=== PATIENT | male | born 1945 | race Caucasian/White ===

== ENCOUNTER 2019-08-20 11:48 | Inpatient (IN) | payer MEDICARE ==
--- NOTE | 2019-08-20 12:48 | ERPHSYRPT ---
- History of Present Illness Time Seen by Provider: 08/20/19 11:51 Source: patient Exam Limitations: no limitations Patient Subjective Stated Complaint: EMS was called to pt's house due to pt not feeling well, pt states that he doesn't know what he is doing here and can't remember anything, pt states that the doesn't remember going to bed last night or waking up, EMS stated that his said that he had spent most of yesterday on the floor and she was unable to get him up Triage Nursing Assessment: Pt brought to the ER by EMS, pt confused, A&O to person and date of only, pt unable to answer any health related questions, called step daughter and was advised that he has dementia that has steadily been getting worse over the past year, pt is scheduled for a brain scan on Sunday with Dr. Pond, step-daughter said that the pt not being able to answer questions is acute today, while going to the restroom yesterday the pt went limp and fell several times and took a long time getting himself up before making it to the restroom, pt is extremely weak, ring worm at the bottom of the right leg, mild edema to alexander extremeties, skin n/w/d, unable to obtain an iv site due to poor veins, pt walks with a walker at home, pt denies pain and doesn't appear to be in any distress Physician History: Patient is here with ground-level fall yesterday, confusion, weakness. Patient is unsure what is going on, he is acutely confused. This is new. Although he does have a history of dementia, this is worse. Patient's stated that he was on the floor most of the day yesterday. History is provided by EMS and tosha abdalla's stepdaughter. Patient is unable to give any information himself today. Denies any chest pain or shortness of breath. Location: generalized Quality: weakness Radiation: none Severity: moderate Duration: 2-3 days Timing: worsening Modifying factors/associated signs and symptoms: fall at home Home Medications: Amiodarone HCl [Pacerone] 200 mg PO BID 08/20/19 [History] Amitriptyline HCl 25 mg [Elavil 25 mg] 25 mg PO HS 08/20/19 [History] Amlodipine Besylate [Norvasc] 10 mg PO DAILY 08/20/19 [History] Baclofen 10 mg [Lioresal 10 mg] 10 - 20 mg PO HS 08/20/19 [History] Clonidine HCl [Catapres] 0.2 mg PO BID 08/20/19 [History] Duloxetine HCl [Cymbalta] 60 mg PO DAILY 08/20/19 [History] Furosemide 40 mg [Lasix 40 MG] 40 mg PO BID 08/20/19 [History] Gabapentin [Neurontin] 600 mg PO BID 08/20/19 [History] Gemfibrozil 600 mg [Lopid 600 mg] 600 mg PO BID 08/20/19 [History] Hydralazine HCl 50 mg PO BID 08/20/19 [History] Levothyroxine Sodium [Levoxyl] 200 mcg PO DAILY 08/20/19 [History] Primidone [Mysoline] 250 mg PO HS 08/20/19 [History] Rivaroxaban [Xarelto] 20 mg PO DAILY 08/20/19 [History] Spironolactone 25 mg [Aldactone 25 MG] 25 mg PO DAILY 08/20/19 [History] Tamsulosin HCl 0.4 mg [Flomax 0.4 MG] 0.4 mg PO DAILY 08/20/19 [History] Tramadol HCl 50 mg [Ultram 50 mg] 50 mg PO TID PRN 08/20/19 [History] Warfarin Sodium [Coumadin] 4 mg PO DAILY 08/20/19 [History] Travel Risk - International Travel Have you traveled outside of the country in past 3 weeks: No - Coronavirus Screening Are you exhibiting any of the following symptoms?: No Close contact with a COVID-19 positive Pt in past 14-21 Days: No - Past Medical History Pertinent Past Medical History: Yes Neurological History: Dementia Cardiac History: High Cholesterol, Hypertension Respiratory History: COPD Endocrine Medical History: Hypothyroidism, Thyroid Cancer History: Other Psycho-Social History: Depression - Past Surgical History Past Surgical History: Yes Musculoskeletal: Orthopedic Surgery Other Surgical History: thyroid cancer- thyroidectomy - Social History Smoking Status: Former smoker Exposure to second hand smoke: No Drug Use: none Patient Lives Alone: No - Review of Systems Constitutional: No Fever, No Chills Eyes: No Symptoms Ears, Nose, & Throat: No Symptoms Respiratory: No Cough, No Dyspnea Cardiac: No Chest Pain, No Edema, No Syncope Abdominal/Gastrointestinal: No Abdominal Pain, No Nausea, No Vomiting, No Diarrhea Genitourinary Symptoms: No Dysuria Musculoskeletal: No Back Pain, No Neck Pain Skin: No Rash Neurological: Other (confusion), No Dizziness, No Focal Weakness, No Sensory Changes Psychological: No Symptoms Endocrine: No Symptoms All Other Systems: Reviewed and Negative - Nursing Vital Signs Nursing Vital Signs: Initial Vital Signs Temperature 98.4 F 08/20/19 11:54 Pulse Rate 87 08/20/19 11:54 Respiratory Rate 14 08/20/19 11:54 Blood Pressure 165/93 08/20/19 11:54 O2 Sat by Pulse Oximetry 93 L 08/20/19 11:54 Pain Scale Pain Intensity 0 - Physical Exam General Appearance: no apparent distress, alert Eye Exam: PERRL/EOMI Ears, Nose, Throat Exam: pharynx normal, moist mucous membranes Neck Exam: normal inspection, supple Respiratory Exam: normal breath sounds, lungs clear Cardiovascular Exam: regular rate/rhythm, No edema Gastrointestinal/Abdomen Exam: soft, No tenderness Back Exam: normal inspection, No CVA tenderness Extremity Exam: normal inspection, normal range of motion, No pedal edema Neurologic Exam: alert, cooperative, sensation nml, other (moving all 4 extremities, confused on questioning ), No motor deficits Skin Exam: normal color, warm, dry, No rash SpO2: 93 - Course Nursing assessment & vital signs reviewed: Yes EKG Interpreted by Me: RATE Ordered Tests: Active Orders 24 hr Category Date Time Status Bedrest with BRP/BSC ROUTINE Activity 08/20/19 14:27 Ordered Call Admit Doctor for Orders ON ADMISSION Care 08/20/19 14:25 Ordered Geoscience Laboratory Technician STAT Care 08/20/19 12:14 Active Code Status Order ROUTINE Care 08/20/19 14:24 Ordered Code Status Order ROUTINE Care 08/20/19 14:27 Ordered EKG-ER Only STAT Care 08/20/19 12:12 Active IV Care Q6H Care 08/20/19 14:24 Ordered IV Care Q6H Care 08/20/19 14:27 Ordered IV Insertion STAT Care 08/20/19 12:12 Active Implement Chest Pain Pathway ROUTINE Care 08/20/19 14:[address] in Observation ROUTINE Care 08/20/19 14:24 Ordered Kahlil Powell, Apply ROUTINE Care 08/20/19 14:27 Ordered Weight,Daily 0600 Care 08/20/19 14:27 Ordered Heart-Healthy Diet Diet 08/20/19 Breakfast Ordered CHEST 2 VIEWS (PA AND LAT) Stat Exams 08/20/19 12:13 Completed HEAD WITHOUT CONTRAST [CT] Stat Exams 08/20/19 12:14 Completed BLOOD CULTURE Stat Lab 08/20/19 13:00 Received CBC W DIFF AM.LAB Lab 08/21/19 04:00 Ordered CBC W DIFF Stat Lab 08/20/19 13:00 Completed CMP AM.LAB Lab 08/21/19 04:00 Ordered CMP Stat Lab 08/20/19 12:20 Completed CULTURE,URINE Stat Lab 08/20/19 13:44 Ordered ETHYL ALCOHOL Stat Lab 08/20/19 12:20 Completed LIPASE Stat Lab 08/20/19 12:20 Completed LIPID PROFILE AM.LAB Lab 08/21/19 04:00 Ordered Lactic Acid AM.LAB Lab 08/21/19 04:00 Ordered Lactic Acid Stat Lab 08/20/19 13:07 Completed NT PRO BNP Stat Lab 08/20/19 12:20 Completed PROTIME WITH INR Stat Lab 08/20/19 13:00 Completed PTT Stat Lab 08/20/19 13:00 Completed TROPONIN Q3H Lab 08/20/19 13:00 Completed TROPONIN Q3H Lab 08/20/19 15:15 Ordered TROPONIN Q3H Lab 08/20/19 18:15 Ordered TROPONIN Q3H Lab 08/20/19 21:15 Ordered TROPONIN Q3H Lab 08/21/19 00:15 Ordered UA W/RFX UR CULTURE Stat Lab 08/20/19 13:44 Completed VENOUS BLOOD GAS AM.LAB Lab 08/21/19 04:00 Ordered EKG Q8HX2,QAMX3,PRN RT 08/20/19 14:27 Ordered Pulse Oximetry CONTINUOUS RT 08/20/19 14:25 Ordered Medication Summary Generic Name Dose Route Start Last Admin Trade Name Freq PRN Reason Stop Dose Admin Sodium Chloride 1,000 mls @ 100 mls/hr 08/20/19 14:30 Sodium Chloride 0.9% 1000 Ml IV 09/19/19 14:29 .Q10H [facility] Azithromycin 500 mg in 250 mls @ 250 mls/hr 08/21/19 10:00 Zithromax 500 Mg/ 250 Ml Nacl Premix IV 09/20/19 09:59 Q24H10 [facility] Ceftriaxone Sodium/Dextrose 1 g in 50 mls @ 100 mls/hr 08/21/19 10:00 Rocephin 1 Gm-D5w 50 Ml Bag IV 09/20/19 09:59 Q24H10 [facility] Lab/Rad Data: Laboratory Result Diagrams 08/20/19 13:00 08/20/19 12:20 Laboratory Results 08/20/19 08/20/19 08/20/19 Range/Units 13:44 13:07 13:00 WBC (4.0-10.5) K/mm3 RBC (4.1-5.6) M/mm3 Hgb (12.5-18.0) gm/dl Hct (42-50) % MCV (78-100) fl MCH (26-32) pg MCHC (32-36) g/dl RDW (11.5-14.0) % Plt Count (150-450) K/mm3 MPV (7.5-11.0) fl Gran % (36.0-66.0) % Eos # (Auto) (0-0.5) Absolute Lymphs (auto) (1.0-4.6) Absolute Monos (auto) (0.0-1.3) Lymphocytes % (24.0-44.0) % Monocytes % (0.0-12.0) % Eosinophils % (0.00-5.0) % Basophils % (0.0-0.4) % Absolute Granulocytes (1.4-6.9) Basophils # (0-0.4) PT (8.83-12.87) SECONDS INR (0.8-3.0) APTT (24.1-36.1) SECONDS Sodium (137-145) mmol/L Potassium (3.5-5.1) mmol/L Chloride (98-107) mmol/L Carbon Dioxide (22-30) mmol/L Anion Gap (5-15) MEQ/L BUN (9-20) mg/dL Creatinine (0.66-1.25) mg/dL Estimated GFR ML/MIN Glucose (74-106) mg/dL Lactic Acid 1.3 (0.4-2.0) Calcium (8.4-10.2) mg/dL Total Bilirubin (0.2-1.3) mg/dL AST (17-59) U/L ALT (0-50) U/L Alkaline Phosphatase (38-126) U/L Troponin I 0.037 H* (0.000-0.034) ng/mL NT-Pro-B Natriuret Pep (0-900) pg/mL Serum Total Protein (6.3-8.2) g/dL Albumin (3.5-5.0) g/dL Lipase (23-300) U/L Urine Color YELLOW (YELLOW) Urine Appearance SLIGHTLY CLOUDY (CLEAR) Urine pH 6.0 (5-6) Ur Specific Partridge 1.017 (1.005-1.025) Urine Protein 100 (Negative) Urine Ketones TRACE (NEGATIVE) Urine Blood MODERATE (0-5) Andrey/ul Urine Nitrite NEGATIVE (NEGATIVE) Urine Bilirubin NEGATIVE (NEGATIVE) Urine Urobilinogen NEGATIVE (0-1) mg/dL Ur Leukocyte Esterase NEGATIVE (NEGATIVE) Urine WBC (Auto) 3-5 (0-5) /HPF Urine RBC (Auto) 26-50 (0-2) /HPF U Hyaline Cast (Auto) 0-2 (0-2) /LPF U Epithel Cells (Auto) RARE (FEW) /HPF Urine Bacteria (Auto) RARE (NEGATIVE) /HPF Urine Mucus (Auto) SLIGHT (NEGATIVE) /HPF Urine Culture Reflexed ORDERED SEPARATELY (NO) Urine Glucose NEGATIVE (NEGATIVE) mg/dL Ethyl Alcohol (0-10) mg/dL 08/20/19 08/20/19 08/20/19 Range/Units 13:00 13:00 12:20 WBC 18.9 H (4.0-10.5) K/mm3 RBC 4.37 (4.1-5.6) M/mm3 Hgb 13.4 (12.5-18.0) gm/dl Hct 42.2 (42-50) % MCV 96.6 (78-100) fl MCH 30.7 (26-32) pg MCHC 31.8 L (32-36) g/dl RDW 14.5 H (11.5-14.0) % Plt Count 283 (150-450) K/mm3 MPV 9.5 (7.5-11.0) fl Gran % 90.9 H (36.0-66.0) % Eos # (Auto) 0.09 (0-0.5) Absolute Lymphs (auto) 1.06 (1.0-4.6) Absolute Monos (auto) 0.53 (0.0-1.3) Lymphocytes % 5.6 L (24.0-44.0) % Monocytes % 2.8 (0.0-12.0) % Eosinophils % 0.5 (0.00-5.0) % Basophils % 0.2 (0.0-0.4) % Absolute Granulocytes 17.14 H (1.4-6.9) Basophils # 0.04 (0-0.4) PT 14.5 H (8.83-12.87) SECONDS INR 1.28 (0.8-3.0) APTT 45.7 H (24.1-36.1) SECONDS Sodium 145 (137-145) mmol/L Potassium 3.7 (3.5-5.1) mmol/L Chloride 103 (98-107) mmol/L Carbon Dioxide 33 H (22-30) mmol/L Anion Gap 13.3 (5-15) MEQ/L BUN 23 H (9-20) mg/dL Creatinine 1.43 H (0.66-1.25) mg/dL Estimated GFR 51.5 ML/MIN Glucose 131 H (74-106) mg/dL Lactic Acid (0.4-2.0) Calcium 9.3 (8.4-10.2) mg/dL Total Bilirubin 0.90 (0.2-1.3) mg/dL AST 42 (17-59) U/L ALT 20 (0-50) U/L Alkaline Phosphatase 195 H (38-126) U/L Troponin I (0.000-0.034) ng/mL NT-Pro-B Natriuret Pep 639 (0-900) pg/mL Serum Total Protein 8.3 H (6.3-8.2) g/dL Albumin 4.5 (3.5-5.0) g/dL Lipase 40 (23-300) U/L Urine Color (YELLOW) Urine Appearance (CLEAR) Urine pH (5-6) Ur Specific Partridge (1.005-1.025) Urine Protein (Negative) Urine Ketones (NEGATIVE) Urine Blood (0-5) Andrey/ul Urine Nitrite (NEGATIVE) Urine Bilirubin (NEGATIVE) Urine Urobilinogen (0-1) mg/dL Ur Leukocyte Esterase (NEGATIVE) Urine WBC (Auto) (0-5) /HPF Urine RBC (Auto) (0-2) /HPF U Hyaline Cast (Auto) (0-2) /LPF U Epithel Cells (Auto) (FEW) /HPF Urine Bacteria (Auto) (NEGATIVE) /HPF Urine Mucus (Auto) (NEGATIVE) /HPF Urine Culture Reflexed (NO) Urine Glucose (NEGATIVE) mg/dL Ethyl Alcohol < 10 (0-10) mg/dL - Progress Progress: improved Progress Note: 08/20/19 12:48 We'll obtain basic labs, fluids, EKG, troponin, chest x-ray - head CT - EKG shows no ST changes - my read. See full read below. - O2 saturations consistently greater than 95% on home 2L - CXR shows no pneumonia, pneumothorax - my read 08/20/19 14:[address] shows no obvious brain bleed. Patient will be given aspirin. Troponin is slightly elevated at 0.037. This may represent a true NSTMEI for elevation due to secondary cause including dehydration, prolonged downtime, infection. Therefore, we will trend this out before starting heparin or Lovenox as patient is already on anticoagulation. I did discuss this over the phone with on-call family medicine doctor, Dr. Robbins. He agreed with the plan. He agreed to admission. Patient most likely has infection given leukocytosis, confusion. Will do broad-spectrum antibiotics, Rocephin, azithromycin, fluids. We will continue to monitor closely as an inpatient with EKGs, troponin, telemetry. Further inpatient care per Dr. Robbins. At this point time patient will be admitted in stable condition to the floor. ED critical care statement As staff physician, I have provided critical care. Time: 45 Criteria for critical illness: Elevated troponin, infection Treatment and management provided include: Coordination of management with ETC care team, consultants, and inpatient care team. [id number] assessment of condition and response to therapy. Review and interpretation of emergent diagnostic testing. Medical chart review and completion. Direction and immediate supervision of the following therapy: Critical care was time spent personally by me on the following activities: blood draw for specimens, development of treatment plan with patient or surrogate, discussions with consultants, discussions with primary provider, interpretation of cardiac output measurements, evaluation of patient's response to treatment, examination of patient, obtaining history from patient or surrogate, ordering and performing treatments and interventions, ordering and review of laboratory studies, ordering and review of radiographic studies, pulse oximetry, re-evaluation of patient's condition and review of old charts. This time was independent of all procedures performed. Aleks Hutson Discussed with : Wili Will see patient in: hospital (observation) Counseled pt/family regarding: lab results, diagnosis, rad results - Departure Departure Disposition: Observation Clinical Impression: Confusion, Elevated troponin Condition: Stable Critical Care Time: Yes Critical Care Time(excluding separately billable procedures): Critical 30-74 mins Referrals: KIMBERLI CERVANTES MD [Primary Care Provider] - Instructions: Dementia (DC)
--- NOTE | 2019-08-20 12:51 | XRAY ---
Indication: Status post fall. Multiple contiguous axial images obtained through the head without contrast. Comparison: None Age-appropriate global atrophy and minimal periventricular degenerative micro-ischemia bilaterally. No acute intracranial hemorrhage, abnormal extra-axial fluid collection, or mass effect. Fourth ventricle is midline without hydrocephalus. Bony calvarium intact. Visualized paranasal sinuses and mastoid air cells are clear. Impression: Nonacute senile brain.
--- NOTE | 2019-08-20 13:09 | XRAY ---
Indication: Short of breath. Pneumonia. Comparison: None AP/lateral chest hyperinflated with minimal left base fibrosis/scarring. Lateral view limited by respiration artifact. No focal infiltrate, consolidation, or large effusion. Heart is not enlarged for AP technique. Bony thorax intact with mild osteopenia, degenerative changes, 2 left humeral head orthopedic screws, and surgical clips base of neck. Impression: Nonacute hyperinflated chest with chronic features.
[2019-08-20 13:13] LABS: Absolute Neutrophil Ct (ANC) 17.14 (1.4-6.9); BASOPHIL % 0.2 % (0.0-0.4); Basophil (Absolute #) 0.04 (0-0.4); Eosinophil % 0.5 % (0.00-5.0); Eosinophil (Absolute #) 0.09 (0-0.5); Hematocrit 42.2 % (42-50); Hemoglobin 13.4 gm/dl (12.5-18.0); Lymphocyte (Absolute #) 1.06 (1.0-4.6); Lymphocytes % 5.6 % (24.0-44.0); Mean Cell Volume 96.6 fl (78-100); Mean Corpuscular Hemoglobin 30.7 pg (26-32); Mean Corpuscular Hgb Concent. 31.8 g/dl (32-36); Mean Platelet Volume 9.5 fl (7.5-11.0); Monocyte (Absolute #) 0.53 (0.0-1.3); Monocytes % 2.8 % (0.0-12.0); Neutrophil % 90.9 % (36.0-66.0); Platelet Count 283 K/mm3 (150-450); Red Blood Count 4.37 M/mm3 (4.1-5.6); Red Cell Distribution Width 14.5 % (11.5-14.0); White Blood Count 18.9 K/mm3 (4.0-10.5)
[2019-08-20 13:19] LABS: INR 1.28 (0.8-3.0); PROTIME 14.5 SECONDS (8.83-12.87)
[2019-08-20 13:22] LABS: PTT 45.7 SECONDS (24.1-36.1)
[2019-08-20 13:34] LABS: ALBUMIN 4.5 g/dL (3.5-5.0); ALKALINE PHOSPHATASE 195 U/L (38-126); ANION GAP 13.3 MEQ/L (5-15); BLOOD UREA NITROGEN 23 mg/dL (9-20); CHLORIDE 103 mmol/L (98-107); Calcium 9.3 mg/dL (8.4-10.2); Carbon Dioxide 33 mmol/L (22-30); Creatinine 1 1.43 mg/dL (0.66-1.25); Glucose 131 mg/dL (74-106); LIPASE 40 U/L (23-300); NT PRO BNP 639 pg/mL (0-900); Potassium 3.7 mmol/L (3.5-5.1); SGOT/AST 42 U/L (17-59); SGPT/ALT 20 U/L (0-50); SODIUM 145 mmol/L (137-145); Total Protein 8.3 g/dL (6.3-8.2)
[2019-08-20 13:35] LABS: ETHYL ALCOHOL < 10 mg/dL (0-10)
[2019-08-20 13:57] LABS: Appearance SLIGHTLY CLOUDY (CLEAR); Bacteria RARE /HPF (NEGATIVE); Bilirubin NEGATIVE (NEGATIVE); Blood MODERATE Ery/ul (0-5); Epithelial Cells RARE /HPF (FEW); Glucose NEGATIVE (NEGATIVE); Hyaline Casts 0-2 /LPF (0-2); Ketones TRACE (NEGATIVE); Leukocyte Esterase NEGATIVE (NEGATIVE); Mucus SLIGHT /HPF (NEGATIVE); Nitrite NEGATIVE (NEGATIVE); Protein,Urine Dip 100 (Negative); RBC 26-50 /HPF (0-2); Specific Gravity 1.017 (1.005-1.025); Urobilinogen NEGATIVE mg/dL (0-1)
[2019-08-20] MEDS ORDERED: Zofran 4 MG/2 ML VIAL IV PRN (14:27)
[2019-08-20] MEDS ORDERED: MILK OF MAGNESIA 30 ML PO PRN (14:27)
[2019-08-20] MEDS ORDERED: Senokot-S Tablet PO PRN (14:27)
[2019-08-20] MEDS ORDERED: MAALOX ES 30 ML UNIT DOSE PO PRN (14:27)
[2019-08-20] MEDS ORDERED: BABY ASPIRIN 81 MG CHEW PO ONE (14:32)
[2019-08-20] MEDS ORDERED: XYLOCAINE 1% HCL 20 ML MDV ONE (15:40)
[2019-08-20] MEDS ORDERED: XYLOCAINE 1% HCL 20 ML MDV IJ ONE (15:47)
[2019-08-20] MEDS ORDERED: Zithromax 500 MG/ 250 ML NaCl Premix 500 MG/250 ML IVPB IV SCH (16:00)
[2019-08-20] MEDS ORDERED: ROCEPHIN 1 Gm-D5w 50 ml Bag** 1 G/50 ML IVPB IV SCH (16:00)
[2019-08-20] MEDS: Sodium Chloride 0.9% 1000 ML 1,000 ML IV SCH (17:03)
[2019-08-20] MEDS ORDERED: ULTRAM 50 MG PO PRN (18:25)
[2019-08-20] MEDS: LOPID 600 MG PO SCH (21:24)
[2019-08-20] MEDS: TYLENOL 325 MG PO PRN (21:24)
[2019-08-20] MEDS: Apresoline 25 MG TABLET PO SCH (21:25)
[2019-08-20] MEDS: MYSOLINE 50MG PO SCH (21:26)
[2019-08-20] MEDS: ELAVIL 25 MG PO SCH (21:27)
[2019-08-20] MEDS: LIORESAL 10 MG PO SCH (21:27)
[2019-08-20] MEDS: Catapres 0.1 MG PO SCH (21:29)
[2019-08-20] MEDS: Cordarone 200 MG PO SCH (21:29)
[2019-08-20] MEDS: NEURONTIN 300 MG PO SCH (21:29)
[2019-08-20] MEDS ORDERED: Neurontin 400 MG PO SCH (22:00)
[2019-08-21] MEDS: solu-MEDROL 125 MG IV SCH ×4 (00:26→17:52)
[2019-08-21] MEDS: Sodium Chloride 0.9% 1000 ML 1,000 ML IV SCH (04:25)
[2019-08-21 05:12] LABS: Absolute Neutrophil Ct (ANC) 11.87 (1.4-6.9); BASOPHIL % 0.3 % (0.0-0.4); Basophil (Absolute #) 0.04 (0-0.4); Eosinophil % 0.5 % (0.00-5.0); Eosinophil (Absolute #) 0.06 (0-0.5); Hematocrit 37.2 % (42-50); Hemoglobin 11.7 gm/dl (12.5-18.0); Lymphocyte (Absolute #) 0.57 (1.0-4.6); Lymphocytes % 4.5 % (24.0-44.0); Mean Cell Volume 97.4 fl (78-100); Mean Corpuscular Hemoglobin 30.6 pg (26-32); Mean Corpuscular Hgb Concent. 31.5 g/dl (32-36); Mean Platelet Volume 9.5 fl (7.5-11.0); Monocyte (Absolute #) 0.11 (0.0-1.3); Monocytes % 0.9 % (0.0-12.0); Neutrophil % 93.8 % (36.0-66.0); Platelet Count 257 K/mm3 (150-450); Red Blood Count 3.82 M/mm3 (4.1-5.6); Red Cell Distribution Width 14.4 % (11.5-14.0); White Blood Count 12.7 K/mm3 (4.0-10.5)
[2019-08-21 05:32] LABS: ALKALINE PHOSPHATASE 165 U/L (38-126); ANION GAP 12.6 MEQ/L (5-15); BLOOD UREA NITROGEN 20 mg/dL (9-20); CHLORIDE 103 mmol/L (98-107); Calcium 8.4 mg/dL (8.4-10.2); Carbon Dioxide 26 mmol/L (22-30); Glucose 186 mg/dL (74-106); Potassium 3.3 mmol/L (3.5-5.1); SGOT/AST 36 U/L (17-59); SGPT/ALT 19 U/L (0-50); SODIUM 139 mmol/L (137-145); Total Protein 7.4 g/dL (6.3-8.2)
[2019-08-21 05:53] LABS: Slide Review 1 YES
[2019-08-21 06:17] LABS: VBG BASE EXCESS 4.1 (-2.0-2.0); VBG HCO3- 27.7 meq/L (22-28); VBG pH 7.49 (7.32-7.42)
[2019-08-21 06:18] LABS: VBG CARBOXYHEMOGLOBIN 2.3 % T HGB (0.0-6.9); VBG O2 SATURATION 94.7 (95-100); VBG POTASSIUM 3.6 (3.5-5.1)
[2019-08-21 06:19] LABS: Lactic Acid 0.6 (0.4-2.0); VBG HEMOGLOBIN 11.9
--- NOTE | 2019-08-21 09:16 | XRAY ---
Indication: Covid 19. COPD. Comparison: One day earlier. Portable chest again hyperinflated with stable minimal left base fibrosis/scarring. New right base subsegmental atelectasis and tiny effusion. Remaining heart and lungs unremarkable.
[2019-08-21 09:37] LABS: Appearance CLEAR (CLEAR); Bilirubin NEGATIVE (NEGATIVE); Blood MODERATE Ery/ul (0-5); Glucose NEGATIVE (NEGATIVE); Ketones TRACE (NEGATIVE); Leukocyte Esterase NEGATIVE (NEGATIVE); Mucus SLIGHT /HPF (NEGATIVE); Nitrite NEGATIVE (NEGATIVE); Protein,Urine Dip 100 (Negative); RBC 26-50 /HPF (0-2); Urobilinogen NEGATIVE mg/dL (0-1); WBC 0-2 /HPF (0-5)
[2019-08-21] MEDS ORDERED: Sodium Chloride 0.9% 1000 ML 1,000 ML IV SCH (09:45)
[2019-08-21] MEDS ORDERED: NON-FORMULARY ITEM (Duloxetine Hcl [Cymbalta] 60 MG) PO SCH (10:00)
[2019-08-21] MEDS ORDERED: LEVOTHYROXINE SODIUM 200 MCG PO SCH (10:00)
[2019-08-21] MEDS ORDERED: NON-FORMULARY ITEM (Rivaroxaban [Xarelto] 20 MG) PO SCH (10:00)
[2019-08-21] MEDS ORDERED: NON-FORMULARY ITEM (Amlodipine Besylate [Norvasc] 10 MG) PO SCH (10:00)
[2019-08-21] MEDS: Apresoline 25 MG TABLET PO SCH ×2 (10:32→21:28)
[2019-08-21] MEDS: Lasix 40 MG PO SCH ×2 (10:33→16:35)
[2019-08-21] MEDS: Cymbalta 30 MG Capsule PO SCH (10:33)
[2019-08-21] MEDS: NEURONTIN 300 MG PO SCH ×2 (10:34→21:28)
[2019-08-21] MEDS: Flomax 0.4 MG PO SCH (10:34)
[2019-08-21] MEDS: SYNTHROID 100 MCG PO SCH (10:34)
[2019-08-21] MEDS: Aldactone 25 MG PO SCH (10:35)
[2019-08-21] MEDS: Cordarone 200 MG PO SCH ×2 (10:35→21:28)
[2019-08-21] MEDS: Catapres 0.1 MG PO SCH ×2 (10:35→21:29)
[2019-08-21] MEDS: Levofloxacin 500MG/100ML D5W 500 MG/100 ML BAG IV SCH (10:36)
[2019-08-21] MEDS: LOPID 600 MG PO SCH ×2 (10:37→21:28)
[2019-08-21] MEDS: NORVASC 5 MG PO SCH (10:38)
[2019-08-21] MEDS: XARELTO 10 MG TABLET PO SCH (10:38)
[2019-08-21] MEDS: Lotrisone Cream TOP SCH (10:53)
[2019-08-21 15:53] LABS: Appearance CLEAR (CLEAR); Bilirubin NEGATIVE (NEGATIVE); Blood SMALL Ery/ul (0-5); Glucose >=500 mg/dL (NEGATIVE); Ketones NEGATIVE (NEGATIVE); Leukocyte Esterase NEGATIVE (NEGATIVE); Nitrite NEGATIVE (NEGATIVE); Protein,Urine Dip NEGATIVE (Negative); Specific Gravity 1.016 (1.005-1.025); Urobilinogen NEGATIVE mg/dL (0-1)
[2019-08-21] MEDS: TYLENOL 325 MG PO PRN (16:35)
[2019-08-21] MEDS: HYTRIN 1 MG PO SCH (16:35)
[2019-08-21] MEDS: LIORESAL 10 MG PO SCH (21:28)
[2019-08-21] MEDS: ELAVIL 25 MG PO SCH (21:28)
[2019-08-21] MEDS: MYSOLINE 50MG PO SCH (21:28)
[2019-08-22] MEDS: solu-MEDROL 125 MG IV SCH ×5 (00:44→23:40)
[2019-08-22] MEDS: Cordarone 200 MG PO SCH ×2 (09:47→21:17)
[2019-08-22] MEDS: Levofloxacin 500MG/100ML D5W 500 MG/100 ML BAG IV SCH (09:47)
[2019-08-22] MEDS: SYNTHROID 100 MCG PO SCH (09:47)
[2019-08-22] MEDS: Catapres 0.1 MG PO SCH ×2 (09:48→21:17)
[2019-08-22] MEDS: NORVASC 5 MG PO SCH (09:48)
[2019-08-22] MEDS: Apresoline 25 MG TABLET PO SCH ×2 (09:48→21:16)
[2019-08-22] MEDS: NEURONTIN 300 MG PO SCH ×2 (09:48→21:19)
[2019-08-22] MEDS: Flomax 0.4 MG PO SCH (09:48)
[2019-08-22] MEDS: HYTRIN 1 MG PO SCH (09:48)
[2019-08-22] MEDS: XARELTO 10 MG TABLET PO SCH (09:48)
[2019-08-22] MEDS: Aldactone 25 MG PO SCH (09:49)
[2019-08-22] MEDS: LOPID 600 MG PO SCH ×2 (09:49→21:18)
[2019-08-22] MEDS: Lotrisone Cream TOP SCH (09:49)
[2019-08-22] MEDS: Lasix 40 MG PO SCH ×2 (09:49→17:00)
[2019-08-22] MEDS: Cymbalta 30 MG Capsule PO SCH (09:49)
[2019-08-22 10:42] LABS: Hematocrit 33.6 % (42-50); Hemoglobin 10.7 gm/dl (12.5-18.0); Mean Cell Volume 96.3 fl (78-100); Mean Corpuscular Hemoglobin 30.7 pg (26-32); Mean Corpuscular Hgb Concent. 31.8 g/dl (32-36); Mean Platelet Volume 10.5 fl (7.5-11.0); Platelet Count 244 K/mm3 (150-450); Red Blood Count 3.49 M/mm3 (4.1-5.6); Red Cell Distribution Width 13.8 % (11.5-14.0); White Blood Count 7.5 K/mm3 (4.0-10.5)
[2019-08-22] MEDS ORDERED: Sodium Chloride 0.9% 1000 ML 1,000 ML IV SCH (13:30)
[2019-08-22] MEDS: LIORESAL 10 MG PO SCH (21:17)
[2019-08-22] MEDS: ELAVIL 25 MG PO SCH (21:17)
[2019-08-22] MEDS: MYSOLINE 50MG PO SCH (21:18)
[2019-08-23] MEDS: solu-MEDROL 125 MG IV SCH ×2 (05:22→11:35)
[2019-08-23 08:11] VITALS: BP 157/80
[2019-08-23] MEDS ORDERED: Levofloxacin 250MG Tablet PO SCH (10:00)
[2019-08-23 10:01] VITALS: PULSE 78; O2SAT 95
[2019-08-23] MEDS: Lotrisone Cream TOP SCH (11:01)
[2019-08-23] MEDS: LOPID 600 MG PO SCH (11:01)
[2019-08-23] MEDS: HYTRIN 1 MG PO SCH (11:02)
[2019-08-23] MEDS: NEURONTIN 300 MG PO SCH (11:02)
[2019-08-23] MEDS: SYNTHROID 100 MCG PO SCH (11:02)
[2019-08-23] MEDS: Cordarone 200 MG PO SCH (11:03)
[2019-08-23] MEDS: NORVASC 5 MG PO SCH (11:03)
[2019-08-23] MEDS: Cymbalta 30 MG Capsule PO SCH (11:03)
[2019-08-23] MEDS: Aldactone 25 MG PO SCH (11:03)
[2019-08-23] MEDS: Apresoline 25 MG TABLET PO SCH (11:03)
[2019-08-23] MEDS: Flomax 0.4 MG PO SCH (11:03)
[2019-08-23] MEDS: Lasix 40 MG PO SCH (11:03)
[2019-08-23] MEDS: Catapres 0.1 MG PO SCH (11:03)
[2019-08-23] MEDS: XARELTO 10 MG TABLET PO SCH (11:06)
--- NOTE | 2019-09-04 11:29 | SSS ---
ADMISSION DIAGNOSES: 1) Pneumonia. 2) Weakness. 3) History of hypertension. 4) Benign prostatic hypertrophy. DISCHARGE DIAGNOSES: 1) POSITIVE BLOOD CULTURES. 2) BENIGN PROSTATIC HYPERTROPHY WITH URINARY RETENTION. 3) PERIPHERAL NEUROPATHY. 4) HYPOTHYROIDISM. 5) SEIZURE DISORDER. 6) HISTORY OF PULMONARY EMBOLI. HISTORY: The patient was at home when he started feeling pretty bad, had trouble urinating, sweaty, fever, chills, some chest pain. No history of coronary artery disease. The chest pain was dull, central, nonradiating and went away before he got back to the floor. He was not doing anything unusual although he had been outside in the heat. MEDICATIONS: Furosemide 40 b.i.d. for congestive heart failure. Cymbalta 60 q.d. for neuropathy. Norvasc 10 q.d., clonidine 0.2 b.i.d., Pacerone 200 b.i.d., tramadol 50 t.i.d. as needed for neuropathy. Spironolactone 25 q.d., gemfibrozil 600 q.d., Xarelto 20 mg q.d., Haldol 25 mg h.s. ALLERGIES: MORPHINE. PAST MEDICAL HISTORY: As mentioned above. 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 He used to smoke and still does occasionally. 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 He states he has chronic obstructive pulmonary disease, asthma, history of pneumonia in the past. He lives with a step-daughter. He denies drinking. States he has not smoked for a year or two. REVIEW OF SYSTEMS: HEENT: Hard of hearing. CHEST: Shortness of breath on exertion. CVS: History of coronary artery disease, congestive heart failure. ABDOMEN: No nausea or vomiting. : The patient states he cannot urinate. EXTREMITIES: Weakness of the legs, burning of the legs. PHYSICAL EXAMINATION: Appropriately aged 74 year old white male in no acute distress. HEENT: Pupils equal and reactive to light. Decreased hearing. NECK: Supple without adenopathy. CHEST: Clear. CVS: Distant and regular. ABDOMEN: Tender over the bladder. No organomegaly otherwise. EXTREMITIES: Decreased pulses. IMPRESSION: 1) The patient has benign prostatic hypertrophy with inability to urinate. 2) Elevated white count. PLAN: The patient will have a Ventura catheter on. Start him with Levaquin for prostatitis probably. His troponins are mildly elevated at 0.041 and came down to 0.035. HOSPITAL COURSE: After the catheter was placed the patient felt well and was started on some Hytrin. The next day we were able to take out the catheter and he was able to void. He wanted to go home. PLAN: The patient will be discharged on his home medicines, Levaquin 250 q.d. for seven days, Flomax 0.4 q.d. Isolate until report of his COVID test. Return to the emergency room if he cannot urinate, has chest pain or spikes fever. PROGNOSIS: Good.
== END 2019-08-23 11:43 | disposition home or self-care (01) | DRG 872 ==
LOC: ED 11:48 → MED SURG 15:40 → OBSVTOIN 23:16 → MED SURG 08-21 00:55
PROVIDERS: ADMIT Family Medicine; ATTEND Family Medicine
DX: R78.81 Bacteremia (principal); R53.1 Weakness; R41.0 Disorientation, unspecified; J44.9 Chronic obstructive pulmonary disease, unspecified; I10 Essential (primary) hypertension; E78.00 Pure hypercholesterolemia, unspecified; N40.0 Benign prostatic hyperplasia without lower urinary tract symptoms; R33.9 Retention of urine, unspecified; G62.9 Polyneuropathy, unspecified; E03.9 Hypothyroidism, unspecified; G40.909 Epilepsy, unspecified, not intractable, without status epilepticus; Z85.850 Personal history of malignant neoplasm of thyroid; Z79.01 Long term (current) use of anticoagulants; Z79.899 Other long term (current) drug therapy; Z86.711 Personal history of pulmonary embolism
CPT/HCPCS: 36415; 70450; 71045; 80053; 80061; 81001; 82805; 83605; 83690; 83721; 83880; 84484; 85025; 85027; 85610; 85730; 87040; 87086; 93005; 93041; 93268; 94762; 99291; G0480; U0003; 71046; 80307; 99284; J0456; J0696; J1956; J2930; A9270-GY

== ENCOUNTER 2020-02-27 03:22 | Emergency (ER) | payer MEDICARE ==
--- NOTE | 2020-02-27 03:50 | ERPHSYRPT ---
- History of Present Illness Time Seen by Provider: 02/27/20 03:40 Source: patient, EMS Exam Limitations: clinical condition Patient Subjective Stated Complaint: shaking all over Triage Nursing Assessment: pt arrived via [facility] with shaking all over, uncontrollably. Pt states, "I do shake sometimes but this is not normal for me". Pt is unsure how long he has been shaking like this. Pt c/o weakness. Pt also has some dementia/confusion. Pt's informed EMS that he has fallen several times in the last few days, but none yesterday (02/26/20). Physician History: This is a 74-year-old male who has history of mild dementia and confusion as well as mild tremors and shaking that is generalized. However, the patient states that he has never had this much shaking of his entire body before. He says it has been present for hours. There is been no changes medication. He is been taking his medication as prescribed. His spouse, who is not here at the facility, told EMS that he has fallen several times recently but not today. Patient denies any pain symptoms. He does not recall hitting his head. He has no known toxic exposures. Timing/Duration: hour(s) Severity: moderate Associated Symptoms: No shortness of breath, No chest pain Allergies/Adverse Reactions: morphine Allergy (Mild, Verified 02/27/20 03:37) Home Medications: Amiodarone HCl [Pacerone] 200 mg PO BID 08/20/19 [History] Amitriptyline HCl 25 mg [Elavil 25 mg] 25 mg PO HS 08/20/19 [History] Amlodipine Besylate [Norvasc] 10 mg PO DAILY 08/20/19 [History] Baclofen 10 mg [Lioresal 10 mg] 20 mg PO HS 08/20/19 [History] Clonidine HCl [Catapres] 0.2 mg PO BID 08/20/19 [History] Duloxetine HCl [Cymbalta] 60 mg PO DAILY 08/20/19 [History] Furosemide 40 mg [Lasix 40 MG] 40 mg PO BID 08/20/19 [History] Gabapentin [Neurontin] 600 mg PO BID 08/20/19 [History] Gemfibrozil 600 mg [Lopid 600 mg] 600 mg PO BID 08/20/19 [History] Hydralazine HCl 50 mg PO BID 08/20/19 [History] Levothyroxine Sodium [Levoxyl] 200 mcg PO DAILY 08/20/19 [History] Primidone [Mysoline] 250 mg PO HS 08/20/19 [History] Spironolactone 25 mg [Aldactone 25 MG] 25 mg PO DAILY 08/20/19 [History] Tamsulosin HCl 0.4 mg [Flomax 0.4 MG] 0.4 mg PO DAILY 08/20/19 [History] Albuterol Sulfate [Proair Hfa] 2 puffs IH QID 02/27/20 [History] Aspirin EC 325 mg [Ecotrin 325 MG] 325 mg PO DAILY 02/27/20 [History] Calcium Carbonate [Elemental Calcium] 600 mg PO DAILY 02/27/20 [History] Docusate Sodium [Stool Softener] 100 mg PO DAILY PRN PRN 02/27/20 [History] Donepezil HCl 10 mg PO HS 02/27/20 [History] Fluticasone/Vilanterol [Breo Ellipta 100-25 Mcg INH] 1 puff IH DAILY 02/27/20 [History] Memantine HCl 10 mg PO BID 02/27/20 [History] Metformin HCl 850 mg [Glucophage 850 MG] 850 mg PO BID 02/27/20 [History] Multivitamin [Daily Multiple Vitamin] 1 tab PO DAILY 02/27/20 [History] Potassium Chloride 10 meq PO DAILY 02/27/20 [History] Hx Tetanus, Diphtheria Vaccination/Date Given: Yes Hx Influenza Vaccination/Date Given: Yes Hx Pneumococcal Vaccination/Date Given: Yes Immunizations Up to Date: Yes Travel Risk - International Travel Have you traveled outside of the country in past 3 weeks: No - Coronavirus Screening Are you exhibiting any of the following symptoms?: No Close contact with a COVID-19 positive Pt in past 14-21 Days: No - Review of Systems Constitutional: Weakness, Other (Shaking and tremors) Eyes: No Symptoms Ears, Nose, & Throat: No Symptoms Respiratory: No Symptoms Cardiac: No Symptoms Abdominal/Gastrointestinal: No Symptoms Genitourinary Symptoms: No Symptoms Musculoskeletal: No Symptoms Skin: No Symptoms Neurological: Tremors (Generalized and worse than usual) Psychological: No Symptoms Endocrine: No Symptoms Hematologic/Lymphatic: No Symptoms Immunological/Allergic: No Symptoms All Other Systems: Reviewed and Negative - Past Medical History Pertinent Past Medical History: Yes Neurological History: Dementia ENT History: No Pertinent History Cardiac History: High Cholesterol, Hypertension Respiratory History: COPD Endocrine Medical History: Hypothyroidism, Thyroid Cancer Musculoskeletal History: No Pertinent History GI Medical History: No Pertinent History History: Other Psycho-Social History: Depression Male Reproductive Disorders: No Pertinent History - Past Surgical History Past Surgical History: Yes Neuro Surgical History: No Pertinent History Cardiac: No Pertinent History Respiratory: No Pertinent History Gastrointestinal: No Pertinent History Genitourinary: No Pertinent History Musculoskeletal: Orthopedic Surgery Male Surgical History: No Pertinent History Other Surgical History: thyroid cancer- thyroidectomy - Social History Smoking Status: Former smoker Exposure to second hand smoke: No Drug Use: none Patient Lives Alone: No - Nursing Vital Signs Nursing Vital Signs: Initial Vital Signs Temperature 97.6 F 02/27/20 03:23 Pulse Rate 70 02/27/20 03:23 Respiratory Rate 24 02/27/20 03:23 Blood Pressure 107/90 02/27/20 03:23 O2 Sat by Pulse Oximetry 97 02/27/20 03:23 Pain Scale Pain Intensity 0 - Physical Exam General Appearance: no apparent distress, alert, anxiety Eye Exam: PERRL/EOMI, eyes nml inspection Ears, Nose, Throat Exam: normal ENT inspection, dry mucous membranes Neck Exam: normal inspection, non-tender, supple, full range of motion Respiratory Exam: normal breath sounds, lungs clear, airway intact, No chest tenderness, No respiratory distress Cardiovascular Exam: regular rate/rhythm, normal heart sounds, normal peripheral pulses Gastrointestinal/Abdomen Exam: soft, normal bowel sounds, No tenderness Rectal Exam: not done Back Exam: normal inspection, normal range of motion, No CVA tenderness, No vertebral tenderness Extremity Exam: normal inspection, normal range of motion, pelvis stable Neurologic Exam: alert, oriented x 3, cooperative, other (Generalized shaking and tremors) Skin Exam: normal color, warm, dry Lymphatic Exam: No adenopathy SpO2 Interpretation: normal SpO2: 97 O2 Delivery: Room Air - Course Nursing assessment & vital signs reviewed: Yes EKG Interpreted by Me: RATE ([id number]), NORMAL AXIS, NORMAL INTERVALS, NORMAL QRS, Other (Comparison EKG is dated 08/20/2019. There is no acute ischemic changes on today's EKG.) Ordered Tests: Active Orders 24 hr Category Date Time Status Bolt Labeler STAT Care 02/27/20 03:52 Active Clean Catch Urine Specimen STAT Care 02/27/20 03:51 Active EKG-ER Only STAT Care 02/27/20 03:51 Active IV Insertion STAT Care 02/27/20 03:51 Active Pulse Oximetry (ED) STAT Care 02/27/20 03:51 Active HEAD WITHOUT CONTRAST [CT] Stat Exams 02/27/20 03:52 Taken ACETAMINOPHEN Stat Lab 02/27/20 04:10 Completed CBC W DIFF Stat Lab 02/27/20 04:10 Completed CMP Stat Lab 02/27/20 04:10 Completed ETHYL ALCOHOL Stat Lab 02/27/20 04:10 Completed Lactic Acid Stat Lab 02/27/20 04:05 Completed MAG [MAGNESIUM] Stat Lab 02/27/20 04:10 Completed Manual Differential NC Stat Lab 02/27/20 04:10 Completed SALICYLATE Stat Lab 02/27/20 04:10 Completed T4 (Thyroxine) Stat Lab 02/27/20 04:10 Completed TSH [TSH, 3RD Generation] Stat Lab 02/27/20 04:10 Completed UA W/RFX UR CULTURE Stat Lab 02/27/20 06:28 Received Urine Triage Profile Stat Lab 02/27/20 03:51 Received Medication Summary Generic Name Dose Route Start Last Admin Trade Name Freq PRN Reason Stop Dose Admin Potassium Chloride 20 meq in 100 mls @ 50 mls/hr 02/27/20 05:00 02/27/20 06:37 Potassium Chloride 20 Meq In Water 100ml IV 02/27/20 08:59 50 mls/hr Q2H CLARE Administration Discontinued Medications Generic Name Dose Route Start Last Admin Trade Name Freq PRN Reason Stop Dose Admin Diphenhydramine HCl 25 mg 02/27/20 03:55 02/27/20 04:02 Benadryl 50 Mg/Ml IV 02/27/20 03:56 25 mg STAT ONE Administration Diphenhydramine HCl Confirm 02/27/20 04:02 Benadryl 50 Mg/Ml Administered 02/27/20 04:03 Dose 50 mg .ROUTE .STK-MED ONE Diphenhydramine HCl 25 mg 02/27/20 04:55 02/27/20 05:02 Benadryl 50 Mg/Ml IV 02/27/20 04:56 25 mg STAT ONE Administration Diphenhydramine HCl Confirm 02/27/20 04:59 Benadryl 50 Mg/Ml Administered 02/27/20 05:00 Dose 50 mg .ROUTE .STK-MED ONE Potassium Chloride Confirm 02/27/20 06:35 Klor Con 10 Meq Administered 02/27/20 06:36 Dose 20 meq PO .STK-MED ONE Potassium Chloride 20 meq 02/27/20 06:37 02/27/20 06:39 Klor Con 10 Meq PO 02/27/20 06:38 20 meq STAT ONE Administration Lab/Rad Data: Laboratory Result Diagrams 02/27/20 04:10 02/27/20 04:10 Laboratory Results 02/27/20 02/27/20 02/27/20 Range/Units 04:10 04:10 04:10 WBC (4.0-10.5) K/mm3 RBC (4.1-5.6) M/mm3 Hgb (12.5-18.0) gm/dl Hct (42-50) % MCV (78-100) fl MCH (26-32) pg MCHC (32-36) g/dl RDW (11.5-14.0) % Plt Count (150-450) K/mm3 MPV (7.5-11.0) fl Segmented Neutrophils (36.-66.) % Lymphocytes (Manual) (24-44) % Monocytes (Manual) (0.0-12.0) % Eosinophils (Manual) (0.00-3.0) % Platelet Estimate (NORMAL) RBC Morphology Polychromasia Anisocytosis Microcytosis Sodium (137-145) mmol/L Potassium (3.5-5.1) mmol/L Chloride (98-107) mmol/L Carbon Dioxide (22-30) mmol/L Anion Gap (5-15) MEQ/L BUN (9-20) mg/dL Creatinine (0.66-1.25) mg/dL Estimated GFR ML/MIN Glucose (74-106) mg/dL Lactic Acid (0.4-2.0) Calcium (8.4-10.2) mg/dL Magnesium 2.0 (1.6-2.3) mg/dL Total Bilirubin (0.2-1.3) mg/dL AST (17-59) U/L ALT (0-50) U/L Alkaline Phosphatase (38-126) U/L Serum Total Protein (6.3-8.2) g/dL Albumin (3.5-5.0) g/dL Thyroxine (T4) 7.37 (5.53-10.96) ug/dL TSH 3rd Generation 8.270 H (0.47-4.68) mIU/L Salicylates (2-20) mg/dL Acetaminophen (10-30) ug/ml Ethyl Alcohol (0-10) mg/dL 02/27/20 02/27/20 02/27/20 Range/Units 04:10 04:10 04:05 WBC 5.9 (4.0-10.5) K/mm3 RBC 3.43 L (4.1-5.6) M/mm3 Hgb 10.1 L (12.5-18.0) gm/dl Hct 32.0 L (42-50) % MCV 93.3 (78-100) fl MCH 29.4 (26-32) pg MCHC 31.6 L (32-36) g/dl RDW 16.5 H (11.5-14.0) % Plt Count 298 (150-450) K/mm3 MPV 9.5 (7.5-11.0) fl Segmented Neutrophils 77 H (36.-66.) % Lymphocytes (Manual) 18 L (24-44) % Monocytes (Manual) 2 (0.0-12.0) % Eosinophils (Manual) 3 (0.00-3.0) % Platelet Estimate NORMAL (NORMAL) RBC Morphology ABNORMAL Polychromasia 2+ Anisocytosis 2+ Microcytosis 1+ Sodium 140 (137-145) mmol/L Potassium 2.9 L* (3.5-5.1) mmol/L Chloride 101 (98-107) mmol/L Carbon Dioxide 32 H (22-30) mmol/L Anion Gap 10.3 (5-15) MEQ/L BUN 31 H (9-20) mg/dL Creatinine 1.95 H (0.66-1.25) mg/dL Estimated GFR 36.0 ML/MIN Glucose 130 H (74-106) mg/dL Lactic Acid 1.6 (0.4-2.0) Calcium 8.5 (8.4-10.2) mg/dL Magnesium (1.6-2.3) mg/dL Total Bilirubin 0.40 (0.2-1.3) mg/dL AST 24 (17-59) U/L ALT 18 (0-50) U/L Alkaline Phosphatase 135 H (38-126) U/L Serum Total Protein 7.1 (6.3-8.2) g/dL Albumin 3.9 (3.5-5.0) g/dL Thyroxine (T4) (5.53-10.96) ug/dL TSH 3rd Generation (0.47-4.68) mIU/L Salicylates < 1.0 L (2-20) mg/dL Acetaminophen < 10 L (10-30) ug/ml Ethyl Alcohol < 10 (0-10) mg/dL - Progress Progress: improved, re-examined Progress Note: 02/27/20 07:04 CAT scan his head without contrast shows no acute intracranial abnormality 02/27/20 07:16 Clinically, the patient's generalized tremors have improved. Patient states that he normally has mild generalized tremors. He is at that stage on my reexaminatio n and his assessment at this time. Counseled pt/family regarding: lab results, diagnosis, need for follow-up, rad results - Departure Departure Disposition: Home Clinical Impression: Coarse tremors, Hypokalemia Condition: Stable Critical Care Time: No Referrals: KIMBERLI CERVANTES MD [Primary Care Provider] - Additional Instructions: Increase your potassium to 10 mEq orally twice a day. Call your prescribing doctor today and let them know about your symptoms and to have them review your medication list looking for adverse drug interactions. Proceed to the hospital lab on Sunday, February 29, 2020 to obtain a repeat potassium level. Call your doctor on Sunday, March 01, 2020 to obtain your potassium level result. Return to the emergency department if your symptoms worsen
[2020-02-27] MEDS ORDERED: BENADRYL 50 MG/ML IV ONE ×2 (03:55→04:55)
[2020-02-27] MEDS ORDERED: BENADRYL 50 MG/ML ONE ×2 (04:02→04:59)
[2020-02-27 04:26] LABS: Hemoglobin 10.1 gm/dl (12.5-18.0); Mean Cell Volume 93.3 fl (78-100); Mean Corpuscular Hemoglobin 29.4 pg (26-32); Mean Corpuscular Hgb Concent. 31.6 g/dl (32-36); Mean Platelet Volume 9.5 fl (7.5-11.0); Platelet Count 298 K/mm3 (150-450); Red Blood Count 3.43 M/mm3 (4.1-5.6); Red Cell Distribution Width 16.5 % (11.5-14.0); White Blood Count 5.9 K/mm3 (4.0-10.5)
[2020-02-27 04:28] LABS: ACETAMINOPHEN < 10 ug/ml (10-30); ALBUMIN 3.9 g/dL (3.5-5.0); ALKALINE PHOSPHATASE 135 U/L (38-126); ANION GAP 10.3 MEQ/L (5-15); BLOOD UREA NITROGEN 31 mg/dL (9-20); CHLORIDE 101 mmol/L (98-107); Calcium 8.5 mg/dL (8.4-10.2); Carbon Dioxide 32 mmol/L (22-30); Creatinine 1 1.95 mg/dL (0.66-1.25); ETHYL ALCOHOL < 10 mg/dL (0-10); Glucose 130 mg/dL (74-106); SALICYLATE < 1.0 mg/dL (2-20); SGOT/AST 24 U/L (17-59); SGPT/ALT 18 U/L (0-50); SODIUM 140 mmol/L (137-145); Total Protein 7.1 g/dL (6.3-8.2)
[2020-02-27 04:33] LABS: Potassium 2.9 mmol/L (3.5-5.1)
[2020-02-27] MEDS ORDERED: POTASSIUM CHLORIDE 20 mEq IN WATER 100ML 100 ML IV ONE ×2 (04:59→06:35)
[2020-02-27] MEDS: POTASSIUM CHLORIDE 20 mEq IN WATER 100ML 20 MEQ/100 ML BAG IV SCH ×2 (05:02→06:37)
[2020-02-27 05:24] LABS: Eosinophil 3 % (0.00-3.0); Lymphocytes 18 % (24-44); Monocyte 2 % (0.0-12.0); Neutrophils 77 % (36.-66.); Total Cells Counted 100
[2020-02-27 05:25] LABS: Platelet Estimate NORMAL (NORMAL)
[2020-02-27 05:26] LABS: ANISOCYTOSIS 2+; Polychromasia 2+
[2020-02-27 05:27] LABS: Microcytosis 1+
[2020-02-27 06:33] VITALS: PULSE 72
[2020-02-27] MEDS ORDERED: Klor Con 10 MEQ PO ONE ×2 (06:35→06:37)
[2020-02-27 07:17] LABS: Amphetamine,Urine NEGATIVE (NEGATIVE); Barbiturate,Urine POSITIVE (NEGATIVE); Benzodiazepine,Urine NEGATIVE (NEGATIVE); Cocaine,Urine NEGATIVE (NEGATIVE); Methadone,Urine NEGATIVE (NEGATIVE); Opiate,Urine NEGATIVE (NEGATIVE); PCP,Urine NEGATIVE (NEGATIVE); THC,Urine POSITIVE (NEGATIVE)
[2020-02-27 07:17] LABS: Appearance CLEAR (CLEAR); Bilirubin NEGATIVE (NEGATIVE); Blood NEGATIVE Ery/ul (0-5); Glucose NEGATIVE (NEGATIVE); Ketones NEGATIVE (NEGATIVE); Leukocyte Esterase NEGATIVE (NEGATIVE); Mucus SLIGHT /HPF (NEGATIVE); Nitrite NEGATIVE (NEGATIVE); Protein,Urine Dip NEGATIVE (Negative); Specific Gravity 1.013 (1.005-1.025); Urobilinogen NEGATIVE mg/dL (0-1); WBC 0-2 /HPF (0-5)
[2020-02-27 08:48] VITALS: O2SAT 98
--- NOTE | 2020-02-27 09:00 | XRAY ---
Indication: Frequent falls. New onset tremors. History dementia. Multiple contiguous axial images obtained through the head without contrast. Comparison: August 20, 2019 Again age-appropriate global atrophy and minimal perihilar ventricular degenerative micro-ischemia. No acute intracranial hemorrhage, abnormal extra-axial fluid collection, or mass effect. Fourth ventricle is midline without hydrocephalus. Bony calvarium intact. Visualized paranasal sinuses and mastoid air cells are clear. Impression: Continued nonacute senile brain. Comment: Preliminary interpretation was made by [facility]. No critical discrepancy.
[2020-02-27 09:39] VITALS: BP 141/85
== END 2020-02-27 09:40 | disposition home or self-care (01) ==
LOC: ED 03:22
DX: G25.2 Other specified forms of tremor (principal); E87.6 Hypokalemia; F03.90 Unspecified dementia, unspecified severity, without behavioral disturbance, psychotic disturbance, mood disturbance, and anxiety; R41.0 Disorientation, unspecified; Z79.899 Other long term (current) drug therapy; E78.00 Pure hypercholesterolemia, unspecified; I10 Essential (primary) hypertension; E03.9 Hypothyroidism, unspecified
CPT/HCPCS: 36000; 36415; 70450; 80053; 80307; 81001; 83605; 83735; 84436; 84443; 85025; 93005; 93041; 94760; 96365; 96366; 96374; 96376; 99285; G0480; J1200; J3480; A9270-GY

== ENCOUNTER 2021-07-24 13:54 | Observation (INO) | payer MEDICARE ==
[2021-07-24 15:00] LABS: Absolute Neutrophil Ct (ANC) 5.29 x10^3/uL (1.4-6.9); Basophil (Absolute #) 0.03 x10^3/uL (0-0.4); Eosinophil % 1.9 % (0.00-5.0); Eosinophil (Absolute #) 0.13 x10^3/uL (0-0.5); Hematocrit 37.7 % (42-50); Hemoglobin 12.4 g/dL (12.5-18.0); Lymphocyte (Absolute #) 1.02 x10^3/uL (1.0-4.6); Lymphocytes % 14.7 % (24.0-44.0); Mean Cell Volume 88.5 fL (78-100); Mean Corpuscular Hemoglobin 29.1 pg (26-32); Mean Corpuscular Hgb Concent. 32.9 g/dL (32-36); Mean Platelet Volume 9.2 fL (7.5-11.0); Monocyte (Absolute #) 0.44 x10^3/uL (0.0-1.3); Monocytes % 6.3 % (0.0-12.0); Neutrophil % 76.4 % (36.0-66.0); Platelet Count 292 x10^3/uL (150-450); Red Blood Count 4.26 x10^6/uL (4.1-5.6); Red Cell Distribution Width 14.7 % (11.5-14.0); White Blood Count 6.9 x10^3/uL (4.0-10.5)
[2021-07-24 15:11] LABS: ALBUMIN 3.9 g/dL (3.5-5.0); ANION GAP 15.4 MEQ/L (5-15); BILIRUBIN,TOTAL 0.6 mg/dL (0.2-1.3); Creatinine 1 1.28 mg/dL (0.66-1.25); EST GLOMERULAR FILTRATION RATE 58.4 ML/MIN; Total Protein 7.1 g/dL (6.3-8.2)
[2021-07-24 15:22] LABS: Potassium 2.9 mmol/L (3.5-5.1)
--- NOTE | 2021-07-24 15:45 | ERPHSYRPT ---
- History of Present Illness Source: patient, EMS Exam Limitations: other (Very poor historian/Dementia) Patient Subjective Stated Complaint: pt c/o abominal pain to EMS crew, family reports that pt is extremely fatigued, has been sleeping a lot, not eating and unsteady. pt called and states pt has dementia but a family member is coming to answer questions. Triage Nursing Assessment: pt arrives via ems, appears somnolent but arouses easily, aox2, pt afebrile, pupils perrl, resps easy and non labored, cap refill < 3 seconds, pt skin pink warm dry. abd tender to the RUQ. bowel sounds present normoactive. Physician History: 75 yo wm w h/o dementia presents per EMS w lethargy x 1day. Pt states that his abdomen might be hurting but is a very poor historian. He denies fever/chest pain/N/V/D/cough/focal weakness. Timing/Duration: yesterday Severity: mild Modifying Factors: Improves With: nothing Associated Symptoms: denies symptoms Allergies/Adverse Reactions: morphine Allergy (Mild, Verified 07/24/21 14:04) Home Medications: Amiodarone HCl [Pacerone] 200 mg PO BID 08/20/19 [History] Amitriptyline HCl 25 mg [Amitriptyline 25 mg Tablet] 25 mg PO HS 08/20/19 [History] Amlodipine Besylate [Norvasc] 10 mg PO DAILY 08/20/19 [History] Baclofen 10 mg [Lioresal 10 mg] 20 mg PO HS 08/20/19 [History] Duloxetine HCl [Cymbalta] 60 mg PO DAILY 08/20/19 [History] Furosemide 40 mg [Lasix 40 MG] 40 mg PO BID 08/20/19 [History] Gabapentin [Neurontin] 600 mg PO BID 08/20/19 [History] Gemfibrozil [Lopid] 600 mg PO BID 08/20/19 [History] Hydralazine HCl 50 mg PO BID 08/20/19 [History] Levothyroxine Sodium [Levoxyl] 200 mcg PO DAILY 08/20/19 [History] Primidone [Mysoline] 250 mg PO HS 08/20/19 [History] Spironolactone 25 mg [Aldactone 25 MG] 25 mg PO DAILY 08/20/19 [History] Tamsulosin HCl 0.4 mg [Flomax 0.4 MG] 0.4 mg PO DAILY 08/20/19 [History] cloNIDine HCL [Catapres] 0.2 mg PO BID 08/20/19 [History] Albuterol Sulfate [Proair Hfa] 2 puffs IH QID 02/27/20 [History] Aspirin EC 325 mg [Ecotrin 325 MG] 325 mg PO DAILY 02/27/20 [History] Calcium Carbonate [Elemental Calcium] 600 mg PO DAILY 02/27/20 [History] Docusate Sodium [Stool Softener] 100 mg PO DAILY PRN PRN 02/27/20 [History] Donepezil HCl 10 mg PO HS 02/27/20 [History] Fluticasone/Vilanterol [Breo Ellipta 100-25 Mcg INH] 1 puff IH DAILY 02/27/20 [History] Memantine HCl 10 mg PO BID 02/27/20 [History] Metformin HCl 850 mg [Glucophage 850 MG] 850 mg PO BID 02/27/20 [History] Multivitamin [Daily Multiple Vitamin] 1 tab PO DAILY 02/27/20 [History] Potassium Chloride 10 meq PO DAILY 02/27/20 [History] Hx Tetanus, Diphtheria Vaccination/Date Given: Yes Hx Influenza Vaccination/Date Given: Yes Hx Pneumococcal Vaccination/Date Given: Yes Immunizations Up to Date: Yes Travel Risk - International Travel Have you traveled outside of the country in past 3 weeks: No - Coronavirus Screening Are you exhibiting any of the following symptoms?: No Close contact with a COVID-19 positive Pt in past 14-21 Days: No - Vaccine Status Have you recieved a Covid-19 vaccination: (unk) Supervisor Photocomposition: Unknown - Vaccination Dates Dates if Unknown: unk - Review of Systems Constitutional: No Symptoms, Fatigue, Lethargy Eyes: No Symptoms Ears, Nose, & Throat: No Symptoms Respiratory: No Symptoms Cardiac: No Symptoms Abdominal/Gastrointestinal: No Symptoms, Abdominal Pain Genitourinary Symptoms: No Symptoms Musculoskeletal: No Symptoms Skin: No Symptoms Neurological: No Symptoms Psychological: No Symptoms Endocrine: No Symptoms Hematologic/Lymphatic: No Symptoms Immunological/Allergic: No Symptoms - Past Medical History Pertinent Past Medical History: Yes Neurological History: Dementia ENT History: No Pertinent History Cardiac History: High Cholesterol, Hypertension Respiratory History: COPD Endocrine Medical History: Hypothyroidism, Thyroid Cancer Musculoskeletal History: No Pertinent History GI Medical History: No Pertinent History History: Other Psycho-Social History: Depression Male Reproductive Disorders: No Pertinent History - Past Surgical History Past Surgical History: Yes Neuro Surgical History: No Pertinent History Cardiac: No Pertinent History Respiratory: No Pertinent History Gastrointestinal: No Pertinent History Genitourinary: No Pertinent History Musculoskeletal: Orthopedic Surgery Male Surgical History: No Pertinent History Other Surgical History: thyroid cancer- thyroidectomy - Social History Smoking Status: Unknown if ever smoked Exposure to second hand smoke: No Drug Use: none Patient Lives Alone: No Significant Family History: no pertinent family hx - Nursing Vital Signs Nursing Vital Signs: Initial Vital Signs Temperature 97.7 F 07/24/21 13:55 Pulse Rate 65 07/24/21 13:55 Respiratory Rate 20 07/24/21 13:55 Blood Pressure 144/77 07/24/21 13:55 O2 Sat by Pulse Oximetry 96 07/24/21 13:55 Pain Scale Pain Intensity 0 Hypertensive - Physical Exam General Appearance: no apparent distress (Flat affect/disoriented to time) Eye Exam: PERRL/EOMI, eyes nml inspection Ears, Nose, Throat Exam: normal ENT inspection, TMs normal, pharynx normal, moist mucous membranes Neck Exam: normal inspection, non-tender, supple, full range of motion, No meningismus, No mass, No Brudzinski, No Kernig's, No carotid bruit Respiratory Exam: normal breath sounds, lungs clear, airway intact Cardiovascular Exam: regular rate/rhythm, normal heart sounds, normal peripheral pulses, murmur, capillary refill <2 sec Gastrointestinal/Abdomen Exam: soft, normal bowel sounds, tenderness (Mild diffuse TTP) Back Exam: normal inspection, normal range of motion, CVA tenderness Extremity Exam: normal inspection, normal range of motion Neurologic Exam: cooperative, film sound engineer II-XII nml as tested, other (Very flat affect/Disoriented to time only), No motor deficits Skin Exam: normal color, warm, dry Lymphatic Exam: No adenopathy SpO2 Interpretation: normal SpO2: 96 O2 Delivery: Room Air - Course Nursing assessment & vital signs reviewed: Yes - Radiology Exams Chest X-ray Interpretation: Interpreted by me (CXR NAD per ER read) - CT Exams Abdomen/Pelvis CT Interpretation: Tele-radiologist Report (Nothing acute/Cholelithi asis/Diverticulosis wo diverticulitis) Head CT Interpretation: Tele-radiologist Report (CT head neg) Ordered Tests: Active Orders 24 hr Category Date Time Status IV Insertion STAT Care 07/24/21 15:37 Completed NPO Diet 07/24/21 17:04 Active ABDOMEN AND PELVIS W/0 CONTRAS [CT] Stat Exams 07/24/21 14:16 Taken CHEST 1 VIEW (PORTABLE) Stat Exams 07/24/21 17:27 Taken HEAD WITHOUT CONTRAST [CT] Stat Exams 07/24/21 14:16 Taken AMYLASE Stat Lab 07/24/21 14:54 Completed BLOOD CULTURE Stat Lab 07/24/21 17:16 Received CBC W DIFF AM.LAB Lab 07/25/21 04:00 Ordered CBC W DIFF Stat Lab 07/24/21 14:54 Completed CMP AM.LAB Lab 07/25/21 04:00 Ordered CMP Stat Lab 07/24/21 14:54 Completed LIPASE Stat Lab 07/24/21 14:54 Completed Lactic Acid AM.LAB Lab 07/25/21 04:00 Ordered Lactic Acid Stat Lab 07/24/21 14:15 Completed Lactic Acid Stat Lab 07/24/21 17:03 Completed TROPONIN Q3H Lab 07/24/21 14:54 Completed TROPONIN Q3H Lab 07/24/21 17:16 Completed TROPONIN Q3H Lab 07/24/21 20:30 Ordered TROPONIN Q3H Lab 07/24/21 23:30 Ordered TROPONIN Q3H Lab 07/25/21 02:30 Ordered UA W/RFX CULTURE Stat Lab 07/24/21 15:42 Results Transfer Order Routine Transfer 07/24/21 Completed Medication Summary Generic Name Dose Route Start Last Admin Trade Name Freq PRN Reason Stop Dose Admin Heparin Sodium (Beef Lung) 5,000 unit 07/24/21 22:00 Heparin 5000 Unit/0.5 Ml Syringe SQ 08/23/21 21:59 BID CLARE Potassium Chloride/Sodium Chloride 1,000 mls @ 125 mls/hr 07/24/21 17:15 Sodium Chloride 0.9% W/ 20 Meq Kcl/Liter IV 08/23/21 17:14 .Q8H CLAER Ondansetron HCl 4 mg 07/24/21 17:02 Ondansetron Hcl 4 Mg/2 Ml Vial IV 08/23/21 17:01 Q6H PRN PRN NAUSEA/VOMITING Pantoprazole Sodium 40 mg 07/25/21 10:00 Pantoprazole 40 Mg Vial IV 08/24/21 09:59 Q24H10 CLARE Potassium Chloride 40 meq 07/24/21 22:00 Potassium Chloride Tab 10 Meq Tab PO 08/23/21 21:59 TID CLARE Discontinued Medications Generic Name Dose Route Start Last Admin Trade Name Freq PRN Reason Stop Dose Admin Sodium Chloride 1,000 mls @ 999 mls/hr 07/24/21 15:47 07/24/21 17:09 Sodium Chloride 0.9% 1000 Ml IV 07/24/21 16:47 Infused .Q1H1M STA Infusion Sodium Chloride Confirm 07/24/21 15:58 Sodium Chloride 0.9% 1000 Ml Administered 07/24/21 15:59 Dose 1,000 mls @ ud .ROUTE .STK-MED ONE Sodium Chloride 1,000 mls @ 999 mls/hr 07/24/21 17:00 07/24/21 17:42 Sodium Chloride 0.9% 1000 Ml IV 07/24/21 18:00 999 mls/hr .Q1H1M STA Administration Sodium Chloride Confirm 07/24/21 17:41 Sodium Chloride 0.9% 1000 Ml Administered 07/24/21 17:42 Dose 1,000 mls @ ud .ROUTE .STK-MED ONE Potassium Chloride 40 meq 07/24/21 17:00 07/24/21 17:42 Potassium Chloride Tab 10 Meq Tab PO 07/24/21 17:01 40 meq STAT ONE Administration Lab/Rad Data: Laboratory Result Diagrams 07/24/21 14:54 07/24/21 14:54 Laboratory Results 07/24/21 07/24/21 07/24/21 Range/Units 17:16 17:03 16:30 WBC (4.0-10.5) x10^3/uL RBC (4.1-5.6) x10^6/uL Hgb (12.5-18.0) g/dL Hct (42-50) % MCV (78-100) fL MCH (26-32) pg MCHC (32-36) g/dL RDW (11.5-14.0) % Plt Count (150-450) x10^3/uL MPV (7.5-11.0) fL Gran % (36.0-66.0) % Immature Gran % (Auto) (0.00-0.4) % Nucleat RBC Rel Count (0.00-0.1) % Eos # (Auto) (0-0.5) x10^3/uL Immature Gran # (Auto) (0.00-0.03) x10^3u/L Absolute Lymphs (auto) (1.0-4.6) x10^3/uL Absolute Monos (auto) (0.0-1.3) x10^3/uL Absolute Nucleated RBC (0.00-0.01) x10^3u/L Lymphocytes % (24.0-44.0) % Monocytes % (0.0-12.0) % Eosinophils % (0.00-5.0) % Basophils % (0.0-0.4) % Absolute Granulocytes (1.4-6.9) x10^3/uL Basophils # (0-0.4) x10^3/uL Sodium (137-145) mmol/L Potassium (3.5-5.1) mmol/L Chloride (98-107) mmol/L Carbon Dioxide (22-30) mmol/L Anion Gap (5-15) MEQ/L BUN (9-20) mg/dL Creatinine (0.66-1.25) mg/dL Estimated GFR ML/MIN Glucose (74-106) mg/dL Lactic Acid 3.7 H (0.4-2.0) Calcium (8.4-10.2) mg/dL Total Bilirubin (0.2-1.3) mg/dL AST (17-59) U/L ALT (0-50) U/L Alkaline Phosphatase (38-126) U/L Troponin I 0.014 (0.000-0.034) ng/mL Serum Total Protein (6.3-8.2) g/dL Albumin (3.5-5.0) g/dL Amylase (30-110) U/L Lipase (23-300) U/L Urinalys Dipstick Clnc Urine Color (YELLOW) Urine Appearance (CLEAR) Urine pH (5-6) Ur Specific [place] (1.005-1.025) POC Urine Protein Conf (Negative) Urine Ketones (NEGATIVE) Urine Nitrite (NEGATIVE) Urine Bilirubin (NEGATIVE) Urine Urobilinogen (0-1) mg/dL Urine Leukocytes (NEGATIVE) Urine WBC (Auto) (0-5) /HPF Urine RBC (Auto) (0-2) /HPF U Hyaline Cast (Auto) (0-2) /LPF U Epithel Cells (Auto) (FEW) /HPF Urine Bacteria (Auto) (NEGATIVE) /HPF Urine RBC (0-5) Andrey/ul Other Casts (Auto) (NEGATIVE) /LPF Ur Culture Indicated? Urine Glucose (NEGATIVE) mg/dL Influenza Type A Ag NEGATIVE (NEGATIVE) Influenza Type B Ag NEGATIVE (NEGATIVE) RSV (PCR) NEGATIVE (Negative) SARS-CoV-2 (PCR) NEGATIVE (NEGATIVE) 07/24/21 07/24/21 07/24/21 Range/Units 15:42 14:54 14:54 WBC (4.0-10.5) x10^3/uL RBC (4.1-5.6) x10^6/uL Hgb (12.5-18.0) g/dL Hct (42-50) % MCV (78-100) fL MCH (26-32) pg MCHC (32-36) g/dL RDW (11.5-14.0) % Plt Count (150-450) x10^3/uL MPV (7.5-11.0) fL Gran % (36.0-66.0) % Immature Gran % (Auto) (0.00-0.4) % Nucleat RBC Rel Count (0.00-0.1) % Eos # (Auto) (0-0.5) x10^3/uL Immature Gran # (Auto) (0.00-0.03) x10^3u/L Absolute Lymphs (auto) (1.0-4.6) x10^3/uL Absolute Monos (auto) (0.0-1.3) x10^3/uL Absolute Nucleated RBC (0.00-0.01) x10^3u/L Lymphocytes % (24.0-44.0) % Monocytes % (0.0-12.0) % Eosinophils % (0.00-5.0) % Basophils % (0.0-0.4) % Absolute Granulocytes (1.4-6.9) x10^3/uL Basophils # (0-0.4) x10^3/uL Sodium 137 (137-145) mmol/L Potassium 2.9 L* (3.5-5.1) mmol/L Chloride 93 L (98-107) mmol/L Carbon Dioxide 32 H (22-30) mmol/L Anion Gap 15.4 H (5-15) MEQ/L BUN 20 (9-20) mg/dL Creatinine 1.28 H (0.66-1.25) mg/dL Estimated GFR 58.4 ML/MIN Glucose 126 H (74-106) mg/dL Lactic Acid (0.4-2.0) Calcium 9.0 (8.4-10.2) mg/dL Total Bilirubin 0.60 (0.2-1.3) mg/dL AST 21 (17-59) U/L ALT 15 (0-50) U/L Alkaline Phosphatase 138 H (38-126) U/L Troponin I 0.012 (0.000-0.034) ng/mL Serum Total Protein 7.1 (6.3-8.2) g/dL Albumin 3.9 (3.5-5.0) g/dL Amylase 63 (30-110) U/L Lipase 75 (23-300) U/L Urinalys Dipstick Clnc Pending Urine Color YELLOW (YELLOW) Urine Appearance CLEAR (CLEAR) Urine pH 7.0 (5-6) Ur Specific [place] 1.015 (1.005-1.025) POC Urine Protein Conf NEGATIVE (Negative) Urine Ketones NEGATIVE (NEGATIVE) Urine Nitrite NEGATIVE (NEGATIVE) Urine Bilirubin NEGATIVE (NEGATIVE) Urine Urobilinogen 0.2 (0-1) mg/dL Urine Leukocytes NEGATIVE (NEGATIVE) Urine WBC (Auto) 0-2 (0-5) /HPF Urine RBC (Auto) 11-15 (0-2) /HPF U Hyaline Cast (Auto) 3-5 (0-2) /LPF U Epithel Cells (Auto) NONE (FEW) /HPF Urine Bacteria (Auto) NONE (NEGATIVE) /HPF Urine RBC SMALL (0-5) Andrey/ul Other Casts (Auto) 2-5 (NEGATIVE) /LPF Ur Culture Indicated? NO Urine Glucose NEGATIVE (NEGATIVE) mg/dL Influenza Type A Ag (NEGATIVE) Influenza Type B Ag (NEGATIVE) RSV (PCR) (Negative) SARS-CoV-2 (PCR) (NEGATIVE) 07/24/21 07/24/21 Range/Units 14:54 14:15 WBC 6.9 (4.0-10.5) x10^3/uL RBC 4.26 (4.1-5.6) x10^6/uL Hgb 12.4 L (12.5-18.0) g/dL Hct 37.7 L (42-50) % MCV 88.5 (78-100) fL MCH 29.1 (26-32) pg MCHC 32.9 (32-36) g/dL RDW 14.7 H (11.5-14.0) % Plt Count 292 (150-450) x10^3/uL MPV 9.2 (7.5-11.0) fL Gran % 76.4 H (36.0-66.0) % Immature Gran % (Auto) 0.3 (0.00-0.4) % Nucleat RBC Rel Count 0.0 (0.00-0.1) % Eos # (Auto) 0.13 (0-0.5) x10^3/uL Immature Gran # (Auto) 0.02 (0.00-0.03) x10^3u/L Absolute Lymphs (auto) 1.02 (1.0-4.6) x10^3/uL Absolute Monos (auto) 0.44 (0.0-1.3) x10^3/uL Absolute Nucleated RBC 0.00 (0.00-0.01) x10^3u/L Lymphocytes % 14.7 L (24.0-44.0) % Monocytes % 6.3 (0.0-12.0) % Eosinophils % 1.9 (0.00-5.0) % Basophils % 0.4 (0.0-0.4) % Absolute Granulocytes 5.29 (1.4-6.9) x10^3/uL Basophils # 0.03 (0-0.4) x10^3/uL Sodium (137-145) mmol/L Potassium (3.5-5.1) mmol/L Chloride (98-107) mmol/L Carbon Dioxide (22-30) mmol/L Anion Gap (5-15) MEQ/L BUN (9-20) mg/dL Creatinine (0.66-1.25) mg/dL Estimated GFR ML/MIN Glucose (74-106) mg/dL Lactic Acid 3.6 H (0.4-2.0) Calcium (8.4-10.2) mg/dL Total Bilirubin (0.2-1.3) mg/dL AST (17-59) U/L ALT (0-50) U/L Alkaline Phosphatase (38-126) U/L Troponin I (0.000-0.034) ng/mL Serum Total Protein (6.3-8.2) g/dL Albumin (3.5-5.0) g/dL Amylase (30-110) U/L Lipase (23-300) U/L Urinalys Dipstick Clnc Urine Color (YELLOW) Urine Appearance (CLEAR) Urine pH (5-6) Ur Specific [place] (1.005-1.025) POC Urine Protein Conf (Negative) Urine Ketones (NEGATIVE) Urine Nitrite (NEGATIVE) Urine Bilirubin (NEGATIVE) Urine Urobilinogen (0-1) mg/dL Urine Leukocytes (NEGATIVE) Urine WBC (Auto) (0-5) /HPF Urine RBC (Auto) (0-2) /HPF U Hyaline Cast (Auto) (0-2) /LPF U Epithel Cells (Auto) (FEW) /HPF Urine Bacteria (Auto) (NEGATIVE) /HPF Urine RBC (0-5) Andrey/ul Other Casts (Auto) (NEGATIVE) /LPF Ur Culture Indicated? Urine Glucose (NEGATIVE) mg/dL Influenza Type A Ag (NEGATIVE) Influenza Type B Ag (NEGATIVE) RSV (PCR) (Negative) SARS-CoV-2 (PCR) (NEGATIVE) - Progress Progress Note: 07/24/21 16:[address] Martínez 07/24/21 17:07 1L NS bolus x2 Blood cultures x2 Bridging orders entered 07/24/21 19:34 KCl 40meq po x1 Discussed with : Vanessa Counseled pt/family regarding: lab results, diagnosis, rad results - Departure Departure Disposition: Observation Clinical Impression: Altered mental status, Hypokalemia Condition: Stable Critical Care Time: No
[2021-07-24] MEDS ORDERED: Sodium Chloride 0.9% 1000 ML 1,000 ML IV STA ×3 (15:47→22:12)
[2021-07-24] MEDS ORDERED: Sodium Chloride 0.9% 1000 ML 1,000 ML ONE ×2 (15:58→17:41)
[2021-07-24 16:16] LABS: WBC 0-2 /HPF (0-5)
[2021-07-24 16:24] LABS: Appearance CLEAR (CLEAR); Bilirubin NEGATIVE (NEGATIVE); Glucose NEGATIVE (NEGATIVE); Ketones NEGATIVE (NEGATIVE); Nitrite NEGATIVE (NEGATIVE); Protein,Urine Dip NEGATIVE (Negative); RBC SMALL Ery/ul (0-5); Specific Gravity 1.015 (1.005-1.025); Urobilinogen 0.2 mg/dL (0-1)
[2021-07-24 16:25] LABS: Urine Cultured Indicated? NO
[2021-07-24] MEDS ORDERED: Klor Con PO ONE (17:00)
[2021-07-24] MEDS ORDERED: Zofran 4 MG/2 ML VIAL IV PRN (17:02)
[2021-07-24 17:29] LABS: INFLUENZA A NEGATIVE (NEGATIVE); INFLUENZA B NEGATIVE (NEGATIVE); RESPIRATORY SYNCTIAL VIRUS NEGATIVE (Negative); SARS-CoV-2 Xpert Express NEGATIVE (NEGATIVE)
--- NOTE | 2021-07-24 19:58 | XRAY ---
Indication: Lethargy. Multiple contiguous axial images obtained through the head without contrast. Comparison: February 27, 2020 Age-appropriate global atrophy and mild periventricular degenerative micro-ischemia bilaterally. No acute intracranial hemorrhage, abnormal extra-axial fluid collection, or mass effect. Fourth ventricle is midline without hydrocephalus. Bony calvarium intact. Visualized paranasal sinuses and mastoid air cells are clear. Impression: Continued nonacute senile brain. Comment: Preliminary interpretation made by [facility]. No critical discrepancy.
--- NOTE | 2021-07-24 20:02 | XRAY ---
Indication: Abdomen pain. Nausea. Multiple contiguous axial images obtained through the abdomen and pelvis without contrast. Comparison: None Lung bases demonstrates pulmonary emphysema with mild bibasilar dependent atelectasis. 5 mm indeterminant right infrahilar noncalcified nodule. Heart not enlarged. Noncontrasted stomach and bowel loops appear nonobstructed with normal appendix. Diffuse scattered colonic diverticulosis, greatest in descending and sigmoid without diverticulitis. No free fluid/air. Multiple sub-5 mm gallstones. 5 mm left lobe hepatic cyst. 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 Remaining liver, pancreas, spleen, adrenal glands, right kidney, right ureter, and bladder are unremarkable for noncontrast exam. Mild scattered aortoiliac calcifications without AAA. Osseous structures intact with mild osteopenia and mild/moderate degenerative changes throughout the thoracolumbar spine. Impression: 1. Cholelithiasis better evaluated with sonogram if clinically warranted. 2. Diffuse colonic diverticulosis, pulmonary emphysema, indeterminant right infrahilar pulmonary micronodule, absent left kidney, tiny hepatic cyst, and chronic bony findings. Comment: Preliminary interpretation made by [facility]. No critical discrepancy.
[2021-07-24] MEDS: Sodium Chloride 0.9% W/ 20 mEq KCl/LITER 1,000 ML IV SCH (20:13)
--- NOTE | 2021-07-24 20:31 | XRAY ---
Indication: Elevated lactate. Comparison: August 21, 2019. Portable chest again hyperinflated with minimal bibasilar fibrosis/scarring. Remaining heart and upper lungs unremarkable. Bony thorax intact again with mild osteopenia, degenerative changes, and left humeral head orthopedic screws. Stable 2 surgical clips project over left lung apex. Impression: Nonacute chest with chronic features.
[2021-07-24] MEDS ORDERED: Klor Con PO SCH (22:00)
[2021-07-24] MEDS ORDERED: HUMALOG SQ PRN (22:13)
[2021-07-24] MEDS ORDERED: PIPERACILLIN/TAZOBACTAM IV ONE (22:24)
[2021-07-24] MEDS ORDERED: Sodium Chloride 100ML MINI-BAG PLUS 100 ML IV ONE (22:25)
[2021-07-24] MEDS: CLONIDINE 0.1 MG TABLET PO SCH (22:35)
[2021-07-24] MEDS: NEURONTIN PO SCH (22:36)
[2021-07-24] MEDS: Heparin 5000 UNITS/0.5 ML (HIGH RISK MED) SQ SCH (23:20)
[2021-07-25] MEDS: PIPERACILLIN/TAZOBACTAM 3.375 GM in Sodium Chloride 100ML MINI-BAG PLUS 100 ML IV SCH ×4 (00:26→18:01)
[2021-07-25 02:54] LABS: Absolute Neutrophil Ct (ANC) 4.97 x10^3/uL (1.4-6.9); Basophil (Absolute #) 0.03 x10^3/uL (0-0.4); Eosinophil % 2.1 % (0.00-5.0); Eosinophil (Absolute #) 0.15 x10^3/uL (0-0.5); Hemoglobin 11.3 g/dL (12.5-18.0); Lymphocyte (Absolute #) 1.37 x10^3/uL (1.0-4.6); Lymphocytes % 19.5 % (24.0-44.0); Mean Cell Volume 90.4 fL (78-100); Mean Corpuscular Hemoglobin 29.2 pg (26-32); Mean Corpuscular Hgb Concent. 32.3 g/dL (32-36); Mean Platelet Volume 9.3 fL (7.5-11.0); Monocyte (Absolute #) 0.49 x10^3/uL (0.0-1.3); Neutrophil % 70.6 % (36.0-66.0); Platelet Count 273 x10^3/uL (150-450); Red Blood Count 3.87 x10^6/uL (4.1-5.6); Red Cell Distribution Width 14.9 % (11.5-14.0)
[2021-07-25 03:02] LABS: ALBUMIN 3.5 g/dL (3.5-5.0); ALKALINE PHOSPHATASE 121 U/L (38-126); ANION GAP 14.7 MEQ/L (5-15); BLOOD UREA NITROGEN 16 mg/dL (9-20); CHLORIDE 101 mmol/L (98-107); Carbon Dioxide 28 mmol/L (22-30); Creatinine 1 1.11 mg/dL (0.66-1.25); EST GLOMERULAR FILTRATION RATE > 60.0 ML/MIN; Glucose 113 mg/dL (74-106); Potassium 3.7 mmol/L (3.5-5.1); SGOT/AST 18 U/L (17-59); SGPT/ALT 11 U/L (0-50); SODIUM 140 mmol/L (137-145); Total Protein 6.3 g/dL (6.3-8.2)
[2021-07-25] MEDS ORDERED: PIPERACILLIN/TAZOBACTAM IV ONE (04:38)
[2021-07-25] MEDS ORDERED: Sodium Chloride 100ML MINI-BAG PLUS 100 ML IV ONE (04:39)
[2021-07-25] MEDS ORDERED: APRESOLINE 20 MG/ML INJ IV PRN (06:25)
[2021-07-25] MEDS ORDERED: Sodium Chloride 0.9% W/ 20 mEq KCl/LITER 1,000 ML IV ONE (06:48)
[2021-07-25] MEDS: Sodium Chloride 0.9% W/ 20 mEq KCl/LITER 1,000 ML IV SCH ×3 (06:51→22:31)
[2021-07-25] MEDS: Advair Hfa 115/21 Common canister IH SCH ×2 (07:15→18:34)
[2021-07-25] MEDS: VENTOLIN COMMON CANISTER IH SCH ×4 (07:15→18:31)
--- NOTE | 2021-07-25 08:19 | PCM.SSS ---
History of Present Illness - Chief Complaint Chief Complaint: Mental Status Changes/Elevated Lactate History of Present Illness: is a 75 year old male pt of Dr. Scott with dementia who was brought in by EMS yesterday with increased sleepiness and fatigue x 1 day. He was complaining of some abdominal pain but was a very poor historian due to the dementia. In ER, his WBC were nl. Slight anemia (hgb 12.4, now 11.3). Potassium was 2.9 - now up to 3.7. CT head nonacute. CXR non acute. CT abd/pelvis with cholelithiasis, diverticulosis, emphysema, absent L kidney. troponins are neg x 5. Lactic acid was 3.9 - down to 2.5 this morning. When Lactate was elevated, I was called and started pt on zosyn IV. Estimated GFR was 58.4 initially, and is > 60 this morning. This morning he does c/o some epigastric abd pain. He is oriented to place, but not time (can read that the date is "07/25/21" but does not know what holiday is next month. When I tell him, he says, "Oh! My birthday is this [birth year]. I will be 77, or something," (pt will be 76). He has been dizzy for staff when he goes from lying to sitting position or sitting to lying position. c/o eyes watering this morning. - Review of Systems Abdominal/Gastrointestinal: Abdominal Pain All Other Systems: Unable due to dementia Medications & Allergies Home Medications: Home Medication List Amiodarone HCl [Pacerone] 200 mg PO BID 08/20/19 [History Confirmed 07/24/21] Amitriptyline HCl 25 mg [Amitriptyline 25 mg Tablet] 25 mg PO HS 08/20/19 [History Confirmed 07/24/21] Amlodipine Besylate [Norvasc] 10 mg PO DAILY 08/20/19 [History Confirmed 07/24/21] Baclofen 10 mg [Lioresal 10 mg] 20 mg PO HS 08/20/19 [History Confirmed 07/24/21] Duloxetine HCl [Cymbalta] 60 mg PO DAILY 08/20/19 [History Confirmed 07/24/21] Furosemide 40 mg [Lasix 40 MG] 40 mg PO BID 08/20/19 [History Confirmed 07/24/21] Gabapentin [Neurontin] 600 mg PO BID 08/20/19 [History Confirmed 07/24/21] Gemfibrozil [Lopid] 600 mg PO BID 08/20/19 [History Confirmed 07/24/21] Hydralazine HCl 50 mg PO BID 08/20/19 [History Confirmed 07/24/21] Levothyroxine Sodium [Levoxyl] 200 mcg PO DAILY 08/20/19 [History Confirmed 07/24/21] Primidone [Mysoline] 250 mg PO HS 08/20/19 [History Confirmed 07/24/21] Spironolactone 25 mg [Aldactone 25 MG] 25 mg PO DAILY 08/20/19 [History Confirmed 07/24/21] cloNIDine HCL [Catapres] 0.2 mg PO BID 08/20/19 [History Confirmed 07/24/21] Albuterol Sulfate [Proair Hfa] 2 puffs IH QID 02/27/20 [History Confirmed 07/24/21] Aspirin EC 325 mg [Ecotrin 325 MG] 325 mg PO DAILY 02/27/20 [History Confirmed 07/24/21] Calcium Carbonate [Elemental Calcium] 600 mg PO DAILY 02/27/20 [History Confirmed 07/24/21] Docusate Sodium [Stool Softener] 100 mg PO DAILY PRN PRN 02/27/20 [History Con firmed 07/24/21] Donepezil HCl 10 mg PO HS 02/27/20 [History Confirmed 07/24/21] Fluticasone/Vilanterol [Breo Ellipta 100-25 Mcg INH] 1 puff IH DAILY 02/27/20 [History Confirmed 07/24/21] Memantine HCl 10 mg PO BID 02/27/20 [History Confirmed 07/24/21] Metformin HCl 850 mg [Glucophage 850 MG] 850 mg PO BID 02/27/20 [History Confirmed 07/24/21] Multivitamin [Daily Multiple Vitamin] 1 tab PO DAILY 02/27/20 [History Confirmed 07/24/21] Potassium Chloride 10 meq PO DAILY 02/27/20 [History Confirmed 07/24/21] Allergies/Adverse Reactions: Allergies Allergy/AdvReac Type Severity Reaction Status Date / Time codeine Allergy Mild Headache Verified 07/24/21 23:30 morphine Allergy Mild Verified 07/24/21 14:04 - Past Medical History Past Medical History: Yes Neurological History: Dementia ENT History: No Pertinent History Cardiac History: High Cholesterol, Hypertension Respiratory History: COPD Endocrine Medical History: Hypothyroidism, Thyroid Cancer Musculoskelatal History: No Pertinent History GI Medical History: No Pertinent History History: Other Pyscho-Social History: Depression Male Reproductive Disorders: No Pertinent History Comment: 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 - Past Surgical History Past Surgical History: Yes Neuro Surgical History: No Pertinent History Cardiac History: No Pertinent History Respiratory Surgery: No Pertinent History GI Surgical History: No Pertinent History Genitourinary Surgical Hx: No Pertinent History Musculskeletal Surgical Hx: Orthopedic Surgery Male Surgical History: No Pertinent History Other Surgical History: thyroid cancer- thyroidectomy - Social History Smoking Status: Unknown if ever smoked Exposure to second hand smoke: No Alcohol: None Drug Use: none Significant Family History: no pertinent family hx - Physical Exam Vital Signs: Vital Signs - 24 hr Temp Pulse Resp BP Pulse Ox 07/25/21 07:37 60 18 91 L 07/25/21 04:00 98.1 F 67 20 137/68 94 L 07/24/21 23:45 97.9 F 64 20 184/85 94 L 07/24/21 20:00 98.1 F 68 19 176/78 93 L 07/24/21 19:35 96 07/24/21 16:44 97.4 F 62 20 123/73 98 07/24/21 15:02 63 20 127/73 96 07/24/21 13:55 97.7 F 65 20 144/77 96 General Appearance: no apparent distress, alert Neurologic Exam: cooperative, disoriented Eye Exam: eyes nml inspection, other (clear watery L eye), No scleral icterus Ears, Nose, Throat Exam: moist mucous membranes Neck Exam: normal inspection, non-tender, No lymphadenopathy, No thyromegaly Respiratory Exam: normal breath sounds, lungs clear, No crackles/rales, No rhonchi, No wheezing Cardiovascular Exam: regular rate/rhythm, normal heart sounds, No murmur Gastrointestinal/Abdomen Exam: soft, normal bowel sounds, tenderness (epigastric, mild), No distention, No mass, No guarding, No rebound Back Exam: normal inspection, No rash Extremity Exam: normal inspection, No pedal edema, No swelling Skin Exam: normal color, warm, dry, No rash Results - Labs Lab/Micro Results: Lab Results-Last 24 Hours 07/24/21 07/24/21 07/24/21 Range/Units 14:15 14:54 14:54 WBC 6.9 (4.0-10.5) x10^3/uL RBC 4.26 (4.1-5.6) x10^6/uL Hgb 12.4 L (12.5-18.0) g/dL Hct 37.7 L (42-50) % MCV 88.5 (78-100) fL MCH 29.1 (26-32) pg MCHC 32.9 (32-36) g/dL RDW 14.7 H (11.5-14.0) % Plt Count 292 (150-450) x10^3/uL MPV 9.2 (7.5-11.0) fL Gran % 76.4 H (36.0-66.0) % Immature Gran % (Auto) 0.3 (0.00-0.4) % Nucleat RBC Rel Count 0.0 (0.00-0.1) % Eos # (Auto) 0.13 (0-0.5) x10^3/uL Immature Gran # (Auto) 0.02 (0.00-0.03) x10^3u/L Absolute Lymphs (auto) 1.02 (1.0-4.6) x10^3/uL Absolute Monos (auto) 0.44 (0.0-1.3) x10^3/uL Absolute Nucleated RBC 0.00 (0.00-0.01) x10^3u/L Lymphocytes % 14.7 L (24.0-44.0) % Monocytes % 6.3 (0.0-12.0) % Eosinophils % 1.9 (0.00-5.0) % Basophils % 0.4 (0.0-0.4) % Absolute Granulocytes 5.29 (1.4-6.9) x10^3/uL Basophils # 0.03 (0-0.4) x10^3/uL Sodium 137 (137-145) mmol/L Potassium 2.9 L* (3.5-5.1) mmol/L Chloride 93 L (98-107) mmol/L Carbon Dioxide 32 H (22-30) mmol/L Anion Gap 15.4 H (5-15) MEQ/L BUN 20 (9-20) mg/dL Creatinine 1.28 H (0.66-1.25) mg/dL Estimated GFR 58.4 ML/MIN Glucose 126 H (74-106) mg/dL POC Glucometer (74 to 106) mg/dL Lactic Acid 3.6 H (0.4-2.0) Calcium 9.0 (8.4-10.2) mg/dL Total Bilirubin 0.60 (0.2-1.3) mg/dL AST 21 (17-59) U/L ALT 15 (0-50) U/L Alkaline Phosphatase 138 H (38-126) U/L Troponin I (0.000-0.034) ng/mL Serum Total Protein 7.1 (6.3-8.2) g/dL Albumin 3.9 (3.5-5.0) g/dL Amylase 63 (30-110) U/L Lipase 75 (23-300) U/L Urinalys Dipstick Clnc Urine Color (YELLOW) Urine Appearance (CLEAR) Urine pH (5-6) Ur Specific [place] (1.005-1.025) POC Urine Protein Conf (Negative) Urine Ketones (NEGATIVE) Urine Nitrite (NEGATIVE) Urine Bilirubin (NEGATIVE) Urine Urobilinogen (0-1) mg/dL Urine Leukocytes (NEGATIVE) Urine WBC (Auto) (0-5) /HPF Urine RBC (Auto) (0-2) /HPF U Hyaline Cast (Auto) (0-2) /LPF U Epithel Cells (Auto) (FEW) /HPF Urine Bacteria (Auto) (NEGATIVE) /HPF Urine RBC (0-5) Andrey/ul Other Casts (Auto) (NEGATIVE) /LPF Ur Culture Indicated? Urine Glucose (NEGATIVE) mg/dL Influenza Type A Ag (NEGATIVE) Influenza Type B Ag (NEGATIVE) RSV (PCR) (Negative) SARS-CoV-2 (PCR) (NEGATIVE) 07/24/21 07/24/21 07/24/21 Range/Units 14:54 15:42 16:30 WBC (4.0-10.5) x10^3/uL RBC (4.1-5.6) x10^6/uL Hgb (12.5-18.0) g/dL Hct (42-50) % MCV (78-100) fL MCH (26-32) pg MCHC (32-36) g/dL RDW (11.5-14.0) % Plt Count (150-450) x10^3/uL MPV (7.5-11.0) fL Gran % (36.0-66.0) % Immature Gran % (Auto) (0.00-0.4) % Nucleat RBC Rel Count (0.00-0.1) % Eos # (Auto) (0-0.5) x10^3/uL Immature Gran # (Auto) (0.00-0.03) x10^3u/L Absolute Lymphs (auto) (1.0-4.6) x10^3/uL Absolute Monos (auto) (0.0-1.3) x10^3/uL Absolute Nucleated RBC (0.00-0.01) x10^3u/L Lymphocytes % (24.0-44.0) % Monocytes % (0.0-12.0) % Eosinophils % (0.00-5.0) % Basophils % (0.0-0.4) % Absolute Granulocytes (1.4-6.9) x10^3/uL Basophils # (0-0.4) x10^3/uL Sodium (137-145) mmol/L Potassium (3.5-5.1) mmol/L Chloride (98-107) mmol/L Carbon Dioxide (22-30) mmol/L Anion Gap (5-15) MEQ/L BUN (9-20) mg/dL Creatinine (0.66-1.25) mg/dL Estimated GFR ML/MIN Glucose (74-106) mg/dL POC Glucometer (74 to 106) mg/dL Lactic Acid (0.4-2.0) Calcium (8.4-10.2) mg/dL Total Bilirubin (0.2-1.3) mg/dL AST (17-59) U/L ALT (0-50) U/L Alkaline Phosphatase (38-126) U/L Troponin I 0.012 (0.000-0.034) ng/mL Serum Total Protein (6.3-8.2) g/dL Albumin (3.5-5.0) g/dL Amylase (30-110) U/L Lipase (23-300) U/L Urinalys Dipstick Clnc Pending Urine Color YELLOW (YELLOW) Urine Appearance CLEAR (CLEAR) Urine pH 7.0 (5-6) Ur Specific [place] 1.015 (1.005-1.025) POC Urine Protein Conf NEGATIVE (Negative) Urine Ketones NEGATIVE (NEGATIVE) Urine Nitrite NEGATIVE (NEGATIVE) Urine Bilirubin NEGATIVE (NEGATIVE) Urine Urobilinogen 0.2 (0-1) mg/dL Urine Leukocytes NEGATIVE (NEGATIVE) Urine WBC (Auto) 0-2 (0-5) /HPF Urine RBC (Auto) 11-15 (0-2) /HPF U Hyaline Cast (Auto) 3-5 (0-2) /LPF U Epithel Cells (Auto) NONE (FEW) /HPF Urine Bacteria (Auto) NONE (NEGATIVE) /HPF Urine RBC SMALL (0-5) Andrey/ul Other Casts (Auto) 2-5 (NEGATIVE) /LPF Ur Culture Indicated? NO Urine Glucose NEGATIVE (NEGATIVE) mg/dL Influenza Type A Ag NEGATIVE (NEGATIVE) Influenza Type B Ag NEGATIVE (NEGATIVE) RSV (PCR) NEGATIVE (Negative) SARS-CoV-2 (PCR) NEGATIVE (NEGATIVE) 07/24/21 07/24/21 07/24/21 Range/Units 17:03 17:16 20:58 WBC (4.0-10.5) x10^3/uL RBC (4.1-5.6) x10^6/uL Hgb (12.5-18.0) g/dL Hct (42-50) % MCV (78-100) fL MCH (26-32) pg MCHC (32-36) g/dL RDW (11.5-14.0) % Plt Count (150-450) x10^3/uL MPV (7.5-11.0) fL Gran % (36.0-66.0) % Immature Gran % (Auto) (0.00-0.4) % Nucleat RBC Rel Count (0.00-0.1) % Eos # (Auto) (0-0.5) x10^3/uL Immature Gran # (Auto) (0.00-0.03) x10^3u/L Absolute Lymphs (auto) (1.0-4.6) x10^3/uL Absolute Monos (auto) (0.0-1.3) x10^3/uL Absolute Nucleated RBC (0.00-0.01) x10^3u/L Lymphocytes % (24.0-44.0) % Monocytes % (0.0-12.0) % Eosinophils % (0.00-5.0) % Basophils % (0.0-0.4) % Absolute Granulocytes (1.4-6.9) x10^3/uL Basophils # (0-0.4) x10^3/uL Sodium (137-145) mmol/L Potassium (3.5-5.1) mmol/L Chloride (98-107) mmol/L Carbon Dioxide (22-30) mmol/L Anion Gap (5-15) MEQ/L BUN (9-20) mg/dL Creatinine (0.66-1.25) mg/dL Estimated GFR ML/MIN Glucose (74-106) mg/dL POC Glucometer (74 to 106) mg/dL Lactic Acid 3.7 H (0.4-2.0) Calcium (8.4-10.2) mg/dL Total Bilirubin (0.2-1.3) mg/dL AST (17-59) U/L ALT (0-50) U/L Alkaline Phosphatase (38-126) U/L Troponin I 0.014 0.013 (0.000-0.034) ng/mL Serum Total Protein (6.3-8.2) g/dL Albumin (3.5-5.0) g/dL Amylase (30-110) U/L Lipase (23-300) U/L Urinalys Dipstick Clnc Urine Color (YELLOW) Urine Appearance (CLEAR) Urine pH (5-6) Ur Specific [place] (1.005-1.025) POC Urine Protein Conf (Negative) Urine Ketones (NEGATIVE) Urine Nitrite (NEGATIVE) Urine Bilirubin (NEGATIVE) Urine Urobilinogen (0-1) mg/dL Urine Leukocytes (NEGATIVE) Urine WBC (Auto) (0-5) /HPF Urine RBC (Auto) (0-2) /HPF U Hyaline Cast (Auto) (0-2) /LPF U Epithel Cells (Auto) (FEW) /HPF Urine Bacteria (Auto) (NEGATIVE) /HPF Urine RBC (0-5) Andrey/ul Other Casts (Auto) (NEGATIVE) /LPF Ur Culture Indicated? Urine Glucose (NEGATIVE) mg/dL Influenza Type A Ag (NEGATIVE) Influenza Type B Ag (NEGATIVE) RSV (PCR) (Negative) SARS-CoV-2 (PCR) (NEGATIVE) 07/24/21 07/24/21 07/24/21 Range/Units 21:40 22:03 23:27 WBC (4.0-10.5) x10^3/uL RBC (4.1-5.6) x10^6/uL Hgb (12.5-18.0) g/dL Hct (42-50) % MCV (78-100) fL MCH (26-32) pg MCHC (32-36) g/dL RDW (11.5-14.0) % Plt Count (150-450) x10^3/uL MPV (7.5-11.0) fL Gran % (36.0-66.0) % Immature Gran % (Auto) (0.00-0.4) % Nucleat RBC Rel Count (0.00-0.1) % Eos # (Auto) (0-0.5) x10^3/uL Immature Gran # (Auto) (0.00-0.03) x10^3u/L Absolute Lymphs (auto) (1.0-4.6) x10^3/uL Absolute Monos (auto) (0.0-1.3) x10^3/uL Absolute Nucleated RBC (0.00-0.01) x10^3u/L Lymphocytes % (24.0-44.0) % Monocytes % (0.0-12.0) % Eosinophils % (0.00-5.0) % Basophils % (0.0-0.4) % Absolute Granulocytes (1.4-6.9) x10^3/uL Basophils # (0-0.4) x10^3/uL Sodium (137-145) mmol/L Potassium (3.5-5.1) mmol/L Chloride (98-107) mmol/L Carbon Dioxide (22-30) mmol/L Anion Gap (5-15) MEQ/L BUN (9-20) mg/dL Creatinine (0.66-1.25) mg/dL Estimated GFR ML/MIN Glucose (74-106) mg/dL POC Glucometer 84 (74 to 106) mg/dL Lactic Acid 3.9 H (0.4-2.0) Calcium (8.4-10.2) mg/dL Total Bilirubin (0.2-1.3) mg/dL AST (17-59) U/L ALT (0-50) U/L Alkaline Phosphatase (38-126) U/L Troponin I 0.013 (0.000-0.034) ng/mL Serum Total Protein (6.3-8.2) g/dL Albumin (3.5-5.0) g/dL Amylase (30-110) U/L Lipase (23-300) U/L Urinalys Dipstick Clnc Urine Color (YELLOW) Urine Appearance (CLEAR) Urine pH (5-6) Ur Specific [place] (1.005-1.025) POC Urine Protein Conf (Negative) Urine Ketones (NEGATIVE) Urine Nitrite (NEGATIVE) Urine Bilirubin (NEGATIVE) Urine Urobilinogen (0-1) mg/dL Urine Leukocytes (NEGATIVE) Urine WBC (Auto) (0-5) /HPF Urine RBC (Auto) (0-2) /HPF U Hyaline Cast (Auto) (0-2) /LPF U Epithel Cells (Auto) (FEW) /HPF Urine Bacteria (Auto) (NEGATIVE) /HPF Urine RBC (0-5) Andrey/ul Other Casts (Auto) (NEGATIVE) /LPF Ur Culture Indicated? Urine Glucose (NEGATIVE) mg/dL Influenza Type A Ag (NEGATIVE) Influenza Type B Ag (NEGATIVE) RSV (PCR) (Negative) SARS-CoV-2 (PCR) (NEGATIVE) 07/25/21 07/25/21 07/25/21 Range/Units 02:47 02:47 02:47 WBC 7.0 (4.0-10.5) x10^3/uL RBC 3.87 L (4.1-5.6) x10^6/uL Hgb 11.3 L (12.5-18.0) g/dL Hct 35.0 L (42-50) % MCV 90.4 (78-100) fL MCH 29.2 (26-32) pg MCHC 32.3 (32-36) g/dL RDW 14.9 H (11.5-14.0) % Plt Count 273 (150-450) x10^3/uL MPV 9.3 (7.5-11.0) fL Gran % 70.6 H (36.0-66.0) % Immature Gran % (Auto) 0.4 (0.00-0.4) % Nucleat RBC Rel Count 0.0 (0.00-0.1) % Eos # (Auto) 0.15 (0-0.5) x10^3/uL Immature Gran # (Auto) 0.03 (0.00-0.03) x10^3u/L Absolute Lymphs (auto) 1.37 (1.0-4.6) x10^3/uL Absolute Monos (auto) 0.49 (0.0-1.3) x10^3/uL Absolute Nucleated RBC 0.00 (0.00-0.01) x10^3u/L Lymphocytes % 19.5 L (24.0-44.0) % Monocytes % 7.0 (0.0-12.0) % Eosinophils % 2.1 (0.00-5.0) % Basophils % 0.4 (0.0-0.4) % Absolute Granulocytes 4.97 (1.4-6.9) x10^3/uL Basophils # 0.03 (0-0.4) x10^3/uL Sodium 140 (137-145) mmol/L Potassium 3.7 D (3.5-5.1) mmol/L Chloride 101 (98-107) mmol/L Carbon Dioxide 28 (22-30) mmol/L Anion Gap 14.7 (5-15) MEQ/L BUN 16 (9-20) mg/dL Creatinine 1.11 (0.66-1.25) mg/dL Estimated GFR > 60.0 ML/MIN Glucose 113 H (74-106) mg/dL POC Glucometer (74 to 106) mg/dL Lactic Acid (0.4-2.0) Calcium 8.0 L (8.4-10.2) mg/dL Total Bilirubin 0.50 (0.2-1.3) mg/dL AST 18 (17-59) U/L ALT 11 (0-50) U/L Alkaline Phosphatase 121 (38-126) U/L Troponin I 0.018 (0.000-0.034) ng/mL Serum Total Protein 6.3 (6.3-8.2) g/dL Albumin 3.5 (3.5-5.0) g/dL Amylase (30-110) U/L Lipase (23-300) U/L Urinalys Dipstick Clnc Urine Color (YELLOW) Urine Appearance (CLEAR) Urine pH (5-6) Ur Specific [place] (1.005-1.025) POC Urine Protein Conf (Negative) Urine Ketones (NEGATIVE) Urine Nitrite (NEGATIVE) Urine Bilirubin (NEGATIVE) Urine Urobilinogen (0-1) mg/dL Urine Leukocytes (NEGATIVE) Urine WBC (Auto) (0-5) /HPF Urine RBC (Auto) (0-2) /HPF U Hyaline Cast (Auto) (0-2) /LPF U Epithel Cells (Auto) (FEW) /HPF Urine Bacteria (Auto) (NEGATIVE) /HPF Urine RBC (0-5) Andrey/ul Other Casts (Auto) (NEGATIVE) /LPF Ur Culture Indicated? Urine Glucose (NEGATIVE) mg/dL Influenza Type A Ag (NEGATIVE) Influenza Type B Ag (NEGATIVE) RSV (PCR) (Negative) SARS-CoV-2 (PCR) (NEGATIVE) 07/25/21 07/25/21 Range/Units 02:50 07:29 WBC (4.0-10.5) x10^3/uL RBC (4.1-5.6) x10^6/uL Hgb (12.5-18.0) g/dL Hct (42-50) % MCV (78-100) fL MCH (26-32) pg MCHC (32-36) g/dL RDW (11.5-14.0) % Plt Count (150-450) x10^3/uL MPV (7.5-11.0) fL Gran % (36.0-66.0) % Immature Gran % (Auto) (0.00-0.4) % Nucleat RBC Rel Count (0.00-0.1) % Eos # (Auto) (0-0.5) x10^3/uL Immature Gran # (Auto) (0.00-0.03) x10^3u/L Absolute Lymphs (auto) (1.0-4.6) x10^3/uL Absolute Monos (auto) (0.0-1.3) x10^3/uL Absolute Nucleated RBC (0.00-0.01) x10^3u/L Lymphocytes % (24.0-44.0) % Monocytes % (0.0-12.0) % Eosinophils % (0.00-5.0) % Basophils % (0.0-0.4) % Absolute Granulocytes (1.4-6.9) x10^3/uL Basophils # (0-0.4) x10^3/uL Sodium (137-145) mmol/L Potassium (3.5-5.1) mmol/L Chloride (98-107) mmol/L Carbon Dioxide (22-30) mmol/L Anion Gap (5-15) MEQ/L BUN (9-20) mg/dL Creatinine (0.66-1.25) mg/dL Estimated GFR ML/MIN Glucose (74-106) mg/dL POC Glucometer 90 (74 to 106) mg/dL Lactic Acid 2.5 H (0.4-2.0) Calcium (8.4-10.2) mg/dL Total Bilirubin (0.2-1.3) mg/dL AST (17-59) U/L ALT (0-50) U/L Alkaline Phosphatase (38-126) U/L Troponin I (0.000-0.034) ng/mL Serum Total Protein (6.3-8.2) g/dL Albumin (3.5-5.0) g/dL Amylase (30-110) U/L Lipase (23-300) U/L Urinalys Dipstick Clnc Urine Color (YELLOW) Urine Appearance (CLEAR) Urine pH (5-6) Ur Specific [place] (1.005-1.025) POC Urine Protein Conf (Negative) Urine Ketones (NEGATIVE) Urine Nitrite (NEGATIVE) Urine Bilirubin (NEGATIVE) Urine Urobilinogen (0-1) mg/dL Urine Leukocytes (NEGATIVE) Urine WBC (Auto) (0-5) /HPF Urine RBC (Auto) (0-2) /HPF U Hyaline Cast (Auto) (0-2) /LPF U Epithel Cells (Auto) (FEW) /HPF Urine Bacteria (Auto) (NEGATIVE) /HPF Urine RBC (0-5) Andrey/ul Other Casts (Auto) (NEGATIVE) /LPF Ur Culture Indicated? Urine Glucose (NEGATIVE) mg/dL Influenza Type A Ag (NEGATIVE) Influenza Type B Ag (NEGATIVE) RSV (PCR) (Negative) SARS-CoV-2 (PCR) (NEGATIVE) - Radiology Impressions Radiology Exams & Impressions: Radiology Procedures Category Date Time Status ABDOMEN AND PELVIS W/0 CONTRAS [CT] Stat Exams 07/24/21 14:16 Completed CHEST 1 VIEW (PORTABLE) Stat Exams 07/24/21 17:27 Completed HEAD WITHOUT CONTRAST [CT] Stat Exams 07/24/21 14:16 Completed - Other Procedures and Tests Respiratory Therapy 07/25/21 07:14 Respiratory Therapy Assessment DAILY Assessment/Plan (1) Altered mental status Current Visit: Yes Status: Resolved Qualifiers: Altered mental status type: somnolence Qualified Code(s): R40.0 - Somnolence Assessment & Plan: Resolved. May have been due to mild dehydration and hypokalemia. Code(s): R41.82 - ALTERED MENTAL STATUS, UNSPECIFIED (2) Dementia Current Visit: Yes Status: Acute Qualifiers: Dementia type: unspecified type Dementia behavioral disturbance: without behavioral disturbance Qualified Code(s): F03.90 - Unspecified dementia without behavioral disturbance Code(s): F03.90 - UNSPECIFIED DEMENTIA WITHOUT BEHAVIORAL DISTURBANCE (3) Cholelithiasis Current Visit: Yes Status: Chronic Qualifiers: Cholelithiasis location: gallbladder Cholecystitis presence: without cholecystitis Biliary obstruction: without biliary obstruction Qualified Code(s): K80.20 - Calculus of gallbladder without cholecystitis without obstruction Assessment & Plan: With initial elevated lactate. Fluids and IV zosyn. Lactate nearly normal this morning. Will actually keep him another day on the zosyn and re-eval tomorrow. If he tolerates po well and no other issues, may be able to discharge to home tomorrow and f/u with Dr. Scott and general surgery outpatient. If any fever or increased WBC count, increased abd pain etc may consult surgery inpatient. (4) Dizziness Current Visit: Yes Status: Acute Assessment & Plan: Unsure if this is chronic - RN will d/w family. Orthostats. Does sound more like BPPV - consult PT. Code(s): R42 - DIZZINESS AND GIDDINESS (5) Dehydration, mild Current Visit: Yes Status: Resolved Code(s): E86.0 - DEHYDRATION (6) Hypokalemia Current Visit: Yes Status: Resolved Assessment & Plan: Will have him recheck in 2 days. Will send home on small amount of potassium. F/u with Dr. Scott. Code(s): E87.6 - HYPOKALEMIA Hospital Summary - Hospital Course Hospital Course: Pt is 75 yo male with dementia admitted through ER with AMS. Found to have mild dehydration and cholelithiasis. He does have mild abd pain. Lactate was elevated to 3.9 overnight (kept increasing) so pt was started on IV zosyn for possible intraabdominal infection. If his WBC remain normal, lactate remains down and he tolerates po will perhaps be able to send pt home tomorrow. He does have some dizziness, which may be BPPV; orthostats and PT consult pending. CT head was nonacute. He was brought in hypersomnolent but is very awake and conversant this morning. RN to discuss with family whether the dizziness is chronic. Pt hypokalemic on admission; will be sent home on 10mEq potassium BID and recheck K+ in 2 days. - Vitals & Intake/Output Vital Signs: Vital Signs Temperature 98.1 F 07/25/21 04:00 Pulse Rate 60 07/25/21 07:37 Respiratory Rate 18 07/25/21 07:37 Blood Pressure 137/68 07/25/21 04:00 O2 Sat by Pulse Oximetry 91 L 07/25/21 07:37 Intake & Output: Intake & Output 07/22/21 07/23/21 07/24/21 07/25/21 11:59 11:59 11:59 11:59 Intake Total 2391 Output Total 2150 Balance 241 Weight 86.2 kg - Lab Result Diagrams: 07/25/21 02:47 07/25/21 02:47 Lab Results-Last 24 Hrs: Lab Results-Last 24 Hours 07/24/21 07/24/21 07/24/21 Range/Units 14:15 14:54 14:54 WBC 6.9 (4.0-10.5) x10^3/uL RBC 4.26 (4.1-5.6) x10^6/uL Hgb 12.4 L (12.5-18.0) g/dL Hct 37.7 L (42-50) % MCV 88.5 (78-100) fL MCH 29.1 (26-32) pg MCHC 32.9 (32-36) g/dL RDW 14.7 H (11.5-14.0) % Plt Count 292 (150-450) x10^3/uL MPV 9.2 (7.5-11.0) fL Gran % 76.4 H (36.0-66.0) % Immature Gran % (Auto) 0.3 (0.00-0.4) % Nucleat RBC Rel Count 0.0 (0.00-0.1) % Eos # (Auto) 0.13 (0-0.5) x10^3/uL Immature Gran # (Auto) 0.02 (0.00-0.03) x10^3u/L Absolute Lymphs (auto) 1.02 (1.0-4.6) x10^3/uL Absolute Monos (auto) 0.44 (0.0-1.3) x10^3/uL Absolute Nucleated RBC 0.00 (0.00-0.01) x10^3u/L Lymphocytes % 14.7 L (24.0-44.0) % Monocytes % 6.3 (0.0-12.0) % Eosinophils % 1.9 (0.00-5.0) % Basophils % 0.4 (0.0-0.4) % Absolute Granulocytes 5.29 (1.4-6.9) x10^3/uL Basophils # 0.03 (0-0.4) x10^3/uL Sodium 137 (137-145) mmol/L Potassium 2.9 L* (3.5-5.1) mmol/L Chloride 93 L (98-107) mmol/L Carbon Dioxide 32 H (22-30) mmol/L Anion Gap 15.4 H (5-15) MEQ/L BUN 20 (9-20) mg/dL Creatinine 1.28 H (0.66-1.25) mg/dL Estimated GFR 58.4 ML/MIN Glucose 126 H (74-106) mg/dL POC Glucometer (74 to 106) mg/dL Lactic Acid 3.6 H (0.4-2.0) Calcium 9.0 (8.4-10.2) mg/dL Total Bilirubin 0.60 (0.2-1.3) mg/dL AST 21 (17-59) U/L ALT 15 (0-50) U/L Alkaline Phosphatase 138 H (38-126) U/L Troponin I (0.000-0.034) ng/mL Serum Total Protein 7.1 (6.3-8.2) g/dL Albumin 3.9 (3.5-5.0) g/dL Amylase 63 (30-110) U/L Lipase 75 (23-300) U/L Urinalys Dipstick Clnc Urine Color (YELLOW) Urine Appearance (CLEAR) Urine pH (5-6) Ur Specific [place] (1.005-1.025) POC Urine Protein Conf (Negative) Urine Ketones (NEGATIVE) Urine Nitrite (NEGATIVE) Urine Bilirubin (NEGATIVE) Urine Urobilinogen (0-1) mg/dL Urine Leukocytes (NEGATIVE) Urine WBC (Auto) (0-5) /HPF Urine RBC (Auto) (0-2) /HPF U Hyaline Cast (Auto) (0-2) /LPF U Epithel Cells (Auto) (FEW) /HPF Urine Bacteria (Auto) (NEGATIVE) /HPF Urine RBC (0-5) Andrey/ul Other Casts (Auto) (NEGATIVE) /LPF Ur Culture Indicated? Urine Glucose (NEGATIVE) mg/dL Influenza Type A Ag (NEGATIVE) Influenza Type B Ag (NEGATIVE) RSV (PCR) (Negative) SARS-CoV-2 (PCR) (NEGATIVE) 07/24/21 07/24/21 07/24/21 Range/Units 14:54 15:42 16:30 WBC (4.0-10.5) x10^3/uL RBC (4.1-5.6) x10^6/uL Hgb (12.5-18.0) g/dL Hct (42-50) % MCV (78-100) fL MCH (26-32) pg MCHC (32-36) g/dL RDW (11.5-14.0) % Plt Count (150-450) x10^3/uL MPV (7.5-11.0) fL Gran % (36.0-66.0) % Immature Gran % (Auto) (0.00-0.4) % Nucleat RBC Rel Count (0.00-0.1) % Eos # (Auto) (0-0.5) x10^3/uL Immature Gran # (Auto) (0.00-0.03) x10^3u/L Absolute Lymphs (auto) (1.0-4.6) x10^3/uL Absolute Monos (auto) (0.0-1.3) x10^3/uL Absolute Nucleated RBC (0.00-0.01) x10^3u/L Lymphocytes % (24.0-44.0) % Monocytes % (0.0-12.0) % Eosinophils % (0.00-5.0) % Basophils % (0.0-0.4) % Absolute Granulocytes (1.4-6.9) x10^3/uL Basophils # (0-0.4) x10^3/uL Sodium (137-145) mmol/L Potassium (3.5-5.1) mmol/L Chloride (98-107) mmol/L Carbon Dioxide (22-30) mmol/L Anion Gap (5-15) MEQ/L BUN (9-20) mg/dL Creatinine (0.66-1.25) mg/dL Estimated GFR ML/MIN Glucose (74-106) mg/dL POC Glucometer (74 to 106) mg/dL Lactic Acid (0.4-2.0) Calcium (8.4-10.2) mg/dL Total Bilirubin (0.2-1.3) mg/dL AST (17-59) U/L ALT (0-50) U/L Alkaline Phosphatase (38-126) U/L Troponin I 0.012 (0.000-0.034) ng/mL Serum Total Protein (6.3-8.2) g/dL Albumin (3.5-5.0) g/dL Amylase (30-110) U/L Lipase (23-300) U/L Urinalys Dipstick Clnc Pending Urine Color YELLOW (YELLOW) Urine Appearance CLEAR (CLEAR) Urine pH 7.0 (5-6) Ur Specific [place] 1.015 (1.005-1.025) POC Urine Protein Conf NEGATIVE (Negative) Urine Ketones NEGATIVE (NEGATIVE) Urine Nitrite NEGATIVE (NEGATIVE) Urine Bilirubin NEGATIVE (NEGATIVE) Urine Urobilinogen 0.2 (0-1) mg/dL Urine Leukocytes NEGATIVE (NEGATIVE) Urine WBC (Auto) 0-2 (0-5) /HPF Urine RBC (Auto) 11-15 (0-2) /HPF U Hyaline Cast (Auto) 3-5 (0-2) /LPF U Epithel Cells (Auto) NONE (FEW) /HPF Urine Bacteria (Auto) NONE (NEGATIVE) /HPF Urine RBC SMALL (0-5) Andrey/ul Other Casts (Auto) 2-5 (NEGATIVE) /LPF Ur Culture Indicated? NO Urine Glucose NEGATIVE (NEGATIVE) mg/dL Influenza Type A Ag NEGATIVE (NEGATIVE) Influenza Type B Ag NEGATIVE (NEGATIVE) RSV (PCR) NEGATIVE (Negative) SARS-CoV-2 (PCR) NEGATIVE (NEGATIVE) 07/24/21 07/24/21 07/24/21 Range/Units 17:03 17:16 20:58 WBC (4.0-10.5) x10^3/uL RBC (4.1-5.6) x10^6/uL Hgb (12.5-18.0) g/dL Hct (42-50) % MCV (78-100) fL MCH (26-32) pg MCHC (32-36) g/dL RDW (11.5-14.0) % Plt Count (150-450) x10^3/uL MPV (7.5-11.0) fL Gran % (36.0-66.0) % Immature Gran % (Auto) (0.00-0.4) % Nucleat RBC Rel Count (0.00-0.1) % Eos # (Auto) (0-0.5) x10^3/uL Immature Gran # (Auto) (0.00-0.03) x10^3u/L Absolute Lymphs (auto) (1.0-4.6) x10^3/uL Absolute Monos (auto) (0.0-1.3) x10^3/uL Absolute Nucleated RBC (0.00-0.01) x10^3u/L Lymphocytes % (24.0-44.0) % Monocytes % (0.0-12.0) % Eosinophils % (0.00-5.0) % Basophils % (0.0-0.4) % Absolute Granulocytes (1.4-6.9) x10^3/uL Basophils # (0-0.4) x10^3/uL Sodium (137-145) mmol/L Potassium (3.5-5.1) mmol/L Chloride (98-107) mmol/L Carbon Dioxide (22-30) mmol/L Anion Gap (5-15) MEQ/L BUN (9-20) mg/dL Creatinine (0.66-1.25) mg/dL Estimated GFR ML/MIN Glucose (74-106) mg/dL POC Glucometer (74 to 106) mg/dL Lactic Acid 3.7 H (0.4-2.0) Calcium (8.4-10.2) mg/dL Total Bilirubin (0.2-1.3) mg/dL AST (17-59) U/L ALT (0-50) U/L Alkaline Phosphatase (38-126) U/L Troponin I 0.014 0.013 (0.000-0.034) ng/mL Serum Total Protein (6.3-8.2) g/dL Albumin (3.5-5.0) g/dL Amylase (30-110) U/L Lipase (23-300) U/L Urinalys Dipstick Clnc Urine Color (YELLOW) Urine Appearance (CLEAR) Urine pH (5-6) Ur Specific [place] (1.005-1.025) POC Urine Protein Conf (Negative) Urine Ketones (NEGATIVE) Urine Nitrite (NEGATIVE) Urine Bilirubin (NEGATIVE) Urine Urobilinogen (0-1) mg/dL Urine Leukocytes (NEGATIVE) Urine WBC (Auto) (0-5) /HPF Urine RBC (Auto) (0-2) /HPF U Hyaline Cast (Auto) (0-2) /LPF U Epithel Cells (Auto) (FEW) /HPF Urine Bacteria (Auto) (NEGATIVE) /HPF Urine RBC (0-5) Andrey/ul Other Casts (Auto) (NEGATIVE) /LPF Ur Culture Indicated? Urine Glucose (NEGATIVE) mg/dL Influenza Type A Ag (NEGATIVE) Influenza Type B Ag (NEGATIVE) RSV (PCR) (Negative) SARS-CoV-2 (PCR) (NEGATIVE) 07/24/21 07/24/21 07/24/21 Range/Units 21:40 22:03 23:27 WBC (4.0-10.5) x10^3/uL RBC (4.1-5.6) x10^6/uL Hgb (12.5-18.0) g/dL Hct (42-50) % MCV (78-100) fL MCH (26-32) pg MCHC (32-36) g/dL RDW (11.5-14.0) % Plt Count (150-450) x10^3/uL MPV (7.5-11.0) fL Gran % (36.0-66.0) % Immature Gran % (Auto) (0.00-0.4) % Nucleat RBC Rel Count (0.00-0.1) % Eos # (Auto) (0-0.5) x10^3/uL Immature Gran # (Auto) (0.00-0.03) x10^3u/L Absolute Lymphs (auto) (1.0-4.6) x10^3/uL Absolute Monos (auto) (0.0-1.3) x10^3/uL Absolute Nucleated RBC (0.00-0.01) x10^3u/L Lymphocytes % (24.0-44.0) % Monocytes % (0.0-12.0) % Eosinophils % (0.00-5.0) % Basophils % (0.0-0.4) % Absolute Granulocytes (1.4-6.9) x10^3/uL Basophils # (0-0.4) x10^3/uL Sodium (137-145) mmol/L Potassium (3.5-5.1) mmol/L Chloride (98-107) mmol/L Carbon Dioxide (22-30) mmol/L Anion Gap (5-15) MEQ/L BUN (9-20) mg/dL Creatinine (0.66-1.25) mg/dL Estimated GFR ML/MIN Glucose (74-106) mg/dL POC Glucometer 84 (74 to 106) mg/dL Lactic Acid 3.9 H (0.4-2.0) Calcium (8.4-10.2) mg/dL Total Bilirubin (0.2-1.3) mg/dL AST (17-59) U/L ALT (0-50) U/L Alkaline Phosphatase (38-126) U/L Troponin I 0.013 (0.000-0.034) ng/mL Serum Total Protein (6.3-8.2) g/dL Albumin (3.5-5.0) g/dL Amylase (30-110) U/L Lipase (23-300) U/L Urinalys Dipstick Clnc Urine Color (YELLOW) Urine Appearance (CLEAR) Urine pH (5-6) Ur Specific [place] (1.005-1.025) POC Urine Protein Conf (Negative) Urine Ketones (NEGATIVE) Urine Nitrite (NEGATIVE) Urine Bilirubin (NEGATIVE) Urine Urobilinogen (0-1) mg/dL Urine Leukocytes (NEGATIVE) Urine WBC (Auto) (0-5) /HPF Urine RBC (Auto) (0-2) /HPF U Hyaline Cast (Auto) (0-2) /LPF U Epithel Cells (Auto) (FEW) /HPF Urine Bacteria (Auto) (NEGATIVE) /HPF Urine RBC (0-5) Andrey/ul Other Casts (Auto) (NEGATIVE) /LPF Ur Culture Indicated? Urine Glucose (NEGATIVE) mg/dL Influenza Type A Ag (NEGATIVE) Influenza Type B Ag (NEGATIVE) RSV (PCR) (Negative) SARS-CoV-2 (PCR) (NEGATIVE) 07/25/21 07/25/21 07/25/21 Range/Units 02:47 02:47 02:47 WBC 7.0 (4.0-10.5) x10^3/uL RBC 3.87 L (4.1-5.6) x10^6/uL Hgb 11.3 L (12.5-18.0) g/dL Hct 35.0 L (42-50) % MCV 90.4 (78-100) fL MCH 29.2 (26-32) pg MCHC 32.3 (32-36) g/dL RDW 14.9 H (11.5-14.0) % Plt Count 273 (150-450) x10^3/uL MPV 9.3 (7.5-11.0) fL Gran % 70.6 H (36.0-66.0) % Immature Gran % (Auto) 0.4 (0.00-0.4) % Nucleat RBC Rel Count 0.0 (0.00-0.1) % Eos # (Auto) 0.15 (0-0.5) x10^3/uL Immature Gran # (Auto) 0.03 (0.00-0.03) x10^3u/L Absolute Lymphs (auto) 1.37 (1.0-4.6) x10^3/uL Absolute Monos (auto) 0.49 (0.0-1.3) x10^3/uL Absolute Nucleated RBC 0.00 (0.00-0.01) x10^3u/L Lymphocytes % 19.5 L (24.0-44.0) % Monocytes % 7.0 (0.0-12.0) % Eosinophils % 2.1 (0.00-5.0) % Basophils % 0.4 (0.0-0.4) % Absolute Granulocytes 4.97 (1.4-6.9) x10^3/uL Basophils # 0.03 (0-0.4) x10^3/uL Sodium 140 (137-145) mmol/L Potassium 3.7 D (3.5-5.1) mmol/L Chloride 101 (98-107) mmol/L Carbon Dioxide 28 (22-30) mmol/L Anion Gap 14.7 (5-15) MEQ/L BUN 16 (9-20) mg/dL Creatinine 1.11 (0.66-1.25) mg/dL Estimated GFR > 60.0 ML/MIN Glucose 113 H (74-106) mg/dL POC Glucometer (74 to 106) mg/dL Lactic Acid (0.4-2.0) Calcium 8.0 L (8.4-10.2) mg/dL Total Bilirubin 0.50 (0.2-1.3) mg/dL AST 18 (17-59) U/L ALT 11 (0-50) U/L Alkaline Phosphatase 121 (38-126) U/L Troponin I 0.018 (0.000-0.034) ng/mL Serum Total Protein 6.3 (6.3-8.2) g/dL Albumin 3.5 (3.5-5.0) g/dL Amylase (30-110) U/L Lipase (23-300) U/L Urinalys Dipstick Clnc Urine Color (YELLOW) Urine Appearance (CLEAR) Urine pH (5-6) Ur Specific [place] (1.005-1.025) POC Urine Protein Conf (Negative) Urine Ketones (NEGATIVE) Urine Nitrite (NEGATIVE) Urine Bilirubin (NEGATIVE) Urine Urobilinogen (0-1) mg/dL Urine Leukocytes (NEGATIVE) Urine WBC (Auto) (0-5) /HPF Urine RBC (Auto) (0-2) /HPF U Hyaline Cast (Auto) (0-2) /LPF U Epithel Cells (Auto) (FEW) /HPF Urine Bacteria (Auto) (NEGATIVE) /HPF Urine RBC (0-5) Andrey/ul Other Casts (Auto) (NEGATIVE) /LPF Ur Culture Indicated? Urine Glucose (NEGATIVE) mg/dL Influenza Type A Ag (NEGATIVE) Influenza Type B Ag (NEGATIVE) RSV (PCR) (Negative) SARS-CoV-2 (PCR) (NEGATIVE) 07/25/21 07/25/21 Range/Units 02:50 07:29 WBC (4.0-10.5) x10^3/uL RBC (4.1-5.6) x10^6/uL Hgb (12.5-18.0) g/dL Hct (42-50) % MCV (78-100) fL MCH (26-32) pg MCHC (32-36) g/dL RDW (11.5-14.0) % Plt Count (150-450) x10^3/uL MPV (7.5-11.0) fL Gran % (36.0-66.0) % Immature Gran % (Auto) (0.00-0.4) % Nucleat RBC Rel Count (0.00-0.1) % Eos # (Auto) (0-0.5) x10^3/uL Immature Gran # (Auto) (0.00-0.03) x10^3u/L Absolute Lymphs (auto) (1.0-4.6) x10^3/uL Absolute Monos (auto) (0.0-1.3) x10^3/uL Absolute Nucleated RBC (0.00-0.01) x10^3u/L Lymphocytes % (24.0-44.0) % Monocytes % (0.0-12.0) % Eosinophils % (0.00-5.0) % Basophils % (0.0-0.4) % Absolute Granulocytes (1.4-6.9) x10^3/uL Basophils # (0-0.4) x10^3/uL Sodium (137-145) mmol/L Potassium (3.5-5.1) mmol/L Chloride (98-107) mmol/L Carbon Dioxide (22-30) mmol/L Anion Gap (5-15) MEQ/L BUN (9-20) mg/dL Creatinine (0.66-1.25) mg/dL Estimated GFR ML/MIN Glucose (74-106) mg/dL POC Glucometer 90 (74 to 106) mg/dL Lactic Acid 2.5 H (0.4-2.0) Calcium (8.4-10.2) mg/dL Total Bilirubin (0.2-1.3) mg/dL AST (17-59) U/L ALT (0-50) U/L Alkaline Phosphatase (38-126) U/L Troponin I (0.000-0.034) ng/mL Serum Total Protein (6.3-8.2) g/dL Albumin (3.5-5.0) g/dL Amylase (30-110) U/L Lipase (23-300) U/L Urinalys Dipstick Clnc Urine Color (YELLOW) Urine Appearance (CLEAR) Urine pH (5-6) Ur Specific [place] (1.005-1.025) POC Urine Protein Conf (Negative) Urine Ketones (NEGATIVE) Urine Nitrite (NEGATIVE) Urine Bilirubin (NEGATIVE) Urine Urobilinogen (0-1) mg/dL Urine Leukocytes (NEGATIVE) Urine WBC (Auto) (0-5) /HPF Urine RBC (Auto) (0-2) /HPF U Hyaline Cast (Auto) (0-2) /LPF U Epithel Cells (Auto) (FEW) /HPF Urine Bacteria (Auto) (NEGATIVE) /HPF Urine RBC (0-5) Andrey/ul Other Casts (Auto) (NEGATIVE) /LPF Ur Culture Indicated? Urine Glucose (NEGATIVE) mg/dL Influenza Type A Ag (NEGATIVE) Influenza Type B Ag (NEGATIVE) RSV (PCR) (Negative) SARS-CoV-2 (PCR) (NEGATIVE) - Radiology Exams Ordered Rad Exams-Entire Visit: Radiology Procedures Category Date Time Status ABDOMEN AND PELVIS W/0 CONTRAS [CT] Stat Exams 07/24/21 14:16 Completed CHEST 1 VIEW (PORTABLE) Stat Exams 07/24/21 17:27 Completed HEAD WITHOUT CONTRAST [CT] Stat Exams 07/24/21 14:16 Completed - Procedures and Test Procedures and Tests throughout Hospitalization: Therapy Orders & Screens 07/25/21 07:14 Respiratory Therapy Assessment DAILY Comment: Diagnosis: Mental Status Changes/Elevated Lactate 07/25/21 08:13 PT Eval & Treat (MD Order) ONCE Reason for Eval:: pt dizzy when he first sits up and he first sits down Diagnosis: Mental Status Changes/Elevated Lactate - Discharge Disposition: Home, Self-Care Condition: Stable Prescriptions: No Action Baclofen 10 mg [Lioresal 10 mg] 20 mg PO HS Primidone [Mysoline] 250 mg PO HS Levothyroxine Sodium [Levoxyl] 200 mcg PO DAILY Hydralazine HCl 50 mg PO BID Gabapentin [Neurontin] 600 mg PO BID Furosemide 40 mg [Lasix 40 MG] 40 mg PO BID Duloxetine HCl [Cymbalta] 60 mg PO DAILY cloNIDine HCL [Catapres] 0.2 mg PO BID Amlodipine Besylate [Norvasc] 10 mg PO DAILY Amitriptyline HCl 25 mg [Amitriptyline 25 mg Tablet] 25 mg PO HS Amiodarone HCl [Pacerone] 200 mg PO BID Spironolactone 25 mg [Aldactone 25 MG] 25 mg PO DAILY Gemfibrozil [Lopid] 600 mg PO BID Potassium Chloride 10 meq PO DAILY Multivitamin [Daily Multiple Vitamin] 1 tab PO DAILY Metformin HCl 850 mg [Glucophage 850 MG] 850 mg PO BID Memantine HCl 10 mg PO BID Fluticasone/Vilanterol [Breo Ellipta 100-25 Mcg INH] 1 puff IH DAILY Donepezil HCl 10 mg PO HS Docusate Sodium [Stool Softener] 100 mg PO DAILY PRN PRN PRN Reason: Constipation Calcium Carbonate [Elemental Calcium] 600 mg PO DAILY Aspirin EC 325 mg [Ecotrin 325 MG] 325 mg PO DAILY Albuterol Sulfate [Proair Hfa] 2 puffs IH QID Follow up with: KIMBERLI CERVANTES MD [Primary Care Provider] -
[2021-07-25] MEDS ORDERED: Docusate Sodium 100 MG PO PRN (09:00)
[2021-07-25] MEDS ORDERED: NON-FORMULARY ITEM (Amlodipine Besylate [Norvasc] 10 MG Tablet) PO SCH (10:00)
[2021-07-25] MEDS ORDERED: NON-FORMULARY ITEM (Potassium Chloride [Potassium Chloride] 10 MEQ Tablet.Er) PO SCH (10:00)
[2021-07-25] MEDS ORDERED: NON-FORMULARY ITEM (Hydralazine Hcl [Hydralazine Hcl] 50 MG Tablet) PO SCH (10:00)
[2021-07-25] MEDS ORDERED: LEVOTHYROXINE SODIUM 200 MCG PO SCH (10:00)
[2021-07-25] MEDS ORDERED: NON-FORMULARY ITEM (Duloxetine Hcl [Cymbalta] 60 MG Capsule.Dr) PO SCH (10:00)
[2021-07-25] MEDS: Apresoline 25 MG TABLET PO SCH ×2 (10:07→22:02)
[2021-07-25] MEDS: Cymbalta 30 MG Capsule PO SCH (10:07)
[2021-07-25] MEDS: Ecotrin 325 MG PO SCH (10:07)
[2021-07-25] MEDS: LASIX 20 MG PO SCH (10:07)
[2021-07-25] MEDS: Klor Con PO SCH (10:07)
[2021-07-25] MEDS: SYNTHROID 100 MCG PO SCH (10:08)
[2021-07-25] MEDS: Cordarone 200 MG PO SCH ×2 (10:08→21:59)
[2021-07-25] MEDS: NEURONTIN PO SCH ×2 (10:08→22:03)
[2021-07-25] MEDS: Aldactone 25 MG PO SCH (10:08)
[2021-07-25] MEDS: CLONIDINE 0.1 MG TABLET PO SCH ×2 (10:08→22:00)
[2021-07-25] MEDS: NORVASC 5 MG PO SCH (10:08)
[2021-07-25] MEDS: LOPID PO SCH ×2 (10:09→22:01)
[2021-07-25] MEDS: PROTONIX 40 MG IV IV SCH (10:15)
[2021-07-25] MEDS: Heparin 5000 UNITS/0.5 ML (HIGH RISK MED) SQ SCH ×2 (10:43→22:05)
[2021-07-25] MEDS ORDERED: VENTOLIN COMMON CANISTER IH SCH (11:00)
[2021-07-25 16:32] LABS: Dipstick done @ ? MAIN LAB
[2021-07-25] MEDS ORDERED: MYSOLINE 50MG PO SCH (22:00)
[2021-07-25] MEDS ORDERED: NON-FORMULARY ITEM (Primidone [Mysoline] 250 MG Tablet) PO SCH (22:00)
[2021-07-25] MEDS ORDERED: LIORESAL 10 MG PO SCH (22:00)
[2021-07-25] MEDS ORDERED: AMITRIPTYLINE 25 MG TABLET PO SCH (22:00)
[2021-07-25] MEDS ORDERED: Aricept 10 MG PO SCH (22:00)
[2021-07-26] MEDS: PIPERACILLIN/TAZOBACTAM 3.375 GM in Sodium Chloride 100ML MINI-BAG PLUS 100 ML IV SCH ×3 (00:27→13:00)
[2021-07-26 05:10] LABS: Absolute Neutrophil Ct (ANC) 3.89 x10^3/uL (1.4-6.9); Basophil (Absolute #) 0.03 x10^3/uL (0-0.4); Eosinophil (Absolute #) 0.24 x10^3/uL (0-0.5); Hemoglobin 9.8 g/dL (12.5-18.0); Lymphocyte (Absolute #) 1.26 x10^3/uL (1.0-4.6); Lymphocytes % 21.2 % (24.0-44.0); Mean Cell Volume 90.6 fL (78-100); Mean Corpuscular Hemoglobin 28.7 pg (26-32); Mean Corpuscular Hgb Concent. 31.6 g/dL (32-36); Mean Platelet Volume 9.7 fL (7.5-11.0); Monocytes % 8.4 % (0.0-12.0); Neutrophil % 65.4 % (36.0-66.0); Platelet Count 252 x10^3/uL (150-450); Red Blood Count 3.42 x10^6/uL (4.1-5.6); Red Cell Distribution Width 15.3 % (11.5-14.0)
[2021-07-26 05:40] LABS: ALBUMIN 3.1 g/dL (3.5-5.0); ALKALINE PHOSPHATASE 100 U/L (38-126); ANION GAP 11.4 MEQ/L (5-15); BLOOD UREA NITROGEN 11 mg/dL (9-20); CHLORIDE 104 mmol/L (98-107); Calcium 8.2 mg/dL (8.4-10.2); Carbon Dioxide 27 mmol/L (22-30); Creatinine 1 1.04 mg/dL (0.66-1.25); EST GLOMERULAR FILTRATION RATE > 60.0 ML/MIN; Glucose 130 mg/dL (74-106); Potassium 3.2 mmol/L (3.5-5.1); SGOT/AST 14 U/L (17-59); SGPT/ALT 7 U/L (0-50); SODIUM 139 mmol/L (137-145); Total Protein 5.8 g/dL (6.3-8.2)
[2021-07-26] MEDS: VENTOLIN COMMON CANISTER IH SCH ×2 (08:11→11:24)
[2021-07-26] MEDS: Advair Hfa 115/21 Common canister IH SCH (08:11)
--- NOTE | 2021-07-26 09:17 | PCM.DS ---
Discharge Summary Date of Admission: 07/24/21 18:10 Admitting Physician: CRISTINA BLACK Primary Care Provider: KIMBERLI CERVANTES MD Allergies Allergies codeine Allergy (Mild, Verified 07/24/21 23:30) Headache morphine Allergy (Mild, Verified 07/24/21 14:04) Hospital Summary - Hospital Course Hospital Course: Pt is 75 yo male with dementia, HTN, hyperlipidemia, DM II, hypothyroidism, and arrhythmia who was admitted through ER with AMS. He had been hypersomnolent at home. CT head was nl Pt also c/o abd pain and his CT abd/pelvis showed cholelithiasis. His lactate was elevated and continued to climb throughout the night so he was started on IV zosyn. His WBC have been normal. This morning he is complaining of very little lower abd pain; notes he feels "pretty good." Ate 100% of his breakfast. He was initially c/o dizziness. Has not complained about it to staff; when I asked about it this morning, he said he was dizzy eating his breakfast. He is oriented to self and place; does not know the year. Potassium was low initially; this morning is 3.2 so will be sent home on K 10mEq po BID and recheck in 1 week. Home on augmentin x 4d (to finish 7d). - Vitals & Intake/Output Vital Signs: Vital Signs Temperature 98.4 F 07/26/21 07:37 Pulse Rate 73 07/26/21 08:12 Respiratory Rate 18 07/26/21 08:12 Blood Pressure 155/74 07/26/21 07:37 O2 Sat by Pulse Oximetry 90 L 07/26/21 08:12 Intake & Output: Intake & Output 07/23/21 07/24/21 07/25/21 07/26/21 11:59 11:59 11:59 11:59 Intake Total 3351 4343 Output Total 4970 6800 Balance 601 1992 Weight 86.2 kg 86.2 kg - Lab Result Diagrams: 07/26/21 05:07 07/26/21 05:07 Lab Results-Last 24 Hrs: Lab Results-Last 24 Hours 07/24/21 07/25/21 07/25/21 Range/Units 15:42 11:57 17:22 WBC (4.0-10.5) x10^3/uL RBC (4.1-5.6) x10^6/uL Hgb (12.5-18.0) g/dL Hct (42-50) % MCV (78-100) fL MCH (26-32) pg MCHC (32-36) g/dL RDW (11.5-14.0) % Plt Count (150-450) x10^3/uL MPV (7.5-11.0) fL Gran % (36.0-66.0) % Immature Gran % (Auto) (0.00-0.4) % Nucleat RBC Rel Count (0.00-0.1) % Eos # (Auto) (0-0.5) x10^3/uL Immature Gran # (Auto) (0.00-0.03) x10^3u/L Absolute Lymphs (auto) (1.0-4.6) x10^3/uL Absolute Monos (auto) (0.0-1.3) x10^3/uL Absolute Nucleated RBC (0.00-0.01) x10^3u/L Lymphocytes % (24.0-44.0) % Monocytes % (0.0-12.0) % Eosinophils % (0.00-5.0) % Basophils % (0.0-0.4) % Absolute Granulocytes (1.4-6.9) x10^3/uL Basophils # (0-0.4) x10^3/uL Sodium (137-145) mmol/L Potassium (3.5-5.1) mmol/L Chloride (98-107) mmol/L Carbon Dioxide (22-30) mmol/L Anion Gap (5-15) MEQ/L BUN (9-20) mg/dL Creatinine (0.66-1.25) mg/dL Estimated GFR ML/MIN Glucose (74-106) mg/dL POC Glucometer 139 H 178 H (74 to 106) mg/dL Lactic Acid (0.4-2.0) Calcium (8.4-10.2) mg/dL Total Bilirubin (0.2-1.3) mg/dL AST (17-59) U/L ALT (0-50) U/L Alkaline Phosphatase (38-126) U/L Serum Total Protein (6.3-8.2) g/dL Albumin (3.5-5.0) g/dL Urinalys Dipstick Clnc MAIN LAB 07/25/21 07/26/21 07/26/21 Range/Units 21:26 05:07 05:07 WBC 6.0 (4.0-10.5) x10^3/uL RBC 3.42 L (4.1-5.6) x10^6/uL Hgb 9.8 L (12.5-18.0) g/dL Hct 31.0 L (42-50) % MCV 90.6 (78-100) fL MCH 28.7 (26-32) pg MCHC 31.6 L (32-36) g/dL RDW 15.3 H (11.5-14.0) % Plt Count 252 (150-450) x10^3/uL MPV 9.7 (7.5-11.0) fL Gran % 65.4 (36.0-66.0) % Immature Gran % (Auto) 0.5 H (0.00-0.4) % Nucleat RBC Rel Count 0.0 (0.00-0.1) % Eos # (Auto) 0.24 (0-0.5) x10^3/uL Immature Gran # (Auto) 0.03 (0.00-0.03) x10^3u/L Absolute Lymphs (auto) 1.26 (1.0-4.6) x10^3/uL Absolute Monos (auto) 0.50 (0.0-1.3) x10^3/uL Absolute Nucleated RBC 0.00 (0.00-0.01) x10^3u/L Lymphocytes % 21.2 L (24.0-44.0) % Monocytes % 8.4 (0.0-12.0) % Eosinophils % 4.0 (0.00-5.0) % Basophils % 0.5 (0.0-0.4) % Absolute Granulocytes 3.89 (1.4-6.9) x10^3/uL Basophils # 0.03 (0-0.4) x10^3/uL Sodium (137-145) mmol/L Potassium (3.5-5.1) mmol/L Chloride (98-107) mmol/L Carbon Dioxide (22-30) mmol/L Anion Gap (5-15) MEQ/L BUN (9-20) mg/dL Creatinine (0.66-1.25) mg/dL Estimated GFR ML/MIN Glucose (74-106) mg/dL POC Glucometer 207 H (74 to 106) mg/dL Lactic Acid 1.3 (0.4-2.0) Calcium (8.4-10.2) mg/dL Total Bilirubin (0.2-1.3) mg/dL AST (17-59) U/L ALT (0-50) U/L Alkaline Phosphatase (38-126) U/L Serum Total Protein (6.3-8.2) g/dL Albumin (3.5-5.0) g/dL Urinalys Dipstick Clnc 07/26/21 07/26/21 Range/Units 05:07 07:30 WBC (4.0-10.5) x10^3/uL RBC (4.1-5.6) x10^6/uL Hgb (12.5-18.0) g/dL Hct (42-50) % MCV (78-100) fL MCH (26-32) pg MCHC (32-36) g/dL RDW (11.5-14.0) % Plt Count (150-450) x10^3/uL MPV (7.5-11.0) fL Gran % (36.0-66.0) % Immature Gran % (Auto) (0.00-0.4) % Nucleat RBC Rel Count (0.00-0.1) % Eos # (Auto) (0-0.5) x10^3/uL Immature Gran # (Auto) (0.00-0.03) x10^3u/L Absolute Lymphs (auto) (1.0-4.6) x10^3/uL Absolute Monos (auto) (0.0-1.3) x10^3/uL Absolute Nucleated RBC (0.00-0.01) x10^3u/L Lymphocytes % (24.0-44.0) % Monocytes % (0.0-12.0) % Eosinophils % (0.00-5.0) % Basophils % (0.0-0.4) % Absolute Granulocytes (1.4-6.9) x10^3/uL Basophils # (0-0.4) x10^3/uL Sodium 139 (137-145) mmol/L Potassium 3.2 L (3.5-5.1) mmol/L Chloride 104 (98-107) mmol/L Carbon Dioxide 27 (22-30) mmol/L Anion Gap 11.4 (5-15) MEQ/L BUN 11 (9-20) mg/dL Creatinine 1.04 (0.66-1.25) mg/dL Estimated GFR > 60.0 ML/MIN Glucose 130 H (74-106) mg/dL POC Glucometer 107 H (74 to 106) mg/dL Lactic Acid (0.4-2.0) Calcium 8.2 L (8.4-10.2) mg/dL Total Bilirubin 0.30 (0.2-1.3) mg/dL AST 14 L (17-59) U/L ALT 7 (0-50) U/L Alkaline Phosphatase 100 (38-126) U/L Serum Total Protein 5.8 L (6.3-8.2) g/dL Albumin 3.1 L (3.5-5.0) g/dL Urinalys Dipstick Clnc Micro Results-Entire Visit: Microbiology 07/24/21 17:16 Blood Culture - Preliminary Blood NO GROWTH TO DATE 07/24/21 15:25 Blood Culture - Preliminary Blood NO GROWTH TO DATE Accuchecks Date 07/26/21 Date 07/25/21 Time 07:36 Time 21:28 - Radiology Exams Ordered Rad Exams-Entire Visit: Radiology Procedures Category Date Time Status ABDOMEN AND PELVIS W/0 CONTRAS [CT] Stat Exams 07/24/21 14:16 Completed CHEST 1 VIEW (PORTABLE) Stat Exams 07/24/21 17:27 Completed HEAD WITHOUT CONTRAST [CT] Stat Exams 07/24/21 14:16 Completed - Procedures and Test Procedures and Tests throughout Hospitalization: Therapy Orders & Screens 07/25/21 07:14 Respiratory Therapy Assessment DAILY Comment: Diagnosis: Mental Status Changes/Elevated Lactate 07/25/21 08:13 PT Eval & Treat ( Order) ONCE Reason for Eval:: pt dizzy when he first sits up and he first sits down Diagnosis: Mental Status Changes/Elevated Lactate Discharge Exam General Appearance: no apparent distress, alert Neurologic Exam: cooperative, normal mood/affect, disoriented Eye Exam: other (L eye mild clear discharge (watery)) Neck Exam: normal inspection Respiratory Exam: normal breath sounds, lungs clear, No crackles/rales, No rhonchi, No wheezing Cardiovascular Exam: regular rate/rhythm, normal heart sounds, No murmur Gastrointestinal/Abdomen Exam: soft, normal bowel sounds, tenderness (mild lower abd and RUQ), No distention, No mass, No guarding, No rebound Extremity Exam: normal inspection, No pedal edema, No swelling Skin Exam: normal color, warm, dry, No rash Final Diagnosis/Problem List - Final Discharge Diagnosis/Problem (1) Altered mental status Current Visit: Yes Status: Resolved Code(s): R41.82 - ALTERED MENTAL STATUS, UNSPECIFIED (2) Dementia Current Visit: Yes Status: Chronic Code(s): F03.90 - UNSPECIFIED DEMENTIA WITHOUT BEHAVIORAL DISTURBANCE (3) Abdominal pain Current Visit: Yes Status: Acute Assessment & Plan: Could be due to gallbladder, although his pain this morning is in the lower abdomen. Code(s): R10.9 - UNSPECIFIED ABDOMINAL PAIN (4) Cholelithiasis Current Visit: Yes Status: Chronic Assessment & Plan: Unsure if this episode was related, but will finish course of abx. If pt has further issues with the gallbladder, would refer to surgery. (5) Dizziness Current Visit: Yes Status: Chronic Code(s): R42 - DIZZINESS AND GIDDINESS (6) Dehydration, mild Current Visit: Yes Status: Resolved Code(s): E86.0 - DEHYDRATION (7) Hypokalemia Current Visit: Yes Status: Chronic Code(s): E87.6 - HYPOKALEMIA - Discharge Disposition: Home, Self-Care Condition: Stable Prescriptions: New Lactobacillus Acidophilus [Acidophilus TABLET] 1 tab PO TID #21 tablet Amox Tr/Potass Clav. 875 mg [Augmentin 875-125 Tablet] 875 mg PO BID #8 tablet Continue Baclofen 10 mg [Lioresal 10 mg] 20 mg PO HS Primidone [Mysoline] 250 mg PO HS Levothyroxine Sodium [Levoxyl] 200 mcg PO DAILY Hydralazine HCl 50 mg PO BID Gabapentin [Neurontin] 600 mg PO BID Furosemide 40 mg [Lasix 40 MG] 40 mg PO BID Duloxetine HCl [Cymbalta] 60 mg PO DAILY cloNIDine HCL [Catapres] 0.2 mg PO BID Amlodipine Besylate [Norvasc] 10 mg PO DAILY Amitriptyline HCl 25 mg [Amitriptyline 25 mg Tablet] 25 mg PO HS Amiodarone HCl [Pacerone] 200 mg PO BID Spironolactone 25 mg [Aldactone 25 MG] 25 mg PO DAILY Gemfibrozil [Lopid] 600 mg PO BID Multivitamin [Daily Multiple Vitamin] 1 tab PO DAILY Metformin HCl 850 mg [Glucophage 850 MG] 850 mg PO BID Memantine HCl 10 mg PO BID Fluticasone/Vilanterol [Breo Ellipta 100-25 Mcg INH] 1 puff IH DAILY Donepezil HCl 10 mg PO HS Docusate Sodium [Stool Softener] 100 mg PO DAILY PRN PRN PRN Reason: Constipation Calcium Carbonate [Calcium] 600 mg PO DAILY Aspirin EC 325 mg [Ecotrin 325 MG] 325 mg PO DAILY Albuterol Sulfate [Proair Hfa] 2 puffs IH QID Changed Potassium Chloride 10 meq PO BID #60 tablet Outpatient Orders: BMP Time Frame: 2 Days, Facility: [facility], Location: LABORATORY Follow up with: KIMBERLI CERVANTES MD [Primary Care Provider] -
[2021-07-26] MEDS: Sodium Chloride 0.9% W/ 20 mEq KCl/LITER 1,000 ML IV SCH (10:18)
[2021-07-26] MEDS: Ecotrin 325 MG PO SCH (10:19)
[2021-07-26] MEDS: PROTONIX 40 MG IV IV SCH (10:19)
[2021-07-26] MEDS: Cordarone 200 MG PO SCH (10:19)
[2021-07-26] MEDS: Apresoline 25 MG TABLET PO SCH (10:19)
[2021-07-26] MEDS: SYNTHROID 100 MCG PO SCH (10:19)
[2021-07-26] MEDS: Aldactone 25 MG PO SCH (10:19)
[2021-07-26] MEDS: NEURONTIN PO SCH (10:19)
[2021-07-26] MEDS: Cymbalta 30 MG Capsule PO SCH (10:19)
[2021-07-26] MEDS: Klor Con PO SCH (10:19)
[2021-07-26] MEDS: Heparin 5000 UNITS/0.5 ML (HIGH RISK MED) SQ SCH (10:19)
[2021-07-26] MEDS: NORVASC 5 MG PO SCH (10:19)
[2021-07-26] MEDS: CLONIDINE 0.1 MG TABLET PO SCH (10:19)
[2021-07-26] MEDS: LASIX 20 MG PO SCH (10:20)
[2021-07-26] MEDS: LOPID PO SCH (10:20)
[2021-07-26 11:27] VITALS: O2SAT 92
[2021-07-26 11:37] VITALS: BP 124/59; PULSE 72
== END 2021-07-26 15:26 ==
LOC: ED 13:54 → MED SURG 18:10
PROVIDERS: ADMIT Family Medicine; ATTEND Family Medicine
DX: R41.82 Altered mental status, unspecified (principal); F03.90 Unspecified dementia, unspecified severity, without behavioral disturbance, psychotic disturbance, mood disturbance, and anxiety; R10.9 Unspecified abdominal pain; K80.20 Calculus of gallbladder without cholecystitis without obstruction; R42 Dizziness and giddiness; E86.0 Dehydration; E87.6 Hypokalemia; I10 Essential (primary) hypertension; E78.5 Hyperlipidemia, unspecified; E11.9 Type 2 diabetes mellitus without complications; E03.9 Hypothyroidism, unspecified; I49.9 Cardiac arrhythmia, unspecified; R79.89 Other specified abnormal findings of blood chemistry; Z20.828 Contact with and (suspected) exposure to other viral communicable diseases; Z79.899 Other long term (current) drug therapy; Z85.850 Personal history of malignant neoplasm of thyroid
CPT/HCPCS: 0241U; 36000; 36415; 70450; 71045; 74176; 80053; 81015; 82150; 82947; 83605; 83690; 84484; 85025; 87040; 94640; 94760; 96360; 97110; 97161; 99285; G0378; J1644; J1817; A9270-GY

== ENCOUNTER 2022-02-27 17:13 | Emergency (ER) | payer MEDICARE ==
[2022-02-27 17:37] VITALS: O2SAT 95
[2022-02-27 17:58] LABS: Absolute Neutrophil Ct (ANC) 5.03 x10^3/uL (1.4-6.9); Basophil (Absolute #) 0.02 x10^3/uL (0-0.4); Eosinophil % 3.6 % (0.00-5.0); Eosinophil (Absolute #) 0.26 x10^3/uL (0-0.5); Hematocrit 29.4 % (42-50); Hemoglobin 8.4 g/dL (12.5-18.0); Lymphocyte (Absolute #) 1.34 x10^3/uL (1.0-4.6); Lymphocytes % 18.7 % (24.0-44.0); Mean Cell Volume 76.2 fL (78-100); Mean Corpuscular Hemoglobin 21.8 pg (26-32); Mean Corpuscular Hgb Concent. 28.6 g/dL (32-36); Mean Platelet Volume 9.6 fL (7.5-11.0); Monocyte (Absolute #) 0.47 x10^3/uL (0.0-1.3); Monocytes % 6.6 % (0.0-12.0); Neutrophil % 70.1 % (36.0-66.0); Platelet Count 310 x10^3/uL (150-450); Red Blood Count 3.86 x10^6/uL (4.1-5.6); Red Cell Distribution Width 15.6 % (11.5-14.0); White Blood Count 7.2 x10^3/uL (4.0-10.5)
--- NOTE | 2022-02-27 18:03 | ERPHSYRPT ---
- History of Present Illness Time Seen by Provider: 02/27/22 17:40 Source: patient Exam Limitations: no limitations Patient Subjective Stated Complaint: blood drawn and PCP called to tell him to come to ED for low hgb. Triage Nursing Assessment: pt to ED by EMS c/o abnormal labs. pt states he had blood drawn, he thinks today but is unsure, and PCP called to refer pt to ED for low hgb. pt has on wrist band dated today from another facility. pt states he does feel somewhat confused, but that he has for a long time. acutely he is only complaining of tiredness. Physician History: Patient 76-year-old male presents to our emergency department for evaluation of abnormal labs. Patient had a lab draw per his primary care doctor. He is advised that hemoglobin was low. He was not given a specific value. Patient states he feels somewhat tired otherwise no other complaints. No chest pain or shortness of breath. No nausea vomiting or diaphoresis. Symptoms are mild in intensity. No specific worsening improving factors. Patient voices no other complaints or concerns at this time. Portions of this note were created with voice recognition technology. There may be grammatical, spelling, punctuation or sound alike errors Timing/Duration: today Severity: moderate Modifying Factors: Improves With: nothing Associated Symptoms: denies symptoms Allergies/Adverse Reactions: codeine Allergy (Mild, Verified 02/27/22 17:26) Headache morphine Allergy (Mild, Verified 02/27/22 17:26) Home Medications: Amiodarone HCl [Pacerone] 200 mg PO BID 08/20/19 [History] Amitriptyline HCl 25 mg [Amitriptyline 25 mg Tablet] 25 mg PO HS 08/20/19 [History] Amlodipine Besylate [Norvasc] 10 mg PO DAILY 08/20/19 [History] Baclofen 10 mg [Lioresal 10 mg] 20 mg PO HS 08/20/19 [History] Duloxetine HCl [Cymbalta] 60 mg PO DAILY 08/20/19 [History] Furosemide 40 mg [Lasix 40 MG] 40 mg PO BID 08/20/19 [History] Gabapentin [Neurontin] 600 mg PO BID 08/20/19 [History] Gemfibrozil [Lopid] 600 mg PO BID 08/20/19 [History] Hydralazine HCl 50 mg PO BID 08/20/19 [History] Levothyroxine Sodium [Levoxyl] 200 mcg PO DAILY 08/20/19 [History] Primidone [Mysoline] 250 mg PO HS 08/20/19 [History] Spironolactone 25 mg [Aldactone 25 MG] 25 mg PO DAILY 08/20/19 [History] cloNIDine HCL [Catapres] 0.2 mg PO BID 08/20/19 [History] Albuterol Sulfate [Proair Hfa] 2 puffs IH QID 02/27/20 [History] Aspirin EC 325 mg [Ecotrin 325 MG] 325 mg PO DAILY 02/27/20 [History] Calcium Carbonate [Calcium] 600 mg PO DAILY 02/27/20 [History] Docusate Sodium [Stool Softener] 100 mg PO DAILY PRN PRN 02/27/20 [History] Donepezil HCl 10 mg PO HS 02/27/20 [History] Fluticasone/Vilanterol [Breo Ellipta 100-25 Mcg INH] 1 puff IH DAILY 02/27/20 [History] Memantine HCl 10 mg PO BID 02/27/20 [History] Metformin HCl 850 mg [Glucophage 850 MG] 850 mg PO BID 02/27/20 [History] Multivitamin [Daily Multiple Vitamin] 1 tab PO DAILY 02/27/20 [History] Hx Tetanus, Diphtheria Vaccination/Date Given: Yes Hx Influenza Vaccination/Date Given: Yes Hx Pneumococcal Vaccination/Date Given: Yes Immunizations Up to Date: Yes Travel Risk - International Travel Have you traveled outside of the country in past 3 weeks: No - Coronavirus Screening Are you exhibiting any of the following symptoms?: No Close contact with a COVID-19 positive Pt in past 14-21 Days: No - Vaccine Status Have you recieved a Covid-19 vaccination: Yes Weed Thinner: Unknown - Vaccination Dates Date of 2cond Vaccination (if applicable): unsure Dates if Unknown: unknown - Review of Systems Constitutional: No Symptoms, No Fever, No Chills Eyes: No Symptoms Ears, Nose, & Throat: No Symptoms Respiratory: No Symptoms, No Cough, No Dyspnea Cardiac: No Symptoms, No Chest Pain, No Edema, No Syncope Abdominal/Gastrointestinal: No Symptoms, No Abdominal Pain, No Nausea, No Vomiting, No Diarrhea Genitourinary Symptoms: No Symptoms, No Dysuria Musculoskeletal: No Symptoms, No Back Pain, No Neck Pain Skin: No Symptoms, No Rash Neurological: No Symptoms, No Dizziness, No Focal Weakness, No Sensory Changes Psychological: No Symptoms Endocrine: No Symptoms Hematologic/Lymphatic: No Symptoms Immunological/Allergic: No Symptoms All Other Systems: Reviewed and Negative - Past Medical History Pertinent Past Medical History: Yes Neurological History: Dementia ENT History: No Pertinent History Cardiac History: High Cholesterol, Hypertension Respiratory History: COPD Endocrine Medical History: Hypothyroidism, Thyroid Cancer Musculoskeletal History: No Pertinent History GI Medical History: No Pertinent History History: Other Psycho-Social History: Depression Male Reproductive Disorders: No Pertinent History Other Medical History: 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 - Past Surgical History Past Surgical History: Yes Neuro Surgical History: No Pertinent History Cardiac: No Pertinent History Respiratory: No Pertinent History Gastrointestinal: No Pertinent History Genitourinary: No Pertinent History Musculoskeletal: Orthopedic Surgery Male Surgical History: No Pertinent History Other Surgical History: thyroid cancer- thyroidectomy - Social History Smoking Status: Never smoker Exposure to second hand smoke: No Drug Use: marijuana Patient Lives Alone: No () Significant Family History: no pertinent family hx - Nursing Vital Signs Nursing Vital Signs: Initial Vital Signs Temperature 97.1 F 02/27/22 17:27 Pulse Rate 78 02/27/22 17:27 Respiratory Rate 20 02/27/22 17:27 Blood Pressure 142/75 02/27/22 17:27 O2 Sat by Pulse Oximetry 95 02/27/22 17:27 Pain Scale Pain Intensity 0 - Physical Exam General Appearance: no apparent distress, alert Eye Exam: PERRL/EOMI, eyes nml inspection Ears, Nose, Throat Exam: normal ENT inspection, TMs normal, pharynx normal, moist mucous membranes Neck Exam: normal inspection, non-tender, supple, full range of motion Respiratory Exam: normal breath sounds, lungs clear, No respiratory distress Cardiovascular Exam: regular rate/rhythm, normal heart sounds, normal peripheral pulses Gastrointestinal/Abdomen Exam: soft, normal bowel sounds, No tenderness, No mass Male Genitalia Exam: normal genitalia, hernia Back Exam: normal inspection, normal range of motion, No CVA tenderness, No vertebral tenderness Extremity Exam: normal inspection, normal range of motion, pelvis stable Neurologic Exam: alert, oriented x 3, cooperative, normal mood/affect, nml cerebellar function, nml station & gait, sensation nml, No motor deficits Skin Exam: normal color, warm, dry, No rash Lymphatic Exam: No adenopathy SpO2 Interpretation: normal SpO2: 95 O2 Delivery: Room Air - Course Nursing assessment & vital signs reviewed: Yes Ordered Tests: Active Orders 24 hr Category Date Time Status Lining Sewer STAT Care 02/27/22 17:34 Active IV Insertion STAT Care 02/27/22 17:33 Active Pulse Oximetry (ED) STAT Care 02/27/22 17:33 Active CBC W DIFF Stat Lab 02/27/22 17:50 Completed CMP Stat Lab 02/27/22 17:50 Completed TROPONIN Q4H Lab 02/27/22 17:50 Completed TROPONIN Q4H Lab 02/27/22 21:45 Ordered TROPONIN Q4H Lab 02/28/22 01:45 Ordered Lab/Rad Data: Laboratory Result Diagrams 02/27/22 17:50 02/27/22 17:50 Laboratory Results 02/27/22 02/27/22 02/27/22 Range/Units 17:50 17:50 17:50 WBC (4.0-10.5) x10^3/uL RBC (4.1-5.6) x10^6/uL Hgb (12.5-18.0) g/dL Hct (42-50) % MCV (78-100) fL MCH (26-32) pg MCHC (32-36) g/dL RDW (11.5-14.0) % Plt Count (150-450) x10^3/uL MPV (7.5-11.0) fL Gran % (36.0-66.0) % Immature Gran % (Auto) (0.00-0.4) % Nucleat RBC Rel Count (0.00-0.1) % Eos # (Auto) (0-0.5) x10^3/uL Immature Gran # (Auto) (0.00-0.03) x10^3u/L Absolute Lymphs (auto) (1.0-4.6) x10^3/uL Absolute Monos (auto) (0.0-1.3) x10^3/uL Absolute Nucleated RBC (0.00-0.01) x10^3u/L Lymphocytes % (24.0-44.0) % Monocytes % (0.0-12.0) % Eosinophils % (0.00-5.0) % Basophils % (0.0-0.4) % Absolute Granulocytes (1.4-6.9) x10^3/uL Basophils # (0-0.4) x10^3/uL Sodium 138 (137-145) mmol/L Potassium 3.4 L (3.5-5.1) mmol/L Chloride 103 (98-107) mmol/L Carbon Dioxide 29 (22-30) mmol/L Anion Gap 8.6 (5-15) MEQ/L BUN 26 H (9-20) mg/dL Creatinine 1.25 (0.66-1.25) mg/dL Estimated GFR 59.8 ML/MIN Glucose 142 H (74-106) mg/dL Calcium 8.3 L (8.4-10.2) mg/dL Total Bilirubin 0.30 (0.2-1.3) mg/dL AST 18 (17-59) U/L ALT 16 (0-50) U/L Alkaline Phosphatase 118 (38-126) U/L Troponin I 0.016 (0.000-0.034) ng/mL Serum Total Protein 6.9 (6.3-8.2) g/dL Albumin 4.0 (3.5-5.0) g/dL ABO Group O Rh Factor NEGATIVE Antibody Screen NEGATIVE (NEGATIVE) 02/27/22 Range/Units 17:50 WBC 7.2 (4.0-10.5) x10^3/uL RBC 3.86 L (4.1-5.6) x10^6/uL Hgb 8.4 L (12.5-18.0) g/dL Hct 29.4 L (42-50) % MCV 76.2 L (78-100) fL MCH 21.8 L (26-32) pg MCHC 28.6 L (32-36) g/dL RDW 15.6 H (11.5-14.0) % Plt Count 310 (150-450) x10^3/uL MPV 9.6 (7.5-11.0) fL Gran % 70.1 H (36.0-66.0) % Immature Gran % (Auto) 0.7 H (0.00-0.4) % Nucleat RBC Rel Count 0.0 (0.00-0.1) % Eos # (Auto) 0.26 (0-0.5) x10^3/uL Immature Gran # (Auto) 0.05 H (0.00-0.03) x10^3u/L Absolute Lymphs (auto) 1.34 (1.0-4.6) x10^3/uL Absolute Monos (auto) 0.47 (0.0-1.3) x10^3/uL Absolute Nucleated RBC 0.00 (0.00-0.01) x10^3u/L Lymphocytes % 18.7 L (24.0-44.0) % Monocytes % 6.6 (0.0-12.0) % Eosinophils % 3.6 (0.00-5.0) % Basophils % 0.3 (0.0-0.4) % Absolute Granulocytes 5.03 (1.4-6.9) x10^3/uL Basophils # 0.02 (0-0.4) x10^3/uL Sodium (137-145) mmol/L Potassium (3.5-5.1) mmol/L Chloride (98-107) mmol/L Carbon Dioxide (22-30) mmol/L Anion Gap (5-15) MEQ/L BUN (9-20) mg/dL Creatinine (0.66-1.25) mg/dL Estimated GFR ML/MIN Glucose (74-106) mg/dL Calcium (8.4-10.2) mg/dL Total Bilirubin (0.2-1.3) mg/dL AST (17-59) U/L ALT (0-50) U/L Alkaline Phosphatase (38-126) U/L Troponin I (0.000-0.034) ng/mL Serum Total Protein (6.3-8.2) g/dL Albumin (3.5-5.0) g/dL ABO Group Rh Factor Antibody Screen (NEGATIVE) - Progress Progress: improved Progress Note: Case discussed with and nurse practitioner covering Dr. Scott. Patient has a microcytic anemia. He will require outpatient iron infusion. She is okay with discharging patient home. Patient has no symptoms at this time. Patient advised to follow-up with his podiatry appointment as scheduled for this week. He agrees to do so. He voices no other complaints or concerns at this time. Will discharge home. Patient is a 76-year-old male. Patient presents to our ED as a referral from his primary care doctor's office for evaluation of abnormal lab. The abnormal lab was hemoglobin/iron studies. Patient asymptomatic. The complexity of patient's problem is mild to moderate. No obvious contributing comorbidities. I ordered tests to further evaluate patient's visit. Tests were reviewed. Information of these test were used in medical decision-making. I spoke to nurse practitioner and who is covering Dr. Scott. We had a discussion regarding patient's past medical history and reason for visit. She states patient was advised to get an evaluation due to the abnormal labs. She advised patient to go to an ER. Patient told to come to our ED here at [place]. Patient had no specific complaints. He did not receive any medications. And request patient start [id number] iron pills. They will arrange for iron infusion on their end. Patient has 1 problem which is microcytic anemia. The complexity is mild to moderate. The amount and complexity of data reviewed and analyzed is mild to moderate. History provided by EMS/paramedics. Patient's nurse practitioner Jagruti Scott and patient. Patient agrees to follow-up with podiatry as planned. He voices no other complaints or concerns at this time. Will discharge home. Portions of this note were created with voice recognition technology. There may be grammatical, spelling, punctuation or sound alike errors 02/27/22 19:17 Counseled pt/family regarding: lab results, diagnosis, need for follow-up - Departure Departure Disposition: Home Clinical Impression: Microcytic anemia Condition: Stable Critical Care Time: No Referrals: KIMBERLI CERVANTES MD [Primary Care Provider] - Follow up/PCP as directed Additional Instructions: Discharge/Care Plan SANFORD MADRIGAL was seen on 02/27/22 in the Emergency Room. The patient was counseled regarding Diagnosis,Lab results, Imaging studies, need for follow up and when to return to the Emergency Room. Prescriptions given: Discharge Note I have spoken with the patient and/or caregivers. I have explained the patient's condition, diagnosis and treatment plan based on the information available to me at this time. I have answered the patient's and/or caregiver's questions and addressed any concerns. The patient and/or caregivers have as good understanding of the patient's diagnosis, condition and treatment plan as can be expected at this point. The vital signs have been stable. The patient's condition is stable and appropriate for discharge from the emergency department. The patient will pursue further outpatient evaluation with the primary care physician or other designated or consulting physician as outlined in the discharge instructions. The patient and/or caregivers are agreeable to this plan of care and follow-up instructions have been explained in detail. The patient and/or caregivers have received these instruction. The patient/and or caregivers are aware that any significant change in condition or worsening of symptoms should prompt an immediate return to this or the closest emergency department or call 911.
[2022-02-27 18:12] LABS: ANION GAP 8.6 MEQ/L (5-15); BILIRUBIN,TOTAL 0.3 mg/dL (0.2-1.3); Calcium 8.3 mg/dL (8.4-10.2); Creatinine 1 1.25 mg/dL (0.66-1.25); EST GLOMERULAR FILTRATION RATE 59.8 ML/MIN; Potassium 3.4 mmol/L (3.5-5.1); Total Protein 6.9 g/dL (6.3-8.2)
[2022-02-27 19:02] LABS: ABO TYPING O; Antibody Screen NEGATIVE (NEGATIVE); RH TYPING NEGATIVE
[2022-02-27 19:19] VITALS: BP 137/79; PULSE 80
[2022-02-28 03:14] LABS: Slide Review 1 YES
== END 2022-02-27 19:27 | disposition home or self-care (01) ==
LOC: ED 17:13
DX: D50.9 Iron deficiency anemia, unspecified (principal); R53.83 Other fatigue; E78.5 Hyperlipidemia, unspecified; I10 Essential (primary) hypertension; Z79.899 Other long term (current) drug therapy
CPT/HCPCS: 36000; 36415; 80053; 84484; 85025; 86850; 86900; 86901; 93041; 94760; 99283

== ENCOUNTER 2023-05-22 17:06 | Observation (INO) | payer MEDICARE ==
[2023-05-22 18:04] LABS: Absolute Neutrophil Ct (ANC) 4.67 x10^3/uL (1.4-6.9); BASOPHIL % 0.3 % (0.0-0.4); Basophil (Absolute #) 0.02 x10^3/uL (0-0.4); Eosinophil % 2.3 % (0.00-5.0); Eosinophil (Absolute #) 0.15 x10^3/uL (0-0.5); Hematocrit 35.4 % (42-50); Hemoglobin 11.7 g/dL (12.5-18.0); IMMATURE GRAN # 0.03 x10^3u/L (0.00-0.03); IMMATURE GRAN % 0.5 % (0.00-0.4); Lymphocyte (Absolute #) 1.23 x10^3/uL (1.0-4.6); Lymphocytes % 19.1 % (24.0-44.0); Mean Cell Volume 91.5 fL (78-100); Mean Corpuscular Hemoglobin 30.2 pg (26-32); Mean Corpuscular Hgb Concent. 33.1 g/dL (32-36); Mean Platelet Volume 9.8 fL (7.5-11.0); Monocyte (Absolute #) 0.34 x10^3/uL (0.0-1.3); Monocytes % 5.3 % (0.0-12.0); Neutrophil % 72.5 % (36.0-66.0); Platelet Count 232 x10^3/uL (150-450); Red Blood Count 3.87 x10^6/uL (4.1-5.6); Red Cell Distribution Width 14.6 % (11.5-14.0); White Blood Count 6.4 x10^3/uL (4.0-10.5)
[2023-05-22 18:20] LABS: ALBUMIN 4.3 g/dL (3.5-5.0); ANION GAP 14.2 MEQ/L (5-15); BILIRUBIN,TOTAL 1.1 mg/dL (0.2-1.3); Calcium 9.4 mg/dL (8.4-10.2); Creatinine 1 2.26 mg/dL (0.66-1.25); EST GLOMERULAR FILTRATION RATE 29.3 ML/MIN; Total Protein 7.3 g/dL (6.3-8.2)
[2023-05-22 18:53] LABS: Potassium 2.7 mmol/L (3.5-5.1)
--- NOTE | 2023-05-22 18:58 | ERPHSYRPT ---
- History of Present Illness Time Seen by Provider: 05/22/23 17:20 Source: patient Exam Limitations: no limitations Patient Subjective Stated Complaint: is in the hospital and called her and stated that he wasn't acting right and that he was confused and so she called 911 Triage Nursing Assessment: Pt brought to the ER by EMS, hypertensive, rates neck pain as 2-3/10, pt states that he fell last night and he hit his head above the left brow and injured his left wrist/hand with bruising at the base of the thumb, pt doesn't think he had LOC, pt states that he is confused "there are things I know I need to know and I can't remember them", pulses normal, skin n/w/d, no difficulty with breathing, pt doesn't think he has eaten anything today, smells as though he was incontinent of bowel, he thinks his has been in the hospital for about a week and states that there isn't anything to eat in the house Physician History: 77-year-old male presents to our ED via EMS for evaluation of confusion. Karishma jeong has been living alone for the past several days as his is currently hospitalized. His contacted him today and observed him to be confused. A wellness check ensued patient was brought to the ED for further evaluation. Patient states he has not eaten much since his was hospitalized. Patient reportedly fell last night and hit his head. Patient now has pain in his left wrist. Patient voices that he feels confused. Patient states "there are things I should know that I do not remember". No chest pain or shortness of breath. No nausea vomiting or diaphoresis. Symptoms are moderate in intensity. No specific worsening improving factors. Patient voices no other complaints or concerns at this time. Portions of this note were created with voice recognition technology. There may be grammatical, spelling, punctuation or sound alike errors Timing/Duration: yesterday Severity: moderate Modifying Factors: Improves With: nothing Associated Symptoms: denies symptoms Allergies/Adverse Reactions: codeine Allergy (Mild, Verified 05/22/23 17:37) Headache morphine Allergy (Mild, Verified 05/22/23 17:37) Home Medications: Amiodarone HCl [Pacerone] 200 mg PO BID 08/20/19 [History] Amitriptyline HCl 25 mg [Amitriptyline 25 mg Tablet] 25 mg PO HS 08/20/19 [History] Amlodipine Besylate [Norvasc] 10 mg PO DAILY 08/20/19 [History] Baclofen 10 mg [Lioresal 10 mg] 20 mg PO HS 08/20/19 [History] Duloxetine HCl [Cymbalta] 60 mg PO DAILY 08/20/19 [History] Furosemide 40 mg [Lasix 40 MG] 40 mg PO BID 08/20/19 [History] Gabapentin [Neurontin] 600 mg PO BID 08/20/19 [History] Gemfibrozil [Lopid] 600 mg PO BID 08/20/19 [History] Hydralazine HCl 50 mg PO BID 08/20/19 [History] Levothyroxine Sodium [Levoxyl] 200 mcg PO DAILY 08/20/19 [History] Primidone [Mysoline] 250 mg PO HS 08/20/19 [History] Spironolactone 25 mg [Aldactone 25 MG] 25 mg PO DAILY 08/20/19 [History] cloNIDine HCL [Catapres] 0.2 mg PO BID 08/20/19 [History] Albuterol Sulfate [Proair Hfa] 2 puffs IH QID 02/27/20 [History] Aspirin EC 325 mg [Ecotrin 325 MG] 325 mg PO DAILY 02/27/20 [History] Calcium Carbonate [Calcium] 600 mg PO DAILY 02/27/20 [History] Docusate Sodium [Stool Softener] 100 mg PO DAILY PRN PRN 02/27/20 [History] Donepezil HCl 10 mg PO HS 02/27/20 [History] Fluticasone/Vilanterol [Breo Ellipta 100-25 Mcg Inhalr] 1 puff IH DAILY 02/27/20 [History] Memantine HCl 10 mg PO BID 02/27/20 [History] Metformin HCl 850 mg [Glucophage 850 MG] 850 mg PO BID 02/27/20 [History] Multivitamin [Daily Multiple Vitamin] 1 tab PO DAILY 02/27/20 [History] Hx Tetanus, Diphtheria Vaccination/Date Given: Yes Hx Influenza Vaccination/Date Given: Yes Hx Pneumococcal Vaccination/Date Given: Yes Immunizations Up to Date: Yes Travel Risk - International Travel Have you traveled outside of the country in past 3 weeks: No - Emerging Infectious Disease Are you exhibiting symptoms associated with any current EIDs: No - Review of Systems Constitutional: No Symptoms, No Fever, No Chills Eyes: No Symptoms Ears, Nose, & Throat: No Symptoms Respiratory: No Symptoms, No Cough, No Dyspnea Cardiac: No Symptoms, No Chest Pain, No Edema, No Syncope Abdominal/Gastrointestinal: No Symptoms, No Abdominal Pain, No Nausea, No Vomiting, No Diarrhea Genitourinary Symptoms: No Symptoms, No Dysuria Musculoskeletal: No Symptoms, No Back Pain, No Neck Pain Skin: No Symptoms, No Rash Neurological: No Symptoms, No Dizziness, No Focal Weakness, No Sensory Changes Psychological: No Symptoms Endocrine: No Symptoms Hematologic/Lymphatic: No Symptoms Immunological/Allergic: No Symptoms All Other Systems: Reviewed and Negative - Past Medical History Pertinent Past Medical History: Yes Neurological History: Dementia ENT History: No Pertinent History Cardiac History: High Cholesterol, Hypertension Respiratory History: COPD Endocrine Medical History: Hypothyroidism, Thyroid Cancer Musculoskeletal History: No Pertinent History GI Medical History: No Pertinent History History: Other Psycho-Social History: Depression Male Reproductive Disorders: No Pertinent History Other Medical History: 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 - Past Surgical History Past Surgical History: Yes Neuro Surgical History: No Pertinent History Cardiac: No Pertinent History Respiratory: No Pertinent History Gastrointestinal: No Pertinent History Genitourinary: No Pertinent History Musculoskeletal: Orthopedic Surgery Male Surgical History: No Pertinent History Other Surgical History: thyroid cancer- thyroidectomy Significant Family History: no pertinent family hx - Social History Smoking Status: Former smoker Exposure to second hand smoke: No Drug Use: marijuana Patient Lives Alone: No () - Nursing Vital Signs Nursing Vital Signs: Initial Vital Signs Pulse Rate 67 05/22/23 17:10 Blood Pressure 173/95 05/22/23 17:10 O2 Sat by Pulse Oximetry 94 L 05/22/23 17:10 Pain Scale Pain Intensity 2 - Physical Exam General Appearance: no apparent distress, alert Eye Exam: PERRL/EOMI, eyes nml inspection Ears, Nose, Throat Exam: normal ENT inspection, TMs normal, pharynx normal, moist mucous membranes Neck Exam: normal inspection, non-tender, supple, full range of motion Respiratory Exam: normal breath sounds, lungs clear, airway intact, No respiratory distress Cardiovascular Exam: regular rate/rhythm, normal heart sounds, normal peripheral pulses Gastrointestinal/Abdomen Exam: soft, normal bowel sounds, No tenderness, No mass Back Exam: normal inspection, normal range of motion, No CVA tenderness, No vertebral tenderness Extremity Exam: normal inspection, normal range of motion, pelvis stable, other (Some bruising to left hand just proximal to the thumb base. The involved extremities neurovascular intact distally compartments are soft cap refill less than 2 seconds.) Neurologic Exam: alert, oriented x 3, cooperative, normal mood/affect, sensation nml, No motor deficits Skin Exam: normal color, warm, dry, No rash Lymphatic Exam: No adenopathy SpO2 Interpretation: normal SpO2: 92 O2 Delivery: Room Air - Course Nursing assessment & vital signs reviewed: Yes EKG Interpreted by Me: RATE, Sinus Rhythm, NORMAL AXIS, NORMAL INTERVALS - Radiology Exams Hand X-ray Interpretation: Interpreted by me (No fractures or dislocations. 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) - CT Exams Head CT Interpretation: Tele-radiologist Report (Continued nonacute senile brain compared to 07/24/2021) Ordered Tests: Active Orders 24 hr Category Date Time Status Bedrest ROUTINE Activity 05/22/23 22:11 Active Call Admit Doctor for Orders ON ADMISSION Care 05/22/23 22:11 Active Broomcorn Sorter ROUTINE Care 05/22/23 22:11 Active Broomcorn Sorter STAT Care 05/22/23 17:50 Completed Cath [Catheter-Hayward Ventura] STAT Care 05/22/23 19:39 Completed Code Status Order ROUTINE Care 05/22/23 22:11 Active IV Insertion STAT Care 05/22/23 17:49 Completed Neuro Checks Q4H Care 05/22/23 22:[address] in Observation ROUTINE Care 05/22/23 22:11 Active Pulse Oximetry (ED) STAT Care 05/22/23 17:49 Completed Telemetry q6h Care 05/22/23 22:11 Active Consistent Carbohydrate Diet 1800 Calorie Diet 05/22/23 Dinner Active HAND (MINIMUM 3 VIEWS) Stat Exams 05/22/23 19:40 Taken HEAD WITHOUT CONTRAST [CT] Stat Exams 05/22/23 17:48 Taken CBC W DIFF Stat Lab 05/22/23 17:50 Completed CMP Stat Lab 05/22/23 17:50 Completed CULTURE,URINE Stat Lab 05/22/23 21:49 Received TROPONIN Q4H Lab 05/22/23 17:50 Completed TROPONIN Q4H Lab 05/22/23 20:30 Completed TROPONIN Q4H Lab 05/23/23 02:00 Ordered UA W/RFX UR CULTURE Stat Lab 05/22/23 21:49 Completed Pulse Oximetry CONTINUOUS RT 05/22/23 22:11 Active Transfer Order Routine Transfer 05/22/23 Completed Medication Summary Generic Name Dose Route Start Last Admin Trade Name Freq PRN Reason Stop Dose Admin Magnesium Sulfate/Dextrose 100 mls @ 100 mls/hr 05/22/23 19:30 05/22/23 20:33 Magnesium 1 Gm / 100 Ml D5w IV 05/22/23 21:29 100 mls/hr Q1H CLARE Administration Potassium Chloride 20 meq in 100 mls @ 50 mls/hr 05/22/23 19:30 05/22/23 21:28 Potassium Chloride 20 Meq In Water 100ml IV 05/22/23 23:29 50 mls/hr Q2H CLARE Administration Discontinued Medications Generic Name Dose Route Start Last Admin Trade Name Freq PRN Reason Stop Dose Admin Sodium Chloride 1,000 mls @ 999 mls/hr 05/22/23 19:22 05/22/23 19:41 Sodium Chloride 0.9% 1000 Ml IV 05/22/23 20:22 999 mls/hr .Q1H1M STA Administration Sodium Chloride Confirm 05/22/23 19:38 Sodium Chloride 0.9% 1000 Ml Administered 05/22/23 19:39 Dose 1,000 mls @ ud .ROUTE .STK-MED ONE Lidocaine HCl Confirm 05/22/23 21:40 Lidocaine Hcl 20 Mg/Ml Jelly Uro-Jet Administered 05/22/23 21:41 Dose 200 mg .ROUTE .STK-MED ONE Lidocaine HCl 200 mg 05/22/23 21:50 05/22/23 21:52 Lidocaine Hcl 20 Mg/Ml Jelly Uro-Jet TOP 05/22/23 21:51 200 mg STAT ONE Administration Lab/Rad Data: Laboratory Result Diagrams 05/22/23 17:50 05/22/23 17:50 Laboratory Results 05/22/23 05/22/23 05/22/23 Range/Units 21:49 20:30 17:50 WBC (4.0-10.5) x10^3/uL RBC (4.1-5.6) x10^6/uL Hgb (12.5-18.0) g/dL Hct (42-50) % MCV (78-100) fL MCH (26-32) pg MCHC (32-36) g/dL RDW (11.5-14.0) % Plt Count (150-450) x10^3/uL MPV (7.5-11.0) fL Gran % (36.0-66.0) % Immature Gran % (Auto) (0.00-0.4) % Nucleat RBC Rel Count (0.00-0.1) % Eos # (Auto) (0-0.5) x10^3/uL Immature Gran # (Auto) (0.00-0.03) x10^3u/L Absolute Lymphs (auto) (1.0-4.6) x10^3/uL Absolute Monos (auto) (0.0-1.3) x10^3/uL Absolute Nucleated RBC (0.00-0.01) x10^3u/L Lymphocytes % (24.0-44.0) % Monocytes % (0.0-12.0) % Eosinophils % (0.00-5.0) % Basophils % (0.0-0.4) % Absolute Granulocytes (1.4-6.9) x10^3/uL Basophils # (0-0.4) x10^3/uL Sodium (135-145) mmol/L Potassium (3.5-5.1) mmol/L Chloride (98-107) mmol/L Carbon Dioxide (22-30) mmol/L Anion Gap (5-15) MEQ/L BUN (9-20) mg/dL Creatinine (0.66-1.25) mg/dL Estimated GFR ML/MIN Glucose (74-106) mg/dL Calcium (8.4-10.2) mg/dL Total Bilirubin (0.2-1.3) mg/dL AST (17-59) U/L ALT (0-50) U/L Alkaline Phosphatase (38-126) U/L Troponin I 0.039 H* 0.042 H* (0.000-0.034) ng/mL Serum Total Protein (6.3-8.2) g/dL Albumin (3.5-5.0) g/dL Urine Color Yellow (Yellow) Urine Appearance Clear (Clear) Urine pH 6.0 (4.6-8.0) Ur Specific [place] 1.020 (1.005-1.030) Urine Protein 30 (Negative) Urine Glucose (UA) Negative (Negative) mg/dL Urine Ketones Negative (Negative) Urine Blood Negative (Negative) Urine Nitrite Negative (Negative) Urine Bilirubin Negative (Negative) Urine Urobilinogen 1.0 A (0.2) mg/dL Ur Leukocyte Esterase Negative (Negative) U Hyaline Cast (Auto) NONE SEEN (0-2) /LPF Urine Microscopic RBC 0-2 (0-5) /HPF Urine Microscopic WBC 0-2 (0-5) /HPF Ur Epithelial Cells Rare (None Seen) /HPF Calcium Oxalate Crystal 3-5 A (None Seen) /HPF Urine Bacteria None Seen (None Seen) /HPF Urine Culture Reflexed NO (NO) 05/22/23 05/22/23 Range/Units 17:50 17:50 WBC 6.4 (4.0-10.5) x10^3/uL RBC 3.87 L (4.1-5.6) x10^6/uL Hgb 11.7 L (12.5-18.0) g/dL Hct 35.4 L (42-50) % MCV 91.5 (78-100) fL MCH 30.2 (26-32) pg MCHC 33.1 (32-36) g/dL RDW 14.6 H (11.5-14.0) % Plt Count 232 (150-450) x10^3/uL MPV 9.8 (7.5-11.0) fL Gran % 72.5 H (36.0-66.0) % Immature Gran % (Auto) 0.5 H (0.00-0.4) % Nucleat RBC Rel Count 0.0 (0.00-0.1) % Eos # (Auto) 0.15 (0-0.5) x10^3/uL Immature Gran # (Auto) 0.03 (0.00-0.03) x10^3u/L Absolute Lymphs (auto) 1.23 (1.0-4.6) x10^3/uL Absolute Monos (auto) 0.34 (0.0-1.3) x10^3/uL Absolute Nucleated RBC 0.00 (0.00-0.01) x10^3u/L Lymphocytes % 19.1 L (24.0-44.0) % Monocytes % 5.3 (0.0-12.0) % Eosinophils % 2.3 (0.00-5.0) % Basophils % 0.3 (0.0-0.4) % Absolute Granulocytes 4.67 (1.4-6.9) x10^3/uL Basophils # 0.02 (0-0.4) x10^3/uL Sodium 142 (135-145) mmol/L Potassium 2.7 L* (3.5-5.1) mmol/L Chloride 98 (98-107) mmol/L Carbon Dioxide 33 H (22-30) mmol/L Anion Gap 14.2 (5-15) MEQ/L BUN 34 H (9-20) mg/dL Creatinine 2.26 H (0.66-1.25) mg/dL Estimated GFR 29.3 ML/MIN Glucose 119 H (74-106) mg/dL Calcium 9.4 (8.4-10.2) mg/dL Total Bilirubin 1.10 (0.2-1.3) mg/dL AST 37 (17-59) U/L ALT 42 (0-50) U/L Alkaline Phosphatase 71 (38-126) U/L Troponin I (0.000-0.034) ng/mL Serum Total Protein 7.3 (6.3-8.2) g/dL Albumin 4.3 (3.5-5.0) g/dL Urine Color (Yellow) Urine Appearance (Clear) Urine pH (4.6-8.0) Ur Specific [place] (1.005-1.030) Urine Protein (Negative) Urine Glucose (UA) (Negative) mg/dL Urine Ketones (Negative) Urine Blood (Negative) Urine Nitrite (Negative) Urine Bilirubin (Negative) Urine Urobilinogen (0.2) mg/dL Ur Leukocyte Esterase (Negative) U Hyaline Cast (Auto) (0-2) /LPF Urine Microscopic RBC (0-5) /HPF Urine Microscopic WBC (0-5) /HPF Ur Epithelial Cells (None Seen) /HPF Calcium Oxalate Crystal (None Seen) /HPF Urine Bacteria (None Seen) /HPF Urine Culture Reflexed (NO) - Progress Progress: improved Progress Note: Case discussed with Dr. Lopes urologist at [facility] who accepts transfer at 9:34 PM. Discussed with hospitalist at 9:46 PM who accepts transfer. We were able to place the 16 [place] catheter using a Uro-Jet. At this point there may not be an indication to transfer. We are currently awaiting call from our hospitalist to see if they are willing to accept our patient in light of the elevated but downtrending troponin Case discussed with Dr. Barcenas who accepts transfer at approximately 10 PM. Portions of this note were created with voice recognition technology. There may be grammatical, spelling, punctuation or sound alike errors Patient is a 77-year-old male lives at home with his presents to our ED via EMS for evaluation of confusion. Physical exam shows some pain to left hand and bruising. X-ray negative for fracture dislocation. 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 CT head negative for acute intracranial pathology. Patient hypokalemic at 2.7. Magnesium and potassium initiated. Patient has acute kidney injury likely prerenal secondary to dehydration. IV fluids initiated. Troponin elevated at 0.04 2 repeat troponin 0.039. Troponin levels are downtrending, patient has no chest pain. No ischemic findings on EKG. We were initially planning on transferring patient due to inability to place Ventura catheter however were able to place a Ventura catheter 16 [place] using a Uro-Jet. Plan of care discussed with patient. He agrees to admission to [facility] for further evaluation and treatment. Portions of this note were created with voice recognition technology. There may be grammatical, spelling, punctuation or sound alike errors Complexity problem addressed is moderate acute complicated. No critical care time Complex of data reviewed and analyzed is extensive. Test ordered test reviewed. Results analyzed and correlated clinically with history and physical examination. Management discussed with hospitalist and urologist at [facility] as well as our hospitalist Dr. beatty who accepts admission. Risk of complication and or risk of morbidity/mortality of patient management is high. Patient requires hospitalization for further evaluation and treatment. Vital stable. Time spent to admit patient is approximately 35 minutes. Plan of care established for shared decision making. No social determinants of health present impede follow-up. 05/22/23 22:35 Counseled pt/family regarding: lab results, diagnosis, rad results - Departure Departure Disposition: Observation Clinical Impression: Fall, Altered mental status, Hand contusion, Hypokalemia, Acute kidney injury, Elevated troponin, Generalized weakness Condition: Stable Critical Care Time: No
[2023-05-22] MEDS ORDERED: Magnesium 1 Gm / 100 Ml D5W*** 200 ML IV ONE (19:25)
[2023-05-22] MEDS: Magnesium 1 Gm / 100 Ml D5W*** 100 ML IV SCH (19:26)
[2023-05-22] MEDS ORDERED: Sodium Chloride 0.9% 1000 ML 1,000 ML ONE (19:38)
[2023-05-22] MEDS ORDERED: POTASSIUM CHLORIDE 20 mEq IN WATER 100ML 200 ML IV ONE (19:38)
[2023-05-22] MEDS: Sodium Chloride 0.9% 1000 ML 1,000 ML IV STA (19:41)
[2023-05-22] MEDS: POTASSIUM CHLORIDE 20 mEq IN WATER 100ML 20 MEQ/100 ML BAG IV SCH (19:43)
[2023-05-22] MEDS ORDERED: XYLOCAINE 2% Uro-Jet ONE (21:40)
[2023-05-22] MEDS: XYLOCAINE 2% Uro-Jet TOP ONE (21:52)
[2023-05-22 22:21] LABS: Appearance Clear (Clear); Bacteria None Seen /HPF (None Seen); Bilirubin Negative (Negative); Blood Negative (Negative); Glucose, Urine Negative (Negative); Hyaline Casts NONE SEEN /LPF (0-2); Ketones Negative (Negative); Leukocyte Esterase Negative (Negative); Nitrite Negative (Negative); Protein,Urine Dip 30 (Negative); RBC 0-2 /HPF (0-5)
[2023-05-22 22:22] LABS: ADD URINE CULTURE? NO (NO); Epithelial Cells Rare /HPF (None Seen); WBC 0-2 /HPF (0-5)
[2023-05-22] MEDS ORDERED: HUMALOG SQ PRN (22:58)
--- NOTE | 2023-05-22 23:43 | PCM.HP ---
History of Present Illness - Chief Complaint Chief Complaint: Confusion Date: 05/22/23 History of Present Illness: 77-year-old man with unclear medical history, this seems to at least include hypertension, type 2 diabetes, dementia, who presents from home with confusion. Patient's has been in the hospital for the last month after a fracture, and per report, she had called EMS after a telephone conversation with her made her concern for his confusion. Upon a wellness check, patient was very confused, and was brought to the emergency room. He was unable to explain how he has been doing for the past few weeks, other than "only kind of okay". He does not think he has been taking most of his medications because he is uncertain of which ones to take and when to take them. He states he also thinks he had a fall yesterday or today onto his head, uncertain if he had any loss of consciousness, but thinks he felt somewhat dizzy beforehand. He is uncertain how much he has been eating or drinking, although he told the emergency room physician that he has been eating poorly. Denies any dysuria, nausea, or diarrhea, or any change in his urine output. He is unable to recall details of his past medical history or his current medication list. Nursing has been trying to reach his , but we are still uncertain which facility she is located. In the ED, patient was noted to have acute kidney injury and hypokalemia. He was given fluids, potassium, and magnesium. - Review of Systems Constitutional: Weakness, No Fever, No Chills Eyes: No Symptoms Ears, Nose, & Throat: No Symptoms Respiratory: No Cough Cardiac: No Chest Pain, No Edema Abdominal/Gastrointestinal: No Nausea, No Vomiting, No Diarrhea Genitourinary Symptoms: No Dysuria, No Frequency, No Hematuria, No Flank Pain Musculoskeletal: No Symptoms Skin: No Symptoms Neurological: Dizziness, No Focal Weakness, No Headache, No Lethargy, No Paralysis, No Sensory Changes All Other Systems: Reviewed and Negative Medications & Allergies Home Medications: Home Medication List Amiodarone HCl [Pacerone] 200 mg PO BID 08/20/19 [History Confirmed 07/24/21] Amitriptyline HCl 25 mg [Amitriptyline 25 mg Tablet] 25 mg PO HS 08/20/19 [History Confirmed 07/24/21] Amlodipine Besylate [Norvasc] 10 mg PO DAILY 08/20/19 [History Confirmed 07/24/21] Baclofen 10 mg [Lioresal 10 mg] 20 mg PO HS 08/20/19 [History Confirmed 07/24/21] Duloxetine HCl [Cymbalta] 60 mg PO DAILY 08/20/19 [History Confirmed 07/24/21] Furosemide 40 mg [Lasix 40 MG] 40 mg PO BID 08/20/19 [History Confirmed 07/24/21] Gabapentin [Neurontin] 600 mg PO BID 08/20/19 [History Confirmed 07/24/21] Gemfibrozil [Lopid] 600 mg PO BID 08/20/19 [History Confirmed 07/24/21] Hydralazine HCl 50 mg PO BID 08/20/19 [History Confirmed 07/24/21] Levothyroxine Sodium [Levoxyl] 200 mcg PO DAILY 08/20/19 [History Confirmed 07/24/21] Primidone [Mysoline] 250 mg PO HS 08/20/19 [History Confirmed 07/24/21] Spironolactone 25 mg [Aldactone 25 MG] 25 mg PO DAILY 08/20/19 [History Confirmed 07/24/21] cloNIDine HCL [Catapres] 0.2 mg PO BID 08/20/19 [History Confirmed 07/24/21] Albuterol Sulfate [Proair Hfa] 2 puffs IH QID 02/27/20 [History Confirmed 07/24/21] Aspirin EC 325 mg [Ecotrin 325 MG] 325 mg PO DAILY 02/27/20 [History Confirmed 07/24/21] Calcium Carbonate [Calcium] 600 mg PO DAILY 02/27/20 [History Confirmed 07/24/21] Docusate Sodium [Stool Softener] 100 mg PO DAILY PRN PRN 02/27/20 [History Confirmed 07/24/21] Donepezil HCl 10 mg PO HS 02/27/20 [History Confirmed 07/24/21] Fluticasone/Vilanterol [Breo Ellipta 100-25 Mcg Inhalr] 1 puff IH DAILY 02/27/20 [History Confirmed 07/24/21] Memantine HCl 10 mg PO BID 01/08/21 [History Confirmed 07/24/21] Metformin HCl 850 mg [Glucophage 850 MG] 850 mg PO BID 02/27/20 [History Confirmed 07/24/21] Multivitamin [Daily Multiple Vitamin] 1 tab PO DAILY 02/27/20 [History Confirmed 07/24/21] Amox Tr/Potass Clav. 875 mg [Augmentin 875-125 Tablet] 875 mg PO BID #8 tablet 07/26/21 [Rx] Lactobacillus Acidophilus [Acidophilus TABLET] 1 tab PO TID #21 tablet 07/26/21 [Rx] Potassium Chloride 10 meq PO BID #60 tablet 07/26/21 [Rx] Allergies/Adverse Reactions: Allergies Allergy/AdvReac Type Severity Reaction Status Date / Time codeine Allergy Mild Headache Verified 05/22/23 17:37 morphine Allergy Mild Verified 05/22/23 17:37 - Past Medical History Past Medical History: Yes Neurological History: Dementia ENT History: No Pertinent History Cardiac History: High Cholesterol, Hypertension Respiratory History: COPD Endocrine Medical History: Hypothyroidism, Thyroid Cancer Musculoskelatal History: No Pertinent History GI Medical History: No Pertinent History History: Other Pyscho-Social History: Depression Male Reproductive Disorders: No Pertinent History Comment: 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 - Past Surgical History Past Surgical History: Yes Neuro Surgical History: No Pertinent History Cardiac History: No Pertinent History Respiratory Surgery: No Pertinent History GI Surgical History: No Pertinent History Genitourinary Surgical Hx: No Pertinent History Musculskeletal Surgical Hx: Orthopedic Surgery Male Surgical History: No Pertinent History Other Surgical History: thyroid cancer- thyroidectomy Significant Family History: no pertinent family hx - Social History Smoking Status: Former smoker Exposure to second hand smoke: No Alcohol: Rarely Drug Use: marijuana - Social Determinants of Health Will the patient participate in the screening: Unable to obtain - Physical Exam Vital Signs: Vital Signs - 24 hr Pulse Resp BP BP Pulse Ox 05/22/23 22:38 92 L 05/22/23 22:00 52 L 16 164/98 98 05/22/23 21:30 55 L 17 164/100 96 05/22/23 21:01 53 L 12 160/98 94 L 05/22/23 20:31 54 L 14 189/103 96 05/22/23 20:10 59 L 13 152/91 94 L 05/22/23 20:09 59 L 17 96 05/22/23 20:01 56 L 17 97 05/22/23 19:26 57 L 12 155/87 93 L 05/22/23 18:20 56 L 9 L 92 L 05/22/23 18:17 55 L 10 L 92 L 05/22/23 17:10 67 173/95 94 L GEN: Sitting up in bed in no acute distress NEURO: Alert, oriented to person, place, somewhat to situation. No focal defects, face symmetric. CV: Regular rate & rhythm, no murmurs, no edema PULM: Clear to auscultation bilaterally, no work of breathing, on room air ABD: Soft, non-distended, normoactive bowel sounds Results - Labs Lab/Micro Results: Lab Results-Last 24 Hours 05/22/23 05/22/23 05/22/23 Range/Units 17:50 17:50 17:50 WBC 6.4 (4.0-10.5) x10^3/uL RBC 3.87 L (4.1-5.6) x10^6/uL Hgb 11.7 L (12.5-18.0) g/dL Hct 35.4 L (42-50) % MCV 91.5 (78-100) fL MCH 30.2 (26-32) pg MCHC 33.1 (32-36) g/dL RDW 14.6 H (11.5-14.0) % Plt Count 232 (150-450) x10^3/uL MPV 9.8 (7.5-11.0) fL Gran % 72.5 H (36.0-66.0) % Immature Gran % (Auto) 0.5 H (0.00-0.4) % Nucleat RBC Rel Count 0.0 (0.00-0.1) % Eos # (Auto) 0.15 (0-0.5) x10^3/uL Immature Gran # (Auto) 0.03 (0.00-0.03) x10^3u/L Absolute Lymphs (auto) 1.23 (1.0-4.6) x10^3/uL Absolute Monos (auto) 0.34 (0.0-1.3) x10^3/uL Absolute Nucleated RBC 0.00 (0.00-0.01) x10^3u/L Lymphocytes % 19.1 L (24.0-44.0) % Monocytes % 5.3 (0.0-12.0) % Eosinophils % 2.3 (0.00-5.0) % Basophils % 0.3 (0.0-0.4) % Absolute Granulocytes 4.67 (1.4-6.9) x10^3/uL Basophils # 0.02 (0-0.4) x10^3/uL Sodium 142 (135-145) mmol/L Potassium 2.7 L* (3.5-5.1) mmol/L Chloride 98 (98-107) mmol/L Carbon Dioxide 33 H (22-30) mmol/L Anion Gap 14.2 (5-15) MEQ/L BUN 34 H (9-20) mg/dL Creatinine 2.26 H (0.66-1.25) mg/dL Estimated GFR 29.3 ML/MIN Glucose 119 H (74-106) mg/dL Calcium 9.4 (8.4-10.2) mg/dL Total Bilirubin 1.10 (0.2-1.3) mg/dL AST 37 (17-59) U/L ALT 42 (0-50) U/L Alkaline Phosphatase 71 (38-126) U/L Troponin I 0.042 H* (0.000-0.034) ng/mL Serum Total Protein 7.3 (6.3-8.2) g/dL Albumin 4.3 (3.5-5.0) g/dL Urine Color (Yellow) Urine Appearance (Clear) Urine pH (4.6-8.0) Ur Specific Candia (1.005-1.030) Urine Protein (Negative) Urine Glucose (UA) (Negative) mg/dL Urine Ketones (Negative) Urine Blood (Negative) Urine Nitrite (Negative) Urine Bilirubin (Negative) Urine Urobilinogen (0.2) mg/dL Ur Leukocyte Esterase (Negative) U Hyaline Cast (Auto) (0-2) /LPF Urine Microscopic RBC (0-5) /HPF Urine Microscopic WBC (0-5) /HPF Ur Epithelial Cells (None Seen) /HPF Calcium Oxalate Crystal (None Seen) /HPF Urine Bacteria (None Seen) /HPF Urine Culture Reflexed (NO) 05/22/23 05/22/23 Range/Units 20:30 21:49 WBC (4.0-10.5) x10^3/uL RBC (4.1-5.6) x10^6/uL Hgb (12.5-18.0) g/dL Hct (42-50) % MCV (78-100) fL MCH (26-32) pg MCHC (32-36) g/dL RDW (11.5-14.0) % Plt Count (150-450) x10^3/uL MPV (7.5-11.0) fL Gran % (36.0-66.0) % Immature Gran % (Auto) (0.00-0.4) % Nucleat RBC Rel Count (0.00-0.1) % Eos # (Auto) (0-0.5) x10^3/uL Immature Gran # (Auto) (0.00-0.03) x10^3u/L Absolute Lymphs (auto) (1.0-4.6) x10^3/uL Absolute Monos (auto) (0.0-1.3) x10^3/uL Absolute Nucleated RBC (0.00-0.01) x10^3u/L Lymphocytes % (24.0-44.0) % Monocytes % (0.0-12.0) % Eosinophils % (0.00-5.0) % Basophils % (0.0-0.4) % Absolute Granulocytes (1.4-6.9) x10^3/uL Basophils # (0-0.4) x10^3/uL Sodium (135-145) mmol/L Potassium (3.5-5.1) mmol/L Chloride (98-107) mmol/L Carbon Dioxide (22-30) mmol/L Anion Gap (5-15) MEQ/L BUN (9-20) mg/dL Creatinine (0.66-1.25) mg/dL Estimated GFR ML/MIN Glucose (74-106) mg/dL Calcium (8.4-10.2) mg/dL Total Bilirubin (0.2-1.3) mg/dL AST (17-59) U/L ALT (0-50) U/L Alkaline Phosphatase (38-126) U/L Troponin I 0.039 H* (0.000-0.034) ng/mL Serum Total Protein (6.3-8.2) g/dL Albumin (3.5-5.0) g/dL Urine Color Yellow (Yellow) Urine Appearance Clear (Clear) Urine pH 6.0 (4.6-8.0) Ur Specific Candia 1.020 (1.005-1.030) Urine Protein 30 (Negative) Urine Glucose (UA) Negative (Negative) mg/dL Urine Ketones Negative (Negative) Urine Blood Negative (Negative) Urine Nitrite Negative (Negative) Urine Bilirubin Negative (Negative) Urine Urobilinogen 1.0 A (0.2) mg/dL Ur Leukocyte Esterase Negative (Negative) U Hyaline Cast (Auto) NONE SEEN (0-2) /LPF Urine Microscopic RBC 0-2 (0-5) /HPF Urine Microscopic WBC 0-2 (0-5) /HPF Ur Epithelial Cells Rare (None Seen) /HPF Calcium Oxalate Crystal 3-5 A (None Seen) /HPF Urine Bacteria None Seen (None Seen) /HPF Urine Culture Reflexed NO (NO) - Radiology Impressions Radiology Exams & Impressions: Radiology Procedures Category Date Time Status HAND (MINIMUM 3 VIEWS) Stat Exams 05/22/23 19:40 Taken HEAD WITHOUT CONTRAST [CT] Stat Exams 05/22/23 17:48 Taken Assessment/Plan (1) Acute kidney injury Current Visit: Yes Status: Acute Assessment & Plan: 77-year-old man with history of diabetes, hypothyroidism, dementia, here with acute kidney injury and hypokalemia. ## Acute kidney injury presumed prerenal, although BUN is not very elevated. It appears patient has been thriving poorly at home without his present, with likely poor oral intake. He had a difficult placement of Ventura catheter in the ED, but when eventually placed, had only 200 mL urine output, so unlikely to be obstructive cause. Possibly medication related, if patient continue to take his furosemide and Aldactone while having poor oral intake, but I am unable to even confirm these home medications at this time. Continue Ventura catheter Start NS at 100 mL/h Repeat BMP in the morning ## Hypokalemia somewhat surprising in the setting of acute kidney injury, but might be explained if patient has continue taking his furosemide (assuming this is the correct home medication) while having poor oral intake. Already given potassium and magnesium in the ER Check potassium, magnesium levels in the morning ## Hypertension blood pressure elevated currently, although not to any serious level. I suspect patient has not been taking his home antihypertensives for at least the last few days, perhaps the last month, while his has been in the hospital. Is also unclear if the last home medication list is currently accurat e, but it includes clonidine, amlodipine, spironolactone, hydralazine, and furosemide. Of these, the most concerning to suddenly stop would be clonidine due to its propensity to cause a rebound hypertension. Start clonidine 0.1 mg BID Restart home antihypertensive regimen once can be confirmed ## Type 2 diabetes presumed diagnosis based on his prior use of metformin, although his last hemoglobin A1c from [address] on low-dose sliding scale insulin ## Other comorbidities history suggest patient also has tremors, hypothyroidism, neuropathy, COPD, and arrhythmia. However, unable to confirm these diagnoses or patient's medications at this time due to his confusion and lack of ability to reach his at this point. Will reassess once we have more history from the family or can confirm his home medications. CODE STATUS: Full code Diet: Diabetic Prophylaxis: Heparin subcu Code(s): N17.9 - ACUTE KIDNEY FAILURE, UNSPECIFIED Telemedicine Encounter - Telemedicine Encounter Telemedicine Encounter: The entirety of this encounter was performed via Telemedicine"
[2023-05-23] MEDS: Sodium Chloride 0.9% 1000 ML 1,000 ML IV SCH (00:30)
[2023-05-23] MEDS: CLONIDINE 0.1 MG TABLET PO SCH (00:31)
[2023-05-23 04:52] LABS: ANION GAP 9.9 MEQ/L (5-15); Calcium 8.6 mg/dL (8.4-10.2); Creatinine 1 1.79 mg/dL (0.66-1.25); EST GLOMERULAR FILTRATION RATE 38.8 ML/MIN
[2023-05-23 04:56] LABS: Hematocrit 33.8 % (42-50); Hemoglobin 11.4 g/dL (12.5-18.0); Mean Cell Volume 91.1 fL (78-100); Mean Corpuscular Hemoglobin 30.7 pg (26-32); Mean Corpuscular Hgb Concent. 33.7 g/dL (32-36); Mean Platelet Volume 9.9 fL (7.5-11.0); Platelet Count 203 x10^3/uL (150-450); Red Blood Count 3.71 x10^6/uL (4.1-5.6); Red Cell Distribution Width 14.7 % (11.5-14.0); White Blood Count 6.9 x10^3/uL (4.0-10.5)
[2023-05-23 05:11] LABS: Potassium 2.6 mmol/L (3.5-5.1)
[2023-05-23] MEDS: Klor Con PO ONE (05:47)
[2023-05-23] MEDS: TYLENOL 325 MG PO PRN (07:52)
--- NOTE | 2023-05-23 08:34 | XRAY ---
Indication: Altered mental status. Multiple contiguous axial images obtained through the head without contrast. Comparison: July 24, 2021 Again age-appropriate global atrophy and mild periventricular degenerative micro-ischemia bilaterally. No acute intracranial hemorrhage, abnormal extra-axial fluid collection, or mass effect. Fourth ventricle is midline without hydrocephalus. Bony calvarium intact. Visualized paranasal sinuses and mastoid air cells are clear. Impression: Continued nonacute senile brain.
--- NOTE | 2023-05-23 08:44 | XRAY ---
Indication: Pain. 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 No other bony, articular, or soft tissue abnormalities.
--- NOTE | 2023-05-23 09:12 | PCM.NOTE ---
Date and Time: 05/23/23 0852 Subjective Assessment: 77 year old male with pmhx of HTN, DM, and dementia presented 05/22/23 via EMS after spouse (who has been at [facility] x 1 month) called the patient and had concern over his increased confusion. CT of the head was nonacute. Xray left and non-acute. Labs remarkable for BRENDA with creat at 2.26 (baseline WNL), hyp okalemia with initial potassium at 2.7. Admitted for BRENDA and hypokalemia. Patient has received IVF and potassium. 05/23/23: Met with patient bedside. Patient endorses he has baseline confusion, feeling better today. States he has not had much to eat or drink for the past several days. He endorses there is no food in his house. He is able to tell me his name, that he is at the hospital, and that Mike is the president. He does seem to be aware of his situation and reports that he lives at home with his friends Antonio and Breanna that he has taken in due to them being homeless. His current resides at [facility]. He no longer feels safe at home, [facility] is in the works for placement. He is unsure of his pmhx and medications. He has had recent Hospice care through [facility] who will send the most recent medication list. Labs are improving. Plan for potassium replenishment today as well as gentle hydration for BRENDA. If improved, he may discharge to [facility] tomorrow. - Review of Systems Constitutional: No Symptoms Eyes: No Symptoms Ears, Nose, & Throat: No Symptoms Respiratory: No Symptoms Cardiac: No Symptoms Abdominal/Gastrointestinal: No Symptoms Genitourinary Symptoms: Hesitancy Musculoskeletal: No Symptoms Skin: No Symptoms Neurological: Other (baseline dementia) Psychological: Memory Loss Endocrine: No Symptoms Hematologic/Lymphatic: No Symptoms Immunological/Allergic: No Symptoms Objective Exam General Appearance: no apparent distress Neurologic Exam: alert, cooperative (Orientated x 2 -self/place), confusion Skin Exam: normal color Eye Exam: PERRL Ears, Nose, Throat Exam: normal ENT inspection Neck Exam: normal inspection Respiratory Exam: normal breath sounds, lungs clear Cardiovascular Exam: regular rate/rhythm, normal heart sounds Gastrointestinal/Abdomen Exam: soft, normal bowel sounds Extremity Exam: normal inspection Back Exam: normal inspection Male Genitalia Exam: deferred Rectal Exam: deferred Objective Data Vital Signs: Vital Signs - 24 hr Temp Pulse Resp BP BP Pulse Ox 05/23/23 07:42 97.4 F 55 L 18 188/86 95 05/23/23 04:00 97.7 F 54 L 20 138/84 95 05/22/23 23:31 97.8 F 58 L 21 172/97 93 L 05/22/23 22:38 92 L 05/22/23 22:00 52 L 16 164/98 98 05/22/23 21:30 55 L 17 164/100 96 05/22/23 21:01 53 L 12 160/98 94 L 05/22/23 20:31 54 L 14 189/103 96 05/22/23 20:10 59 L 13 152/91 94 L 05/22/23 20:09 59 L 17 96 05/22/23 20:01 56 L 17 97 05/22/23 19:26 57 L 12 155/87 93 L 05/22/23 18:20 56 L 9 L 92 L 05/22/23 18:17 55 L 10 L 92 L 05/22/23 17:10 67 173/95 94 L Pain Assessment - Last Documented Pain Intensity 1 Pain Scale Used 0-10 Pain Scale Intake and Output: Intake & Output 05/20/23 05/21/23 05/22/23 05/23/23 11:59 11:59 11:59 11:59 Output Total 1100 Balance -1100 Weight 99.3 kg Lab Results: Lab Results-Last 24 Hours 05/22/23 05/22/23 05/22/23 Range/Units 17:50 17:50 17:50 WBC 6.4 (4.0-10.5) x10^3/uL RBC 3.87 L (4.1-5.6) x10^6/uL Hgb 11.7 L (12.5-18.0) g/dL Hct 35.4 L (42-50) % MCV 91.5 (78-100) fL MCH 30.2 (26-32) pg MCHC 33.1 (32-36) g/dL RDW 14.6 H (11.5-14.0) % Plt Count 232 (150-450) x10^3/uL MPV 9.8 (7.5-11.0) fL Gran % 72.5 H (36.0-66.0) % Immature Gran % (Auto) 0.5 H (0.00-0.4) % Nucleat RBC Rel Count 0.0 (0.00-0.1) % Eos # (Auto) 0.15 (0-0.5) x10^3/uL Immature Gran # (Auto) 0.03 (0.00-0.03) x10^3u/L Absolute Lymphs (auto) 1.23 (1.0-4.6) x10^3/uL Absolute Monos (auto) 0.34 (0.0-1.3) x10^3/uL Absolute Nucleated RBC 0.00 (0.00-0.01) x10^3u/L Lymphocytes % 19.1 L (24.0-44.0) % Monocytes % 5.3 (0.0-12.0) % Eosinophils % 2.3 (0.00-5.0) % Basophils % 0.3 (0.0-0.4) % Absolute Granulocytes 4.67 (1.4-6.9) x10^3/uL Basophils # 0.02 (0-0.4) x10^3/uL Sodium 142 (135-145) mmol/L Potassium 2.7 L* (3.5-5.1) mmol/L Chloride 98 (98-107) mmol/L Carbon Dioxide 33 H (22-30) mmol/L Anion Gap 14.2 (5-15) MEQ/L BUN 34 H (9-20) mg/dL Creatinine 2.26 H (0.66-1.25) mg/dL Estimated GFR 29.3 ML/MIN Glucose 119 H (74-106) mg/dL POC Glucometer (74 to 106) mg/dL Calcium 9.4 (8.4-10.2) mg/dL Magnesium (1.6-2.3) mg/dL Total Bilirubin 1.10 (0.2-1.3) mg/dL AST 37 (17-59) U/L ALT 42 (0-50) U/L Alkaline Phosphatase 71 (38-126) U/L Troponin I 0.042 H* (0.000-0.034) ng/mL Serum Total Protein 7.3 (6.3-8.2) g/dL Albumin 4.3 (3.5-5.0) g/dL Urine Color (Yellow) Urine Appearance (Clear) Urine pH (4.6-8.0) Ur Specific [place] (1.005-1.030) Urine Protein (Negative) Urine Glucose (UA) (Negative) mg/dL Urine Ketones (Negative) Urine Blood (Negative) Urine Nitrite (Negative) Urine Bilirubin (Negative) Urine Urobilinogen (0.2) mg/dL Ur Leukocyte Esterase (Negative) U Hyaline Cast (Auto) (0-2) /LPF Urine Microscopic RBC (0-5) /HPF Urine Microscopic WBC (0-5) /HPF Ur Epithelial Cells (None Seen) /HPF Calcium Oxalate Crystal (None Seen) /HPF Urine Bacteria (None Seen) /HPF Urine Culture Reflexed (NO) 05/22/23 05/22/23 05/23/23 Range/Units 20:30 21:49 04:15 WBC 6.9 (4.0-10.5) x10^3/uL RBC 3.71 L (4.1-5.6) x10^6/uL Hgb 11.4 L (12.5-18.0) g/dL Hct 33.8 L (42-50) % MCV 91.1 (78-100) fL MCH 30.7 (26-32) pg MCHC 33.7 (32-36) g/dL RDW 14.7 H (11.5-14.0) % Plt Count 203 (150-450) x10^3/uL MPV 9.9 (7.5-11.0) fL Gran % (36.0-66.0) % Immature Gran % (Auto) (0.00-0.4) % Nucleat RBC Rel Count (0.00-0.1) % Eos # (Auto) (0-0.5) x10^3/uL Immature Gran # (Auto) (0.00-0.03) x10^3u/L Absolute Lymphs (auto) (1.0-4.6) x10^3/uL Absolute Monos (auto) (0.0-1.3) x10^3/uL Absolute Nucleated RBC (0.00-0.01) x10^3u/L Lymphocytes % (24.0-44.0) % Monocytes % (0.0-12.0) % Eosinophils % (0.00-5.0) % Basophils % (0.0-0.4) % Absolute Granulocytes (1.4-6.9) x10^3/uL Basophils # (0-0.4) x10^3/uL Sodium (135-145) mmol/L Potassium (3.5-5.1) mmol/L Chloride (98-107) mmol/L Carbon Dioxide (22-30) mmol/L Anion Gap (5-15) MEQ/L BUN (9-20) mg/dL Creatinine (0.66-1.25) mg/dL Estimated GFR ML/MIN Glucose (74-106) mg/dL POC Glucometer (74 to 106) mg/dL Calcium (8.4-10.2) mg/dL Magnesium (1.6-2.3) mg/dL Total Bilirubin (0.2-1.3) mg/dL AST (17-59) U/L ALT (0-50) U/L Alkaline Phosphatase (38-126) U/L Troponin I 0.039 H* (0.000-0.034) ng/mL Serum Total Protein (6.3-8.2) g/dL Albumin (3.5-5.0) g/dL Urine Color Yellow (Yellow) Urine Appearance Clear (Clear) Urine pH 6.0 (4.6-8.0) Ur Specific [place] 1.020 (1.005-1.030) Urine Protein 30 (Negative) Urine Glucose (UA) Negative (Negative) mg/dL Urine Ketones Negative (Negative) Urine Blood Negative (Negative) Urine Nitrite Negative (Negative) Urine Bilirubin Negative (Negative) Urine Urobilinogen 1.0 A (0.2) mg/dL Ur Leukocyte Esterase Negative (Negative) U Hyaline Cast (Auto) NONE SEEN (0-2) /LPF Urine Microscopic RBC 0-2 (0-5) /HPF Urine Microscopic WBC 0-2 (0-5) /HPF Ur Epithelial Cells Rare (None Seen) /HPF Calcium Oxalate Crystal 3-5 A (None Seen) /HPF Urine Bacteria None Seen (None Seen) /HPF Urine Culture Reflexed NO (NO) 05/23/23 05/23/23 05/23/23 Range/Units 04:15 04:15 07:14 WBC (4.0-10.5) x10^3/uL RBC (4.1-5.6) x10^6/uL Hgb (12.5-18.0) g/dL Hct (42-50) % MCV (78-100) fL MCH (26-32) pg MCHC (32-36) g/dL RDW (11.5-14.0) % Plt Count (150-450) x10^3/uL MPV (7.5-11.0) fL Gran % (36.0-66.0) % Immature Gran % (Auto) (0.00-0.4) % Nucleat RBC Rel Count (0.00-0.1) % Eos # (Auto) (0-0.5) x10^3/uL Immature Gran # (Auto) (0.00-0.03) x10^3u/L Absolute Lymphs (auto) (1.0-4.6) x10^3/uL Absolute Monos (auto) (0.0-1.3) x10^3/uL Absolute Nucleated RBC (0.00-0.01) x10^3u/L Lymphocytes % (24.0-44.0) % Monocytes % (0.0-12.0) % Eosinophils % (0.00-5.0) % Basophils % (0.0-0.4) % Absolute Granulocytes (1.4-6.9) x10^3/uL Basophils # (0-0.4) x10^3/uL Sodium 141 (135-145) mmol/L Potassium 2.6 L* (3.5-5.1) mmol/L Chloride 104 (98-107) mmol/L Carbon Dioxide 30 (22-30) mmol/L Anion Gap 9.9 (5-15) MEQ/L BUN 27 H (9-20) mg/dL Creatinine 1.79 H (0.66-1.25) mg/dL Estimated GFR 38.8 ML/MIN Glucose 157 H (74-106) mg/dL POC Glucometer 117 H (74 to 106) mg/dL Calcium 8.6 (8.4-10.2) mg/dL Magnesium 2.3 (1.6-2.3) mg/dL Total Bilirubin (0.2-1.3) mg/dL AST (17-59) U/L ALT (0-50) U/L Alkaline Phosphatase (38-126) U/L Troponin I (0.000-0.034) ng/mL Serum Total Protein (6.3-8.2) g/dL Albumin (3.5-5.0) g/dL Urine Color (Yellow) Urine Appearance (Clear) Urine pH (4.6-8.0) Ur Specific [place] (1.005-1.030) Urine Protein (Negative) Urine Glucose (UA) (Negative) mg/dL Urine Ketones (Negative) Urine Blood (Negative) Urine Nitrite (Negative) Urine Bilirubin (Negative) Urine Urobilinogen (0.2) mg/dL Ur Leukocyte Esterase (Negative) U Hyaline Cast (Auto) (0-2) /LPF Urine Microscopic RBC (0-5) /HPF Urine Microscopic WBC (0-5) /HPF Ur Epithelial Cells (None Seen) /HPF Calcium Oxalate Crystal (None Seen) /HPF Urine Bacteria (None Seen) /HPF Urine Culture Reflexed (NO) Radiology Exams: Radiology Procedures Category Date Time Status HAND (MINIMUM 3 VIEWS) Stat Exams 05/22/23 19:40 Completed HEAD WITHOUT CONTRAST [CT] Stat Exams 05/22/23 17:48 Completed Assessment/Plan (1) Acute kidney injury Current Visit: Yes Status: Acute Assessment & Plan: 05/22/23: presumed prerenal, although BUN is not very elevated. It appears patient has been thriving poorly at home without his present, with likely poor oral intake. He had a difficult placement of Ventura catheter in the ED, but when eventually placed, had only 200 mL urine output, so unlikely to be obstructive cause. Possibly medication related, if patient continue to take his furosemide and Aldactone while having poor oral intake, but I am unable to even confirm these home medications at this time. Continue Ventura catheter Start NS at 100 mL/h Repeat BMP in the morning 05/22: -Improving, creat now at 1.76<2.26 -FC discontinued -Continue IVF Code(s): N17.9 - ACUTE KIDNEY FAILURE, UNSPECIFIED (2) Hypokalemia Current Visit: Yes Status: Acute Assessment & Plan: 05/22/23: somewhat surprising in the setting of acute kidney injury, but might be explained if patient has continue taking his furosemide (assuming this is the correct home medication) while having poor oral intake. Already given potassium and magnesium in the ER Check potassium, magnesium levels in the morning 05/23/23: -Tele -Labs reviewed with potassium at 2.6, will replenish per protocol -Mg 2.3 Code(s): E87.6 - HYPOKALEMIA (3) Hypertension Current Visit: Yes Status: Acute Assessment & Plan: 05/22/23: blood pressure elevated currently, although not to any serious level. I suspect patient has not been taking his home antihypertensives for at least the last few days, perhaps the last month, while his has been in the hospital. Is also unclear if the last home medication list is currently accurate, but it includes clonidine, amlodipine, spironolactone, hydralazine, and furosemide. Of these, the most concerning to suddenly stop would be clonidine due to its propensity to cause a rebound hypertension. Start clonidine 0.1 mg BID Restart home antihypertensive regimen once can be confirmed 05/22: -Continue clonidine for now -[facility] to fax most current medication list on file Code(s): I10 - ESSENTIAL (PRIMARY) HYPERTENSION (4) Type 2 diabetes mellitus Current Visit: Yes Status: Acute Assessment & Plan: 05/21: presumed diagnosis based on his prior use of metformin, although his last hemoglobin A1c from [address] on low-dose sliding scale insulin 05/22: -continue SSI -A1c at 6.05 (5) COPD (chronic obstructive pulmonary disease) Current Visit: Yes Status: Acute Assessment & Plan: -Patient states he is on home oxygen, unsure how many liters, will confirm this -Supplemental oxygen for goal spo2 >88-92% -RT consult -neb/inh (6) Dementia Current Visit: No Status: Chronic Qualifiers: Dementia type: unspecified type Assessment & Plan: -Per pt report, it appears from previous medication list that he has been on memantine and donepezil in the past, [facility] to fax over most current med list ## Other comorbidities history suggest patient also has tremors, hypothyroidism, neuropathy, COPD, and arrhythmia. However, unable to confirm these diagnoses or patient's medications at this time due to his confusion and lack of ability to reach his at this point. Will reassess once we have more history from the family or can confirm his home medications. CODE STATUS: Full code Diet: Diabetic Prophylaxis: Heparin subcu Code(s): F03.90 - UNSP DEMENTIA, UNSP SEVERITY, WITHOUT BEH/PSYCH/MOOD/ANX
[2023-05-23] MEDS ORDERED: PERCOCET TABLET 5/325MG PO PRN (09:59)
--- NOTE | 2023-05-23 10:07 | XRAY ---
Indication: [facility] placement. Comparison: July 24, 2021 Portable chest again hyperinflated with minimal left base fibrosis/scarring. No focal infiltrate, consolidation, or large effusion. Heart not enlarged for AP portable technique. Bony thorax intact again with osteopenia, mild degenerative changes, and surgical clips base of neck. Impression: Nonacute hyperinflated chest with chronic features.
[2023-05-23] MEDS: NEURONTIN PO SCH (10:47)
[2023-05-23] MEDS: Cymbalta 30 MG Capsule PO SCH (10:47)
[2023-05-23] MEDS: SYNTHROID 75 MCG PO SCH (10:49)
[2023-05-23] MEDS: HEPARIN 5000 UNITS/0.5 ML (HIGH RISK MED) SQ SCH (10:50)
[2023-05-23] MEDS: SYNTHROID 100 MCG PO SCH (10:50)
[2023-05-23] MEDS: Cordarone 200 MG PO SCH (13:22)
[2023-05-23] MEDS: Apresoline 25 MG TABLET PO SCH (13:22)
[2023-05-23] MEDS: NORVASC 5 MG PO SCH (13:23)
[2023-05-23 15:00] LABS: 027 TOX PROD PRESUMPTIVE NEGATIVE (NEGATIVE); TOXIGENIC C. DIFF ORG NEGATIVE (NEGATIVE)
[2023-05-23] MEDS: IMODIUM 2 MG PO PRN (16:11)
[2023-05-24 08:44] LABS: Absolute Neutrophil Ct (ANC) 2.48 x10^3/uL (1.4-6.9); BASOPHIL % 0.5 % (0.0-0.4); Basophil (Absolute #) 0.02 x10^3/uL (0-0.4); Eosinophil % 7.1 % (0.00-5.0); Hematocrit 30.5 % (42-50); Hemoglobin 9.8 g/dL (12.5-18.0); IMMATURE GRAN # 0.01 x10^3u/L (0.00-0.03); IMMATURE GRAN % 0.2 % (0.00-0.4); Lymphocyte (Absolute #) 1.15 x10^3/uL (1.0-4.6); Lymphocytes % 27.4 % (24.0-44.0); Mean Cell Volume 95.6 fL (78-100); Mean Corpuscular Hemoglobin 30.7 pg (26-32); Mean Corpuscular Hgb Concent. 32.1 g/dL (32-36); Mean Platelet Volume 10.7 fL (7.5-11.0); Monocyte (Absolute #) 0.24 x10^3/uL (0.0-1.3); Monocytes % 5.7 % (0.0-12.0); Neutrophil % 59.1 % (36.0-66.0); Platelet Count 160 x10^3/uL (150-450); Red Blood Count 3.19 x10^6/uL (4.1-5.6); Red Cell Distribution Width 14.8 % (11.5-14.0); White Blood Count 4.2 x10^3/uL (4.0-10.5)
[2023-05-24] MEDS: XYLOCAINE 2% Uro-Jet TOP ONE (08:57)
[2023-05-24 08:58] LABS: ALBUMIN 3.6 g/dL (3.5-5.0); ANION GAP 10.2 MEQ/L (5-15); BILIRUBIN,TOTAL 0.5 mg/dL (0.2-1.3); Calcium 8.3 mg/dL (8.4-10.2); Creatinine 1 1.57 mg/dL (0.66-1.25); EST GLOMERULAR FILTRATION RATE 45.4 ML/MIN; Total Protein 5.9 g/dL (6.3-8.2)
[2023-05-24 09:02] LABS: Potassium 2.9 mmol/L (3.5-5.1)
[2023-05-24] MEDS: SYNTHROID 50 MCG PO SCH (09:36)
[2023-05-24] MEDS: POTASSIUM CHLORIDE 20 mEq IN WATER 100ML 100 ML IV SCH (10:09)
[2023-05-24] MEDS: Flomax 0.4 MG PO SCH (11:03)
[2023-05-24] MEDS: NORVASC 5 MG PO SCH (11:04)
[2023-05-24 11:07] VITALS: BP 124/92; PULSE 56; RESP 16; TEMP 97.6; O2SAT 99
--- NOTE | 2023-05-24 11:43 | PCM.DS ---
Discharge Summary Date of Admission: 05/22/23 22:05 Date of Discharge: 05/24/23 Admitting Physician: DANIEL ROCK MD Primary Care Provider: KIMBERLI CERVANTES MD Allergies Allergies codeine Allergy (Mild, Verified 05/22/23 17:37) Headache morphine Allergy (Mild, Verified 05/22/23 17:37) Hospital Summary - Hospital Course Hospital Course: 77 year old male with pmhx of HTN, DM, and dementia presented 05/22/23 via EMS after spouse (who has been at [facility] x 1 month) called the patient and had concern over his increased confusion. CT of the head was nonacute. Xray left and non-acute. Labs remarkable for BRENDA with creat at 2.26 (baseline WNL), hypokalemia with initial potassium at 2.7. Admitted for BRENDA and hypokalemia. Patient has not taken any home medications since he was under Hospice care which ended 10/2022. Patient endorses he has baseline confusion and is unable to provide history. Spouse was unable to provide history as well. Reported he has not had much to eat or drink for the past several days. He endorses there is no food in his house. He is able to tell me his name, that he is at the hospital, and that Mike is the president. He does seem to be aware of his situation and reports that he lives at home with his friends Antonio and Breanna that he has taken in due to them being homeless. His current resides at [facility]. He no longer feels safe at home. Patient has been accepted to [facility]. Patient has received IVF and potassium for his BRENDA and hypokalemia. Kidney function and electrolytes are improving. He has had some urinary retention and a norton cath has been placed. Patient will need nephrology and urology follow up. TSH level >86.3, patient not taking home levothyroxine, this has been restarted, will need follow up for TSH recheck. He will need a medication review by pcp to resume medications, PCP states he has not seen him in over a year. Patient stable for discharge to nursing facility with mentioned follow up Discharge Note New Diagnosis: BRENDA, hypokalemia, urinary retention New Medications: potassium, synthroid, amlodipine, flomax Follow Up: PCP/neph/urology Latest Assessment & Plan (1) Acute kidney injury Current Visit: Yes Status: Acute Assessment & Plan: 05/22/23: presumed prerenal, although BUN is not very elevated. It appears patient has been thriving poorly at home without his present, with likely poor oral intake. He had a difficult placement of Norton catheter in the ED, but when eventually placed, had only 200 mL urine output, so unlikely to be obstructive cause. Possibly medication related, if patient continue to take his furosemide and Aldactone while having poor oral intake, but I am unable to even confirm these home medications at this time. Continue Norton catheter Start NS at 100 mL/h Repeat BMP in the morning 05/22: -Improving, creat now at 1.76<2.26 -FC discontinued -Continue IVF 05/23: -f/c re-anchored due to urinary retention -creat improving, will need follow up with nephrology Code(s): N17.9 - ACUTE KIDNEY FAILURE, UNSPECIFIED (2) Hypokalemia Current Visit: Yes Status: Acute Assessment & Plan: 05/22/23: somewhat surprising in the setting of acute kidney injury, but might be explained if patient has continue taking his furosemide (assuming this is the correct home medication) while having poor oral intake. Already given potassium and magnesium in the ER Check potassium, magnesium levels in the morning 05/23/23: -Tele -Labs reviewed with potassium at 2.6, will replenish per protocol -Mg 2.3 05/23: -potassium at 2.9, will replenish, send home on potassium 40meq daily Code(s): E87.6 - HYPOKALEMIA (3) Hypertension Current Visit: Yes Status: Acute Assessment & Plan: 05/22/23: blood pressure elevated currently, although not to any serious level. I suspect patient has not been taking his home antihypertensives for at least the last few days, perhaps the last month, while his has been in the hospital. Is also unclear if the last home medication list is currently accurate, but it includes clonidine, amlodipine, spironolactone, hydralazine, and furosemide. Of these, the most concerning to suddenly stop would be clonidine due to its propensity to cause a rebound hypertension. Start clonidine 0.1 mg BID Restart home antihypertensive regimen once can be confirmed 05/22: -Continue clonidine for now -Tita to fax most current medication list on file 05/23: -Will d/c clonidine, start amlodipine Code(s): I10 - ESSENTIAL (PRIMARY) HYPERTENSION (4) Type 2 diabetes mellitus Current Visit: Yes Status: Acute Assessment & Plan: 05/21: presumed diagnosis based on his prior use of metformin, although his last hemoglobin A1c from [address] on low-dose sliding scale insulin 05/22: -continue SSI -A1c at 6.05 (5) COPD (chronic obstructive pulmonary disease) Current Visit: Yes Status: Acute Assessment & Plan: -Patient states he is on home oxygen, unsure how many liters, will confirm this -Supplemental oxygen for goal spo2 >88-92% -RT consult -neb/inh (6) Dementia Current Visit: No Status: Chronic Qualifiers: Dementia type: unspecified type Assessment & Plan: -Per pt report, it appears from previous medication list that he has been on memantine and donepezil in the past, [facility] to fax over most current med list ## Other comorbidities history suggest patient also has tremors, hypothyroidism, neuropathy, COPD, and arrhythmia. However, unable to confirm these diagnoses or patient's medications at this time due to his confusion and lack of ability to reach his at this point. Will reassess once we have more history from the family or can confirm his home medication -- family unable to confirm home medications, will need follow up with pcp for med review, we have resumed amlodipine, synthroid for now (7) Urinary retention -F/C anchored patient with > 500mls retention -Flomax started -Will need urology follow up I spent 35 minutes [id number] with the patient on the day of discharge performing discharge exam, discussing hospital stay and discharge instructions with patient and caregivers, preparation of discharge records, prescriptions & referral forms and addressing any questions/concerns the patient had as documented above. - Vitals & Intake/Output Vital Signs: Vital Signs Temperature 97.6 F 05/24/23 11:06 Pulse Rate 56 L 05/24/23 11:06 Respiratory Rate 16 05/24/23 11:06 Blood Pressure 124/92 05/24/23 11:06 O2 Sat by Pulse Oximetry 99 05/24/23 11:06 Intake & Output: Intake & Output 05/21/23 05/22/23 05/23/23 05/24/23 11:59 11:59 11:59 11:59 Intake Total 4787 Output Total 1200 Balance -1200 4787 Weight 99.3 kg - Lab Result Diagrams: 05/24/23 08:20 05/24/23 08:20 Lab Results-Last 24 Hrs: Lab Results-Last 24 Hours 05/23/23 05/23/23 05/23/23 Range/Units 14:20 16:04 21:57 WBC (4.0-10.5) x10^3/uL RBC (4.1-5.6) x10^6/uL Hgb (12.5-18.0) g/dL Hct (42-50) % MCV (78-100) fL MCH (26-32) pg MCHC (32-36) g/dL RDW (11.5-14.0) % Plt Count (150-450) x10^3/uL MPV (7.5-11.0) fL Gran % (36.0-66.0) % Immature Gran % (Auto) (0.00-0.4) % Nucleat RBC Rel Count (0.00-0.1) % Eos # (Auto) (0-0.5) x10^3/uL Immature Gran # (Auto) (0.00-0.03) x10^3u/L Absolute Lymphs (auto) (1.0-4.6) x10^3/uL Absolute Monos (auto) (0.0-1.3) x10^3/uL Absolute Nucleated RBC (0.00-0.01) x10^3u/L Lymphocytes % (24.0-44.0) % Monocytes % (0.0-12.0) % Eosinophils % (0.00-5.0) % Basophils % (0.0-0.4) % Absolute Granulocytes (1.4-6.9) x10^3/uL Basophils # (0-0.4) x10^3/uL Sodium (135-145) mmol/L Potassium (3.5-5.1) mmol/L Chloride (98-107) mmol/L Carbon Dioxide (22-30) mmol/L Anion Gap (5-15) MEQ/L BUN (9-20) mg/dL Creatinine (0.66-1.25) mg/dL Estimated GFR ML/MIN Glucose (74-106) mg/dL POC Glucometer 122 H 119 H (74 to 106) mg/dL Calcium (8.4-10.2) mg/dL Total Bilirubin (0.2-1.3) mg/dL AST (17-59) U/L ALT (0-50) U/L Alkaline Phosphatase (38-126) U/L Serum Total Protein (6.3-8.2) g/dL Albumin (3.5-5.0) g/dL C. difficile Screen NEGATIVE (NEGATIVE) C.difficile 027-NAP1-B1 PRESUMPTIVE NEGATIVE (NEGATIVE) 05/24/23 05/24/23 05/24/23 Range/Units 06:35 08:20 08:20 WBC 4.2 (4.0-10.5) x10^3/uL RBC 3.19 L (4.1-5.6) x10^6/uL Hgb 9.8 L (12.5-18.0) g/dL Hct 30.5 L (42-50) % MCV 95.6 (78-100) fL MCH 30.7 (26-32) pg MCHC 32.1 (32-36) g/dL RDW 14.8 H (11.5-14.0) % Plt Count 160 (150-450) x10^3/uL MPV 10.7 (7.5-11.0) fL Gran % 59.1 (36.0-66.0) % Immature Gran % (Auto) 0.2 (0.00-0.4) % Nucleat RBC Rel Count 0.0 (0.00-0.1) % Eos # (Auto) 0.30 (0-0.5) x10^3/uL Immature Gran # (Auto) 0.01 (0.00-0.03) x10^3u/L Absolute Lymphs (auto) 1.15 (1.0-4.6) x10^3/uL Absolute Monos (auto) 0.24 (0.0-1.3) x10^3/uL Absolute Nucleated RBC 0.00 (0.00-0.01) x10^3u/L Lymphocytes % 27.4 (24.0-44.0) % Monocytes % 5.7 (0.0-12.0) % Eosinophils % 7.1 H (0.00-5.0) % Basophils % 0.5 (0.0-0.4) % Absolute Granulocytes 2.48 (1.4-6.9) x10^3/uL Basophils # 0.02 (0-0.4) x10^3/uL Sodium 140 (135-145) mmol/L Potassium 2.9 L* (3.5-5.1) mmol/L Chloride 108 H (98-107) mmol/L Carbon Dioxide 24 (22-30) mmol/L Anion Gap 10.2 (5-15) MEQ/L BUN 25 H (9-20) mg/dL Creatinine 1.57 H (0.66-1.25) mg/dL Estimated GFR 45.4 ML/MIN Glucose 106 (74-106) mg/dL POC Glucometer 116 H (74 to 106) mg/dL Calcium 8.3 L (8.4-10.2) mg/dL Total Bilirubin 0.50 (0.2-1.3) mg/dL AST 100 H (17-59) U/L ALT 137 H (0-50) U/L Alkaline Phosphatase 75 (38-126) U/L Serum Total Protein 5.9 L (6.3-8.2) g/dL Albumin 3.6 (3.5-5.0) g/dL C. difficile Screen (NEGATIVE) C.difficile 027-NAP1-B1 (NEGATIVE) 05/24/23 Range/Units 11:03 WBC (4.0-10.5) x10^3/uL RBC (4.1-5.6) x10^6/uL Hgb (12.5-18.0) g/dL Hct (42-50) % MCV (78-100) fL MCH (26-32) pg MCHC (32-36) g/dL RDW (11.5-14.0) % Plt Count (150-450) x10^3/uL MPV (7.5-11.0) fL Gran % (36.0-66.0) % Immature Gran % (Auto) (0.00-0.4) % Nucleat RBC Rel Count (0.00-0.1) % Eos # (Auto) (0-0.5) x10^3/uL Immature Gran # (Auto) (0.00-0.03) x10^3u/L Absolute Lymphs (auto) (1.0-4.6) x10^3/uL Absolute Monos (auto) (0.0-1.3) x10^3/uL Absolute Nucleated RBC (0.00-0.01) x10^3u/L Lymphocytes % (24.0-44.0) % Monocytes % (0.0-12.0) % Eosinophils % (0.00-5.0) % Basophils % (0.0-0.4) % Absolute Granulocytes (1.4-6.9) x10^3/uL Basophils # (0-0.4) x10^3/uL Sodium (135-145) mmol/L Potassium (3.5-5.1) mmol/L Chloride (98-107) mmol/L Carbon Dioxide (22-30) mmol/L Anion Gap (5-15) MEQ/L BUN (9-20) mg/dL Creatinine (0.66-1.25) mg/dL Estimated GFR ML/MIN Glucose (74-106) mg/dL POC Glucometer 145 H (74 to 106) mg/dL Calcium (8.4-10.2) mg/dL Total Bilirubin (0.2-1.3) mg/dL AST (17-59) U/L ALT (0-50) U/L Alkaline Phosphatase (38-126) U/L Serum Total Protein (6.3-8.2) g/dL Albumin (3.5-5.0) g/dL C. difficile Screen (NEGATIVE) C.difficile 027-NAP1-B1 (NEGATIVE) Micro Results-Entire Visit: Microbiology 05/22/23 21:49 Urine Culture - Final Urine, Indwelling Catheter NO GROWTH Accuchecks Date 05/24/23 Date 05/24/23 - Radiology Exams Ordered Rad Exams-Entire Visit: Radiology Procedures Category Date Time Status CHEST 1 VIEW (PORTABLE) Urgent Exams 05/23/23 09:40 Completed HAND (MINIMUM 3 VIEWS) Stat Exams 05/22/23 19:40 Completed HEAD WITHOUT CONTRAST [CT] Stat Exams 05/22/23 17:48 Completed - Procedures and Test Procedures and Tests throughout Hospitalization: Therapy Orders & Screens 05/23/23 00:14 OT Screen per Nursing Assess ONCE Comment: Protocol Order Physician Instructions: Greater than 3 points order OT Admission Screening Reason For Exam: Triggered on Admission Diagnosis: Confusion Open Wound/Cellutlitis/Pressure Ulcers: No Acute Fx/ORIF/Change in wt bearing status: No Severe MUSCULOSKELETAL pain: No ADL Dysfunction: Yes Acute CVA w/Hemiparesis/Hemiplegia: No Decreased Functional Mobility/Strength: Yes Sprain/Strain: No Acute Post-op Mobility Dysfunction: No Total Points: 4 PT Screen per Nursing Assess ONCE Comment: Protocol Order Physician Instructions: Greater than 3 points order PT Admission Screenin Reason For Exam: Triggered on Admission Diagnosis: Confusion Open Wound/Cellutlitis/Pressure Ulcers: No Acute Fx/ORIF/Change in wt bearing status: No Severe MUSCULOSKELETAL pain: No ADL Dysfunction: Yes Acute CVA w/Hemiparesis/Hemiplegia: No Decreased Functional Mobility/Strength: Yes Sprain/Strain: No Acute Post-op Mobility Dysfunction: No Total Points: 4 ST Screen per Nursing Assess ONCE Comment: Protocol Order Physician Instructions: Greater than [address] Admission Screening Reason For Exam: Triggered on Admission Diagnosis: Confusion CVA/Dyshpagia/Aphasia: No Cognitive Deficits: Yes Dehydration/Nutrition Deficit: Yes Reflux: No Oral-Motor Difficulties: No Pneumonia: No Jail Resident: No Total Points: 8 05/23/23 00:31 Oxygen Nasal Cannula 2 lpm Comment: Diagnosis: Confusion 05/24/23 11:18 Flutter Therapy UD Comment: Diagnosis: Confusion 05/24/23 11:20 Respiratory Therapy Assessment DAILY Comment: Diagnosis: Confusion Discharge Exam General Appearance: no apparent distress Neurologic Exam: alert, cooperative, confusion Eye Exam: PERRL Ears, Nose, Throat Exam: normal ENT inspection Neck Exam: normal inspection Respiratory Exam: normal breath sounds, lungs clear Cardiovascular Exam: regular rate/rhythm, normal heart sounds Gastrointestinal/Abdomen Exam: soft, normal bowel sounds Male Genitalia Exam: deferred Rectal Exam: deferred Back Exam: normal inspection Extremity Exam: normal inspection Skin Exam: normal color Final Diagnosis/Problem List - Final Discharge Diagnosis/Problem (1) Acute kidney injury Current Visit: Yes Status: Acute Code(s): N17.9 - ACUTE KIDNEY FAILURE, UNSPECIFIED (2) Hypokalemia Current Visit: Yes Status: Acute Code(s): E87.6 - HYPOKALEMIA (3) Hypertension Current Visit: Yes Status: Acute Code(s): I10 - ESSENTIAL (PRIMARY) HYP ERTENSION (4) Type 2 diabetes mellitus Current Visit: Yes Status: Acute (5) COPD (chronic obstructive pulmonary disease) Current Visit: Yes Status: Acute (6) Dementia Current Visit: No Status: Chronic Code(s): F03.90 - UNSP DEMENTIA, UNSP SEVERITY, WITHOUT BEH/PSYCH/MOOD/ANX - Discharge Disposition: Home, Self-Care Condition: Stable Prescriptions: New Tamsulosin HCl 0.4 mg [Flomax 0.4 MG] 0.4 mg PO DAILY cap Potassium Chloride 40 meq PO DAILY 30 Days #30 tablet Levothyroxine Sodium 100 Mcg [Synthroid 100 Mcg] 100 mcg PO DAILY@0700 tablet Continue Amlodipine Besylate [Norvasc] 10 mg PO DAILY Metformin HCl 850 mg [Glucophage 850 MG] 850 mg PO BID Discontinued Levothyroxine Sodium [Levoxyl] 175 mcg PO DAILY Hydralazine HCl 50 mg PO BID Gabapentin [Neurontin] 900 mg PO TID Furosemide 40 mg [Lasix 40 MG] 40 mg PO BID Duloxetine HCl [Cymbalta] 60 mg PO DAILY Amiodarone HCl [Pacerone] 200 mg PO DAILY Docusate Sodium [Stool Softener] 100 mg PO DAILY PRN PRN PRN Reason: Constipation Spironolactone 25 mg [Aldactone 25 MG] 25 mg PO DAILY Potassium Chloride 10 meq PO BID Oxycodone HCl/Acetaminophen [Oxycodone-Acetaminophen 5-325] 1 each PO Q8H PRN PRN PRN Reason: Pain Ondansetron [Ondansetron Odt ] 4 mg PO Q6H PRN PRN Reason: Nausea Meloxicam 7.5 mg PO BID Additional Instructions: [facility] ORDERS: 2000 [place] DIET ACHS ACCU CHECKS 2L/NC PT/OT EVAL AND TREAT ROUTINE CATHETER CARE PATIENT NEEDS TO FOLLOW UP WITH UROLOGY REGARDING CATHETER SEE ATTACHED MED LIST Follow up with: SUZIE ROBERTSON [COURTESY STAFF] - Office will call patient Forms: Transfer Record Jail
[2023-05-24 12:26] LABS: ALBUMIN 3.6 g/dL (3.5-5.0); ANION GAP 9.3 MEQ/L (5-15); BILIRUBIN,TOTAL 0.5 mg/dL (0.2-1.3); Calcium 8.2 mg/dL (8.4-10.2); Creatinine 1 1.53 mg/dL (0.66-1.25); EST GLOMERULAR FILTRATION RATE 46.8 ML/MIN; Potassium 3.4 mmol/L (3.5-5.1); Total Protein 6.2 g/dL (6.3-8.2)
[2023-05-25] MEDS ORDERED: SYNTHROID 100 MCG PO SCH (07:00)
== END 2023-05-24 15:37 ==
LOC: ED 17:06 → MED SURG 22:05
PROVIDERS: ADMIT Internal Medicine; ATTEND Internal Medicine
DX: N17.9 Acute kidney failure, unspecified (principal); E87.6 Hypokalemia; I10 Essential (primary) hypertension; E11.9 Type 2 diabetes mellitus without complications; J44.9 Chronic obstructive pulmonary disease, unspecified; F03.90 Unspecified dementia, unspecified severity, without behavioral disturbance, psychotic disturbance, mood disturbance, and anxiety; W19.XXXA Unspecified fall, initial encounter; Z79.899 Other long term (current) drug therapy; R33.9 Retention of urine, unspecified; Z85.850 Personal history of malignant neoplasm of thyroid
CPT/HCPCS: 36000; 36415; 51702; 70450; 71045; 73130; 80048; 80053; 81001; 82947; 83036; 83735; 84132; 84443; 84484; 85025; 85027; 87086; 87493; 93041; 94667; 94760; 96374; 99285; G0378; Q3014; J1644; J3475; J3480; A9270-GY

== ENCOUNTER 2023-06-20 16:02 | Inpatient (IN) | payer MEDICARE ==
--- NOTE | 2023-06-20 16:09 | ERPHSYRPT ---
- History of Present Illness Time Seen by Provider: 06/20/23 16:09 Source: patient, EMS, group home records, old records Exam Limitations: clinical condition Physician History: This is a morbidly obese 77-year-old white male patient who was sent to us by the paramedics from [facility] patient arrives to the emergency department on 6 L of oxygen via nasal cannula and still has an oxygen saturation level of 86%. Patient has a history of COPD, dementia, hyperlipidemia, hypothyroidism, hypertension and diabetes. longterm secondary to increasing shortness of breath and weight gain over the last 7 to 8 days. The symptoms and the weight gain have increased/worsened despite doubling the dose of the patient's diuretic. I reviewed the group home notes from [facility] facility. There is also increased lethargy noted. Timing/Duration: day(s) (7 to 8 days of weight gain despite increase in diuretic dosage), worse Activities at Onset: none Severity of Dyspnea-Max: moderate Severity of Dyspnea-Current: moderate Possible Cause: occasional episodes Modifying Factors: Improves With: oxygen (Proves) Associated Symptoms: ankle swelling, No chest pain/discomfort Allergies/Adverse Reactions: codeine Allergy (Mild, Verified 06/20/23 16:23) Headache morphine Allergy (Mild, Verified 06/20/23 16:23) Home Medications: Amlodipine Besylate [Norvasc] 10 mg PO DAILY 08/20/19 [History] Metformin HCl 850 mg [Glucophage 850 MG] 850 mg PO BID 02/27/20 [History] Fluticasone/Salmeterol 230/21* [Advair Hfa 230/21 Mcg MDI] 1 ea DAILY 06/20/23 [History] Furosemide 40 mg [Lasix 40 MG] 40 mg PO DAILY 06/20/23 [History] Levothyroxine Sodium 100 Mcg [Synthroid 100 Mcg] 100 mcg PO DAILY 06/20/23 [History] Melatonin/Pyridoxine [Melatonin 5 mg Tablet] 1 each PO DAILY 06/20/23 [History] Sennosides 8.6 mg PO BID 06/20/23 [History] Tamsulosin HCl 0.4 mg [Flomax 0.4 MG] 0.4 mg PO DAILY 06/20/23 [History] Hx Tetanus, Diphtheria Vaccination/Date Given: Yes Hx Influenza Vaccination/Date Given: Yes Hx Pneumococcal Vaccination/Date Given: Yes Travel Risk - International Travel Have you traveled outside of the country in past 3 weeks: No - Emerging Infectious Disease Are you exhibiting symptoms associated with any current EIDs: No Symptoms: Shortness of Breath - Review of Systems Constitutional: No Symptoms Eyes: No Symptoms Ears, Nose, & Throat: No Symptoms Respiratory: Dyspnea Cardiac: No Symptoms Abdominal/Gastrointestinal: No Symptoms Genitourinary Symptoms: No Symptoms Musculoskeletal: No Symptoms Skin: No Symptoms Neurological: No Symptoms Psychological: No Symptoms Endocrine: No Symptoms Hematologic/Lymphatic: No Symptoms Immunological/Allergic: No Symptoms All Other Systems: Reviewed and Negative - Past Medical History Pertinent Past Medical History: Yes Neurological History: Dementia ENT History: No Pertinent History Cardiac History: High Cholesterol, Hypertension Respiratory History: COPD Endocrine Medical History: Hypothyroidism, Thyroid Cancer Musculoskeletal History: No Pertinent History GI Medical History: No Pertinent History History: Other Psycho-Social History: Depression Male Reproductive Disorders: No Pertinent History Other Medical History: 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 - Past Surgical History Past Surgical History: Yes Neuro Surgical History: No Pertinent History Cardiac: No Pertinent History Respiratory: No Pertinent History Gastrointestinal: No Pertinent History Genitourinary: No Pertinent History Musculoskeletal: Orthopedic Surgery Male Surgical History: No Pertinent History Other Surgical History: thyroid cancer- thyroidectomy Significant Family History: no pertinent family hx - Social History Smoking Status: Former smoker Exposure to second hand smoke: No Drug Use: marijuana Patient Lives Alone: No () - Nursing Vital Signs Nursing Vital Signs: Initial Vital Signs Pulse Rate 94 H 06/20/23 16:08 Respiratory Rate 18 06/20/23 16:08 Blood Pressure 145/78 06/20/23 16:08 O2 Sat by Pulse Oximetry 95 06/20/23 16:08 Pain Scale Pain Intensity 0 - Physical Exam General Appearance: mild distress, alert, lethargy, obese Eye Exam: PERRL/EOMI, eyes nml inspection Ears, Nose, Throat Exam: hearing grossly normal, normal ENT inspection, normal pharynx Neck Exam: normal inspection, non-tender, supple, full range of motion Respiratory Exam: respiratory distress, diminished breath sounds (Mild bibasilar), No chest tenderness, No crackles/rales, No rhonchi, No wheezing Cardiovascular/Chest Exam: normal heart sounds, regular rate/rhythm Abdominal/Gastrointestinal Exam: soft, normal bowel sounds, hernia (Small reducible umbilical hernia), No tenderness Rectal Exam: not done Extremity Exam: non-tender, normal range of motion, pedal edema (Bilateral feet, ankles and below the knee. Patient has lymphedema as well as chronic venous stasis disease without apparent ulceration) Neurologic Exam: alert, cooperative, warp placer II-XII nml as tested Skin Exam: dry (Bilateral lower extremities. Especially the skin below the knees. It is dry and cracking) Lymphatic Exam: No adenopathy SpO2 Interpretation: hypoxic, ABG ordered, airway management int. (BiPAP) O2 Delivery: Nasal Cannula - Course Nursing assessment & vital signs reviewed: Yes EKG Interpreted by Me: RATE (87), NORMAL AXIS, prolonged QT interval, Other (No acute ischemic changes on today's twelve-lead EKG) Ordered Tests: Active Orders 24 hr Category Date Time Status Grape Cutter STAT Care 06/20/23 16:17 Active EKG-ER Only STAT Care 06/20/23 16:16 Active [place]ura [Catheter-Chester Ventura] STAT Care 06/20/23 16:34 Active IV Insertion STAT Care 06/20/23 16:16 Active Oxygen-ED Only NON-REBREATHER 100% Care 06/20/23 16:16 Active CHEST 1 VIEW (PORTABLE) Stat Exams 06/20/23 16:17 Completed ABG [ARTERIAL BLOOD GASES] Stat Lab 06/20/23 17:55 Ordered ARTERIAL BLOOD GASES Stat Lab 06/20/23 16:05 Completed BLOOD CULTURE Stat Lab 06/20/23 16:16 Received CBC W DIFF Stat Lab 06/20/23 16:30 Completed CMP Stat Lab 06/20/23 16:30 Completed CULTURE,URINE Stat Lab 06/20/23 17:54 Ordered Lactic Acid Stat Lab 06/20/23 16:05 Completed MAGNESIUM Stat Lab 06/20/23 16:30 Completed NT PRO BNPII Stat Lab 06/20/23 16:45 Completed TROPONIN Q4H Lab 06/20/23 16:30 Completed TROPONIN Q4H Lab 06/20/23 20:30 Ordered TROPONIN Q4H Lab 06/21/23 00:30 Ordered UA W/RFX UR CULTURE Stat Lab 06/20/23 17:53 Ordered BiPap/CPAP STAT RT 06/20/23 16:18 Active Respiratory Therapy Assessment DAILY RT 06/20/23 16:55 Active Medication Summary Generic Name Dose Route Start Last Admin Trade Name Robbin PRN Reason Stop Dose Admin Ceftriaxone Sodium 1 gm in 100 mls @ 200 mls/hr 06/20/23 17:33 06/20/23 17:44 Rocephin 1 Gm / 100 Ml Nacl IV 06/20/23 18:02 200 ml/hr STAT ONE 200 mls/hr Administration Discontinued Medications Generic Name Dose Route Start Last Admin Trade Name Robbin PRN Reason Stop Dose Admin Albuterol/Ipratropium Confirm 06/20/23 16:27 Ipratropium/Albuterol Sulfate 3 Ml Ampul.Neb Administered 06/20/23 16:28 Dose 3 ml IH .STK-MED ONE Albuterol/Ipratropium 3 ml 06/20/23 16:55 06/20/23 16:30 Ipratropium/Albuterol Sulfate 3 Ml Ampul.Neb IH 06/20/23 16:56 3 ml STAT ONE Administration Furosemide 40 mg 06/20/23 17:34 06/20/23 17:42 Furosemide 40 Mg/4 Ml Vial IV 06/20/23 17:35 40 mg STAT ONE Administration Furosemide Confirm 06/20/23 17:41 Furosemide 40 Mg/4 Ml Vial Administered 06/20/23 17:42 Dose 40 mg .ROUTE .STK-MED ONE Ceftriaxone Sodium Confirm 06/20/23 17:41 Rocephin 1 Gm / 100 Ml Nacl Administered 06/20/23 17:42 Dose 1 gm in 100 mls @ ud IV .STK-MED ONE Lab/Rad Data: Laboratory Result Diagrams 06/20/23 16:30 06/20/23 16:30 Laboratory Results 06/20/23 06/20/23 06/20/23 Range/Units 16:45 16:40 16:30 WBC (4.0-10.5) x10^3/uL RBC (4.1-5.6) x10^6/uL Hgb (12.5-18.0) g/dL Hct (42-50) % MCV (78-100) fL MCH (26-32) pg MCHC (32-36) g/dL RDW (11.5-14.0) % Plt Count (150-450) x10^3/uL MPV (7.5-11.0) fL Gran % (36.0-66.0) % Immature Gran % (Auto) (0.00-0.4) % Nucleat RBC Rel Count (0.00-0.1) % Eos # (Auto) (0-0.5) x10^3/uL Immature Gran # (Auto) (0.00-0.03) x10^3u/L Absolute Lymphs (auto) (1.0-4.6) x10^3/uL Absolute Monos (auto) (0.0-1.3) x10^3/uL Absolute Nucleated RBC (0.00-0.01) x10^3u/L Lymphocytes % (24.0-44.0) % Monocytes % (0.0-12.0) % Eosinophils % (0.00-5.0) % Basophils % (0.0-0.4) % Absolute Granulocytes (1.4-6.9) x10^3/uL Basophils # (0-0.4) x10^3/uL Puncture Site pCO2 (35-45) mmHg pO2 (75-100) mmHg Base Excess (-2.0-2.0) O2 Saturation (94-100) g/dF ABG pH (7.35-7.45) ABG HCO3 (22-28) ABG O2 Sat (Measured) (95-100) % [place] Test A-a Gradient a/A Ratio Hemoglobin Carboxyhemoglobin (0.0-6.9) % THgb Methemoglobin (1.4-1.5) % Potassium (3.5-5.1) Temperature C POC O2 Flow Rate % Sodium (135-145) mmol/L Chloride (98-107) mmol/L Carbon Dioxide (22-30) mmol/L Anion Gap (5-15) MEQ/L BUN (9-20) mg/dL Creatinine (0.66-1.25) mg/dL Estimated GFR ML/MIN Glucose (74-106) mg/dL Lactic Acid (0.4-2.0) Calcium (8.4-10.2) mg/dL Magnesium (1.6-2.3) mg/dL Total Bilirubin (0.2-1.3) mg/dL AST (17-59) U/L ALT (0-50) U/L Alkaline Phosphatase (38-126) U/L Troponin I 0.021 (0.000-0.033) ng/mL NT-Pro-B Natriuret Pep 1430 (<300) pg/mL Serum Total Protein (6.3-8.2) g/dL Albumin (3.5-5.0) g/dL Influenza Type A Ag NEGATIVE (NEGATIVE) Influenza Type B Ag NEGATIVE (NEGATIVE) RSV (PCR) NEGATIVE (NEGATIVE) SARS-CoV-2 (PCR) NEGATIVE (NEGATIVE) 06/20/23 06/20/23 06/20/23 Range/Units 16:30 16:30 16:05 WBC 11.1 H (4.0-10.5) x10^3/uL RBC 3.69 L (4.1-5.6) x10^6/uL Hgb 11.1 L (12.5-18.0) g/dL Hct 36.9 L (42-50) % MCV 100.0 (78-100) fL MCH 30.1 (26-32) pg MCHC 30.1 L (32-36) g/dL RDW 14.9 H (11.5-14.0) % Plt Count 199 (150-450) x10^3/uL MPV 10.2 (7.5-11.0) fL Gran % 88.8 H (36.0-66.0) % Immature Gran % (Auto) 1.8 H (0.00-0.4) % Nucleat RBC Rel Count 0.0 (0.00-0.1) % Eos # (Auto) 0.03 (0-0.5) x10^3/uL Immature Gran # (Auto) 0.20 H (0.00-0.03) x10^3u/L Absolute Lymphs (auto) 0.55 L (1.0-4.6) x10^3/uL Absolute Monos (auto) 0.41 (0.0-1.3) x10^3/uL Absolute Nucleated RBC 0.00 (0.00-0.01) x10^3u/L Lymphocytes % 5.0 L (24.0-44.0) % Monocytes % 3.7 (0.0-12.0) % Eosinophils % 0.3 (0.00-5.0) % Basophils % 0.4 (0.0-0.4) % Absolute Granulocytes 9.87 H (1.4-6.9) x10^3/uL Basophils # 0.04 (0-0.4) x10^3/uL Puncture Site LEFT RADIAL pCO2 84 H* (35-45) mmHg pO2 58 L (75-100) mmHg Base Excess 11.3 H (-2.0-2.0) O2 Saturation 86.7 L (94-100) g/dF ABG pH 7.29 L (7.35-7.45) ABG HCO3 40.4 H* (22-28) ABG O2 Sat (Measured) 89.2 L (95-100) % [place] Test NOT APPLICABLE A-a Gradient 550 a/A Ratio 0.10 Hemoglobin 10.1 Carboxyhemoglobin 2.1 (0.0-6.9) % THgb Methemoglobin 0.7 L (1.4-1.5) % Potassium 3.6 3.4 L (3.5-5.1) Temperature 37.0 C POC O2 Flow Rate 100 % Sodium 145 (135-145) mmol/L Chloride 97 L (98-107) mmol/L Carbon Dioxide 38 H (22-30) mmol/L Anion Gap 13.5 (5-15) MEQ/L BUN 18 (9-20) mg/dL Creatinine 0.98 (0.66-1.25) mg/dL Estimated GFR 79.9 ML/MIN Glucose 114 H (74-106) mg/dL Lactic Acid 1.9 (0.4-2.0) Calcium 8.3 L (8.4-10.2) mg/dL Magnesium 1.8 (1.6-2.3) mg/dL Total Bilirubin 0.70 (0.2-1.3) mg/dL AST 21 (17-59) U/L ALT 36 (0-50) U/L Alkaline Phosphatase 83 (38-126) U/L Troponin I (0.000-0.033) ng/mL NT-Pro-B Natriuret Pep (<300) pg/mL Serum Total Protein 7.5 (6.3-8.2) g/dL Albumin 4.4 (3.5-5.0) g/dL Influenza Type A Ag (NEGATIVE) Influenza Type B Ag (NEGATIVE) RSV (PCR) (NEGATIVE) SARS-CoV-2 (PCR) (NEGATIVE) - Progress Progress: improved, re-examined Air Movement: fair Progress Note: 06/20/23 16:44 My medical decision making and the assignment of high complexity level to the this patient's medical issue today is based on review of the patient's past medical history, review of the patient's medication list, review the patient drug allergy list, history present illness and physical findings on examination. Workup includes placement of intravenous line, respiratory therapy consultation with placement of BiPAP, ABG, CBC, CMP, troponin level, BNP, twelve-lead EKG, we will also perform a chest x-ray. We will provide the patient with DuoNeb nebulizer treatment. Patient might require intravenous diuretic. Differential diagnosis includes viral respiratory illness, CHF exacerbation, COPD exacerbation, pneumonia, myocardial infarction, renal failure 06/20/23 16:47 The portable chest x-ray was interpreted by me. There is evidence of mild cardiomegaly, bilateral/bibasilar fluid versus infiltrate. 06/20/23 16:49 06/20/23 16:56 The radiologist provided the final interpretation. He agrees with my finding but states there is right side upper lobe interstitial opacities present in addition small right pleural effusion is present and left basilar infiltrate/fluid/effusion 06/20/23 16:58 06/20/23 17:58 I spoke with telehospitalist Dr. Sanchez. I reviewed the patient history, presenting complaint, physical findings, vital signs on admission and current vital signs, laboratory and radiographic study results and response to our intervention. He agrees we should place this patient in observation on telemetry. Blood Culture(s) Obtained: Yes Antibiotics given: Yes Counseled pt/family regarding: lab results, diagnosis, rad results Medical Desision Making - Independent Historian Additional History obtained from: Shelter nurse, Supply Teacher/EMT - Discussion of managment Care discussed with:: hospitalist - Diagnostic Testing Diagnostic test were ordered, analyzed, and reviewed by me: Yes Radiological Interpretation: Interpreted by me, Reviewed by me, Teleradiologist Report - Risk of complications The pt has a high risk of morbidity or mortality based on: Decision regarding hospitilization or escalation of hosp level of care - Departure Departure Disposition: Observation Clinical Impression: Bilateral pulmonary infiltrates on chest x-ray, Hypoxia, Lethargy, Acute respiratory failure with hypoxia and hypercarbia Condition: Fair Critical Care Time: Yes Critical Care Time(excluding separately billable procedures): Critical 30-74 mins (40) Referrals: KIMBERLI CERVANTES MD [Primary Care Provider] - Follow up/PCP as directed
[2023-06-20 16:19] LABS: A-aADO2 550; ABG HEMOGLOBIN 10.1; ABG POTASSIUM 3.4 (3.5-5.1); ARTERIAL BLD GAS O2 SATURATION 89.2 % (95-100); ARTERIAL BLOOD GAS BASE EXCESS 11.3 (-2.0-2.0); ARTERIAL BLOOD GAS FIO2 100 %; ARTERIAL BLOOD GAS PCO2 84 mmHg (35-45); ARTERIAL BLOOD GAS PO2 58 mmHg (75-100); ARTERIAL BLOOD GAS pH 7.29 (7.35-7.45); CARBOXYHEMOGLOBIN 2.1 % THgb (0.0-6.9); HCO3- 40.4 (22-28); HGB O2 SAT 86.7 g/dF (94-100); Lactic Acid 1.9 (0.4-2.0); Methhemoglobin 0.7 % (1.4-1.5)
[2023-06-20 16:20] LABS: ABG SITE LEFT RADIAL
[2023-06-20] MEDS ORDERED: DUONEB 0.5-3 MG/3 ml Neb IH ONE (16:27)
[2023-06-20] MEDS: DUONEB 0.5-3 MG/3 ml Neb IH ONE (16:30)
[2023-06-20 16:50] LABS: Absolute Neutrophil Ct (ANC) 9.87 x10^3/uL (1.4-6.9); BASOPHIL % 0.4 % (0.0-0.4); Basophil (Absolute #) 0.04 x10^3/uL (0-0.4); Eosinophil % 0.3 % (0.00-5.0); Eosinophil (Absolute #) 0.03 x10^3/uL (0-0.5); Hematocrit 36.9 % (42-50); Hemoglobin 11.1 g/dL (12.5-18.0); IMMATURE GRAN % 1.8 % (0.00-0.4); Lymphocyte (Absolute #) 0.55 x10^3/uL (1.0-4.6); Mean Corpuscular Hemoglobin 30.1 pg (26-32); Mean Corpuscular Hgb Concent. 30.1 g/dL (32-36); Mean Platelet Volume 10.2 fL (7.5-11.0); Monocyte (Absolute #) 0.41 x10^3/uL (0.0-1.3); Monocytes % 3.7 % (0.0-12.0); Neutrophil % 88.8 % (36.0-66.0); Platelet Count 199 x10^3/uL (150-450); Red Blood Count 3.69 x10^6/uL (4.1-5.6); Red Cell Distribution Width 14.9 % (11.5-14.0); White Blood Count 11.1 x10^3/uL (4.0-10.5)
--- NOTE | 2023-06-20 16:52 | XRAY ---
Indication: Short of breath. Comparison: May 23, 2023 Portable chest demonstrates new right upper lobe hazy interstitial alveolar opacities, small right effusion, and moderate left base infiltrate/atelectasis/effusion. Heart not enlarged for AP portable technique. Bony thorax intact.
[2023-06-20 17:07] LABS: ALBUMIN 4.4 g/dL (3.5-5.0); ANION GAP 13.5 MEQ/L (5-15); BILIRUBIN,TOTAL 0.7 mg/dL (0.2-1.3); Calcium 8.3 mg/dL (8.4-10.2); Creatinine 1 0.98 mg/dL (0.66-1.25); EST GLOMERULAR FILTRATION RATE 79.9 ML/MIN; MAGNESIUM 1.8 mg/dL (1.6-2.3); Potassium 3.6 mmol/L (3.5-5.1); Total Protein 7.5 g/dL (6.3-8.2)
[2023-06-20 17:37] LABS: INFLUENZA A NEGATIVE (NEGATIVE); INFLUENZA B NEGATIVE (NEGATIVE); RESPIRATORY SYNCTIAL VIRUS NEGATIVE (NEGATIVE); SARS-CoV-2 Xpert Express NEGATIVE (NEGATIVE)
[2023-06-20] MEDS ORDERED: Lasix 40 MG/4 ML ONE (17:41)
[2023-06-20] MEDS ORDERED: ROCEPHIN 1 GM / 100 ML NaCl 1 GM/100 ML IVPB IV ONE (17:41)
[2023-06-20] MEDS: Lasix 40 MG/4 ML IV ONE (17:42)
[2023-06-20] MEDS: ROCEPHIN 1 GM / 100 ML NaCl 1 GM/100 ML IVPB IV ONE (17:44)
[2023-06-20 17:57] LABS: A-aADO2 343; ABG HEMOGLOBIN 9.7; ABG POTASSIUM 3.7 (3.5-5.1); ARTERIAL BLD GAS O2 SATURATION 96.6 % (95-100); ARTERIAL BLOOD GAS BASE EXCESS 12.5 (-2.0-2.0); ARTERIAL BLOOD GAS FIO2 70 %; ARTERIAL BLOOD GAS PO2 70 mmHg (75-100); ARTERIAL BLOOD GAS pH 7.37 (7.35-7.45); CARBOXYHEMOGLOBIN 1.9 % THgb (0.0-6.9); HCO3- 39.9 (22-28); HGB O2 SAT 94.6 g/dF (94-100); Methhemoglobin 0.2 % (1.4-1.5); paO2 pAO1 0.17
[2023-06-20 17:59] LABS: ALLEN TEST OK? y; ARTERIAL BLOOD GAS PCO2 69 mmHg (35-45)
[2023-06-20 18:25] LABS: ADD URINE CULTURE? YES (NO); Appearance Cloudy (Clear); Bacteria None Seen /HPF (None Seen); Bilirubin Negative (Negative); Blood Moderate (Negative); Epithelial Cells Rare /HPF (None Seen); Glucose, Urine Negative (Negative); Ketones Negative (Negative); Leukocyte Esterase Small (Negative); Nitrite Negative (Negative); Protein,Urine Dip Trace (Negative); RBC 51-100 /HPF (0-5); Urobilinogen 0.2 mg/dL (0.2)
[2023-06-20] MEDS ORDERED: Zithromax 500 MG/ 250 ML NaCl Premix 500 MG/250 ML IVPB IV ONE (18:25)
[2023-06-20] MEDS: Zithromax 500 MG/ 250 ML NaCl Premix 500 MG/250 ML IVPB IV STA (18:27)
[2023-06-20] MEDS ORDERED: Zofran 4 MG/2 ML VIAL IV PRN (19:32)
[2023-06-20] MEDS ORDERED: HUMULIN R SQ PRN (19:32)
--- NOTE | 2023-06-20 21:27 | PCM.HP ---
History of Present Illness - Chief Complaint Chief Complaint: bilateral pulmonary infiltrate, hypoxia History of Present Illness: is a 77 year old male with COPD, dementia, diabetes, HTN who presents with hypoxic respiratory failure, with worsening SOB over the past week. Patient was on a BiPap during my exam and resting; and is a difficult historian due to dementia. Appeared comfortable and in no distress. - Review of Systems Constitutional: No Fever, No Chills Eyes: No Symptoms Ears, Nose, & Throat: No Symptoms Respiratory: Short Of Breath, No Cough Cardiac: No Chest Pain, No Edema, No Syncope Abdominal/Gastrointestinal: No Abdominal Pain, No Nausea, No Vomiting, No Diarrhea Genitourinary Symptoms: No Dysuria Musculoskeletal: No Back Pain, No Neck Pain Skin: No Rash Neurological: No Dizziness, No Focal Weakness, No Sensory Changes Psychological: No Symptoms Endocrine: No Symptoms Hematologic/Lymphatic: No Symptoms Immunological/Allergic: No Symptoms Medications & Allergies Home Medications: Home Medication List Amlodipine Besylate [Norvasc] 10 mg PO DAILY 08/20/19 [History Confirmed 06/20/23] Metformin HCl 850 mg [Glucophage 850 MG] 850 mg PO BID 02/27/20 [History Confirmed 06/20/23] Levothyroxine Sodium 100 Mcg [Synthroid 100 Mcg] 100 mcg PO DAILY@0700 tablet 05/24/23 [Rx Confirmed 06/20/23] Potassium Chloride 40 meq PO DAILY 30 Days #30 tablet 05/24/23 [Rx Confirmed 06/20/23] Tamsulosin HCl 0.4 mg [Flomax 0.4 MG] 0.4 mg PO DAILY cap 05/24/23 [Rx Confirmed 06/20/23] Fluticasone/Salmeterol 230/21* [Advair Hfa 230/21 Mcg MDI] 1 ea DAILY 06/20/23 [History Confirmed 06/20/23] Furosemide 40 mg [Lasix 40 MG] 40 mg PO DAILY 06/20/23 [History Confirmed 06/20/23] Levothyroxine Sodium 100 Mcg [Synthroid 100 Mcg] 100 mcg PO DAILY 06/20/23 [History Confirmed 06/20/23] Melatonin/Pyridoxine [Melatonin 5 mg Tablet] 1 each PO DAILY 06/20/23 [History Confirmed 06/20/23] Sennosides 8.6 mg PO BID 06/20/23 [History Confirmed 06/20/23] Tamsulosin HCl 0.4 mg [Flomax 0.4 MG] 0.4 mg PO DAILY 06/20/23 [History Confirmed 06/20/23] Allergies/Adverse Reactions: Allergies Allergy/AdvReac Type Severity Reaction Status Date / Time codeine Allergy Mild Headache Verified 06/20/23 16:23 morphine Allergy Mild Verified 06/20/23 16:23 - Past Medical History Past Medical History: Yes Neurological History: Dementia ENT History: No Pertinent History Cardiac History: High Cholesterol, Hypertension Respiratory History: COPD Endocrine Medical History: Hypothyroidism, Thyroid Cancer Musculoskelatal History: No Pertinent History GI Medical History: No Pertinent History History: Other Pyscho-Social History: Depression Male Reproductive Disorders: No Pertinent History Comment: 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 - Past Surgical History Past Surgical History: Yes Neuro Surgical History: No Pertinent History Cardiac History: No Pertinent History Respiratory Surgery: No Pertinent History GI Surgical History: No Pertinent History Genitourinary Surgical Hx: No Pertinent History Musculskeletal Surgical Hx: Orthopedic Surgery Male Surgical History: No Pertinent History Other Surgical History: thyroid cancer- thyroidectomy Significant Family History: no pertinent family hx - Social History Smoking Status: Former smoker Exposure to second hand smoke: No Alcohol: None Drug Use: none - Social Determinants of Health Will the patient participate in the screening: Unable to obtain - Physical Exam Vital Signs: Vital Signs - 24 hr Temp Pulse Resp BP BP Pulse Ox 06/20/23 20:12 97.0 F 73 24 123/77 99 06/20/23 19:32 99 06/20/23 19:10 95 H 20 131/89 97 06/20/23 19:00 113 H 129/89 96 06/20/23 18:50 94 H 135/79 96 06/20/23 18:40 115 H 132/90 96 06/20/23 18:30 93 H 148/87 95 06/20/23 18:20 98 H 138/98 96 06/20/23 18:10 144/93 96 06/20/23 18:00 87 151/98 95 06/20/23 17:50 145/101 95 06/20/23 17:40 79 42 H 155/95 95 06/20/23 17:30 81 20 144/106 98 06/20/23 17:20 99 H 144/101 95 06/20/23 17:10 97 H 21 137/78 97 06/20/23 17:00 137/94 97 06/20/23 16:57 90 21 95 06/20/23 16:50 53 H 140/87 98 06/20/23 16:41 150/90 97 06/20/23 16:39 26 H 96 06/20/23 16:26 139/84 06/20/23 16:21 97.0 F 86 28 H 145/78 86 L 06/20/23 16:08 94 H 18 145/78 95 General Appearance: no apparent distress, alert Neurologic Exam: alert, oriented x 3, cooperative, normal mood/affect, nml cerebellar function, nml station & gait, sensation nml, No motor deficits Eye Exam: PERRL/EOMI, eyes nml inspection Ears, Nose, Throat Exam: normal ENT inspection, TMs normal, pharynx normal, moist mucous membranes Neck Exam: normal inspection, non-tender, supple, full range of motion Respiratory Exam: normal breath sounds, lungs clear, No respiratory distress Cardiovascular Exam: regular rate/rhythm, normal heart sounds, normal peripheral pulses Gastrointestinal/Abdomen Exam: soft, normal bowel sounds, No tenderness, No mass Back Exam: normal inspection, normal range of motion, No CVA tenderness, No vertebral tenderness Extremity Exam: normal inspection, normal range of motion, pelvis stable Skin Exam: normal color, warm, dry, No rash Lymphatic Exam: No adenopathy Results - Labs Lab/Micro Results: Lab Results-Last 24 Hours 06/20/23 06/20/23 06/20/23 Range/Units 16:05 16:30 16:30 WBC 11.1 H (4.0-10.5) x10^3/uL RBC 3.69 L (4.1-5.6) x10^6/uL Hgb 11.1 L (12.5-18.0) g/dL Hct 36.9 L (42-50) % MCV 100.0 (78-100) fL MCH 30.1 (26-32) pg MCHC 30.1 L (32-36) g/dL RDW 14.9 H (11.5-14.0) % Plt Count 199 (150-450) x10^3/uL MPV 10.2 (7.5-11.0) fL Gran % 88.8 H (36.0-66.0) % Immature Gran % (Auto) 1.8 H (0.00-0.4) % Nucleat RBC Rel Count 0.0 (0.00-0.1) % Eos # (Auto) 0.03 (0-0.5) x10^3/uL Immature Gran # (Auto) 0.20 H (0.00-0.03) x10^3u/L Absolute Lymphs (auto) 0.55 L (1.0-4.6) x10^3/uL Absolute Monos (auto) 0.41 (0.0-1.3) x10^3/uL Absolute Nucleated RBC 0.00 (0.00-0.01) x10^3u/L Lymphocytes % 5.0 L (24.0-44.0) % Monocytes % 3.7 (0.0-12.0) % Eosinophils % 0.3 (0.00-5.0) % Basophils % 0.4 (0.0-0.4) % Absolute Granulocytes 9.87 H (1.4-6.9) x10^3/uL Basophils # 0.04 (0-0.4) x10^3/uL Puncture Site LEFT RADIAL pCO2 84 H* (35-45) mmHg pO2 58 L (75-100) mmHg Base Excess 11.3 H (-2.0-2.0) O2 Saturation 86.7 L (94-100) g/dF ABG pH 7.29 L (7.35-7.45) ABG HCO3 40.4 H* (22-28) ABG O2 Sat (Measured) 89.2 L (95-100) % [place] Test NOT APPLICABLE A-a Gradient 550 a/A Ratio 0.10 Hemoglobin 10.1 Carboxyhemoglobin 2.1 (0.0-6.9) % THgb Methemoglobin 0.7 L (1.4-1.5) % Potassium 3.4 L 3.6 (3.5-5.1) Temperature 37.0 C POC O2 Flow Rate 100 % Sodium 145 (135-145) mmol/L Chloride 97 L (98-107) mmol/L Carbon Dioxide 38 H (22-30) mmol/L Anion Gap 13.5 (5-15) MEQ/L BUN 18 (9-20) mg/dL Creatinine 0.98 (0.66-1.25) mg/dL Estimated GFR 79.9 ML/MIN Glucose 114 H (74-106) mg/dL POC Glucometer (74 to 106) mg/dL Lactic Acid 1.9 (0.4-2.0) Calcium 8.3 L (8.4-10.2) mg/dL Magnesium 1.8 (1.6-2.3) mg/dL Total Bilirubin 0.70 (0.2-1.3) mg/dL AST 21 (17-59) U/L ALT 36 (0-50) U/L Alkaline Phosphatase 83 (38-126) U/L Troponin I (0.000-0.033) ng/mL NT-Pro-B Natriuret Pep (<300) pg/mL Serum Total Protein 7.5 (6.3-8.2) g/dL Albumin 4.4 (3.5-5.0) g/dL Urine Color (Yellow) Urine Appearance (Clear) Urine pH (4.6-8.0) Ur Specific Pony (1.005-1.030) Urine Protein (Negative) Urine Glucose (UA) (Negative) mg/dL Urine Ketones (Negative) Urine Blood (Negative) Urine Nitrite (Negative) Urine Bilirubin (Negative) Urine Urobilinogen (0.2) mg/dL Ur Leukocyte Esterase (Negative) U Hyaline Cast (Auto) (0-2) /LPF Urine Microscopic RBC (0-5) /HPF Urine Microscopic WBC (0-5) /HPF Ur Epithelial Cells (None Seen) /HPF Urine Bacteria (None Seen) /HPF Urine Culture Reflexed (NO) Influenza Type A Ag (NEGATIVE) Influenza Type B Ag (NEGATIVE) RSV (PCR) (NEGATIVE) SARS-CoV-2 (PCR) (NEGATIVE) 06/20/23 06/20/23 06/20/23 Range/Units 16:30 16:40 16:45 WBC (4.0-10.5) x10^3/uL RBC (4.1-5.6) x10^6/uL Hgb (12.5-18.0) g/dL Hct (42-50) % MCV (78-100) fL MCH (26-32) pg MCHC (32-36) g/dL RDW (11.5-14.0) % Plt Count (150-450) x10^3/uL MPV (7.5-11.0) fL Gran % (36.0-66.0) % Immature Gran % (Auto) (0.00-0.4) % Nucleat RBC Rel Count (0.00-0.1) % Eos # (Auto) (0-0.5) x10^3/uL Immature Gran # (Auto) (0.00-0.03) x10^3u/L Absolute Lymphs (auto) (1.0-4.6) x10^3/uL Absolute Monos (auto) (0.0-1.3) x10^3/uL Absolute Nucleated RBC (0.00-0.01) x10^3u/L Lymphocytes % (24.0-44.0) % Monocytes % (0.0-12.0) % Eosinophils % (0.00-5.0) % Basophils % (0.0-0.4) % Absolute Granulocytes (1.4-6.9) x10^3/uL Basophils # (0-0.4) x10^3/uL Puncture Site pCO2 (35-45) mmHg pO2 (75-100) mmHg Base Excess (-2.0-2.0) O2 Saturation (94-100) g/dF ABG pH (7.35-7.45) ABG HCO3 (22-28) ABG O2 Sat (Measured) (95-100) % [place] Test A-a Gradient a/A Ratio Hemoglobin Carboxyhemoglobin (0.0-6.9) % THgb Methemoglobin (1.4-1.5) % Potassium (3.5-5.1) Temperature C POC O2 Flow Rate % Sodium (135-145) mmol/L Chloride (98-107) mmol/L Carbon Dioxide (22-30) mmol/L Anion Gap (5-15) MEQ/L BUN (9-20) mg/dL Creatinine (0.66-1.25) mg/dL Estimated GFR ML/MIN Glucose (74-106) mg/dL POC Glucometer (74 to 106) mg/dL Lactic Acid (0.4-2.0) Calcium (8.4-10.2) mg/dL Magnesium (1.6-2.3) mg/dL Total Bilirubin (0.2-1.3) mg/dL AST (17-59) U/L ALT (0-50) U/L Alkaline Phosphatase (38-126) U/L Troponin I 0.021 (0.000-0.033) ng/mL NT-Pro-B Natriuret Pep 1430 (<300) pg/mL Serum Total Protein (6.3-8.2) g/dL Albumin (3.5-5.0) g/dL Urine Color (Yellow) Urine Appearance (Clear) Urine pH (4.6-8.0) Ur Specific Pony (1.005-1.030) Urine Protein (Negative) Urine Glucose (UA) (Negative) mg/dL Urine Ketones (Negative) Urine Blood (Negative) Urine Nitrite (Negative) Urine Bilirubin (Negative) Urine Urobilinogen (0.2) mg/dL Ur Leukocyte Esterase (Negative) U Hyaline Cast (Auto) (0-2) /LPF Urine Microscopic RBC (0-5) /HPF Urine Microscopic WBC (0-5) /HPF Ur Epithelial Cells (None Seen) /HPF Urine Bacteria (None Seen) /HPF Urine Culture Reflexed (NO) Influenza Type A Ag NEGATIVE (NEGATIVE) Influenza Type B Ag NEGATIVE (NEGATIVE) RSV (PCR) NEGATIVE (NEGATIVE) SARS-CoV-2 (PCR) NEGATIVE (NEGATIVE) 06/20/23 06/20/23 06/20/23 Range/Units 17:55 18:00 18:20 WBC (4.0-10.5) x10^3/uL RBC (4.1-5.6) x10^6/uL Hgb (12.5-18.0) g/dL Hct (42-50) % MCV (78-100) fL MCH (26-32) pg MCHC (32-36) g/dL RDW (11.5-14.0) % Plt Count (150-450) x10^3/uL MPV (7.5-11.0) fL Gran % (36.0-66.0) % Immature Gran % (Auto) (0.00-0.4) % Nucleat RBC Rel Count (0.00-0.1) % Eos # (Auto) (0-0.5) x10^3/uL Immature Gran # (Auto) (0.00-0.03) x10^3u/L Absolute Lymphs (auto) (1.0-4.6) x10^3/uL Absolute Monos (auto) (0.0-1.3) x10^3/uL Absolute Nucleated RBC (0.00-0.01) x10^3u/L Lymphocytes % (24.0-44.0) % Monocytes % (0.0-12.0) % Eosinophils % (0.00-5.0) % Basophils % (0.0-0.4) % Absolute Granulocytes (1.4-6.9) x10^3/uL Basophils # (0-0.4) x10^3/uL Puncture Site left rad pCO2 69 H* (35-45) mmHg pO2 70 L (75-100) mmHg Base Excess 12.5 H (-2.0-2.0) O2 Saturation 94.6 (94-100) g/dF ABG pH 7.37 (7.35-7.45) ABG HCO3 39.9 H* (22-28) ABG O2 Sat (Measured) 96.6 (95-100) % [place] Test y A-a Gradient 343 a/A Ratio 0.17 Hemoglobin 9.7 Carboxyhemoglobin 1.9 (0.0-6.9) % THgb Methemoglobin 0.2 L (1.4-1.5) % Potassium 3.7 (3.5-5.1) Temperature 37.0 C POC O2 Flow Rate 70 % Sodium (135-145) mmol/L Chloride (98-107) mmol/L Carbon Dioxide (22-30) mmol/L Anion Gap (5-15) MEQ/L BUN (9-20) mg/dL Creatinine (0.66-1.25) mg/dL Estimated GFR ML/MIN Glucose (74-106) mg/dL POC Glucometer (74 to 106) mg/dL Lactic Acid 2.3 H (0.4-2.0) Calcium (8.4-10.2) mg/dL Magnesium (1.6-2.3) mg/dL Total Bilirubin (0.2-1.3) mg/dL AST (17-59) U/L ALT (0-50) U/L Alkaline Phosphatase (38-126) U/L Troponin I (0.000-0.033) ng/mL NT-Pro-B Natriuret Pep (<300) pg/mL Serum Total Protein (6.3-8.2) g/dL Albumin (3.5-5.0) g/dL Urine Color Yellow (Yellow) Urine Appearance Cloudy A (Clear) Urine pH 5.0 (4.6-8.0) Ur Specific Pony 1.010 (1.005-1.030) Urine Protein Trace A (Negative) Urine Glucose (UA) Negative (Negative) mg/dL Urine Ketones Negative (Negative) Urine Blood Moderate A (Negative) Urine Nitrite Negative (Negative) Urine Bilirubin Negative (Negative) Urine Urobilinogen 0.2 (0.2) mg/dL Ur Leukocyte Esterase Small A (Negative) U Hyaline Cast (Auto) 6-10 A (0-2) /LPF Urine Microscopic RBC 51-100 A (0-5) /HPF Urine Microscopic WBC 3-5 (0-5) /HPF Ur Epithelial Cells Rare (None Seen) /HPF Urine Bacteria None Seen (None Seen) /HPF Urine Culture Reflexed YES (NO) Influenza Type A Ag (NEGATIVE) Influenza Type B Ag (NEGATIVE) RSV (PCR) (NEGATIVE) SARS-CoV-2 (PCR) (NEGATIVE) 06/20/23 06/20/23 Range/Units 20:44 20:50 WBC (4.0-10.5) x10^3/uL RBC (4.1-5.6) x10^6/uL Hgb (12.5-18.0) g/dL Hct (42-50) % MCV (78-100) fL MCH (26-32) pg MCHC (32-36) g/dL RDW (11.5-14.0) % Plt Count (150-450) x10^3/uL MPV (7.5-11.0) fL Gran % (36.0-66.0) % Immature Gran % (Auto) (0.00-0.4) % Nucleat RBC Rel Count (0.00-0.1) % Eos # (Auto) (0-0.5) x10^3/uL Immature Gran # (Auto) (0.00-0.03) x10^3u/L Absolute Lymphs (auto) (1.0-4.6) x10^3/uL Absolute Monos (auto) (0.0-1.3) x10^3/uL Absolute Nucleated RBC (0.00-0.01) x10^3u/L Lymphocytes % (24.0-44.0) % Monocytes % (0.0-12.0) % Eosinophils % (0.00-5.0) % Basophils % (0.0-0.4) % Absolute Granulocytes (1.4-6.9) x10^3/uL Basophils # (0-0.4) x10^3/uL Puncture Site pCO2 (35-45) mmHg pO2 (75-100) mmHg Base Excess (-2.0-2.0) O2 Saturation (94-100) g/dF ABG pH (7.35-7.45) ABG HCO3 (22-28) ABG O2 Sat (Measured) (95-100) % [place] Test A-a Gradient a/A Ratio Hemoglobin Carboxyhemoglobin (0.0-6.9) % THgb Methemoglobin (1.4-1.5) % Potassium (3.5-5.1) Temperature C POC O2 Flow Rate % Sodium (135-145) mmol/L Chloride (98-107) mmol/L Carbon Dioxide (22-30) mmol/L Anion Gap (5-15) MEQ/L BUN (9-20) mg/dL Creatinine (0.66-1.25) mg/dL Estimated GFR ML/MIN Glucose (74-106) mg/dL POC Glucometer 99 (74 to 106) mg/dL Lactic Acid (0.4-2.0) Calcium (8.4-10.2) mg/dL Magnesium (1.6-2.3) mg/dL Total Bilirubin (0.2-1.3) mg/dL AST (17-59) U/L ALT (0-50) U/L Alkaline Phosphatase (38-126) U/L Troponin I 0.026 (0.000-0.033) ng/mL NT-Pro-B Natriuret Pep (<300) pg/mL Serum Total Protein (6.3-8.2) g/dL Albumin (3.5-5.0) g/dL Urine Color (Yellow) Urine Appearance (Clear) Urine pH (4.6-8.0) Ur Specific Pony (1.005-1.030) Urine Protein (Negative) Urine Glucose (UA) (Negative) mg/dL Urine Ketones (Negative) Urine Blood (Negative) Urine Nitrite (Negative) Urine Bilirubin (Negative) Urine Urobilinogen (0.2) mg/dL Ur Leukocyte Esterase (Negative) U Hyaline Cast (Auto) (0-2) /LPF Urine Microscopic RBC (0-5) /HPF Urine Microscopic WBC (0-5) /HPF Ur Epithelial Cells (None Seen) /HPF Urine Bacteria (None Seen) /HPF Urine Culture Reflexed (NO) Influenza Type A Ag (NEGATIVE) Influenza Type B Ag (NEGATIVE) RSV (PCR) (NEGATIVE) SARS-CoV-2 (PCR) (NEGATIVE) Accuchecks Date 06/20/23 Time 16:05 - Radiology Impressions Radiology Exams & Impressions: Radiology Procedures Category Date Time Status CHEST 1 VIEW (PORTABLE) Stat Exams 06/20/23 16:17 Completed - Other Procedures and Tests Respiratory Therapy 06/20/23 16:18 BiPap/CPAP STAT 06/20/23 16:55 Respiratory Therapy Assessment DAILY 06/20/23 19:32 EKG REPEAT IN AM Respiratory Therapy Consult ONCE Assessment/Plan (1) Acute respiratory failure with hypoxia and hypercarbia Current Visit: Yes Status: Acute Assessment & Plan: 1. BiPap with good response 2. Duonebs PRN 3. Antibiotics started in the ED 4. Diuretics can be started tomorrow depending on clinical status Code(s): J96.01 - ACUTE RESPIRATORY FAILURE WITH HYPOXIA; J96.02 - ACUTE RESPIRATORY FAILURE WITH HYPERCAPNIA Telemedicine Encounter - Telemedicine Encounter Telemedicine Encounter: The entirety of this encounter was performed via Telemedicine"
[2023-06-20] MEDS: ROCEPHIN 1 GM / 100 ML NaCl 1 GM/100 ML IVPB IV SCH (22:15)
[2023-06-20] MEDS: Sodium Chloride 0.9% 1000 ML 1,000 ML IV SCH (23:04)
[2023-06-20] MEDS: SENOKOT 8.6 MG PO SCH (23:27)
[2023-06-20] MEDS: Glucophage 850 MG PO SCH (23:27)
[2023-06-21 02:24] LABS: Absolute Neutrophil Ct (ANC) 7.03 x10^3/uL (1.4-6.9); BASOPHIL % 0.2 % (0.0-0.4); Basophil (Absolute #) 0.02 x10^3/uL (0-0.4); Eosinophil % 0.4 % (0.00-5.0); Eosinophil (Absolute #) 0.03 x10^3/uL (0-0.5); Hematocrit 27.3 % (42-50); Hemoglobin 8.3 g/dL (12.5-18.0); IMMATURE GRAN # 0.08 x10^3u/L (0.00-0.03); Lymphocyte (Absolute #) 0.74 x10^3/uL (1.0-4.6); Lymphocytes % 8.8 % (24.0-44.0); Mean Cell Volume 96.1 fL (78-100); Mean Corpuscular Hemoglobin 29.2 pg (26-32); Mean Corpuscular Hgb Concent. 30.4 g/dL (32-36); Monocyte (Absolute #) 0.51 x10^3/uL (0.0-1.3); Monocytes % 6.1 % (0.0-12.0); Neutrophil % 83.5 % (36.0-66.0); Platelet Count 215 x10^3/uL (150-450); Red Blood Count 2.84 x10^6/uL (4.1-5.6); Red Cell Distribution Width 14.8 % (11.5-14.0); White Blood Count 8.4 x10^3/uL (4.0-10.5)
[2023-06-21 02:47] LABS: ALBUMIN 3.4 g/dL (3.5-5.0); BILIRUBIN,TOTAL 0.5 mg/dL (0.2-1.3); Calcium 7.6 mg/dL (8.4-10.2); Creatinine 1 0.98 mg/dL (0.66-1.25); EST GLOMERULAR FILTRATION RATE 79.9 ML/MIN; Potassium 3.3 mmol/L (3.5-5.1); Total Protein 5.4 g/dL (6.3-8.2)
[2023-06-21 02:53] LABS: ANION GAP 12.3 MEQ/L (5-15)
[2023-06-21] MEDS: Advair Hfa 230/21 Mcg COMMON CANISTER IH SCH (06:43)
[2023-06-21] MEDS ORDERED: Sterile H2O 10 ml IJ ONE (09:04)
[2023-06-21] MEDS: SYNTHROID 100 MCG PO SCH (09:06)
[2023-06-21] MEDS: HUMALOG SQ PRN (09:06)
[2023-06-21] MEDS: solu-MEDROL IV SCH (09:06)
[2023-06-21] MEDS: Flomax 0.4 MG PO SCH (09:06)
[2023-06-21] MEDS: Klor Con PO SCH (09:06)
[2023-06-21] MEDS: Lasix 40 MG PO SCH (09:06)
[2023-06-21] MEDS: ROCEPHIN 1 GM / 100 ML NaCl 1 GM/100 ML IVPB IV SCH (09:06)
[2023-06-21] MEDS: DUONEB 0.5-3 MG/3 ml Neb IH SCH (09:23)
[2023-06-21] MEDS ORDERED: NON-FORMULARY ITEM (Melatonin/Pyridoxine [Melatonin 5 Mg Tablet] 1 EACH Tablet) PO SCH (10:00)
[2023-06-21] MEDS ORDERED: NON-FORMULARY ITEM (Potassium Chloride [Potassium Chloride] 20 MEQ Tab.Er.Prt) PO SCH (10:00)
[2023-06-21] MEDS: Klor Con PO ONE (12:07)
--- NOTE | 2023-06-21 13:20 | PCM.NOTE ---
Date and Time: 06/21/23 1303 Subjective Assessment: Mr. Partida is a 77 year old male with a pmhx of dementia, HLD, HTN, COPD (RA at baseline), Hypothyroid, thyroid cancer, chronic norton cath, and depression who presented to ED 06/20/23 with increasing shortness of breath and weight gain from [facility] the nursing facility he resides at. Patient was tachypneic and hypoxic on arrival with spo2 levels in the mid 80's. CXR demonstrates right upper lobe opacities as well as a small right effusion. Patient admitted with pneumonia. Current treatment with Rocephin /azithromycin/solu-medrol/duonebs/bronchodilator. Initially on Bipap, now on 10L oxymask. 06/21/23: Met with patient bedside. He is A&O to self with baseline dementia. Endorses continue dyspnea and cough. Lung sounds coarse bilaterally with wheezes throughout. On exam BLE with 2+ pitting edema. Plan for continued oxygen/abx/steroid treatment , add lasix/mucinex. - Review of Systems Constitutional: No Symptoms Eyes: No Symptoms Ears, Nose, & Throat: No Symptoms Respiratory: Cough, Short Of Breath, Wheezing Cardiac: Edema (BLE 2+Pitting) Abdominal/Gastrointestinal: No Symptoms Genitourinary Symptoms: No Symptoms, Other (F/C chronic) Musculoskeletal: No Symptoms Skin: No Symptoms Neurological: No Symptoms Psychological: No Symptoms Endocrine: No Symptoms Hematologic/Lymphatic: No Symptoms Immunological/Allergic: No Symptoms Objective Exam General Appearance: no apparent distress Neurologic Exam: alert, cooperative, normal mood/affect, confusion Skin Exam: normal color Eye Exam: PERRL Ears, Nose, Throat Exam: normal ENT inspection Neck Exam: normal inspection Respiratory Exam: diminished breath sounds, crackles/rales, wheezing Cardiovascular Exam: regular rate/rhythm, normal heart sounds Gastrointestinal/Abdomen Exam: soft, normal bowel sounds Extremity Exam: swelling (BLE edema +2 pitting) Back Exam: normal inspection Male Genitalia Exam: deferred Rectal Exam: deferred Objective Data Vital Signs: Vital Signs - 24 hr Temp Pulse Resp BP BP Pulse Ox 06/21/23 11:55 97.6 F 86 23 147/77 94 L 06/21/23 09:45 93 L 06/21/23 09:25 70 24 88 L 06/21/23 07:24 98.9 F 79 20 136/62 90 L 06/21/23 06:47 72 18 92 L 06/21/23 04:00 99.1 F 74 23 127/61 94 L 06/20/23 23:45 98.5 F 80 24 128/68 92 L 06/20/23 20:12 97.0 F 73 24 123/77 99 06/20/23 19:32 99 06/20/23 19:30 75 24 98 06/20/23 19:10 95 H 20 131/89 97 06/20/23 19:00 113 H 129/89 96 06/20/23 18:50 94 H 135/79 96 06/20/23 18:40 115 H 132/90 96 06/20/23 18:30 93 H 148/87 95 06/20/23 18:20 98 H 138/98 96 06/20/23 18:10 144/93 96 06/20/23 18:00 87 151/98 95 06/20/23 17:50 145/101 95 06/20/23 17:40 79 42 H 155/95 95 06/20/23 17:30 81 20 144/106 98 06/20/23 17:20 99 H 144/101 95 06/20/23 17:10 97 H 21 137/78 97 06/20/23 17:00 137/94 97 06/20/23 16:57 90 21 95 06/20/23 16:50 53 H 140/87 98 06/20/23 16:41 150/90 97 06/20/23 16:39 26 H 96 06/20/23 16:26 139/84 06/20/23 16:21 97.0 F 86 28 H 145/78 86 L 06/20/23 16:08 94 H 18 145/78 95 Pain Assessment - Last Documented Pain Intensity 0 Intake and Output: Intake & Output 06/19/23 06/20/23 06/21/23 06/22/23 11:59 11:59 11:59 11:59 Intake Total 606 Output Total 2800 Balance -2194 Weight 112.6 kg Lab Results: Lab Results-Last 24 Hours 06/20/23 06/20/23 06/20/23 Range/Units 16:05 16:30 16:30 WBC 11.1 H (4.0-10.5) x10^3/uL RBC 3.69 L (4.1-5.6) x10^6/uL Hgb 11.1 L (12.5-18.0) g/dL Hct 36.9 L (42-50) % MCV 100.0 (78-100) fL MCH 30.1 (26-32) pg MCHC 30.1 L (32-36) g/dL RDW 14.9 H (11.5-14.0) % Plt Count 199 (150-450) x10^3/uL MPV 10.2 (7.5-11.0) fL Gran % 88.8 H (36.0-66.0) % Immature Gran % (Auto) 1.8 H (0.00-0.4) % Nucleat RBC Rel Count 0.0 (0.00-0.1) % Eos # (Auto) 0.03 (0-0.5) x10^3/uL Immature Gran # (Auto) 0.20 H (0.00-0.03) x10^3u/L Absolute Lymphs (auto) 0.55 L (1.0-4.6) x10^3/uL Absolute Monos (auto) 0.41 (0.0-1.3) x10^3/uL Absolute Nucleated RBC 0.00 (0.00-0.01) x10^3u/L Lymphocytes % 5.0 L (24.0-44.0) % Monocytes % 3.7 (0.0-12.0) % Eosinophils % 0.3 (0.00-5.0) % Basophils % 0.4 (0.0-0.4) % Absolute Granulocytes 9.87 H (1.4-6.9) x10^3/uL Basophils # 0.04 (0-0.4) x10^3/uL Puncture Site LEFT RADIAL pCO2 84 H* (35-45) mmHg pO2 58 L (75-100) mmHg Base Excess 11.3 H (-2.0-2.0) O2 Saturation 86.7 L (94-100) g/dF ABG pH 7.29 L (7.35-7.45) ABG HCO3 40.4 H* (22-28) ABG O2 Sat (Measured) 89.2 L (95-100) % [place] Test NOT APPLICABLE A-a Gradient 550 a/A Ratio 0.10 Hemoglobin 10.1 Carboxyhemoglobin 2.1 (0.0-6.9) % THgb Methemoglobin 0.7 L (1.4-1.5) % Potassium 3.4 L 3.6 (3.5-5.1) Temperature 37.0 C POC O2 Flow Rate 100 % Sodium 145 (135-145) mmol/L Chloride 97 L (98-107) mmol/L Carbon Dioxide 38 H (22-30) mmol/L Anion Gap 13.5 (5-15) MEQ/L BUN 18 (9-20) mg/dL Creatinine 0.98 (0.66-1.25) mg/dL Estimated GFR 79.9 ML/MIN Glucose 114 H (74-106) mg/dL POC Glucometer (74 to 106) mg/dL Lactic Acid 1.9 (0.4-2.0) Calcium 8.3 L (8.4-10.2) mg/dL Magnesium 1.8 (1.6-2.3) mg/dL Total Bilirubin 0.70 (0.2-1.3) mg/dL AST 21 (17-59) U/L ALT 36 (0-50) U/L Alkaline Phosphatase 83 (38-126) U/L Troponin I (0.000-0.033) ng/mL NT-Pro-B Natriuret Pep (<300) pg/mL Serum Total Protein 7.5 (6.3-8.2) g/dL Albumin 4.4 (3.5-5.0) g/dL Urine Color (Yellow) Urine Appearance (Clear) Urine pH (4.6-8.0) Ur Specific [place] (1.005-1.030) Urine Protein (Negative) Urine Glucose (UA) (Negative) mg/dL Urine Ketones (Negative) Urine Blood (Negative) Urine Nitrite (Negative) Urine Bilirubin (Negative) Urine Urobilinogen (0.2) mg/dL Ur Leukocyte Esterase (Negative) U Hyaline Cast (Auto) (0-2) /LPF Urine Microscopic RBC (0-5) /HPF Urine Microscopic WBC (0-5) /HPF Ur Epithelial Cells (None Seen) /HPF Urine Bacteria (None Seen) /HPF Urine Culture Reflexed (NO) Influenza Type A Ag (NEGATIVE) Influenza Type B Ag (NEGATIVE) RSV (PCR) (NEGATIVE) SARS-CoV-2 (PCR) (NEGATIVE) 06/20/23 06/20/23 06/20/23 Range/Units 16:30 16:40 16:45 WBC (4.0-10.5) x10^3/uL RBC (4.1-5.6) x10^6/uL Hgb (12.5-18.0) g/dL Hct (42-50) % MCV (78-100) fL MCH (26-32) pg MCHC (32-36) g/dL RDW (11.5-14.0) % Plt Count (150-450) x10^3/uL MPV (7.5-11.0) fL Gran % (36.0-66.0) % Immature Gran % (Auto) (0.00-0.4) % Nucleat RBC Rel Count (0.00-0.1) % Eos # (Auto) (0-0.5) x10^3/uL Immature Gran # (Auto) (0.00-0.03) x10^3u/L Absolute Lymphs (auto) (1.0-4.6) x10^3/uL Absolute Monos (auto) (0.0-1.3) x10^3/uL Absolute Nucleated RBC (0.00-0.01) x10^3u/L Lymphocytes % (24.0-44.0) % Monocytes % (0.0-12.0) % Eosinophils % (0.00-5.0) % Basophils % (0.0-0.4) % Absolute Granulocytes (1.4-6.9) x10^3/uL Basophils # (0-0.4) x10^3/uL Puncture Site pCO2 (35-45) mmHg pO2 (75-100) mmHg Base Excess (-2.0-2.0) O2 Saturation (94-100) g/dF ABG pH (7.35-7.45) ABG HCO3 (22-28) ABG O2 Sat (Measured) (95-100) % [place] Test A-a Gradient a/A Ratio Hemoglobin Carboxyhemoglobin (0.0-6.9) % THgb Methemoglobin (1.4-1.5) % Potassium (3.5-5.1) Temperature C POC O2 Flow Rate % Sodium (135-145) mmol/L Chloride (98-107) mmol/L Carbon Dioxide (22-30) mmol/L Anion Gap (5-15) MEQ/L BUN (9-20) mg/dL Creatinine (0.66-1.25) mg/dL Estimated GFR ML/MIN Glucose (74-106) mg/dL POC Glucometer (74 to 106) mg/dL Lactic Acid (0.4-2.0) Calcium (8.4-10.2) mg/dL Magnesium (1.6-2.3) mg/dL Total Bilirubin (0.2-1.3) mg/dL AST (17-59) U/L ALT (0-50) U/L Alkaline Phosphatase (38-126) U/L Troponin I 0.021 (0.000-0.033) ng/mL NT-Pro-B Natriuret Pep 1430 (<300) pg/mL Serum Total Protein (6.3-8.2) g/dL Albumin (3.5-5.0) g/dL Urine Color (Yellow) Urine Appearance (Clear) Urine pH (4.6-8.0) Ur Specific [place] (1.005-1.030) Urine Protein (Negative) Urine Glucose (UA) (Negative) mg/dL Urine Ketones (Negative) Urine Blood (Negative) Urine Nitrite (Negative) Urine Bilirubin (Negative) Urine Urobilinogen (0.2) mg/dL Ur Leukocyte Esterase (Negative) U Hyaline Cast (Auto) (0-2) /LPF Urine Microscopic RBC (0-5) /HPF Urine Microscopic WBC (0-5) /HPF Ur Epithelial Cells (None Seen) /HPF Urine Bacteria (None Seen) /HPF Urine Culture Reflexed (NO) Influenza Type A Ag NEGATIVE (NEGATIVE) Influenza Type B Ag NEGATIVE (NEGATIVE) RSV (PCR) NEGATIVE (NEGATIVE) SARS-CoV-2 (PCR) NEGATIVE (NEGATIVE) 06/20/23 06/20/23 06/20/23 Range/Units 17:55 18:00 18:20 WBC (4.0-10.5) x10^3/uL RBC (4.1-5.6) x10^6/uL Hgb (12.5-18.0) g/dL Hct (42-50) % MCV (78-100) fL MCH (26-32) pg MCHC (32-36) g/dL RDW (11.5-14.0) % Plt Count (150-450) x10^3/uL MPV (7.5-11.0) fL Gran % (36.0-66.0) % Immature Gran % (Auto) (0.00-0.4) % Nucleat RBC Rel Count (0.00-0.1) % Eos # (Auto) (0-0.5) x10^3/uL Immature Gran # (Auto) (0.00-0.03) x10^3u/L Absolute Lymphs (auto) (1.0-4.6) x10^3/uL Absolute Monos (auto) (0.0-1.3) x10^3/uL Absolute Nucleated RBC (0.00-0.01) x10^3u/L Lymphocytes % (24.0-44.0) % Monocytes % (0.0-12.0) % Eosinophils % (0.00-5.0) % Basophils % (0.0-0.4) % Absolute Granulocytes (1.4-6.9) x10^3/uL Basophils # (0-0.4) x10^3/uL Puncture Site left rad pCO2 69 H* (35-45) mmHg pO2 70 L (75-100) mmHg Base Excess 12.5 H (-2.0-2.0) O2 Saturation 94.6 (94-100) g/dF ABG pH 7.37 (7.35-7.45) ABG HCO3 39.9 H* (22-28) ABG O2 Sat (Measured) 96.6 (95-100) % [place] Test y A-a Gradient 343 a/A Ratio 0.17 Hemoglobin 9.7 Carboxyhemoglobin 1.9 (0.0-6.9) % THgb Methemoglobin 0.2 L (1.4-1.5) % Potassium 3.7 (3.5-5.1) Temperature 37.0 C POC O2 Flow Rate 70 % Sodium (135-145) mmol/L Chloride (98-107) mmol/L Carbon Dioxide (22-30) mmol/L Anion Gap (5-15) MEQ/L BUN (9-20) mg/dL Creatinine (0.66-1.25) mg/dL Estimated GFR ML/MIN Glucose (74-106) mg/dL POC Glucometer (74 to 106) mg/dL Lactic Acid 2.3 H (0.4-2.0) Calcium (8.4-10.2) mg/dL Magnesium (1.6-2.3) mg/dL Total Bilirubin (0.2-1.3) mg/dL AST (17-59) U/L ALT (0-50) U/L Alkaline Phosphatase (38-126) U/L Troponin I (0.000-0.033) ng/mL NT-Pro-B Natriuret Pep (<300) pg/mL Serum Total Protein (6.3-8.2) g/dL Albumin (3.5-5.0) g/dL Urine Color Yellow (Yellow) Urine Appearance Cloudy A (Clear) Urine pH 5.0 (4.6-8.0) Ur Specific [place] 1.010 (1.005-1.030) Urine Protein Trace A (Negative) Urine Glucose (UA) Negative (Negative) mg/dL Urine Ketones Negative (Negative) Urine Blood Moderate A (Negative) Urine Nitrite Negative (Negative) Urine Bilirubin Negative (Negative) Urine Urobilinogen 0.2 (0.2) mg/dL Ur Leukocyte Esterase Small A (Negative) U Hyaline Cast (Auto) 6-10 A (0-2) /LPF Urine Microscopic RBC 51-100 A (0-5) /HPF Urine Microscopic WBC 3-5 (0-5) /HPF Ur Epithelial Cells Rare (None Seen) /HPF Urine Bacteria None Seen (None Seen) /HPF Urine Culture Reflexed YES (NO) Influenza Type A Ag (NEGATIVE) Influenza Type B Ag (NEGATIVE) RSV (PCR) (NEGATIVE) SARS-CoV-2 (PCR) (NEGATIVE) 06/20/23 06/20/23 06/21/23 Range/Units 20:44 20:50 02:21 WBC (4.0-10.5) x10^3/uL RBC (4.1-5.6) x10^6/uL Hgb (12.5-18.0) g/dL Hct (42-50) % MCV (78-100) fL MCH (26-32) pg MCHC (32-36) g/dL RDW (11.5-14.0) % Plt Count (150-450) x10^3/uL MPV (7.5-11.0) fL Gran % (36.0-66.0) % Immature Gran % (Auto) (0.00-0.4) % Nucleat RBC Rel Count (0.00-0.1) % Eos # (Auto) (0-0.5) x10^3/uL Immature Gran # (Auto) (0.00-0.03) x10^3u/L Absolute Lymphs (auto) (1.0-4.6) x10^3/uL Absolute Monos (auto) (0.0-1.3) x10^3/uL Absolute Nucleated RBC (0.00-0.01) x10^3u/L Lymphocytes % (24.0-44.0) % Monocytes % (0.0-12.0) % Eosinophils % (0.00-5.0) % Basophils % (0.0-0.4) % Absolute Granulocytes (1.4-6.9) x10^3/uL Basophils # (0-0.4) x10^3/uL Puncture Site pCO2 (35-45) mmHg pO2 (75-100) mmHg Base Excess (-2.0-2.0) O2 Saturation (94-100) g/dF ABG pH (7.35-7.45) ABG HCO3 (22-28) ABG O2 Sat (Measured) (95-100) % [place] Test A-a Gradient a/A Ratio Hemoglobin Carboxyhemoglobin (0.0-6.9) % THgb Methemoglobin (1.4-1.5) % Potassium (3.5-5.1) Temperature C POC O2 Flow Rate % Sodium (135-145) mmol/L Chloride (98-107) mmol/L Carbon Dioxide (22-30) mmol/L Anion Gap (5-15) MEQ/L BUN (9-20) mg/dL Creatinine (0.66-1.25) mg/dL Estimated GFR ML/MIN Glucose (74-106) mg/dL POC Glucometer 99 (74 to 106) mg/dL Lactic Acid (0.4-2.0) Calcium (8.4-10.2) mg/dL Magnesium (1.6-2.3) mg/dL Total Bilirubin (0.2-1.3) mg/dL AST (17-59) U/L ALT (0-50) U/L Alkaline Phosphatase (38-126) U/L Troponin I 0.026 0.032 (0.000-0.033) ng/mL NT-Pro-B Natriuret Pep (<300) pg/mL Serum Total Protein (6.3-8.2) g/dL Albumin (3.5-5.0) g/dL Urine Color (Yellow) Urine Appearance (Clear) Urine pH (4.6-8.0) Ur Specific [place] (1.005-1.030) Urine Protein (Negative) Urine Glucose (UA) (Negative) mg/dL Urine Ketones (Negative) Urine Blood (Negative) Urine Nitrite (Negative) Urine Bilirubin (Negative) Urine Urobilinogen (0.2) mg/dL Ur Leukocyte Esterase (Negative) U Hyaline Cast (Auto) (0-2) /LPF Urine Microscopic RBC (0-5) /HPF Urine Microscopic WBC (0-5) /HPF Ur Epithelial Cells (None Seen) /HPF Urine Bacteria (None Seen) /HPF Urine Culture Reflexed (NO) Influenza Type A Ag (NEGATIVE) Influenza Type B Ag (NEGATIVE) RSV (PCR) (NEGATIVE) SARS-CoV-2 (PCR) (NEGATIVE) 06/21/23 06/21/23 06/21/23 Range/Units 02:21 02:21 07:10 WBC 8.4 (4.0-10.5) x10^3/uL RBC 2.84 L (4.1-5.6) x10^6/uL Hgb 8.3 L D (12.5-18.0) g/dL Hct 27.3 L (42-50) % MCV 96.1 (78-100) fL MCH 29.2 (26-32) pg MCHC 30.4 L (32-36) g/dL RDW 14.8 H (11.5-14.0) % Plt Count 215 (150-450) x10^3/uL MPV 9.0 (7.5-11.0) fL Gran % 83.5 H (36.0-66.0) % Immature Gran % (Auto) 1.0 H (0.00-0.4) % Nucleat RBC Rel Count 0.0 (0.00-0.1) % Eos # (Auto) 0.03 (0-0.5) x10^3/uL Immature Gran # (Auto) 0.08 H (0.00-0.03) x10^3u/L Absolute Lymphs (auto) 0.74 L (1.0-4.6) x10^3/uL Absolute Monos (auto) 0.51 (0.0-1.3) x10^3/uL Absolute Nucleated RBC 0.00 (0.00-0.01) x10^3u/L Lymphocytes % 8.8 L (24.0-44.0) % Monocytes % 6.1 (0.0-12.0) % Eosinophils % 0.4 (0.00-5.0) % Basophils % 0.2 (0.0-0.4) % Absolute Granulocytes 7.03 H (1.4-6.9) x10^3/uL Basophils # 0.02 (0-0.4) x10^3/uL Puncture Site pCO2 (35-45) mmHg pO2 (75-100) mmHg Base Excess (-2.0-2.0) O2 Saturation (94-100) g/dF ABG pH (7.35-7.45) ABG HCO3 (22-28) ABG O2 Sat (Measured) (95-100) % [place] Test A-a Gradient a/A Ratio Hemoglobin Carboxyhemoglobin (0.0-6.9) % THgb Methemoglobin (1.4-1.5) % Potassium 3.3 L (3.5-5.1) Temperature C POC O2 Flow Rate % Sodium 144 (135-145) mmol/L Chloride 97 L (98-107) mmol/L Carbon Dioxide 38 H (22-30) mmol/L Anion Gap 12.3 (5-15) MEQ/L BUN 20 (9-20) mg/dL Creatinine 0.98 (0.66-1.25) mg/dL Estimated GFR 79.9 ML/MIN Glucose 100 (74-106) mg/dL POC Glucometer 153 H (74 to 106) mg/dL Lactic Acid (0.4-2.0) Calcium 7.6 L (8.4-10.2) mg/dL Magnesium (1.6-2.3) mg/dL Total Bilirubin 0.50 (0.2-1.3) mg/dL AST 15 L (17-59) U/L ALT 26 (0-50) U/L Alkaline Phosphatase 67 (38-126) U/L Troponin I (0.000-0.033) ng/mL NT-Pro-B Natriuret Pep 1850 (<300) pg/mL Serum Total Protein 5.4 L (6.3-8.2) g/dL Albumin 3.4 L (3.5-5.0) g/dL Urine Color (Yellow) Urine Appearance (Clear) Urine pH (4.6-8.0) Ur Specific [place] (1.005-1.030) Urine Protein (Negative) Urine Glucose (UA) (Negative) mg/dL Urine Ketones (Negative) Urine Blood (Negative) Urine Nitrite (Negative) Urine Bilirubin (Negative) Urine Urobilinogen (0.2) mg/dL Ur Leukocyte Esterase (Negative) U Hyaline Cast (Auto) (0-2) /LPF Urine Microscopic RBC (0-5) /HPF Urine Microscopic WBC (0-5) /HPF Ur Epithelial Cells (None Seen) /HPF Urine Bacteria (None Seen) /HPF Urine Culture Reflexed (NO) Influenza Type A Ag (NEGATIVE) Influenza Type B Ag (NEGATIVE) RSV (PCR) (NEGATIVE) SARS-CoV-2 (PCR) (NEGATIVE) 06/21/23 06/21/23 06/21/23 Range/Units 11:00 11:24 11:40 WBC (4.0-10.5) x10^3/uL RBC (4.1-5.6) x10^6/uL Hgb (12.5-18.0) g/dL Hct (42-50) % MCV (78-100) fL MCH (26-32) pg MCHC (32-36) g/dL RDW (11.5-14.0) % Plt Count (150-450) x10^3/uL MPV (7.5-11.0) fL Gran % (36.0-66.0) % Immature Gran % (Auto) (0.00-0.4) % Nucleat RBC Rel Count (0.00-0.1) % Eos # (Auto) (0-0.5) x10^3/uL Immature Gran # (Auto) (0.00-0.03) x10^3u/L Absolute Lymphs (auto) (1.0-4.6) x10^3/uL Absolute Monos (auto) (0.0-1.3) x10^3/uL Absolute Nucleated RBC (0.00-0.01) x10^3u/L Lymphocytes % (24.0-44.0) % Monocytes % (0.0-12.0) % Eosinophils % (0.00-5.0) % Basophils % (0.0-0.4) % Absolute Granulocytes (1.4-6.9) x10^3/uL Basophils # (0-0.4) x10^3/uL Puncture Site pCO2 (35-45) mmHg pO2 (75-100) mmHg Base Excess (-2.0-2.0) O2 Saturation (94-100) g/dF ABG pH (7.35-7.45) ABG HCO3 (22-28) ABG O2 Sat (Measured) (95-100) % [place] Test A-a Gradient a/A Ratio Hemoglobin Carboxyhemoglobin (0.0-6.9) % THgb Methemoglobin (1.4-1.5) % Potassium 3.4 L (3.5-5.1) Temperature C POC O2 Flow Rate % Sodium (135-145) mmol/L Chloride (98-107) mmol/L Carbon Dioxide (22-30) mmol/L Anion Gap (5-15) MEQ/L BUN (9-20) mg/dL Creatinine (0.66-1.25) mg/dL Estimated GFR ML/MIN Glucose (74-106) mg/dL POC Glucometer 128 H (74 to 106) mg/dL Lactic Acid (0.4-2.0) Calcium (8.4-10.2) mg/dL Magnesium 1.7 (1.6-2.3) mg/dL Total Bilirubin (0.2-1.3) mg/dL AST (17-59) U/L ALT (0-50) U/L Alkaline Phosphatase (38-126) U/L Troponin I (0.000-0.033) ng/mL NT-Pro-B Natriuret Pep (<300) pg/mL Serum Total Protein (6.3-8.2) g/dL Albumin (3.5-5.0) g/dL Urine Color (Yellow) Urine Appearance (Clear) Urine pH (4.6-8.0) Ur Specific [place] (1.005-1.030) Urine Protein (Negative) Urine Glucose (UA) (Negative) mg/dL Urine Ketones (Negative) Urine Blood (Negative) Urine Nitrite (Negative) Urine Bilirubin (Negative) Urine Urobilinogen (0.2) mg/dL Ur Leukocyte Esterase (Negative) U Hyaline Cast (Auto) (0-2) /LPF Urine Microscopic RBC (0-5) /HPF Urine Microscopic WBC (0-5) /HPF Ur Epithelial Cells (None Seen) /HPF Urine Bacteria (None Seen) /HPF Urine Culture Reflexed (NO) Influenza Type A Ag (NEGATIVE) Influenza Type B Ag (NEGATIVE) RSV (PCR) (NEGATIVE) SARS-CoV-2 (PCR) (NEGATIVE) Radiology Exams: Radiology Procedures Category Date Time Status CHEST 1 VIEW (PORTABLE) Stat Exams 06/20/23 16:17 Completed Multi-Disciplinary Progress Notes: Multi-Disciplinary Progress Notes 06/21/23 05:27 Respiratory Note by Ana Hassan Pt placed on 6lpm nasal cannula at this time. Pt is eating a snack. SpO2 95%. No respiratory distress noted, will continue to monitor. Initialized on 06/21/23 05:27 - END OF NOTE 06/21/23 04:22 Respiratory Note by Ana Hassan Pt wanted a drink of water and a break from the bipap mask. 100% NRB applied. No respiratory distress noted. Pt states he is hungry and wants a snack. NSG made aware. Initialized on 06/21/23 04:22 - END OF NOTE Assessment/Plan (1) Pneumonia Current Visit: Yes Status: Acute Assessment & Plan: -Supplemental oxygen with spo2 goal 88-92%, currently on 10L oxymizer, 2L PRN -Ceftriaxone/azithromycin -CT chest pending -solumedrol/nebs/inh -RT eval -ABG if significant hypoxia/lethargy Code(s): J18.9 - PNEUMONIA, UNSPECIFIED ORGANISM (2) Acute respiratory failure with hypoxia Current Visit: Yes Status: Acute Assessment & Plan: -secondary to pneumonia/copd exacerbation/?CHF Code(s): J96.01 - ACUTE RESPIRATORY FAILURE WITH HYPOXIA (3) Microcytic anemia Current Visit: Yes Status: Acute Assessment & Plan: -iron panel -Hgb at 8.3, transfuse if hgb <7 -occult stools Code(s): D50.9 - IRON DEFICIENCY ANEMIA, UNSPECIFIED (4) Hypokalemia Current Visit: Yes Status: Acute Assessment & Plan: -Patient takes 40meq daily, will add 20meq, recheck and replenish per protocol VTE: lovenox PPI: Protonix Dispo 2-3 days Code(s): E87.6 - HYPOKALEMIA
[2023-06-21] MEDS: Lasix 40 MG/4 ML IV SCH (14:06)
[2023-06-21 18:39] LABS: Iron 45 ug/dL (49-181); Iron Saturation 13 % (20-39); TIBC 340 ug/dL (261-497)
[2023-06-21 20:01] LABS: Ferritin 17.9 ng/mL (17.9-464); Folate (Folic Acid) 5.85 ng/mL (2.76 - >20)
[2023-06-21] MEDS ORDERED: NON-FORMULARY ITEM (Melatonin/Pyridoxine [Melatonin 5 Mg Tablet] 1 EACH) PO SCH (22:00)
[2023-06-21] MEDS ORDERED: Lasix 40 MG/4 ML IV SCH (22:00)
[2023-06-21] MEDS: MELATONIN PO SCH (22:51)
[2023-06-21] MEDS: Zithromax 500 MG/ 250 ML NaCl Premix 500 MG/250 ML IVPB IV SCH (22:54)
[2023-06-21] MEDS: solu-MEDROL 40 MG, Sterile H2O 10 ml 1 ML IV SCH (22:55)
[2023-06-22] MEDS: HOLD METFORMIN PRODUCTS FOR 48 HOURS MC SCH (08:10)
[2023-06-22 08:30] LABS: Hematocrit 31.2 % (42-50); Hemoglobin 9.3 g/dL (12.5-18.0); Mean Cell Volume 98.1 fL (78-100); Mean Corpuscular Hemoglobin 29.2 pg (26-32); Mean Corpuscular Hgb Concent. 29.8 g/dL (32-36); Platelet Count 225 x10^3/uL (150-450); Red Blood Count 3.18 x10^6/uL (4.1-5.6); Red Cell Distribution Width 14.7 % (11.5-14.0); White Blood Count 9.6 x10^3/uL (4.0-10.5)
--- NOTE | 2023-06-22 08:43 | XRAY ---
Indication: Pneumonia. Short of breath. Multiple contiguous axial images obtained through the chest using 80 cc Isovue 370 contrast. Comparison: None Heart is enlarged with small pericardial effusion and scattered coronary calcifications. Aorta is mildly arteriosclerotic without aneurysm/dissection. No pathologic mediastinal/hilar lymphadenopathy. Lungs demonstrate moderate bilateral pleural effusions with moderate bibasilar compressive atelectasis. 1.1 cm well-circumscribed noncalcified nodule anterior right upper lobe. Bony thorax intact with osteopenia, mild/moderate degenerative changes throughout spine, and mild elongated dextroscoliosis. Limited upper abdomen demonstrate 1.8 cm left adrenal adenoma and absent left kidney. Impression: 1. Cardiomegaly with pericardial effusion, moderate bilateral effusions, and bibasilar compressive atelectasis favoring cardiac decompensation/CHF versus fluid overload. Superimposed pneumonia not completely excluded. 2. 1.1 cm indeterminant right upper lobe noncalcified nodule. Finding probably too small for PET/CT. Outside comparison studies recommended if available. If not, recommend follow-up per Fleischner guidelines. 3. Chronic findings including arteriosclerotic disease, chronic bony findings, left adrenal adenoma, and absent left kidney.
[2023-06-22 08:44] LABS: ALBUMIN 3.8 g/dL (3.5-5.0); BILIRUBIN,TOTAL 0.4 mg/dL (0.2-1.3); Calcium 7.3 mg/dL (8.4-10.2); Creatinine 1 1.07 mg/dL (0.66-1.25); EST GLOMERULAR FILTRATION RATE 71.9 ML/MIN; MAGNESIUM 1.7 mg/dL (1.6-2.3); Potassium 3.2 mmol/L (3.5-5.1); Total Protein 6.7 g/dL (6.3-8.2)
[2023-06-22 08:53] LABS: ANION GAP 16.2 MEQ/L (5-15)
[2023-06-22] MEDS ORDERED: Lasix 40 MG/4 ML IV SCH (10:00)
[2023-06-22] MEDS: Tums EX 750 MG PO SCH (10:55)
--- NOTE | 2023-06-22 11:30 | PCM.NOTE ---
Date and Time: 06/22/23 1125 Subjective Assessment: 06/22/23 Mr. Partida is a 77 year old male with a pmhx of dementia, HLD, HTN, COPD (RA at baseline), hypothyroid, thyroid cancer, chronic norton cath, and depression. He lives at [facility]. He presented to ED on 06/20/23 with increasing shortness of breath and weight gain. Patient was tachypneic and hypoxic on arrival with spo2 levels in the mid 80's. CXR demonstrates right upper lobe opacities as well as a small right effusion. Patient admitted with pneumonia and CHF. Current treatment with Rocephin/azithromycin/solu-medrol/duonebs/bronchodilator/ lasix. Initially on Bipap, now on 10L oxymizer. Echo showed EF 38.3%. Cardiology consulted and recs gave. Pt denies PC, Abd. pain, N/V/D. - Review of Systems Constitutional: No Fever, No Chills Eyes: No Symptoms Ears, Nose, & Throat: No Symptoms Respiratory: Short Of Breath, No Cough Cardiac: Edema (BLLE), No Chest Pain, No Syncope Abdominal/Gastrointestinal: No Abdominal Pain, No Nausea, No Vomiting, No Diarrhea Genitourinary Symptoms: No Dysuria Musculoskeletal: No Back Pain, No Neck Pain Skin: No Rash Neurological: No Dizziness, No Focal Weakness, No Sensory Changes Psychological: No Symptoms Endocrine: No Symptoms Hematologic/Lymphatic: No Symptoms Immunological/Allergic: No Symptoms Objective Exam General Appearance: no apparent distress, alert, obese Neurologic Exam: alert, oriented x 3, cooperative, normal mood/affect, nml cerebellar function, sensation nml, No motor deficits Skin Exam: normal color, warm, dry, other (redness of BLLE) Eye Exam: PERRL, EOMI, eyes nml inspection Ears, Nose, Throat Exam: normal ENT inspection, pharynx normal, moist mucous membranes Neck Exam: normal inspection, non-tender, supple, full range of motion Respiratory Exam: normal breath sounds, lungs clear, diminished breath sounds (BLLL), No respiratory distress Cardiovascular Exam: regular rate/rhythm, normal heart sounds, edema (BLLE +2 pitting) Gastrointestinal/Abdomen Exam: soft, No tenderness, No mass Extremity Exam: normal inspection, normal range of motion Back Exam: normal inspection, normal range of motion, No CVA tenderness, No vertebral tenderness Male Genitalia Exam: deferred Rectal Exam: deferred Objective Data Vital Signs: Vital Signs - 24 hr Temp Pulse Resp BP Pulse Ox 06/22/23 10:39 84 18 95 06/22/23 07:27 97.1 F 78 19 125/64 95 06/22/23 06:50 77 20 90 L 06/22/23 03:53 98.0 F 84 22 125/70 88 L 06/22/23 02:50 88 22 88 L 06/22/23 00:00 98.9 F 79 21 120/57 93 L 06/21/23 23:31 81 20 90 L 06/21/23 20:00 98.1 F 81 20 137/67 99 06/21/23 19:14 84 22 92 L 06/21/23 16:00 97.4 F 80 19 129/60 99 06/21/23 13:34 85 22 95 06/21/23 11:55 97.6 F 86 23 147/77 94 L Pain Assessment - Last Documented Pain Intensity 0 Intake and Output: Intake & Output 06/19/23 06/20/23 06/21/23 06/22/23 11:59 11:59 11:59 11:59 Intake Total 606 2630 Output Total 2800 4900 Balance -2194 -2270 Weight 112.6 kg 112.5 kg Lab Results: Lab Results-Last 24 Hours 06/21/23 06/21/23 06/21/23 Range/Units 11:00 11:24 11:40 WBC (4.0-10.5) x10^3/uL RBC (4.1-5.6) x10^6/uL Hgb (12.5-18.0) g/dL Hct (42-50) % MCV (78-100) fL MCH (26-32) pg MCHC (32-36) g/dL RDW (11.5-14.0) % Plt Count (150-450) x10^3/uL MPV (7.5-11.0) fL Sodium (135-145) mmol/L Potassium 3.4 L (3.5-5.1) mmol/L Chloride (98-107) mmol/L Carbon Dioxide (22-30) mmol/L Anion Gap (5-15) MEQ/L BUN (9-20) mg/dL Creatinine (0.66-1.25) mg/dL Estimated GFR ML/MIN Glucose (74-106) mg/dL POC Glucometer 128 H (74 to 106) mg/dL Lactic Acid (0.4-2.0) Calcium (8.4-10.2) mg/dL Magnesium 1.7 (1.6-2.3) mg/dL Iron (49-181) ug/dL TIBC (261-497) ug/dL Iron Saturation (20-39) % Ferritin (17.9-464) ng/mL Total Bilirubin (0.2-1.3) mg/dL AST (17-59) U/L ALT (0-50) U/L Alkaline Phosphatase (38-126) U/L Serum Total Protein (6.3-8.2) g/dL Albumin (3.5-5.0) g/dL Vitamin B12 (239-931) pg/mL Folic Acid (2.76 - >20) ng/mL 06/21/23 06/21/23 06/21/23 Range/Units 14:15 16:09 16:09 WBC (4.0-10.5) x10^3/uL RBC (4.1-5.6) x10^6/uL Hgb (12.5-18.0) g/dL Hct (42-50) % MCV (78-100) fL MCH (26-32) pg MCHC (32-36) g/dL RDW (11.5-14.0) % Plt Count (150-450) x10^3/uL MPV (7.5-11.0) fL Sodium (135-145) mmol/L Potassium 3.5 (3.5-5.1) mmol/L Chloride (98-107) mmol/L Carbon Dioxide (22-30) mmol/L Anion Gap (5-15) MEQ/L BUN (9-20) mg/dL Creatinine (0.66-1.25) mg/dL Estimated GFR ML/MIN Glucose (74-106) mg/dL POC Glucometer (74 to 106) mg/dL Lactic Acid (0.4-2.0) Calcium (8.4-10.2) mg/dL Magnesium (1.6-2.3) mg/dL Iron 45 L (49-181) ug/dL TIBC 340 (261-497) ug/dL Iron Saturation 13 L (20-39) % Ferritin 17.9 (17.9-464) ng/mL Total Bilirubin (0.2-1.3) mg/dL AST (17-59) U/L ALT (0-50) U/L Alkaline Phosphatase (38-126) U/L Serum Total Protein (6.3-8.2) g/dL Albumin (3.5-5.0) g/dL Vitamin B12 427 (239-931) pg/mL Folic Acid 5.85 (2.76 - >20) ng/mL 06/21/23 06/21/23 06/21/23 Range/Units 16:10 16:38 20:34 WBC (4.0-10.5) x10^3/uL RBC (4.1-5.6) x10^6/uL Hgb (12.5-18.0) g/dL Hct (42-50) % MCV (78-100) fL MCH (26-32) pg MCHC (32-36) g/dL RDW (11.5-14.0) % Plt Count (150-450) x10^3/uL MPV (7.5-11.0) fL Sodium (135-145) mmol/L Potassium (3.5-5.1) mmol/L Chloride (98-107) mmol/L Carbon Dioxide (22-30) mmol/L Anion Gap (5-15) MEQ/L BUN (9-20) mg/dL Creatinine (0.66-1.25) mg/dL Estimated GFR ML/MIN Glucose (74-106) mg/dL POC Glucometer 176 H 153 H (74 to 106) mg/dL Lactic Acid 4.0 H (0.4-2.0) Calcium (8.4-10.2) mg/dL Magnesium (1.6-2.3) mg/dL Iron (49-181) ug/dL TIBC (261-497) ug/dL Iron Saturation (20-39) % Ferritin (17.9-464) ng/mL Total Bilirubin (0.2-1.3) mg/dL AST (17-59) U/L ALT (0-50) U/L Alkaline Phosphatase (38-126) U/L Serum Total Protein (6.3-8.2) g/dL Albumin (3.5-5.0) g/dL Vitamin B12 (239-931) pg/mL Folic Acid (2.76 - >20) ng/mL 06/22/23 06/22/23 06/22/23 Range/Units 03:00 06:32 08:25 WBC (4.0-10.5) x10^3/uL RBC (4.1-5.6) x10^6/uL Hgb (12.5-18.0) g/dL Hct (42-50) % MCV (78-100) fL MCH (26-32) pg MCHC (32-36) g/dL RDW (11.5-14.0) % Plt Count (150-450) x10^3/uL MPV (7.5-11.0) fL Sodium (135-145) mmol/L Potassium (3.5-5.1) mmol/L Chloride (98-107) mmol/L Carbon Dioxide (22-30) mmol/L Anion Gap (5-15) MEQ/L BUN (9-20) mg/dL Creatinine (0.66-1.25) mg/dL Estimated GFR ML/MIN Glucose (74-106) mg/dL POC Glucometer 156 H 166 H (74 to 106) mg/dL Lactic Acid 2.0 (0.4-2.0) Calcium (8.4-10.2) mg/dL Magnesium (1.6-2.3) mg/dL Iron (49-181) ug/dL TIBC (261-497) ug/dL Iron Saturation (20-39) % Ferritin (17.9-464) ng/mL Total Bilirubin (0.2-1.3) mg/dL AST (17-59) U/L ALT (0-50) U/L Alkaline Phosphatase (38-126) U/L Serum Total Protein (6.3-8.2) g/dL Albumin (3.5-5.0) g/dL Vitamin B12 (239-931) pg/mL Folic Acid (2.76 - >20) ng/mL 06/22/23 06/22/23 Range/Units 08:26 08:26 WBC 9.6 (4.0-10.5) x10^3/uL RBC 3.18 L (4.1-5.6) x10^6/uL Hgb 9.3 L (12.5-18.0) g/dL Hct 31.2 L (42-50) % MCV 98.1 (78-100) fL MCH 29.2 (26-32) pg MCHC 29.8 L (32-36) g/dL RDW 14.7 H (11.5-14.0) % Plt Count 225 (150-450) x10^3/uL MPV 9.0 (7.5-11.0) fL Sodium 146 H (135-145) mmol/L Potassium 3.2 L (3.5-5.1) mmol/L Chloride 94 L (98-107) mmol/L Carbon Dioxide 39 H (22-30) mmol/L Anion Gap 16.2 H (5-15) MEQ/L BUN 22 H (9-20) mg/dL Creatinine 1.07 (0.66-1.25) mg/dL Estimated GFR 71.9 ML/MIN Glucose 162 H (74-106) mg/dL POC Glucometer (74 to 106) mg/dL Lactic Acid (0.4-2.0) Calcium 7.3 L (8.4-10.2) mg/dL Magnesium 1.7 (1.6-2.3) mg/dL Iron (49-181) ug/dL TIBC (261-497) ug/dL Iron Saturation (20-39) % Ferritin (17.9-464) ng/mL Total Bilirubin 0.40 (0.2-1.3) mg/dL AST 40 (17-59) U/L ALT 47 (0-50) U/L Alkaline Phosphatase 83 (38-126) U/L Serum Total Protein 6.7 (6.3-8.2) g/dL Albumin 3.8 (3.5-5.0) g/dL Vitamin B12 (239-931) pg/mL Folic Acid (2.76 - >20) ng/mL Radiology Exams: Radiology Procedures Category Date Time Status CHEST 1 VIEW (PORTABLE) Stat Exams 06/20/23 16:17 Completed CHEST WITH CONTRAST [CT] Stat Exams 06/21/23 13:33 Completed ECHO W/2D AND DOPPLER [US] Stat Exams 06/21/23 14:01 Taken Multi-Disciplinary Progress Notes: Multi-Disciplinary Progress Notes 06/22/23 11:14 Case Management Note by Valeria Rasmussen PATIENT CONFUSED THIS AM- S/W SONIA- SHE PLANS FOR PATIENT TO RETURN TO [facility] AT TIME OF DC Initialized on 06/22/23 11:14 - END OF NOTE 06/22/23 06:10 Respiratory Note by Nerissa Oliver Patient was taken off bipap at 0540 and placed on 10L oxymizer. Initialized on 06/22/23 06:10 - END OF NOTE 06/21/23 16:15 Respiratory Note by Trish Brush LACTIC ACID RESULT CALLED TO Travon MATIAS. NO NEW ORDERS AT THIS TIME. PILOT SAFETY INSPECTOR ALSO NOTIFIED. Initialized on 06/21/23 16:15 - END OF NOTE Assessment/Plan (1) Pneumonia Current Visit: Yes Status: Acute Assessment & Plan: - CXR 06/20/23 Portable chest demonstrates new right upper lobe hazy interstitial alveolar opacities, small right effusion, and moderate left base infiltrate/atelectasis/effusion. Heart not enlarged for AP portable technique. Bony thorax intact. - Chest CT 06/21/23 Impression: 1. Cardiomegaly with pericardial effusion, moderate bilateral effusions, and bibasilar compressive atelectasis favoring cardiac decompensation/CHF versus fluid overload. Superimposed pneumonia not completely excluded. 2. 1.1 cm indeterminant right upper lobe noncalcified nodule. Finding probably too small for PET/CT. Outside comparison studies recommended if available. If not, recommend follow-up per Fleischner guidelines. 3. Chronic findings including arteriosclerotic disease, chronic bony findings, left adrenal adenoma, and absent left kidney. - Procal- pending - Rocephin, zithromax, steriods, duonebs - Lactic acid 2.0 today - 10L oxymizer- Baseline RA Code(s): J18.9 - PNEUMONIA, UNSPECIFIED ORGANISM (2) CHF (congestive heart failure) Current Visit: Yes Status: Acute Assessment & Plan: - BNP on admission 1430 - requiring Cpap on admission- no w on 10L oxymizer - Lasix BID, will give increased dose tonight - ECHO 06/21-EF 38.3% - Cardiology consulted and recs provided: *Stop norvasc, Continue Lasix 40mg IV BID and continue PO BID OP, Losartan 25mg daily, Coreg 3.125mg BID, Spirolatone 25mg daily, Iron transfusion, F/u in week after d/c. Code(s): I50.9 - HEART FAILURE, UNSPECIFIED (3) Hypocalcemia Current Visit: Yes Status: Acute Assessment & Plan: - Ca+ 7.3 - started Tums BID Code(s): E83.51 - HYPOCALCEMIA (4) Obesity (BMI 30-39.9) Current Visit: Yes Status: Chronic Assessment & Plan: - advised ADA diet and exercise control Code(s): E66.9 - OBESITY, UNSPECIFIED (5) Hypokalemia Current Visit: No Status: Acute Assessment & Plan: - K+ 3.2- replaced Code(s): E87.6 - HYPOKALEMIA (6) Microcytic anemia Current Visit: No Status: Chronic Assessment & Plan: - Iron def anemia, iron 45, iron sat 13 - IV iron infusion- will need Op infusions set up at d/c. - can d/c with PO as an option Code(s): D50.9 - IRON DEFICIENCY ANEMIA, UNSPECIFIED (7) Type 2 diabetes mellitus Current Visit: No Status: Chronic Qualifiers: Diabetes mellitus 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 supervisor insulin use: without 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 supervisor use Diabetes mellitus complication status: with circulatory complication Assessment & Plan: - Metformin held - A1C 05/23/23- 6.05- controlled - Humalog s/s, accuchecks ac/hs - monitor leg redness (8) Dementia Current Visit: No Status: Chronic Qualifiers: Dementia type: unspecified type Assessment & Plan: - chronic - lives at [facility] VTE: Lovenox Next of Kin: D/C plan: 2-3 days Code status: SCO/DNR Code(s): F03.90 - UNSP DEMENTIA, UNSP SEVERITY, WITHOUT BEH/PSYCH/MOOD/ANX
[2023-06-22] MEDS: Cozaar 50 MG PO SCH (13:53)
[2023-06-22] MEDS: Aldactone 25 MG PO SCH (13:53)
[2023-06-22] MEDS: ENOXAPARIN SODIUM SQ SCH (13:53)
[2023-06-22] MEDS: Venofer 100 MG/5 ML*** 200 MG in Sodium Chloride 0.9% 100 ML IV SCH (13:54)
--- NOTE | 2023-06-22 14:35 | ECHO ---
Transthoracic echocardiographic examination and color Doppler was done on 06/21/2023. INDICATION: Pleural effusion. IMPRESSION: 1) NO REGIONAL WALL MOTION ABNORMALITY. ESTIMATED GLOBAL LEFT VENTRICULAR EJECTION FRACTION BETWEEN 55 TO 60%. 2) MILD TRICUSPID REGURGITATION. RIGHT VENTRICULAR SYSTOLIC PRESSURE OF 61 MM OF MERCURY SUGGESTIVE OF MODERATE PULMONARY HYPERTENSION. 3) LEFT VENTRICULAR HYPERTROPHY. 4) LEFT ATRIAL ENLARGEMENT. 5) LEFT VENTRICULAR DIASTOLIC DYSFUNCTION. The left ventricle is visualized and demonstrated adequate motion of all the segments. Estimated global left ventricular ejection fraction between 55 to 60%. There is mild left ventricular hypertrophy. The mitral valve is seen and this opens adequately. There is trace mitral regurgitation. Left atrium is mildly enlarged. The aortic valve opens adequately. There is no significant gradient across the left ventricular outflow tract. The right side chambers are mildly dilated. There is mild tricuspid regurgitation. The right ventricular systolic pressure of 61 mm of Mercury suggestive of moderate pulmonary hypertension. There is also mild pulmonic insufficiency. The tissue Doppler study of the lateral mitral annulus suggestive of a left ventricular diastolic dysfunction.
[2023-06-22] MEDS: TYLENOL 325 MG PO PRN (16:46)
[2023-06-22] MEDS: Coreg 3.125 MG PO SCH (16:46)
[2023-06-22] MEDS: Lasix 40 MG/4 ML IV SCH (21:25)
[2023-06-23 05:38] LABS: Hematocrit 30.7 % (42-50); Hemoglobin 9.2 g/dL (12.5-18.0); Mean Cell Volume 97.5 fL (78-100); Mean Corpuscular Hemoglobin 29.2 pg (26-32); Mean Platelet Volume 9.7 fL (7.5-11.0); Platelet Count 256 x10^3/uL (150-450); Red Blood Count 3.15 x10^6/uL (4.1-5.6); Red Cell Distribution Width 14.8 % (11.5-14.0)
[2023-06-23 06:20] LABS: ALBUMIN 3.7 g/dL (3.5-5.0); BILIRUBIN,TOTAL 0.4 mg/dL (0.2-1.3); Calcium 7.3 mg/dL (8.4-10.2); Creatinine 1 1.01 mg/dL (0.66-1.25); EST GLOMERULAR FILTRATION RATE 77.1 ML/MIN; MAGNESIUM 1.7 mg/dL (1.6-2.3); Potassium 3.1 mmol/L (3.5-5.1); Total Protein 6.5 g/dL (6.3-8.2)
[2023-06-23 06:30] LABS: ANION GAP 15.1 MEQ/L (5-15)
[2023-06-23] MEDS: Klor Con PO SCH (08:33)
--- NOTE | 2023-06-23 09:17 | PCM.NOTE ---
Date and Time: 06/23/23911 Subjective Assessment: 06/22/23 Mr. Partida is a 77 year old male with a pmhx of dementia, HLD, HTN, COPD (RA at baseline), hypothyroid, thyroid cancer, chronic norton cath, and depression. He lives at [facility]. He presented to ED on 06/20/23 with increasing shortness of breath and weight gain. Patient was tachypneic and hypoxic on arrival with spo2 levels in the mid 80's. CXR demonstrates right upper lobe opacities as well as a small right effusion. Patient admitted with pneumonia and CHF. Current treatment with Rocephin/azithromycin/solu-medrol/duonebs/bronchodilator/ lasix. Initially on Bipap, now on 10L oxymizer. Echo showed EF 38.3%. Cardiology consulted and recs gave. Pt denies CP, Abd. pain, N/V/D. 06/23/23 Pt resting in bed. He continues to be on 8L oxymizer. Lungs sounds decreased BLLL. He has a hx of dementia and keeps taking off his oxygen. K+ 3.1 and replaced this AM. Continue Lasix for CHF exacerbation. BLLE edema improving. For pneumonia continue Rocephin/azithromycin/solu-medrol/duonebs/bronchodilator. Pt denies CP, SOB, abd. pain, N/V/D. - Review of Systems Constitutional: No Fever, No Chills Eyes: No Symptoms Ears, Nose, & Throat: No Symptoms Respiratory: No Cough, No Short Of Breath Cardiac: No Chest Pain, No Edema, No Syncope Abdominal/Gastrointestinal: No Abdominal Pain, No Nausea, No Vomiting, No Diarrhea Genitourinary Symptoms: No Dysuria Musculoskeletal: No Back Pain, No Neck Pain Skin: No Rash Neurological: No Dizziness, No Focal Weakness, No Sensory Changes Psychological: No Symptoms Endocrine: No Symptoms Hematologic/Lymphatic: No Symptoms Immunological/Allergic: No Symptoms Objective Exam General Appearance: no apparent distress, alert, obese Neurologic Exam: alert, oriented x 3, cooperative, normal mood/affect, nml cerebellar function, sensation nml, confusion (at baseline), No motor deficits Skin Exam: normal color, warm, dry Eye Exam: PERRL, EOMI, eyes nml inspection Ears, Nose, Throat Exam: normal ENT inspection, pharynx normal, moist mucous membranes Neck Exam: normal inspection, non-tender, supple, full range of motion Respiratory Exam: normal breath sounds, lungs clear, diminished breath sounds (BLLL), No respiratory distress Cardiovascular Exam: regular rate/rhythm, normal heart sounds, edema (BLLE +1) Gastrointestinal/Abdomen Exam: soft, No tenderness, No mass Extremity Exam: normal inspection, normal range of motion Back Exam: normal inspection, normal range of motion, No CVA tenderness, No vertebral tenderness Male Genitalia Exam: deferred Rectal Exam: deferred Objective Data Vital Signs: Vital Signs - 24 hr Temp Pulse Resp BP BP Pulse Ox 06/23/23 08:00 98.6 F 90 18 133/68 134/63 95 06/23/23 07:22 89 20 95 06/23/23 04:00 72 99 06/23/23 03:04 83 18 95 06/23/23 00:00 96.6 F 84 22 91 L 06/22/23 23:16 80 20 90 L 06/22/23 20:00 97.7 F 76 20 134/63 92 L 06/22/23 19:16 75 18 90 L 06/22/23 16:00 96.6 F 87 24 127/67 94 L 06/22/23 15:55 93 L 06/22/23 14:49 87 20 96 06/22/23 12:00 96.7 F 95 H 22 151/83 99 06/22/23 10:39 84 18 95 Pain Assessment - Last Documented Pain Intensity 3 Pain Scale Used 0-10 Pain Scale Intake and Output: Intake & Output 06/20/23 06/21/23 06/22/23 06/23/23 11:59 11:59 11:59 11:59 Intake Total 606 2630 2105 Output Total 2808 1860 1940 Balance -8756 -8809 -6286 Weight 112.6 kg 112.5 kg 112.5 kg Lab Results: Lab Results-Last 24 Hours 06/22/23 06/22/23 06/22/23 Range/Units 05:00 12:17 13:50 WBC (4.0-10.5) x10^3/uL RBC (4.1-5.6) x10^6/uL Hgb (12.5-18.0) g/dL Hct (42-50) % MCV (78-100) fL MCH (26-32) pg MCHC (32-36) g/dL RDW (11.5-14.0) % Plt Count (150-450) x10^3/uL MPV (7.5-11.0) fL Sodium (135-145) mmol/L Potassium 3.6 (3.5-5.1) mmol/L Chloride (98-107) mmol/L Carbon Dioxide (22-30) mmol/L Anion Gap (5-15) MEQ/L BUN (9-20) mg/dL Creatinine (0.66-1.25) mg/dL Estimated GFR ML/MIN Glucose (74-106) mg/dL POC Glucometer 204 H (74 to 106) mg/dL Calcium (8.4-10.2) mg/dL Magnesium (1.6-2.3) mg/dL Total Bilirubin (0.2-1.3) mg/dL AST (17-59) U/L ALT (0-50) U/L Alkaline Phosphatase (38-126) U/L Serum Total Protein (6.3-8.2) g/dL Albumin (3.5-5.0) g/dL Procalcitonin 0.087 H (0.030-0.080) ng/mL 06/22/23 06/22/23 06/23/23 Range/Units 16:39 20:47 05:16 WBC 10.0 (4.0-10.5) x10^3/uL RBC 3.15 L (4.1-5.6) x10^6/uL Hgb 9.2 L (12.5-18.0) g/dL Hct 30.7 L (42-50) % MCV 97.5 (78-100) fL MCH 29.2 (26-32) pg MCHC 30.0 L (32-36) g/dL RDW 14.8 H (11.5-14.0) % Plt Count 256 (150-450) x10^3/uL MPV 9.7 (7.5-11.0) fL Sodium (135-145) mmol/L Potassium (3.5-5.1) mmol/L Chloride (98-107) mmol/L Carbon Dioxide (22-30) mmol/L Anion Gap (5-15) MEQ/L BUN (9-20) mg/dL Creatinine (0.66-1.25) mg/dL Estimated GFR ML/MIN Glucose (74-106) mg/dL POC Glucometer 189 H 190 H (74 to 106) mg/dL Calcium (8.4-10.2) mg/dL Magnesium (1.6-2.3) mg/dL Total Bilirubin (0.2-1.3) mg/dL AST (17-59) U/L ALT (0-50) U/L Alkaline Phosphatase (38-126) U/L Serum Total Protein (6.3-8.2) g/dL Albumin (3.5-5.0) g/dL Procalcitonin (0.030-0.080) ng/mL 06/23/23 06/23/23 Range/Units 05:16 07:38 WBC (4.0-10.5) x10^3/uL RBC (4.1-5.6) x10^6/uL Hgb (12.5-18.0) g/dL Hct (42-50) % MCV (78-100) fL MCH (26-32) pg MCHC (32-36) g/dL RDW (11.5-14.0) % Plt Count (150-450) x10^3/uL MPV (7.5-11.0) fL Sodium 143 (135-145) mmol/L Potassium 3.1 L (3.5-5.1) mmol/L Chloride 87 L (98-107) mmol/L Carbon Dioxide 44 H (22-30) mmol/L Anion Gap 15.1 H (5-15) MEQ/L BUN 30 H (9-20) mg/dL Creatinine 1.01 (0.66-1.25) mg/dL Estimated GFR 77.1 ML/MIN Glucose 190 H (74-106) mg/dL POC Glucometer 229 H (74 to 106) mg/dL Calcium 7.3 L (8.4-10.2) mg/dL Magnesium 1.7 (1.6-2.3) mg/dL Total Bilirubin 0.40 (0.2-1.3) mg/dL AST 57 (17-59) U/L ALT 75 H (0-50) U/L Alkaline Phosphatase 86 (38-126) U/L Serum Total Protein 6.5 (6.3-8.2) g/dL Albumin 3.7 (3.5-5.0) g/dL Procalcitonin (0.030-0.080) ng/mL Radiology Exams: Radiology Procedures Category Date Time Status CHEST WITH CONTRAST [CT] Stat Exams 06/21/23 13:33 Completed ECHO W/2D AND DOPPLER [US] Stat Exams 06/21/23 14:01 Draft Multi-Disciplinary Progress Notes: Multi-Disciplinary Progress Notes 06/22/23 11:14 Case Management Note by Valeria Rasmussen PATIENT CONFUSED THIS AM- S/W SONIA- SHE PLANS FOR PATIENT TO RETURN TO [facility] AT TIME OF DC Initialized on 06/22/23 11:14 - END OF NOTE Assessment/Plan (1) Pneumonia Current Visit: Yes Status: Acute Code(s): J18.9 - PNEUMONIA, UNSPECIFIED ORGANISM (2) CHF (congestive heart failure) Current Visit: Yes Status: Acute Code(s): I50.9 - HEART FAILURE, UNSPECIFIED (3) Hypocalcemia Current Visit: Yes Status: Acute Code(s): E83.51 - HYPOCALCEMIA (4) Obesity (BMI 30-39.9) Current Visit: Yes Status: Chronic Code(s): E66.9 - OBESITY, UNSPECIFIED (5) Hypokalemia Current Visit: No Status: Acute Code(s): E87.6 - HYPOKALEMIA (6) Microcytic anemia Current Visit: No Status: Chronic Code(s): D50.9 - IRON DEFICIENCY ANEMIA, UNSPECIFIED (7) Type 2 diabetes mellitus Current Visit: No Status: Chronic Qualifiers: Diabetes mellitus intermediate insulin use: without termite treater use Diabetes mellitus complication status: with circulatory complication (8) Dementia Current Visit: No Status: Chronic Qualifiers: Dementia type: unspecified type Assessment & Plan: (1) Pneumonia Current Visit: Yes Status: Acute Assessment & Plan: - CXR 06/20/23 Portable chest demonstrates new right upper lobe hazy interstitial alveolar opacities, small right effusion, and moderate left base infiltrate/atelectasis/effusion. Heart not enlarged for AP portable technique. Bony thorax intact. - Chest CT 06/21/23 Impression: 1. Cardiomegaly with pericardial effusion, moderate bilateral effusions, and bibasilar compressive atelectasis favoring cardiac decompensation/CHF versus fluid overload. Superimposed pneumonia not completely excluded. 2. 1.1 cm indeterminant right upper lobe noncalcified nodule. Finding probably too small for PET/CT. Outside comparison studies recommended if available. If not, recommend follow-up per Fleischner guidelines. 3. Chronic findings including arteriosclerotic disease, chronic bony findings, left adrenal adenoma, and absent left kidney. - Procal- pending - Rocephin, zithromax, steriods, duonebs - Lactic acid 2.0 today - 10L oxymizer- Baseline RA 06/22 - Now on 8L oxymizer - BC x2 negative Code(s): J18.9 - PNEUMONIA, UNSPECIFIED ORGANISM (2) CHF (congestive heart failure) Current Visit: Yes Status: Acute Assessment & Plan: - BNP on admission 1430 - requiring Cpap on admission- no w on 10L oxymizer - Lasix BID, will give increased dose tonight - ECHO 06/21-EF 38.3% - Cardiology consulted and recs provided: *Stop norvasc, Continue Lasix 40mg IV BID and continue PO BID OP, Losartan 25mg daily, Coreg 3.125mg BID, Spirolactone 25mg daily, Iron transfusion, F/u in week after d/c. 06/22 - remains on 8L oxymizer - redness of BLLE resolved - +1 edema of BLLE- improved Code(s): I50.9 - HEART FAILURE, UNSPECIFIED (3) Hypocalcemia Current Visit: Yes Status: Acute Assessment & Plan: - Ca+ 7.3 - started Tums BID 06/22 - Ca+ 7.3 trend Code(s): E83.51 - HYPOCALCEMIA (4) Obesity (BMI 30-39.9) Current Visit: Yes Status: Chronic Assessment & Plan: - advised ADA diet and exercise control Code(s): E66.9 - OBESITY, UNSPECIFIED (5) Hypokalemia Current Visit: No Status: Acute Assessment & Plan: - K+ 3.2- replaced- repeat K+ 3.6 06/22 - K+ 3.1- replaced Code(s): E87.6 - HYPOKALEMIA (6) Microcytic anemia Current Visit: No Status: Chronic Assessment & Plan: - Iron def anemia, iron 45, iron sat 13 - IV iron infusion- will need Op infusions set up at d/c. - can d/c with PO as an option Code(s): D50.9 - IRON DEFICIENCY ANEMIA, UNSPECIFIED (7) Type 2 diabetes mellitus Current Visit: No Status: Chronic Qualifiers: Diabetes mellitus intermediate insulin use: without termite treater use Diabetes mellitus complication status: with circulatory complication Assessment & Plan: - Metformin held - A1C 05/23/23- 6.05- controlled - Humalog s/s, accuchecks ac/hs - monitor leg redness 06/22 - leg redness resolved (8) Dementia Current Visit: No Status: Chronic Qualifiers: Dementia type: unspecified type Assessment & Plan: - chronic - lives at [facility] VTE: Lovenox Next of Kin: D/C plan: 2-3 days Code status: SCO/DNR Code(s): F03.90 - UNSP DEMENTIA, UNSP SEVERITY, WITHOUT BEH/PSYCH/MOOD/ANX
[2023-06-23 11:03] LABS: A-aADO2 334; ABG HEMOGLOBIN 9.2; ABG POTASSIUM 3.2 (3.5-5.1); ABG SITE LEFT BRACHIAL; ARTERIAL BLD GAS O2 SATURATION 97.1 % (95-100); ARTERIAL BLOOD GAS BASE EXCESS 25.3 (-2.0-2.0); ARTERIAL BLOOD GAS FIO2 70 %; ARTERIAL BLOOD GAS PCO2 72 mmHg (35-45); ARTERIAL BLOOD GAS PO2 75 mmHg (75-100); ARTERIAL BLOOD GAS pH 7.47 (7.35-7.45); CARBOXYHEMOGLOBIN 1.4 % THgb (0.0-6.9); HCO3- 52.4 (22-28); HGB O2 SAT 95.1 g/dF (94-100); Methhemoglobin 0.6 % (1.4-1.5); paO2 pAO1 0.18
[2023-06-23] MEDS: DUONEB 0.5-3 MG/3 ml Neb IH SCH (13:30)
[2023-06-24 05:35] LABS: Hematocrit 29.7 % (42-50); Mean Cell Volume 97.4 fL (78-100); Mean Corpuscular Hemoglobin 29.5 pg (26-32); Mean Corpuscular Hgb Concent. 30.3 g/dL (32-36); Mean Platelet Volume 9.1 fL (7.5-11.0); Platelet Count 243 x10^3/uL (150-450); Red Blood Count 3.05 x10^6/uL (4.1-5.6); Red Cell Distribution Width 14.6 % (11.5-14.0); White Blood Count 9.4 x10^3/uL (4.0-10.5)
[2023-06-24 05:55] LABS: ALBUMIN 3.9 g/dL (3.5-5.0); BILIRUBIN,TOTAL 0.9 mg/dL (0.2-1.3); Calcium 7.6 mg/dL (8.4-10.2); Creatinine 1 0.86 mg/dL (0.66-1.25); EST GLOMERULAR FILTRATION RATE 89.7 ML/MIN; Potassium 3.3 mmol/L (3.5-5.1); Total Protein 6.6 g/dL (6.3-8.2)
[2023-06-24 06:05] LABS: ANION GAP 12.3 MEQ/L (5-15)
[2023-06-24] MEDS: Klor Con PO SCH (08:57)
--- NOTE | 2023-06-24 10:20 | PCM.NOTE ---
Date and Time: 06/24/23 1011 Subjective Assessment: 06/22/23 Mr. Partida is a 77 year old male with a pmhx of dementia, HLD, HTN, COPD (RA at baseline), hypothyroid, thyroid cancer, chronic norton cath, and depression. He lives at [facility]. He presented to ED on 06/20/23 with increasing shortness of breath and weight gain. Patient was tachypneic and hypoxic on arrival with spo2 levels in the mid 80's. CXR demonstrates right upper lobe opacities as well as a small right effusion. Patient admitted with pneumonia and CHF. Current treatment with Rocephin/azithromycin/solu-medrol/duonebs/bronchodilator/ lasix. Initially on Bipap, now on 10L oxymizer. Echo showed EF 38.3% per technical sme. Cardiology consulted and recs gave. Pt denies CP, Abd. pain, N/V/D. 06/23/23 Pt resting in bed. He continues to be on 8L oxymizer. Lungs sounds decreased BLLL. He has a hx of dementia and keeps taking off his oxygen. K+ 3.1 and replaced this AM. Continue Lasix for CHF exacerbation. BLLE edema improving. For pneumonia continue Rocephin/azithromycin/solu-medrol/duonebs/bronchodilator. Pt denies CP, SOB, abd. pain, N/V/D. 06/24/23 Pt resting in bed. Pt has been on CPAP all night and of and on Q 2 hours while awake. He is awake and alert today on 7L oxymizer. K+ 3.3 and replaced. Echo read by cardiology and EF is 55-60% with pulmonary HTN noted. UC and BC x2 negative. Sputum culture pending. Will recheck CXR in Am for progress of pleural effusion. Continue Rocephin/azithromycin/solu-medrol/duonebs/bronchodilator for pneumonia. Pt denies CP, SOB, abd. pain, N/V/D. - Review of Systems Constitutional: No Fever, No Chills Eyes: No Symptoms Ears, Nose, & Throat: No Symptoms Respiratory: No Cough, No Short Of Breath Cardiac: No Chest Pain, No Edema, No Syncope Abdominal/Gastrointestinal: No Abdominal Pain, No Nausea, No Vomiting, No Diarrhea Genitourinary Symptoms: No Dysuria Musculoskeletal: No Back Pain, No Neck Pain Skin: No Rash Neurological: No Dizziness, No Focal Weakness, No Sensory Changes Psychological: No Symptoms Endocrine: No Symptoms Hematologic/Lymphatic: No Symptoms Immunological/Allergic: No Symptoms Objective Exam General Appearance: no apparent distress, alert, obese Neurologic Exam: alert, oriented x 3, cooperative, normal mood/affect, nml cerebellar function, sensation nml, confusion (at baseline), No motor deficits Skin Exam: normal color, warm, dry Eye Exam: PERRL, EOMI, eyes nml inspection Ears, Nose, Throat Exam: normal ENT inspection, pharynx normal, moist mucous membranes Neck Exam: normal inspection, non-tender, supple, full range of motion Respiratory Exam: normal breath sounds, lungs clear, diminished breath sounds (BLLL), No respiratory distress Cardiovascular Exam: regular rate/rhythm, normal heart sounds Gastrointestinal/Abdomen Exam: soft, No tenderness, No mass Extremity Exam: normal inspection, normal range of motion Back Exam: normal inspection, normal range of motion, No CVA tenderness, No vertebral tenderness Male Genitalia Exam: deferred Rectal Exam: deferred Objective Data Vital Signs: Vital Signs - 24 hr Temp Pulse Resp BP Pulse Ox 06/24/23 08:00 96.6 F 77 20 148/75 99 06/24/23 06:43 71 18 97 06/24/23 04:00 97.6 F 78 19 157/87 96 06/24/23 00:15 80 20 98 06/23/23 23:47 97.8 F 77 20 166/80 98 06/23/23 19:17 97.5 F 77 20 143/68 98 06/23/23 18:46 78 22 91 L 06/23/23 16:25 96.4 F 74 20 142/73 96 06/23/23 13:35 75 20 96 06/23/23 11:46 97.3 F 74 18 129/72 96 Pain Assessment - Last Documented Pain Intensity 7 Pain Scale Used 0-10 Pain Scale Intake and Output: Intake & Output 06/21/23 06/22/23 06/23/23 06/24/23 11:59 11:59 11:59 11:59 Intake Total 606 2720 2695 1887 Output Total 2800 0460 8670 1051 [id number] -[id number] -4613 Weight 112.6 kg 112.5 kg 112.5 kg 109.5 kg Lab Results: Lab Results-Last 24 Hours 06/23/23 06/23/23 06/23/23 Range/Units 10:55 11:31 16:04 WBC (4.0-10.5) x10^3/uL RBC (4.1-5.6) x10^6/uL Hgb (12.5-18.0) g/dL Hct (42-50) % MCV (78-100) fL MCH (26-32) pg MCHC (32-36) g/dL RDW (11.5-14.0) % Plt Count (150-450) x10^3/uL MPV (7.5-11.0) fL Puncture Site LEFT BRACHIAL pCO2 72 H* (35-45) mmHg pO2 75 (75-100) mmHg Base Excess 25.3 H (-2.0-2.0) O2 Saturation 95.1 (94-100) g/dF ABG pH 7.47 H (7.35-7.45) ABG HCO3 52.4 H* (22-28) ABG O2 Sat (Measured) 97.1 (95-100) % [place] Test NOT APPLICABLE A-a Gradient 334 a/A Ratio 0.18 Hemoglobin 9.2 Carboxyhemoglobin 1.4 (0.0-6.9) % THgb Methemoglobin 0.6 L (1.4-1.5) % Potassium 3.2 L 3.7 (3.5-5.1) Temperature 37.0 C POC O2 Flow Rate 70 % Sodium (135-145) mmol/L Chloride (98-107) mmol/L Carbon Dioxide (22-30) mmol/L Anion Gap (5-15) MEQ/L BUN (9-20) mg/dL Creatinine (0.66-1.25) mg/dL Estimated GFR ML/MIN Glucose (74-106) mg/dL POC Glucometer 188 H (74 to 106) mg/dL Calcium (8.4-10.2) mg/dL Magnesium (1.6-2.3) mg/dL Total Bilirubin (0.2-1.3) mg/dL AST (17-59) U/L ALT (0-50) U/L Alkaline Phosphatase (38-126) U/L Serum Total Protein (6.3-8.2) g/dL Albumin (3.5-5.0) g/dL 06/23/23 06/23/23 06/24/23 Range/Units 16:27 21:29 05:30 WBC (4.0-10.5) x10^3/uL RBC (4.1-5.6) x10^6/uL Hgb (12.5-18.0) g/dL Hct (42-50) % MCV (78-100) fL MCH (26-32) pg MCHC (32-36) g/dL RDW (11.5-14.0) % Plt Count (150-450) x10^3/uL MPV (7.5-11.0) fL Puncture Site pCO2 (35-45) mmHg pO2 (75-100) mmHg Base Excess (-2.0-2.0) O2 Saturation (94-100) g/dF ABG pH (7.35-7.45) ABG HCO3 (22-28) ABG O2 Sat (Measured) (95-100) % [place] Test A-a Gradient a/A Ratio Hemoglobin Carboxyhemoglobin (0.0-6.9) % THgb Methemoglobin (1.4-1.5) % Potassium (3.5-5.1) Temperature C POC O2 Flow Rate % Sodium (135-145) mmol/L Chloride (98-107) mmol/L Carbon Dioxide (22-30) mmol/L Anion Gap (5-15) MEQ/L BUN (9-20) mg/dL Creatinine (0.66-1.25) mg/dL Estimated GFR ML/MIN Glucose (74-106) mg/dL POC Glucometer 275 H 184 H (74 to 106) mg/dL Calcium (8.4-10.2) mg/dL Magnesium 1.9 (1.6-2.3) mg/dL Total Bilirubin (0.2-1.3) mg/dL AST (17-59) U/L ALT (0-50) U/L Alkaline Phosphatase (38-126) U/L Serum Total Protein (6.3-8.2) g/dL Albumin (3.5-5.0) g/dL 05/05/24 05/05/24 05/05/24 Range/Units 05:30 05:30 07:53 WBC 9.4 (4.0-10.5) x10^3/uL RBC 3.05 L (4.1-5.6) x10^6/uL Hgb 9.0 L (12.5-18.0) g/dL Hct 29.7 L (42-50) % MCV 97.4 (78-100) fL MCH 29.5 (26-32) pg MCHC 30.3 L (32-36) g/dL RDW 14.6 H (11.5-14.0) % Plt Count 243 (150-450) x10^3/uL MPV 9.1 (7.5-11.0) fL Puncture Site pCO2 (35-45) mmHg pO2 (75-100) mmHg Base Excess (-2.0-2.0) O2 Saturation (94-100) g/dF ABG pH (7.35-7.45) ABG HCO3 (22-28) ABG O2 Sat (Measured) (95-100) % [place] Test A-a Gradient a/A Ratio Hemoglobin Carboxyhemoglobin (0.0-6.9) % THgb Methemoglobin (1.4-1.5) % Potassium 3.3 L (3.5-5.1) Temperature C POC O2 Flow Rate % Sodium 142 (135-145) mmol/L Chloride 87 L (98-107) mmol/L Carbon Dioxide 46 H (22-30) mmol/L Anion Gap 12.3 (5-15) MEQ/L BUN 30 H (9-20) mg/dL Creatinine 0.86 (0.66-1.25) mg/dL Estimated GFR 89.7 ML/MIN Glucose 202 H (74-106) mg/dL POC Glucometer 149 H (74 to 106) mg/dL Calcium 7.6 L (8.4-10.2) mg/dL Magnesium (1.6-2.3) mg/dL Total Bilirubin 0.90 (0.2-1.3) mg/dL AST 36 (17-59) U/L ALT 62 H (0-50) U/L Alkaline Phosphatase 75 (38-126) U/L Serum Total Protein 6.6 (6.3-8.2) g/dL Albumin 3.9 (3.5-5.0) g/dL Assessment/Plan (1) Pneumonia Current Visit: Yes Status: Acute Code(s): J18.9 - PNEUMONIA, UNSPECIFIED ORGANISM (2) CHF (congestive heart failure) Current Visit: Yes Status: Acute Code(s): I50.9 - HEART FAILURE, UNSPECIFIED (3) Hypocalcemia Current Visit: Yes Status: Acute Code(s): E83.51 - HYPOCALCEMIA (4) Obesity (BMI 30-39.9) Current Visit: Yes Status: Chronic Code(s): E66.9 - OBESITY, UNSPECIFIED (5) Hypokalemia Current Visit: No Status: Acute Code(s): E87.6 - HYPOKALEMIA (6) Microcytic anemia Current Visit: No Status: Chronic Code(s): D50.9 - IRON DEFICIENCY ANEMIA, UNSPECIFIED (7) Type 2 diabetes mellitus Current Visit: No Status: Chronic Qualifiers: Diabetes mellitus prison insulin use: without prison use Diabetes mellitus complication status: with circulatory complication (8) Dementia Current Visit: No Status: Chronic Qualifiers: Dementia type: unspecified type Assessment & Plan: (1) Pneumonia Current Visit: Yes Status: Acute Assessment & Plan: - CXR 06/20/23 Portable chest demonstrates new right upper lobe hazy interstitial alveolar opacities, small right effusion, and moderate left base infiltrate/atelectasis/effusion. Heart not enlarged for AP portable technique. Bony thorax intact. - Chest CT 06/21/23 Impression: 1. Cardiomegaly with pericardial effusion, moderate bilateral effusions, and bibasilar compressive atelectasis favoring cardiac decompensation/CHF versus fluid overload. Superimposed pneumonia not completely excluded. 2. 1.1 cm indeterminant right upper lobe noncalcified nodule. Finding probably too small for PET/CT. Outside comparison studies recommended if available. If not, recommend follow-up per Fleischner guidelines. 3. Chronic findings including arteriosclerotic disease, chronic bony findings, left adrenal adenoma, and absent left kidney. - Procal- pending - Rocephin, zithromax, steriods, duonebs - Lactic acid 2.0 today - 10L oxymizer- Baseline RA 5/4 - Now on 8L oxymizer - BC x2 negative 06/23 - 7L oxymizer - Bipap at night and off and on Q2 hours while awake. - Will need OP sleep study at d/c Code(s): J18.9 - PNEUMONIA, UNSPECIFIED ORGANISM (2) CHF (congestive heart failure) Current Visit: Yes Status: Acute Assessment & Plan: - BNP on admission 1430 - requiring Cpap on admission- no w on 10L oxymizer - Lasix BID, will give increased dose tonight - ECHO 06/21-EF 38.3% - Cardiology consulted and recs provided: *Stop norvasc, Continue Lasix 40mg IV BID and continue PO BID OP, Losartan 25mg daily, Coreg 3.125mg BID, Spirolactone 25mg daily, Iron transfusion, F/u in week after d/c. 06/22 - remains on 8L oxymizer - redness of BLLE resolved - +1 edema of BLLE- improved - no need to qualify for home O2 as lives at [facility] 06/23 - Echo read by cardiology EF 55-60% with pum HTN - Decompensated heart failure - CXR in AM Code(s): I50.9 - HEART FAILURE, UNSPECIFIED (3) Hypocalcemia Current Visit: Yes Status: Acute Assessment & Plan: - Ca+ 7.3 - started Tums BID 06/22 - Ca+ 7.3 trend 06/23 - Ca+ 7.6- improving Code(s): E83.51 - HYPOCALCEMIA (4) Obesity (BMI 30-39.9) Current Visit: Yes Status: Chronic Assessment & Plan: - advised ADA diet and exercise control Code(s): E66.9 - OBESITY, UNSPECIFIED (5) Hypokalemia Current Visit: No Status: Acute Assessment & Plan: - K+ 3.2- replaced- repeat K+ 3.6 06/22 - K+ 3.1- replaced- repeat 3.7 06/23 - K+ 3.3- replaced Code(s): E87.6 - HYPOKALEMIA (6) Microcytic anemia Current Visit: No Status: Chronic Assessment & Plan: - Iron def anemia, iron 45, iron sat 13 - IV iron infusion- will need Op infusions set up at d/c. - can d/c with PO as an option Code(s): D50.9 - IRON DEFICIENCY ANEMIA, UNSPECIFIED (7) Type 2 diabetes mellitus Current Visit: No Status: Chronic Qualifiers: Diabetes mellitus prison insulin use: without prison use Diabetes mellitus complication status: with circulatory complication Assessment & Plan: - Metformin held - A1C 05/23/23- 6.05- controlled - Humalog s/s, accuchecks ac/hs - monitor leg redness 06/22 - leg redness resolved (8) Dementia Current Visit: No Status: Chronic Qualifiers: Dementia type: unspecified type Assessment & Plan: - chronic - lives at [facility] VTE: Lovenox Next of Kin: D/C plan: 1-2 days Code status: SCO/DNR Code(s): F03.90 - UNSP DEMENTIA, UNSP SEVERITY, WITHOUT BEH/PSYCH/MOOD/ANX
[2023-06-25 04:58] LABS: Hematocrit 31.5 % (42-50); Hemoglobin 9.4 g/dL (12.5-18.0); Mean Cell Volume 97.8 fL (78-100); Mean Corpuscular Hemoglobin 29.2 pg (26-32); Mean Corpuscular Hgb Concent. 29.8 g/dL (32-36); Mean Platelet Volume 9.2 fL (7.5-11.0); Platelet Count 234 x10^3/uL (150-450); Red Blood Count 3.22 x10^6/uL (4.1-5.6); Red Cell Distribution Width 14.6 % (11.5-14.0); White Blood Count 8.7 x10^3/uL (4.0-10.5)
[2023-06-25 05:31] LABS: ALBUMIN 3.5 g/dL (3.5-5.0); BILIRUBIN,TOTAL 0.5 mg/dL (0.2-1.3); Calcium 7.4 mg/dL (8.4-10.2); Creatinine 1 1.03 mg/dL (0.66-1.25); EST GLOMERULAR FILTRATION RATE 75.3 ML/MIN; MAGNESIUM 1.9 mg/dL (1.6-2.3); Potassium 3.4 mmol/L (3.5-5.1); Total Protein 6.1 g/dL (6.3-8.2)
[2023-06-25] MEDS: Klor Con PO SCH (06:40)
--- NOTE | 2023-06-25 09:02 | XRAY ---
Indication: Evaluation of pleural effusion. Comparison: June 20, 2023 PA/lateral chest improved with clearing previous bilateral infiltrates/effusions/atelectasis with mild residual, left greater than right. Heart not enlarged. No new cardiopulmonary abnormalities.
[2023-06-25 09:31] LABS: ANION GAP 16.4 MEQ/L (5-15)
--- NOTE | 2023-06-25 11:29 | PCM.NOTE ---
Date and Time: 06/25/23 1129 Subjective Assessment: 06/22/23 Mr. Partida is a 77 year old male with a pmhx of dementia, HLD, HTN, COPD (RA at baseline), hypothyroid, thyroid cancer, chronic norton cath, and depression. He lives at [facility]. He presented to ED on 06/20/23 with increasing shortness of breath and weight gain. Patient was tachypneic and hypoxic on arrival with spo2 levels in the mid 80's. CXR demonstrates right upper lobe opacities as well as a small right effusion. Patient admitted with pneumonia and CHF. Current treatment with Rocephin/azithromycin/solu-medrol/duonebs/bronchodilator/ lasix. Initially on Bipap, now on 10L oxymizer. Echo showed EF 38.3% per field technical assistant. Cardiology consulted and recs gave. Pt denies CP, Abd. pain, N/V/D. 06/23/23 Pt resting in bed. He continues to be on 8L oxymizer. Lungs sounds decreased BLLL. He has a hx of dementia and keeps taking off his oxygen. K+ 3.1 and replaced this AM. Continue Lasix for CHF exacerbation. BLLE edema improving. For pneumonia continue Rocephin/azithromycin/solu-medrol/duonebs/bronchodilator. Pt denies CP, SOB, abd. pain, N/V/D. 06/24/23 Pt resting in bed. Pt has been on CPAP all night and of and on Q 2 hours while awake. He is awake and alert today on 7L oxymizer. K+ 3.3 and replaced. Echo read by cardiology and EF is 55-60% with pulmonary HTN noted. UC and BC x2 negative. Sputum culture pending. Will recheck CXR in Am for progress of pleural effusion. Continue Rocephin/azithromycin/solu-medrol/duonebs/bronchodilator for pneumonia. Pt denies CP, SOB, abd. pain, N/V/D. Nursing called pt's today. She lives at the same nursing facility as the pt. The pt has only been there 2 weeks prior to admission. Come to find out pt is to be wearing 2lNC during the day and Biapap at night. There were no orders for this at the nursing facility, therefore he had not been using either. This most likely lead to his decline thus being admitted to the hospital. 5/6 Pt resting in bed. He wore CPAP for 3 hours last night and refused thereafter. According to he does this, and does not like to wear. Orders gave for pt to be on cont O2 at [facility] and Bipap at [facility] as he has not been wearing either at the facility. Pt and family should consider hospice if pt is not going to be compliant with oxygen and bipap. He is at high risk for readmission do to non- compliance. Part of this concern is that he has chronic dementia and cannot remember to leave oxygen on and takes it off often. Hospice transition can be arranged at [facility] if they chose this decision. Pt has been on hospice in the past. CXR hs improved since admission. K+ 3.4 and replaced. He denies CP, SOB, abd pain. N/V/D. Ok to d/c awaiting biapap delivery to facility. - Review of Systems Constitutional: No Fever, No Chills Eyes: No Symptoms Ears, Nose, & Throat: No Symptoms Respiratory: No Cough, No Short Of Breath Cardiac: No Chest Pain, No Edema, No Syncope Abdominal/Gastrointestinal: No Abdominal Pain, No Nausea, No Vomiting, No Diarr hea Genitourinary Symptoms: No Dysuria Musculoskeletal: No Back Pain, No Neck Pain Skin: No Rash Neurological: No Dizziness, No Focal Weakness, No Sensory Changes Psychological: No Symptoms Endocrine: No Symptoms Hematologic/Lymphatic: No Symptoms Immunological/Allergic: No Symptoms Objective Exam General Appearance: no apparent distress, alert, obese Neurologic Exam: alert, oriented x 3, cooperative, normal mood/affect, nml cerebellar function, sensation nml, No motor deficits Skin Exam: normal color, warm, dry Eye Exam: PERRL, EOMI, eyes nml inspection Ears, Nose, Throat Exam: normal ENT inspection, pharynx normal, moist mucous membranes Neck Exam: normal inspection, non-tender, supple, full range of motion Respiratory Exam: normal breath sounds, lungs clear, diminished breath sounds (BLLL), No respiratory distress Cardiovascular Exam: regular rate/rhythm, normal heart sounds Gastrointestinal/Abdomen Exam: soft, No tenderness, No mass Extremity Exam: normal inspection, normal range of motion Back Exam: normal inspection, normal range of motion, No CVA tenderness, No vertebral tenderness Male Genitalia Exam: deferred Rectal Exam: deferred Objective Data Vital Signs: Vital Signs - 24 hr Temp Pulse Resp BP Pulse Ox 06/25/23 07:34 97.8 F 74 16 149/81 90 L 06/25/23 06:00 76 16 90 L 06/25/23 04:00 99.0 F 69 18 136/71 92 L 06/24/23 23:42 97.7 F 66 17 137/84 98 06/24/23 19:47 97.6 F 71 22 151/75 95 06/24/23 19:24 72 18 93 L 06/24/23 16:00 98.0 F 74 10 L 150/84 96 06/24/23 13:17 68 18 96 06/24/23 11:57 98.9 F 67 20 132/76 97 Pain Assessment - Last Documented Pain Intensity 0 Pain Scale Used 0-10 Pain Scale Intake and Output: Intake & Output 06/22/23 06/23/23 06/24/23 06/25/23 11:59 11:59 11:59 11:59 Intake Total 2630 2525 2367 1461 Output Total 4901 6709 7922 5024 Balance -6856 -4175 -5583 -3564 Weight 112.5 kg 112.5 kg 109.5 kg 108.1 kg Lab Results: Lab Results-Last 24 Hours 06/24/23 06/24/23 06/24/23 Range/Units 11:31 15:56 17:22 WBC (4.0-10.5) x10^3/uL RBC (4.1-5.6) x10^6/uL Hgb (12.5-18.0) g/dL Hct (42-50) % MCV (78-100) fL MCH (26-32) pg MCHC (32-36) g/dL RDW (11.5-14.0) % Plt Count (150-450) x10^3/uL MPV (7.5-11.0) fL Sodium (135-145) mmol/L Potassium 3.4 L (3.5-5.1) mmol/L Chloride (98-107) mmol/L Carbon Dioxide (22-30) mmol/L Anion Gap (5-15) MEQ/L BUN (9-20) mg/dL Creatinine (0.66-1.25) mg/dL Estimated GFR ML/MIN Glucose (74-106) mg/dL POC Glucometer 251 H 199 H (74 to 106) mg/dL Calcium (8.4-10.2) mg/dL Magnesium (1.6-2.3) mg/dL Total Bilirubin (0.2-1.3) mg/dL AST (17-59) U/L ALT (0-50) U/L Alkaline Phosphatase (38-126) U/L Serum Total Protein (6.3-8.2) g/dL Albumin (3.5-5.0) g/dL 06/24/23 06/25/23 06/25/23 Range/Units 20:47 04:01 04:35 WBC 8.7 (4.0-10.5) x10^3/uL RBC 3.22 L (4.1-5.6) x10^6/uL Hgb 9.4 L (12.5-18.0) g/dL Hct 31.5 L (42-50) % MCV 97.8 (78-100) fL MCH 29.2 (26-32) pg MCHC 29.8 L (32-36) g/dL RDW 14.6 H (11.5-14.0) % Plt Count 234 (150-450) x10^3/uL MPV 9.2 (7.5-11.0) fL Sodium (135-145) mmol/L Potassium (3.5-5.1) mmol/L Chloride (98-107) mmol/L Carbon Dioxide (22-30) mmol/L Anion Gap (5-15) MEQ/L BUN (9-20) mg/dL Creatinine (0.66-1.25) mg/dL Estimated GFR ML/MIN Glucose (74-106) mg/dL POC Glucometer 189 H 180 H (74 to 106) mg/dL Calcium (8.4-10.2) mg/dL Magnesium (1.6-2.3) mg/dL Total Bilirubin (0.2-1.3) mg/dL AST (17-59) U/L ALT (0-50) U/L Alkaline Phosphatase (38-126) U/L Serum Total Protein (6.3-8.2) g/dL Albumin (3.5-5.0) g/dL 06/25/23 06/25/23 06/25/23 Range/Units 04:35 07:17 10:35 WBC (4.0-10.5) x10^3/uL RBC (4.1-5.6) x10^6/uL Hgb (12.5-18.0) g/dL Hct (42-50) % MCV (78-100) fL MCH (26-32) pg MCHC (32-36) g/dL RDW (11.5-14.0) % Plt Count (150-450) x10^3/uL MPV (7.5-11.0) fL Sodium 141 (135-145) mmol/L Potassium 3.4 L 3.3 L (3.5-5.1) mmol/L Chloride 86 L (98-107) mmol/L Carbon Dioxide 42 H (22-30) mmol/L Anion Gap 16.4 H (5-15) MEQ/L BUN 28 H (9-20) mg/dL Creatinine 1.03 (0.66-1.25) mg/dL Estimated GFR 75.3 ML/MIN Glucose 276 H (74-106) mg/dL POC Glucometer 346 H (74 to 106) mg/dL Calcium 7.4 L (8.4-10.2) mg/dL Magnesium 1.9 (1.6-2.3) mg/dL Total Bilirubin 0.50 (0.2-1.3) mg/dL AST 30 (17-59) U/L ALT 62 H (0-50) U/L Alkaline Phosphatase 80 (38-126) U/L Serum Total Protein 6.1 L (6.3-8.2) g/dL Albumin 3.5 (3.5-5.0) g/dL 06/25/23 Range/Units 11:11 WBC (4.0-10.5) x10^3/uL RBC (4.1-5.6) x10^6/uL Hgb (12.5-18.0) g/dL Hct (42-50) % MCV (78-100) fL MCH (26-32) pg MCHC (32-36) g/dL RDW (11.5-14.0) % Plt Count (150-450) x10^3/uL MPV (7.5-11.0) fL Sodium (135-145) mmol/L Potassium (3.5-5.1) mmol/L Chloride (98-107) mmol/L Carbon Dioxide (22-30) mmol/L Anion Gap (5-15) MEQ/L BUN (9-20) mg/dL Creatinine (0.66-1.25) mg/dL Estimated GFR ML/MIN Glucose (74-106) mg/dL POC Glucometer 186 H (74 to 106) mg/dL Calcium (8.4-10.2) mg/dL Magnesium (1.6-2.3) mg/dL Total Bilirubin (0.2-1.3) mg/dL AST (17-59) U/L ALT (0-50) U/L Alkaline Phosphatase (38-126) U/L Serum Total Protein (6.3-8.2) g/dL Albumin (3.5-5.0) g/dL Radiology Exams: Radiology Procedures Category Date Time Status CHEST 2 VIEWS (PA AND LAT) Routine Exams 06/25/23 08:00 Completed Multi-Disciplinary Progress Notes: Multi-Disciplinary Progress Notes 06/25/23 09:56 Case Management Note by Valeria Rasmussen BIPCATE AND CURRENT OXYGEN SETTINGS FAXED TO [facility] Initialized on 06/25/23 09:56 - END OF NOTE Assessment/Plan (1) Pneumonia Current Visit: Yes Status: Acute Code(s): J18.9 - PNEUMONIA, UNSPECIFIED ORGANISM (2) CHF (congestive heart failure) Current Visit: Yes Status: Acute Code(s): I50.9 - HEART FAILURE, UNSPECIFIED (3) Hypocalcemia Current Visit: Yes Status: Acute Code(s): E83.51 - HYPOCALCEMIA (4) Obesity (BMI 30-39.9) Current Visit: Yes Status: Chronic Code(s): E66.9 - OBESITY, UNSPECIFIED (5) Hypokalemia Current Visit: No Status: Acute Code(s): E87.6 - HYPOKALEMIA (6) Microcytic anemia Current Visit: No Status: Chronic Code(s): D50.9 - IRON DEFICIENCY ANEMIA, UNSPECIFIED (7) Type 2 diabetes mellitus Current Visit: No Status: Chronic Qualifiers: Diabetes mellitus technician terminal and repeater insulin use: without fci use Diabetes mellitus complication status: with circulatory complication (8) Dementia Current Visit: No Status: Chronic Qualifiers: Dementia type: unspecified type Assessment & Plan: (1) Pneumonia Current Visit: Yes Status: Acute Assessment & Plan: - CXR 06/20/23 Portable chest demonstrates new right upper lobe hazy interstitial alveolar opacities, small right effusion, and moderate left base infiltrate/atelectasis/effusion. Heart not enlarged for AP portable technique. Bony thorax intact. - Chest CT 06/21/23 Impression: 1. Cardiomegaly with pericardial effusion, moderate bilateral effusions, and bibasilar compressive atelectasis favoring cardiac decompensation/CHF versus fluid overload. Superimposed pneumonia not completely excluded. 2. 1.1 cm indeterminant right upper lobe noncalcified nodule. Finding probably too small for PET/CT. Outside comparison studies recommended if available. If not, recommend follow-up per Fleischner guidelines. 3. Chronic findings including arteriosclerotic disease, chronic bony findings, left adrenal adenoma, and absent left kidney. - Procal- pending - Rocephin, zithromax, steriods, duonebs - Lactic acid 2.0 today - 10L oxymizer- Baseline RA 06/22 - Now on 8L oxymizer - BC x2 negative 06/23 - 7L oxymizer - Bipap at night and off and on Q2 hours while awake. - Will need OP sleep study at d/c 06/24 - 8LNC - Bipap at night - CXR PA/lateral chest improved with clearing previous bilateral infiltrates/effusions/atelectasis with mild residual, left greater than right. Heart not enlarged. No new cardiopulmonary abnormalities. Code(s): J18.9 - PNEUMONIA, UNSPECIFIED ORGANISM (2) CHF (congestive heart failure) Current Visit: Yes Status: Acute Assessment & Plan: - BNP on admission 1430 - requiring Cpap on admission- no w on 10L oxymizer - Lasix BID, will give increased dose tonight - ECHO 06/21-EF 38.3% - Cardiology consulted and recs provided: *Stop norvasc, Continue Lasix 40mg IV BID and continue PO BID OP, Losartan 25mg daily, Coreg 3.125mg BID, Spirolactone 25mg daily, Iron transfusion, F/u in week after d/c. 06/22 - remains on 8L oxymizer - redness of BLLE resolved - +1 edema of BLLE- improved - no need to qualify for home O2 as lives at [facility] 06/23 - Echo read by cardiology EF 55-60% with pum HTN - Decompensated heart failure - CXR in AM 06/24 - CXR PA/lateral chest improved with clearing previous bilateral infiltrates/effusions/atelectasis with mild residual, left greater than right. Heart not enlarged. No new cardiopulmonary abnormalities. - Consider hospice if unable to be compliant with OP care Code(s): I50.9 - HEART FAILURE, UNSPECIFIED (3) Hypocalcemia Current Visit: Yes Status: Acute Assessment & Plan: - Ca+ 7.3 - started Tums BID 06/22 - Ca+ 7.3 trend 06/23 - Ca+ 7.6- improving 06/24 - Calcium 7.4- Continue Tums Op Code(s): E83.51 - HYPOCALCEMIA (4) Obesity (BMI 30-39.9) Current Visit: Yes Status: Chronic Assessment & Plan: - advised ADA diet and exercise control Code(s): E66.9 - OBESITY, UNSPECIFIED (5) Hypokalemia Current Visit: No Status: Acute Assessment & Plan: - K+ 3.2- replaced- repeat K+ 3.6 06/22 - K+ 3.1- replaced- repeat 3.7 06/23 - K+ 3.3- replaced-trend 06/24 - K+ 3.4- trend - Low 2:2 lasix Code(s): E87.6 - HYPOKALEMIA (6) Microcytic anemia Current Visit: No Status: Chronic Assessment & Plan: - Iron def anemia, iron 45, iron sat 13 - IV iron infusion- will need Op infusions set up at d/c. - can d/c with PO as an option Code(s): D50.9 - IRON DEFICIENCY ANEMIA, UNSPECIFIED (7) Type 2 diabetes mellitus Current Visit: No Status: Chronic Qualifiers: Diabetes mellitus fci insulin use: without fci use Diabetes mellitus complication status: with circulatory complication Assessment & Plan: - Metformin held - A1C 05/23/23- 6.05- controlled - Humalog s/s, accuchecks ac/hs - monitor leg redness 06/22 - leg redness resolved (8) Dementia Current Visit: No Status: Chronic Qualifiers: Dementia type: unspecified type Assessment & Plan: - chronic - lives at [facility] VTE: Lovenox Next of Kin: D/C plan: 1-2 days Code status: SCO/DNR Code(s): F03.90 - UNSP DEMENTIA, UNSP SEVERITY, WITHOUT BEH/PSYCH/MOOD/ANX
[2023-06-26] MEDS ORDERED: Haldol 5 MG IM PRN (00:19)
[2023-06-26 04:57] LABS: Hematocrit 35.1 % (42-50); Hemoglobin 10.4 g/dL (12.5-18.0); Mean Cell Volume 97.2 fL (78-100); Mean Corpuscular Hemoglobin 28.8 pg (26-32); Mean Corpuscular Hgb Concent. 29.6 g/dL (32-36); Mean Platelet Volume 9.6 fL (7.5-11.0); Platelet Count 291 x10^3/uL (150-450); Red Blood Count 3.61 x10^6/uL (4.1-5.6); Red Cell Distribution Width 14.6 % (11.5-14.0); White Blood Count 11.3 x10^3/uL (4.0-10.5)
[2023-06-26 05:43] LABS: ALBUMIN 3.9 g/dL (3.5-5.0); BILIRUBIN,TOTAL 0.5 mg/dL (0.2-1.3); Creatinine 1 1.04 mg/dL (0.66-1.25); EST GLOMERULAR FILTRATION RATE 74.4 ML/MIN; Potassium 4.1 mmol/L (3.5-5.1); Total Protein 6.4 g/dL (6.3-8.2)
[2023-06-26 05:50] LABS: ANION GAP 14.1 MEQ/L (5-15)
--- NOTE | 2023-06-26 10:23 | PCM.DS ---
Discharge Summary Date of Admission: 06/20/23 19:23 Date of Discharge: 06/26/23 Admitting Physician: JOEL LAYTON MD Consults: Consults on Case 06/22/23 08:27 Consult Cardiology ROUTINE Primary Care Provider: KIMBERLI CERVANTES MD Allergies Allergies codeine Allergy (Mild, Verified 06/20/23 16:23) Headache morphine Allergy (Mild, Verified 06/20/23 16:23) Hospital Summary - Hospital Course Hospital Course: 06/22/23 Mr. Partida is a 77 year old male with a pmhx of dementia, HLD, HTN, COPD (RA at baseline), hypothyroid, thyroid cancer, chronic norton cath, and depression. He lives at [facility]. He presented to ED on 06/20/23 with increasing shortness of breath and weight gain. Patient was tachypneic and hypoxic on arrival with spo2 levels in the mid 80's. CXR demonstrates right upper lobe opacities as well as a small right effusion. Patient admitted with pneumonia and CHF. Current treatment with Rocephin/azithromycin/solu-medrol/duonebs/bronchodilator/ lasix. Initially on Bipap, now on 10L oxymizer. Echo showed EF 38.3% per ground control approach technician. Cardiology consulted and recs gave. Pt denies CP, Abd. pain, N/V/D. 06/23/23 Pt resting in bed. He continues to be on 8L oxymizer. Lungs sounds decreased BLLL. He has a hx of dementia and keeps taking off his oxygen. K+ 3.1 and replaced this AM. Continue Lasix for CHF exacerbation. BLLE edema improving. For pneumonia continue Rocephin/azithromycin/solu-medrol/duonebs/bronchodilator. Pt denies CP, SOB, abd. pain, N/V/D. 06/24/23 Pt resting in bed. Pt has been on CPAP all night and of and on Q 2 hours while awake. He is awake and alert today on 7L oxymizer. K+ 3.3 and replaced. Echo read by cardiology and EF is 55-60% with pulmonary HTN noted. UC and BC x2 negative. Sputum culture pending. Will recheck CXR in Am for progress of pleural effusion. Continue Rocephin/azithromycin/solu-medrol/duonebs/bronchodilator for pneumonia. Pt denies CP, SOB, abd. pain, N/V/D. Nursing called pt's today. She lives at the same nursing facility as the pt. The pt has only been there 2 weeks prior to admission. Come to find out pt is to be wearing 2lNC during the day and Biapap at night. There were no orders for this at the nursing facility, therefore he had not been using either. This most likely lead to his decline thus being admitted to the hospital. 5/ Pt resting in bed. He wore CPAP for 3 hours last night and refused thereafter. According to he does this, and does not like to wear. Orders gave for pt to be on cont O2 at [facility] and Bipap at [facility] as he has not been wearing either at the facility. Pt and family should consider hospice if pt is not going to be compliant with oxygen and bipap. He is at high risk for readmission do to non- compliance. Part of this concern is that he has chronic dementia and cannot remember to leave oxygen on and takes it off often. Hospice transition can be arranged at [facility] if they chose this decision. Pt has been on hospice in the past. CXR hs improved since admission. K+ 3.4 and replaced. He denies CP, SOB, abd pain. N/V/D. Ok to d/c awaiting biapap delivery to facility. 06/26/23 Pt resting in the chair today. According to overnight nursing notes pt became restless and agitated last night. he refused to wear bipap and oxygen. a one time order of Haldol was given IM and pt was able to resume oxygen use and calmed down. Will d/c with Haldol at HS. Today he is on 3lNC at 93%. He is awake and alert. Once Bipap delivered to F he will d/c today. He denies CP, SOB, abd. pain, N/V/D. - Vitals & Intake/Output Vital Signs: Vital Signs Temperature 97.2 F 06/26/23 08:00 Pulse Rate 96 H 06/26/23 08:00 Respiratory Rate 17 06/26/23 08:00 Blood Pressure 153/76 06/26/23 08:00 O2 Sat by Pulse Oximetry 93 L 06/26/23 08:14 Intake & Output: Intake & Output 06/23/23 06/24/23 06/25/23 06/26/23 11:59 11:59 11:59 11:59 Intake Total 8386 5399 1465 1180 Output Total 8160 4249 2959 7141 Balance -4175 -5583 -3564 -1170 Weight 112.5 kg 109.5 kg 108.1 kg - Lab Result Diagrams: 06/26/23 04:30 06/26/23 04:30 Lab Results-Last 24 Hrs: Lab Results-Last 24 Hours 06/25/23 06/25/23 06/25/23 Range/Units 10:35 11:11 14:45 WBC (4.0-10.5) x10^3/uL RBC (4.1-5.6) x10^6/uL Hgb (12.5-18.0) g/dL Hct (42-50) % MCV (78-100) fL MCH (26-32) pg MCHC (32-36) g/dL RDW (11.5-14.0) % Plt Count (150-450) x10^3/uL MPV (7.5-11.0) fL Sodium (135-145) mmol/L Potassium 3.3 L 3.7 (3.5-5.1) mmol/L Chloride (98-107) mmol/L Carbon Dioxide (22-30) mmol/L Anion Gap (5-15) MEQ/L BUN (9-20) mg/dL Creatinine (0.66-1.25) mg/dL Estimated GFR ML/MIN Glucose (74-106) mg/dL POC Glucometer 186 H (74 to 106) mg/dL Calcium (8.4-10.2) mg/dL Magnesium (1.6-2.3) mg/dL Total Bilirubin (0.2-1.3) mg/dL AST (17-59) U/L ALT (0-50) U/L Alkaline Phosphatase (38-126) U/L Serum Total Protein (6.3-8.2) g/dL Albumin (3.5-5.0) g/dL 06/25/23 06/25/23 06/26/23 Range/Units 16:37 21:07 04:05 WBC (4.0-10.5) x10^3/uL RBC (4.1-5.6) x10^6/uL Hgb (12.5-18.0) g/dL Hct (42-50) % MCV (78-100) fL MCH (26-32) pg MCHC (32-36) g/dL RDW (11.5-14.0) % Plt Count (150-450) x10^3/uL MPV (7.5-11.0) fL Sodium (135-145) mmol/L Potassium (3.5-5.1) mmol/L Chloride (98-107) mmol/L Carbon Dioxide (22-30) mmol/L Anion Gap (5-15) MEQ/L BUN (9-20) mg/dL Creatinine (0.66-1.25) mg/dL Estimated GFR ML/MIN Glucose (74-106) mg/dL POC Glucometer 265 H 243 H 223 H (74 to 106) mg/dL Calcium (8.4-10.2) mg/dL Magnesium (1.6-2.3) mg/dL Total Bilirubin (0.2-1.3) mg/dL AST (17-59) U/L ALT (0-50) U/L Alkaline Phosphatase (38-126) U/L Serum Total Protein (6.3-8.2) g/dL Albumin (3.5-5.0) g/dL 06/26/23 06/26/23 06/26/23 Range/Units 04:30 04:30 04:30 WBC 11.3 H (4.0-10.5) x10^3/uL RBC 3.61 L (4.1-5.6) x10^6/uL Hgb 10.4 L (12.5-18.0) g/dL Hct 35.1 L (42-50) % MCV 97.2 (78-100) fL MCH 28.8 (26-32) pg MCHC 29.6 L (32-36) g/dL RDW 14.6 H (11.5-14.0) % Plt Count 291 (150-450) x10^3/uL MPV 9.6 (7.5-11.0) fL Sodium 140 (135-145) mmol/L Potassium 4.1 (3.5-5.1) mmol/L Chloride 88 L (98-107) mmol/L Carbon Dioxide 42 H (22-30) mmol/L Anion Gap 14.1 (5-15) MEQ/L BUN 39 H (9-20) mg/dL Creatinine 1.04 (0.66-1.25) mg/dL Estimated GFR 74.4 ML/MIN Glucose 242 H (74-106) mg/dL POC Glucometer (74 to 106) mg/dL Calcium 8.0 L (8.4-10.2) mg/dL Magnesium 2.1 (1.6-2.3) mg/dL Total Bilirubin 0.50 (0.2-1.3) mg/dL AST 45 (17-59) U/L ALT 81 H (0-50) U/L Alkaline Phosphatase 90 (38-126) U/L Serum Total Protein 6.4 (6.3-8.2) g/dL Albumin 3.9 (3.5-5.0) g/dL 06/26/23 Range/Units 07:31 WBC (4.0-10.5) x10^3/uL RBC (4.1-5.6) x10^6/uL Hgb (12.5-18.0) g/dL Hct (42-50) % MCV (78-100) fL MCH (26-32) pg MCHC (32-36) g/dL RDW (11.5-14.0) % Plt Count (150-450) x10^3/uL MPV (7.5-11.0) fL Sodium (135-145) mmol/L Potassium (3.5-5.1) mmol/L Chloride (98-107) mmol/L Carbon Dioxide (22-30) mmol/L Anion Gap (5-15) MEQ/L BUN (9-20) mg/dL Creatinine (0.66-1.25) mg/dL Estimated GFR ML/MIN Glucose (74-106) mg/dL POC Glucometer 292 H (74 to 106) mg/dL Calcium (8.4-10.2) mg/dL Magnesium (1.6-2.3) mg/dL Total Bilirubin (0.2-1.3) mg/dL AST (17-59) U/L ALT (0-50) U/L Alkaline Phosphatase (38-126) U/L Serum Total Protein (6.3-8.2) g/dL Albumin (3.5-5.0) g/dL Micro Results-Entire Visit: Microbiology 06/20/23 16:24 Blood Culture - Final Blood 06/20/23 18:00 Urine Culture - Final Catherized NO GROWTH Accuchecks Date 06/26/23 Date 06/26/23 Date 06/25/23 Date 06/25/23 Date 06/25/23 Time 08:01 Time 04:12 Time 16:35 Time 11:05 - Radiology Exams Ordered Rad Exams-Entire Visit: Radiology Procedures Category Date Time Status CHEST 2 VIEWS (PA AND LAT) Routine Exams 06/25/23 08:00 Completed - Procedures and Test Procedures and Tests throughout Hospitalization: Therapy Orders & Screens 06/20/23 16:18 BiPap/CPAP ROUTINE Comment: 06/20/23 16:55 Respiratory Therapy Assessment DAILY Comment: 06/20/23 19:32 EKG REPEAT IN AM Comment: Respiratory Therapy Consult ONCE Comment: Reason For Exam: 06/20/23 23:42 Respiratory MDI BID Comment: Diagnosis: bilateral pulmonary infiltrate, hypoxia 06/21/23 06:46 Oxygen Nasal Cannula 6 lpm Comment: Diagnosis: bilateral pulmonary infiltrate, hypoxia 06/23/23 11:33 RT Miscellaneous Order ROUTINE Comment: Daily Bipap on 2 hours off 2 hours and wear night Physician Instructions: Reason For Exam: Diagnosis: bilateral pulmonary infiltrate, hypoxia Discharge Exam General Appearance: no apparent distress, alert Neurologic Exam: alert, oriented x 3, cooperative, normal mood/affect, nml cerebellar function, sensation nml, No motor deficits Eye Exam: PERRL, EOMI, eyes nml inspection Ears, Nose, Throat Exam: normal ENT inspection, pharynx normal, moist mucous membranes Neck Exam: normal inspection, non-tender, supple, full range of motion Respiratory Exam: normal breath sounds, lungs clear, No respiratory distress Cardiovascular Exam: regular rate/rhythm, normal heart sounds Gastrointestinal/Abdomen Exam: soft, No tenderness, No mass Male Genitalia Exam: deferred Rectal Exam: deferred Back Exam: normal inspection, normal range of motion, No CVA tenderness, No vertebral tenderness Extremity Exam: normal inspection, normal range of motion Skin Exam: normal color, warm, dry Final Diagnosis/Problem List - Final Discharge Diagnosis/Problem (1) Pneumonia Current Visit: Yes Status: Acute Code(s): J18.9 - PNEUMONIA, UNSPECIFIED ORGANISM (2) CHF (congestive heart failure) Current Visit: Yes Status: Acute Code(s): I50.9 - HEART FAILURE, UNSPECIFIED (3) Hypocalcemia Current Visit: Yes Status: Acute Code(s): E83.51 - HYPOCALCEMIA (4) Obesity (BMI 30-39.9) Current Visit: Yes Status: Chronic Code(s): E66.9 - OBESITY, UNSPECIFIED (5) Hypokalemia Current Visit: No Status: Acute Code(s): E87.6 - HYPOKALEMIA (6) Microcytic anemia Current Visit: No Status: Chronic Code(s): D50.9 - IRON DEFICIENCY ANEMIA, UNSPECIFIED (7) Type 2 diabetes mellitus Current Visit: No Status: Chronic (8) Dementia Current Visit: No Status: Chronic Assessment & Plan: (1) Pneumonia Current Visit: Yes Status: Acute Assessment & Plan: - CXR 06/20/23 Portable chest demonstrates new right upper lobe hazy interstitial alveolar opacities, small right effusion, and moderate left base infiltrate/atelectasis/effusion. Heart not enlarged for AP portable technique. Bony thorax intact. - Chest CT 06/21/23 Impression: 1. Cardiomegaly with pericardial effusion, moderate bilateral effusions, and bibasilar compressive atelectasis favoring cardiac decompensation/CHF versus fluid overload. Superimposed pneumonia not completely excluded. 2. 1.1 cm indeterminant right upper lobe noncalcified nodule. Finding probably too small for PET/CT. Outside comparison studies recommended if available. If not, recommend follow-up per Fleischner guidelines. 3. Chronic findings including arteriosclerotic disease, chronic bony findings, left adrenal adenoma, and absent left kidney. - Procal- pending - Rocephin, zithromax, steriods, duonebs - Lactic acid 2.0 today - 10L oxymizer- Baseline RA 5/ - Now on 8L oxymizer - BC x2 negative 06/23 - 7L oxymizer - Bipap at night and off and on Q2 hours while awake. - Will need OP sleep study at d/c 5/ - 8LNC - Bipap at night - CXR PA/lateral chest improved with clearing previous bilateral infiltrates/effusions/atelectasis with mild residual, left greater than right. Heart not enlarged. No new cardiopulmonary abnormalities. 06/25 - 3lNC 93% - Sputum culture pending Code(s): J18.9 - PNEUMONIA, UNSPECIFIED ORGANISM (2) CHF (congestive heart failure) Current Visit: Yes Status: Acute Assessment & Plan: - BNP on admission 1430 - requiring Cpap on admission- no w on 10L oxymizer - Lasix BID, will give increased dose tonight - ECHO 06/21-EF 38.3% - Cardiology consulted and recs provided: *Stop norvasc, Continue Lasix 40mg IV BID and continue PO BID OP, Losartan 25mg daily, Coreg 3.125mg BID, Spirolactone 25mg daily, Iron transfusion, F/u in week after d/c. 06/22 - remains on 8L oxymizer - redness of BLLE resolved - +1 edema of BLLE- improved - no need to qualify for home O2 as lives at [facility] 06/23 - Echo read by cardiology EF 55-60% with pum HTN - Decompensated heart failure - CXR in AM 06/24 - CXR PA/lateral chest improved with clearing previous bilateral infiltrates/effusions/atelectasis with mild residual, left greater than right. Heart not enlarged. No new cardiopulmonary abnormalities. - Consider hospice if unable to be compliant with OP care Code(s): I50.9 - HEART FAILURE, UNSPECIFIED (3) Hypocalcemia Current Visit: Yes Status: Acute Assessment & Plan: - Ca+ 7.3 - started Tums BID 06/22 - Ca+ 7.3 trend 06/23 - Ca+ 7.6- improving 06/24 - Calcium 7.4- Continue Tums Op 06/25 - Ca+ 8.0- improving Code(s): E83.51 - HYPOCALCEMIA (4) Obesity (BMI 30-39.9) Current Visit: Yes Status: Chronic Assessment & Plan: - advised ADA diet and exercise control Code(s): E66.9 - OBESITY, UNSPECIFIED (5) Hypokalemia Current Visit: No Status: Acute Assessment & Plan: - K+ 3.2- replaced- repeat K+ 3.6 06/22 - K+ 3.1- replaced- repeat 3.7 06/23 - K+ 3.3- replaced-trend 06/24 - K+ 3.4- trend - Low 2:2 lasix 06/25 - resolved Code(s): E87.6 - HYPOKALEMIA (6) Microcytic anemia Current Visit: No Status: Chronic Assessment & Plan: - Iron def anemia, iron 45, iron sat 13 - IV iron infusion- will need Op infusions set up at d/c. - can d/c with PO as an option 06/25 - Hgb 10.4 Code(s): D50.9 - IRON DEFICIENCY ANEMIA, UNSPECIFIED (7) Type 2 diabetes mellitus Current Visit: No Status: Chronic Qualifiers: Diabetes mellitus penitentiary insulin use: without penitentiary use Diabetes me llitus complication status: with circulatory complication Assessment & Plan: - Metformin held - A1C 05/23/23- 6.05- controlled - Humalog s/s, accuchecks /hs - monitor leg redness 06/22 - leg redness resolved (8) Dementia Current Visit: No Status: Chronic Qualifiers: Dementia type: unspecified type Assessment & Plan: - chronic - lives at [facility] 06/25 - Hadol gave IM last night for agitation - Will continue Haldol at HS OP Code(s): F03.90 - UNSP DEMENTIA, UNSP SEVERITY, WITHOUT BEH/PSYCH/MOOD/ANX - Discharge Discharge Date: 06/26/23 Disposition: DC TO ANY "OTHER" USP Condition: Fair Prescriptions: New Calcium Carbonate 750 mg [Tums EX 750 MG] 750 mg PO BID 10 Days #20 tablet Ferrous Sulfate 325 mg [Feosol 325 mg] 325 mg PO DAILY 30 Days #30 tablet Doxycycline Hyclate 100 mg PO BID 5 Days #10 tablet Haloperidol [Haldol] 2 mg PO HS 30 Days #30 tablet Continue Amlodipine Besylate [Norvasc] 10 mg PO DAILY Metformin HCl 850 mg [Glucophage 850 MG] 850 mg PO BID Tamsulosin HCl 0.4 mg [Flomax 0.4 MG] 0.4 mg PO DAILY cap Potassium Chloride 40 meq PO DAILY 30 Days #30 tablet Levothyroxine Sodium 100 Mcg [Synthroid 100 Mcg] 100 mcg PO DAILY@0700 tablet Tamsulosin HCl 0.4 mg [Flomax 0.4 MG] 0.4 mg PO DAILY Sennosides 8.6 mg PO BID Levothyroxine Sodium 100 Mcg [Synthroid 100 Mcg] 100 mcg PO DAILY Furosemide 40 mg [Lasix 40 MG] 40 mg PO DAILY Melatonin/Pyridoxine [Melatonin 5 mg Tablet] 1 each PO DAILY Fluticasone/Salmeterol 230/21* [Advair Hfa 230/21 Mcg MDI] 1 ea DAILY Follow up with: [facility] [LOCATION] -
[2023-06-26 12:12] VITALS: BP 132/62; TEMP 97.3; O2SAT 92
[2023-06-26 13:09] VITALS: PULSE 70; RESP 18
== END 2023-06-26 15:51 | DRG 193 ==
LOC: ED 16:02 → MED SURG 19:23 → OBSVTOIN 19:23
PROVIDERS: ADMIT Student in an Organized Health Care Education/Training Program; ATTEND Student in an Organized Health Care Education/Training Program
DX: J18.9 Pneumonia, unspecified organism (principal); J96.01 Acute respiratory failure with hypoxia; I11.0 Hypertensive heart disease with heart failure; I50.9 Heart failure, unspecified; E83.51 Hypocalcemia; E66.9 Obesity, unspecified; E87.6 Hypokalemia; E11.9 Type 2 diabetes mellitus without complications; D50.9 Iron deficiency anemia, unspecified; F03.90 Unspecified dementia, unspecified severity, without behavioral disturbance, psychotic disturbance, mood disturbance, and anxiety; E78.5 Hyperlipidemia, unspecified; R60.0 Localized edema; Z79.899 Other long term (current) drug therapy; Z85.850 Personal history of malignant neoplasm of thyroid
CPT/HCPCS: 0241U; 36000; 36415; 36600; 51702; 71045; 71046; 71260; 80053; 81001; 82375; 82607; 82728; 82746; 82803; 82947; 83540; 83550; 83605; 83735; 83880; 84132; 84145; 84484; 85025; 85027; 87040; 87086; 93005; 93041; 93306; 94002; 94003; 94640; 94760; 94762; 96365; 96367; 96374; 99285; 99291; Q3014; J0456; J0696; J1650; J1756; J1817; J1940; J2919; A9270-GY

== ENCOUNTER 2023-09-07 14:29 | Observation (INO) | payer MEDICARE, OTHER ==
--- NOTE | 2023-09-07 14:44 | ERPHSYRPT ---
- History of Present Illness Time Seen by Provider: 09/07/23 14:44 Source: patient, EMS, [facility] records, old records Exam Limitations: clinical condition Physician History: 78 y/o obese white male resident of [facility] presents to ed by paramedics secondary to confusion. I reviewed pt admit and [facility]2023 and clinical impression of bilat pneumonia. pt last at his mental baseline last night. difficult to rouse this morning. did not arrive until this afternoon. 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 12 lead ekg 06/20/2023 87 bpm, nsr, nl axis, prolonged qt interval and no acute ishemia. Timing/Duration: today Allergies/Adverse Reactions: codeine Allergy (Mild, Verified 09/07/23 15:03) Headache morphine Allergy (Mild, Verified 09/07/23 15:03) Home Medications: Amlodipine Besylate [Norvasc] 10 mg PO DAILY 08/20/19 [History] Metformin HCl 850 mg [Glucophage 850 MG] 850 mg PO BID 02/27/20 [History] Fluticasone/Salmeterol 230/21* [Advair Hfa 230/21 Mcg MDI] 1 ea DAILY 06/20/23 [History] Furosemide 40 mg [Lasix 40 MG] 40 mg PO DAILY 06/20/23 [History] Levothyroxine Sodium 100 Mcg [Synthroid 100 Mcg] 100 mcg PO DAILY 06/20/23 [History] Melatonin/Pyridoxine [Melatonin 5 mg Tablet] 1 each PO DAILY 06/20/23 [History] Sennosides 8.6 mg PO BID 06/20/23 [History] Tamsulosin HCl 0.4 mg [Flomax 0.4 MG] 0.4 mg PO DAILY 06/20/23 [History] Hx Tetanus, Diphtheria Vaccination/Date Given: Yes Hx Influenza Vaccination/Date Given: Yes Hx Pneumococcal Vaccination/Date Given: Yes Travel Risk - International Travel Have you traveled outside of the country in past 3 weeks: No - Emerging Infectious Disease Are you exhibiting symptoms associated with any current EIDs: Yes Symptoms: Shortness of Breath - Review of Systems Constitutional: Weakness Eyes: No Symptoms Ears, Nose, & Throat: No Symptoms Respiratory: No Symptoms Cardiac: No Symptoms Abdominal/Gastrointestinal: No Symptoms Genitourinary Symptoms: No Symptoms, Penile Discharge Skin: No Symptoms Neurological: Lethargy Psychological: No Symptoms Endocrine: No Symptoms Hematologic/Lymphatic: No Symptoms Immunological/Allergic: No Symptoms All Other Systems: Unable due to dementia - Past Medical History Pertinent Past Medical History: Yes Neurological History: Dementia ENT History: No Pertinent History Cardiac History: High Cholesterol, Hypertension Respiratory History: COPD Endocrine Medical History: Hypothyroidism, Thyroid Cancer Musculoskeletal History: No Pertinent History GI Medical History: No Pertinent History History: Other Psycho-Social History: Depression Male Reproductive Disorders: No Pertinent History Other Medical History: 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 - Past Surgical History Past Surgical History: Yes Neuro Surgical History: No Pertinent History Cardiac: No Pertinent History Respiratory: No Pertinent History Gastrointestinal: No Pertinent History Genitourinary: No Pertinent History Musculoskeletal: Orthopedic Surgery Male Surgical History: No Pertinent History Other Surgical History: thyroid cancer- thyroidectomy Significant Family History: no pertinent family hx - Social History Smoking Status: Former smoker Exposure to second hand smoke: No Drug Use: none Patient Lives Alone: No () - Social Determinants of Health Will the patient participate in the screening: Unable to obtain - Nursing Vital Signs Nursing Vital Signs: Initial Vital Signs Temperature 100.8 F 09/07/23 14:31 Pulse Rate 93 H 09/07/23 14:31 Respiratory Rate 20 09/07/23 14:31 Blood Pressure 104/52 09/07/23 14:31 O2 Sat by Pulse Oximetry 94 L 09/07/23 14:31 Pain Scale Pain Intensity 0 - [place] Coma Scale Best Eye Response ([place]): (4) open spontaneously Best Verbal Response ([place]): (3) inappropriate words Best Motor Response ([place]): (5) localizes to pain [place] Total: 12 - Physical Exam General Appearance: no apparent distress, alert, lethargy, obese Eye Exam: bilateral eye: normal inspection, PERRL, EOMI Ears, Nose, Throat Exam: dry mucous membranes Neck Exam: normal inspection, non-tender, supple, full range of motion Respiratory: normal breath sounds, lungs clear, airway intact, No chest tenderness, No respiratory distress Cardiovascular: regular rate/rhythm, normal heart sounds, normal peripheral pulses Gastrointestinal: soft, normal bowel sounds, No tenderness Rectal Exam: not done Back Exam: normal inspection, normal range of motion, No CVA tenderness, No vertebral tenderness Extremity Exam: normal inspection, normal range of motion, pelvis stable Mental Status: alert, cooperative, disoriented to person, disoriented to place, 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: normal hearing, PERRL, tongue midline Skin Exam: normal color, warm, dry SpO2 Interpretation: normal O2 Delivery: Room Air - Course Nursing assessment & vital signs reviewed: Yes Ordered Tests: Active Orders 24 hr Category Date Time Status 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 Care 09/07/23 15:12 Active Catheter-[place] STAT Care 09/07/23 15:12 Active EKG-ER Only STAT Care 09/07/23 15:12 Active IV Insertion STAT Care 09/07/23 15:12 Active NPO (ED) STAT Care 09/07/23 15:12 Active Pulse Oximetry (ED) STAT Care 09/07/23 15:12 Active Telemetry q4h Care 09/07/23 16:18 Active CHEST 1 VIEW (PORTABLE) Stat Exams 09/07/23 15:13 Completed HEAD WITHOUT CONTRAST [CT] Stat Exams 09/07/23 14:58 Completed BLOOD CULTURE Stat Lab 09/07/23 15:36 Received BNPII [NT PRO BNPII] Stat Lab 09/07/23 15:36 Completed CBC W DIFF Stat Lab 09/07/23 15:49 Completed CMP Stat Lab 09/07/23 15:49 Completed CULTURE,URINE Stat Lab 09/07/23 15:24 Received Lactic Acid Stat Lab 09/07/23 15:12 Completed MAGNESIUM Stat Lab 09/07/23 15:49 Completed MONO SCREEN Stat Lab 09/07/23 15:49 Completed PROTIME WITH INR Stat Lab 09/07/23 15:49 Completed UA W/RFX UR CULTURE Stat Lab 09/07/23 15:24 Completed VBG [VENOUS BLOOD GAS] Stat Lab 09/07/23 15:45 Completed Medication Summary Generic Name Dose Route Start Last Admin Trade Name Freq PRN Reason Stop Dose Admin Sodium Chloride 1,000 mls @ 50 mls/hr 09/07/23 15:15 09/07/23 15:20 Sodium Chloride 0.9% 1000 Ml IV 10/07/23 15:14 50 mls/hr .Q20H CLARE Administration Potassium Chloride 20 meq in 100 mls @ 50 mls/hr 09/07/23 16:18 09/07/23 16:30 Potassium Chloride 20 Meq In Water 100ml IV 09/07/23 18:17 50 mls/hr STAT ONE Administration Discontinued Medications Generic Name Dose Route Start Last Admin Trade Name Robbin PRN Reason Stop Dose Admin Furosemide 40 mg 09/07/23 17:25 09/07/23 17:34 Furosemide 40 Mg/4 Ml Vial IV 09/07/23 17:26 40 mg STAT ONE Administration Furosemide Confirm 09/07/23 17:31 Furosemide 40 Mg/4 Ml Vial Administered 09/07/23 17:32 Dose 40 mg .ROUTE .STK-MED ONE Magnesium Sulfate/Dextrose 100 mls @ 200 mls/hr 09/07/23 16:18 09/07/23 16:30 Magnesium 1 Gm / 100 Ml D5w IV 09/07/23 16:47 200 mls/hr STAT ONE Administration Magnesium Sulfate/Dextrose Confirm 09/07/23 16:29 Magnesium 1 Gm / 100 Ml D5w Administered 09/07/23 16:30 Dose 100 mls @ ud IV .STK-MED ONE Potassium Chloride Confirm 09/07/23 16:29 Potassium Chloride 20 Meq In Water 100ml Administered 09/07/23 16:30 Dose 100 mls @ ud IV .STK-MED ONE Ketorolac Tromethamine 30 mg 09/07/23 17:25 09/07/23 17:34 Ketorolac Tromethamine 30 Mg/Ml Inj IV 09/07/23 17:26 30 mg STAT ONE Administration Ketorolac Tromethamine Confirm 09/07/23 17:31 Ketorolac Tromethamine 30 Mg/Ml Inj Administered 09/07/23 17:32 Dose 30 mg .ROUTE .STK-MED ONE Lab/Rad Data: Laboratory Result Diagrams 09/07/23 15:49 09/07/23 15:49 Laboratory Results 09/07/23 09/07/23 09/07/23 Range/Units 15:50 15:50 15:49 WBC (4.23-9.07) x10^3/uL RBC (4.63-6.08) x10^6/uL Hgb (13.7-17.5) g/dL Hct (40.1-51.0) % MCV (79.0-92.2) fL MCH (25.7-32.2) pg MCHC (32.3-36.5) g/dL RDW (11.6-14.4) % Plt Count (163-337) x10^3/uL MPV (9.4-12.4) fL Gran % (34.0-67.9) % Immature Gran % (Auto) (0.001-0.429) % Nucleat RBC Rel Count (0.00-0.2) % Eos # (Auto) (0.04-0.54) x10^3/uL Immature Gran # (Auto) (0.001-0.031) x10^3u/L Absolute Lymphs (auto) (1.32-3.57) x10^3/uL Absolute Monos (auto) (0.30-0.82) x10^3/uL Absolute Nucleated RBC (0.00-0.012) x10^3u/L Lymphocytes % (21.8-53.1) % Monocytes % (5.3-12.2) % Eosinophils % (0.8-7.0) % Basophils % (0.2-1.2) % Absolute Granulocytes (1.78-5.38) x10^3/uL Basophils # (0.01-0.08) x10^3/uL PT (9.4-12.5) SECONDS INR (0.8-3.0) pO2/FiO2 Ratio % VBG pH (7.32-7.42) VBG pCO2 at Pat Temp (42-55) mm/Hg VBG pO2 at Pat Temp (25-40) mm/Hg VBG HCO3 (22-28) meq/L VBG O2 Sat (Jacob) (95-100) VBG Base Excess (-2.0-2.0) VBG Hemoglobin VBG Carboxyhemoglobin (0.0-6.9) % T HGB POC Potassium (3.5-5.1) Sodium (135-145) mmol/L Potassium (3.5-5.1) mmol/L Chloride (98-107) mmol/L Carbon Dioxide (22-30) mmol/L Anion Gap (5-15) MEQ/L BUN (9-20) mg/dL Creatinine (0.66-1.25) mg/dL Estimated GFR ML/MIN Glucose (74-106) mg/dL Lactic Acid (0.4-2.0) Calcium (8.4-10.2) mg/dL Magnesium (1.6-2.3) mg/dL Total Bilirubin (0.2-1.3) mg/dL AST (17-59) U/L ALT (0-50) U/L Alkaline Phosphatase (38-126) U/L Ammonia (9-30) umol/L NT-Pro-B Natriuret Pep (<300) pg/mL Serum Total Protein (6.3-8.2) g/dL Albumin (3.5-5.0) g/dL Urine Color (Yellow) Urine Appearance (Clear) Urine pH (4.6-8.0) Ur Specific [place] (1.005-1.030) Urine Protein (Negative) Urine Glucose (UA) (Negative) mg/dL Urine Ketones (Negative) Urine Blood (Negative) Urine Nitrite (Negative) Urine Bilirubin (Negative) Urine Urobilinogen (0.2) mg/dL Ur Leukocyte Esterase (Negative) U Hyaline Cast (Auto) (0-2) /LPF Urine Microscopic RBC (0-5) /HPF Urine Microscopic WBC (0-5) /HPF Ur Epithelial Cells (None Seen) /HPF Urine Bacteria (None Seen) /HPF Granular Casts (None Seen) /LPF Urine Culture Reflexed (NO) Monoscreen NEGATIVE (NEGATIVE) Influenza Type A Ag NEGATIVE (NEGATIVE) Influenza Type B Ag NEGATIVE (NEGATIVE) RSV (PCR) NEGATIVE (NEGATIVE) SARS-CoV-2 (PCR) NEGATIVE (NEGATIVE) Group A Strep Antibody NOT DETECTED (NEGATIVE) 09/07/23 09/07/23 09/07/23 Range/Units 15:49 15:49 15:49 WBC (4.23-9.07) x10^3/uL RBC (4.63-6.08) x10^6/uL Hgb (13.7-17.5) g/dL Hct (40.1-51.0) % MCV (79.0-92.2) fL MCH (25.7-32.2) pg MCHC (32.3-36.5) g/dL RDW (11.6-14.4) % Plt Count (163-337) x10^3/uL MPV (9.4-12.4) fL Gran % (34.0-67.9) % Immature Gran % (Auto) (0.001-0.429) % Nucleat RBC Rel Count (0.00-0.2) % Eos # (Auto) (0.04-0.54) x10^3/uL Immature Gran # (Auto) (0.001-0.031) x10^3u/L Absolute Lymphs (auto) (1.32-3.57) x10^3/uL Absolute Monos (auto) (0.30-0.82) x10^3/uL Absolute Nucleated RBC (0.00-0.012) x10^3u/L Lymphocytes % (21.8-53.1) % Monocytes % (5.3-12.2) % Eosinophils % (0.8-7.0) % Basophils % (0.2-1.2) % Absolute Granulocytes (1.78-5.38) x10^3/uL Basophils # (0.01-0.08) x10^3/uL PT 11.4 (9.4-12.5) SECONDS INR 1.05 (0.8-3.0) pO2/FiO2 Ratio % VBG pH (7.32-7.42) VBG pCO2 at Pat Temp (42-55) mm/Hg VBG pO2 at Pat Temp (25-40) mm/Hg VBG HCO3 (22-28) meq/L VBG O2 Sat (Jacob) (95-100) VBG Base Excess (-2.0-2.0) VBG Hemoglobin VBG Carboxyhemoglobin (0.0-6.9) % T HGB POC Potassium (3.5-5.1) Sodium 135 (135-145) mmol/L Potassium 2.5 L* (3.5-5.1) mmol/L Chloride 92 L (98-107) mmol/L Carbon Dioxide 37 H (22-30) mmol/L Anion Gap 9.2 (5-15) MEQ/L BUN 28 H (9-20) mg/dL Creatinine 1.50 H (0.66-1.25) mg/dL Estimated GFR 47.7 ML/MIN Glucose 158 H (74-106) mg/dL Lactic Acid (0.4-2.0) Calcium 7.7 L (8.4-10.2) mg/dL Magnesium 1.3 L (1.6-2.3) mg/dL Total Bilirubin 0.90 (0.2-1.3) mg/dL AST 23 (17-59) U/L ALT 18 (0-50) U/L Alkaline Phosphatase 61 (38-126) U/L Ammonia < 9 L (9-30) umol/L NT-Pro-B Natriuret Pep (<300) pg/mL Serum Total Protein 6.2 L (6.3-8.2) g/dL Albumin 3.5 (3.5-5.0) g/dL Urine Color (Yellow) Urine Appearance (Clear) Urine pH (4.6-8.0) Ur Specific [place] (1.005-1.030) Urine Protein (Negative) Urine Glucose (UA) (Negative) mg/dL Urine Ketones (Negative) Urine Blood (Negative) Urine Nitrite (Negative) Urine Bilirubin (Negative) Urine Urobilinogen (0.2) mg/dL Ur Leukocyte Esterase (Negative) U Hyaline Cast (Auto) (0-2) /LPF Urine Microscopic RBC (0-5) /HPF Urine Microscopic WBC (0-5) /HPF Ur Epithelial Cells (None Seen) /HPF Urine Bacteria (None Seen) /HPF Granular Casts (None Seen) /LPF Urine Culture Reflexed (NO) Monoscreen (NEGATIVE) Influenza Type A Ag (NEGATIVE) Influenza Type B Ag (NEGATIVE) RSV (PCR) (NEGATIVE) SARS-CoV-2 (PCR) (NEGATIVE) Group A Strep Antibody (NEGATIVE) 09/07/23 09/07/23 09/07/23 Range/Units 15:49 15:45 15:36 WBC 15.6 H (4.23-9.07) x10^3/uL RBC 3.76 L (4.63-6.08) x10^6/uL Hgb 9.8 L (13.7-17.5) g/dL Hct 31.3 L (40.1-51.0) % MCV 83.2 (79.0-92.2) fL MCH 26.1 (25.7-32.2) pg MCHC 31.3 L (32.3-36.5) g/dL RDW 14.7 H (11.6-14.4) % Plt Count 171 (163-337) x10^3/uL MPV 9.4 (9.4-12.4) fL Gran % 95.1 H (34.0-67.9) % Immature Gran % (Auto) 0.5 H (0.001-0.429) % Nucleat RBC Rel Count 0.0 (0.00-0.2) % Eos # (Auto) 0 L (0.04-0.54) x10^3/uL Immature Gran # (Auto) 0.08 H (0.001-0.031) x10^3u/L Absolute Lymphs (auto) 0.19 L (1.32-3.57) x10^3/uL Absolute Monos (auto) 0.48 (0.30-0.82) x10^3/uL Absolute Nucleated RBC 0.00 (0.00-0.012) x10^3u/L Lymphocytes % 1.2 L (21.8-53.1) % Monocytes % 3.1 L (5.3-12.2) % Eosinophils % 0.0 L (0.8-7.0) % Basophils % 0.1 L (0.2-1.2) % Absolute Granulocytes 14.80 H (1.78-5.38) x10^3/uL Basophils # 0.02 (0.01-0.08) x10^3/uL PT (9.4-12.5) SECONDS INR (0.8-3.0) pO2/FiO2 Ratio 28.0 % VBG pH 7.49 H (7.32-7.42) VBG pCO2 at Pat Temp 49 (42-55) mm/Hg VBG pO2 at Pat Temp 29 (25-40) mm/Hg VBG HCO3 37.3 H* (22-28) meq/L VBG O2 Sat (Jacob) 51.9 L (95-100) VBG Base Excess 12.4 H (-2.0-2.0) VBG Hemoglobin 10.3 VBG Carboxyhemoglobin 3.5 (0.0-6.9) % T HGB POC Potassium 2.6 L* (3.5-5.1) Sodium (135-145) mmol/L Potassium (3.5-5.1) mmol/L Chloride (98-107) mmol/L Carbon Dioxide (22-30) mmol/L Anion Gap (5-15) MEQ/L BUN (9-20) mg/dL Creatinine (0.66-1.25) mg/dL Estimated GFR ML/MIN Glucose (74-106) mg/dL Lactic Acid (0.4-2.0) Calcium (8.4-10.2) mg/dL Magnesium (1.6-2.3) mg/dL Total Bilirubin (0.2-1.3) mg/dL AST (17-59) U/L ALT (0-50) U/L Alkaline Phosphatase (38-126) U/L Ammonia (9-30) umol/L NT-Pro-B Natriuret Pep 5320 (<300) pg/mL Serum Total Protein (6.3-8.2) g/dL Albumin (3.5-5.0) g/dL Urine Color (Yellow) Urine Appearance (Clear) Urine pH (4.6-8.0) Ur Specific [place] (1.005-1.030) Urine Protein (Negative) Urine Glucose (UA) (Negative) mg/dL Urine Ketones (Negative) Urine Blood (Negative) Urine Nitrite (Negative) Urine Bilirubin (Negative) Urine Urobilinogen (0.2) mg/dL Ur Leukocyte Esterase (Negative) U Hyaline Cast (Auto) (0-2) /LPF Urine Microscopic RBC (0-5) /HPF Urine Microscopic WBC (0-5) /HPF Ur Epithelial Cells (None Seen) /HPF Urine Bacteria (None Seen) /HPF Granular Casts (None Seen) /LPF Urine Culture Reflexed (NO) Monoscreen (NEGATIVE) Influenza Type A Ag (NEGATIVE) Influenza Type B Ag (NEGATIVE) RSV (PCR) (NEGATIVE) SARS-CoV-2 (PCR) (NEGATIVE) Group A Strep Antibody (NEGATIVE) 09/07/23 09/07/23 Range/Units 15:24 15:12 WBC (4.23-9.07) x10^3/uL RBC (4.63-6.08) x10^6/uL Hgb (13.7-17.5) g/dL Hct (40.1-51.0) % MCV (79.0-92.2) fL MCH (25.7-32.2) pg MCHC (32.3-36.5) g/dL RDW (11.6-14.4) % Plt Count (163-337) x10^3/uL MPV (9.4-12.4) fL Gran % (34.0-67.9) % Immature Gran % (Auto) (0.001-0.429) % Nucleat RBC Rel Count (0.00-0.2) % Eos # (Auto) (0.04-0.54) x10^3/uL Immature Gran # (Auto) (0.001-0.031) x10^3u/L Absolute Lymphs (auto) (1.32-3.57) x10^3/uL Absolute Monos (auto) (0.30-0.82) x10^3/uL Absolute Nucleated RBC (0.00-0.012) x10^3u/L Lymphocytes % (21.8-53.1) % Monocytes % (5.3-12.2) % Eosinophils % (0.8-7.0) % Basophils % (0.2-1.2) % Absolute Granulocytes (1.78-5.38) x10^3/uL Basophils # (0.01-0.08) x10^3/uL PT (9.4-12.5) SECONDS INR (0.8-3.0) pO2/FiO2 Ratio % VBG pH (7.32-7.42) VBG pCO2 at Pat Temp (42-55) mm/Hg VBG pO2 at Pat Temp (25-40) mm/Hg VBG HCO3 (22-28) meq/L VBG O2 Sat (Jacob) (95-100) VBG Base Excess (-2.0-2.0) VBG Hemoglobin VBG Carboxyhemoglobin (0.0-6.9) % T HGB POC Potassium (3.5-5.1) Sodium (135-145) mmol/L Potassium (3.5-5.1) mmol/L Chloride (98-107) mmol/L Carbon Dioxide (22-30) mmol/L Anion Gap (5-15) MEQ/L BUN (9-20) mg/dL Creatinine (0.66-1.25) mg/dL Estimated GFR ML/MIN Glucose (74-106) mg/dL Lactic Acid 2.0 (0.4-2.0) Calcium (8.4-10.2) mg/dL Magnesium (1.6-2.3) mg/dL Total Bilirubin (0.2-1.3) mg/dL AST (17-59) U/L ALT (0-50) U/L Alkaline Phosphatase (38-126) U/L Ammonia (9-30) umol/L NT-Pro-B Natriuret Pep (<300) pg/mL Serum Total Protein (6.3-8.2) g/dL Albumin (3.5-5.0) g/dL Urine Color Dark Yellow (Yellow) Urine Appearance Turbid A (Clear) Urine pH 5.5 (4.6-8.0) Ur Specific [place] 1.020 (1.005-1.030) Urine Protein 300 A (Negative) Urine Glucose (UA) Negative (Negative) mg/dL Urine Ketones Trace A (Negative) Urine Blood Large A (Negative) Urine Nitrite Negative (Negative) Urine Bilirubin Small A (Negative) Urine Urobilinogen 1.0 A (0.2) mg/dL Ur Leukocyte Esterase Moderate A (Negative) U Hyaline Cast (Auto) None Seen (0-2) /LPF Urine Microscopic RBC 51-100 A (0-5) /HPF Urine Microscopic WBC 51-100 A (0-5) /HPF Ur Epithelial Cells Rare (None Seen) /HPF Urine Bacteria Moderate A (None Seen) /HPF Granular Casts 3-5 A (None Seen) /LPF Urine Culture Reflexed ORDERED SEPARATELY (NO) Monoscreen (NEGATIVE) Influenza Type A Ag (NEGATIVE) Influenza Type B Ag (NEGATIVE) RSV (PCR) (NEGATIVE) SARS-CoV-2 (PCR) (NEGATIVE) Group A Strep Antibody (NEGATIVE) - Progress Progress: improved, re-examined Progress Note: 09/07/23 15:21 my medical decision making and the assignment of mod complexity to this patients medical issue today is based upon review of pmh, medication list, drug allergy list, hpi and physical findings on exam. w/u includes ct head without, iv, ivf, ua, mag, ammonia, cbc, cmp, abg diff dx includes but not limited to cva, tia, electrolyte abnormality, uti 09/07/23 17:43 i interpreted the patients lab results. pt has hypokalemia, hypomagnesemia, chf, leukocytosis, uti 09/07/23 17:46 cxr interpreted by radiologist. minimal bilat pleural effusions. bilat increased bronchovascular markings. ct head without contrast interpreted by radiologist. no acute intracranial abnormality. volume loss with chronic microvascular changes of the periventricular matter i spoke with telehospitalist dr. jauregui. i reviewed pt hx, cc, and results of our management and work up. there is a possibilty this patient could be discharged to home within a 2 night stay therefore we both agree pt to be placed in obs Discussed with Dr.: Lexie Counseled pt/family regarding: lab results, diagnosis, rad results Medical Desision Making - Independent Historian Additional History obtained from: Half-Way nurse, Embedder/EMT - External Record(s) Reviewed Records reviewed as a part of evaluation & management: Inpatient, [facility] - Discussion of managment Care discussed with:: hospitalist Reviewed:: Test results, Need for additional workup Agreed on:: place in obs Will see patient: in hospital - Diagnostic Testing Diagnostic test were ordered, analyzed, and reviewed by me: Yes Radiological Interpretation: Reviewed by me, Teleradiologist Report - Risk of complications The pt has a high risk of morbidity or mortality based on: Decision regarding hospitilization or escalation of hosp level of care - Departure Departure Disposition: In-patient Admission Clinical Impression: CHF exacerbation, UTI (urinary tract infection), Confusion, Hypokalemia, Hypomagnesemia, Fever Condition: Fair Critical Care Time: No Referrals: ENVIVE,ENVIVE [Primary Care Provider] - Follow up/PCP as directed Instructions: Heart Failure
[2023-09-07] MEDS ORDERED: Sodium Chloride 0.9% 1000 ML 1,000 ML ONE (15:16)
[2023-09-07] MEDS: Sodium Chloride 0.9% 1000 ML 1,000 ML IV SCH (15:20)
--- NOTE | 2023-09-07 15:39 | XRAY ---
CLINICAL HISTORY: altered mental status COMPARISON: 05/22/2023. TECHNIQUE: Axial non-contrast CT scan of the brain was performed from the skull base to the high parietal region. One of the following dose reduction techniques were utilized for this exam: Automated exposure control, adjustment of the mA and/or kV according to patient size, use of iterative reconstruction. CTDI: , DLP: FINDINGS: Brain Parenchyma: Periventricular white matter hypoattenuating areas noted suggesting chronic small vessel ischemic changes. Normal attenuation of the cerebral hemispheres, cerebellum, and brainstem. No evidence of acute infarct, hemorrhage, or mass effect. No abnormal areas of hypo- or hyperattenuation. Ventricular System: Ventricles are enlarged, according to age. No evidence of hydrocephalus or pathological ventricular enlargement. Subarachnoid Spaces: Widened sulci and cisterns. No evidence of subarachnoid hemorrhage or extra-axial fluid collections. Cerebellum and Brainstem: Normal size and signal. No masses, lesions, or areas of abnormal signal. Orbits: Normal appearance of the globes, optic nerves, and extraocular muscles. No evidence of orbital masses or abnormal signals. Sinuses: Clear paranasal sinuses. No evidence of sinusitis or mucosal thickening. Mastoid Air Cells: Clear mastoid air cells. No evidence of mastoiditis. Skull and Meninges: Normal skull morphology. No evidence of meningeal thickening. IMPRESSION: No acute intracranial abnormality is present. Volume loss and chronic microvascular ischemic changes of the periventricular white matter are noted. Early changes of a stroke may not be detected on a CT scan. If strong clinical suspicion of stroke then suggest MRI with diffusion-weighted imaging. [facility] was called at [phone] at 2:30 PM COMMERCIAL ATTORNEY, 09/07/2023 and negative results were verbally communicated to Nurse Douglas. Electronically Signed by: Elio Rm MD. (09/07/2023 15:34:38 EDT)
[2023-09-07 15:46] LABS: VBG BASE EXCESS 12.4 (-2.0-2.0); VBG CARBOXYHEMOGLOBIN 3.5 % T HGB (0.0-6.9); VBG HCO3- 37.3 meq/L (22-28); VBG HEMOGLOBIN 10.3; VBG O2 SATURATION 51.9 (95-100); VBG pH 7.49 (7.32-7.42)
[2023-09-07 15:47] LABS: VBG POTASSIUM 2.6 (3.5-5.1)
[2023-09-07 15:56] LABS: BASOPHIL % 0.1 % (0.2-1.2); Basophil (Absolute #) 0.02 x10^3/uL (0.01-0.08); Eosinophil (Absolute #) 0 x10^3/uL (0.04-0.54); Hematocrit 31.3 % (40.1-51.0); Hemoglobin 9.8 g/dL (13.7-17.5); IMMATURE GRAN # 0.08 x10^3u/L (0.001-0.031); IMMATURE GRAN % 0.5 % (0.001-0.429); Lymphocyte (Absolute #) 0.19 x10^3/uL (1.32-3.57); Lymphocytes % 1.2 % (21.8-53.1); Mean Cell Volume 83.2 fL (79.0-92.2); Mean Corpuscular Hemoglobin 26.1 pg (25.7-32.2); Mean Corpuscular Hgb Concent. 31.3 g/dL (32.3-36.5); Mean Platelet Volume 9.4 fL (9.4-12.4); Monocyte (Absolute #) 0.48 x10^3/uL (0.30-0.82); Monocytes % 3.1 % (5.3-12.2); Neutrophil % 95.1 % (34.0-67.9); Platelet Count 171 x10^3/uL (163-337); Red Blood Count 3.76 x10^6/uL (4.63-6.08); Red Cell Distribution Width 14.7 % (11.6-14.4); White Blood Count 15.6 x10^3/uL (4.23-9.07)
--- NOTE | 2023-09-07 16:05 | XRAY ---
CLINICAL HISTORY: cough COMPARISON: none. TECHNIQUE: CR Chest (1 view) AP view. FINDINGS: Bilateral accentuated broncho-vascular markings with mariam-bronchial thickening and prominent hilar vascular shadows. A few linear atelectatic bands are seen in the left lower zone. No sizable nodules, consolidation, or masses. Blunted left costophrenic angle. Clear right costophrenic angle. No sizable pleural effusion or thickening. Normal cardiac size and shape, normal aortic arch, and no pericardial effusion. Right-sided distal clavicle osteolysis. IMPRESSION: 1. Bilateral accentuated broncho-vascular markings with mariam-bronchial thickening and prominent hilar vascular shadows. 2. A few linear atelectatic bands are seen in the left lower zone. 3. Blunted left costophrenic angle signifying mild pleural thickening/minimal effusions. 4. Right-sided distal clavicle osteolysis. 5. CT chest can be done for further evaluation if clinically needed. Electronically Signed by: Elio Rm MD. (09/07/2023 16:00:54 EDT)
[2023-09-07 16:09] LABS: ALBUMIN 3.5 g/dL (3.5-5.0); ANION GAP 9.2 MEQ/L (5-15); BILIRUBIN,TOTAL 0.9 mg/dL (0.2-1.3); Calcium 7.7 mg/dL (8.4-10.2); Creatinine 1 1.5 mg/dL (0.66-1.25); EST GLOMERULAR FILTRATION RATE 47.7 ML/MIN; MAGNESIUM 1.3 mg/dL (1.6-2.3); Total Protein 6.2 g/dL (6.3-8.2)
[2023-09-07 16:10] LABS: INR 1.05 (0.8-3.0); PROTIME 11.4 SECONDS (9.4-12.5)
[2023-09-07 16:14] LABS: Potassium 2.5 mmol/L (3.5-5.1)
[2023-09-07] MEDS ORDERED: POTASSIUM CHLORIDE 20 mEq IN WATER 100ML 100 ML IV ONE (16:29)
[2023-09-07] MEDS ORDERED: Magnesium 1 Gm / 100 Ml D5W*** 100 ML IV ONE (16:29)
[2023-09-07] MEDS: POTASSIUM CHLORIDE 20 mEq IN WATER 100ML 20 MEQ/100 ML BAG IV ONE (16:30)
[2023-09-07] MEDS: Magnesium 1 Gm / 100 Ml D5W*** 100 ML IV ONE (16:30)
[2023-09-07 16:35] LABS: INFLUENZA A NEGATIVE (NEGATIVE); INFLUENZA B NEGATIVE (NEGATIVE); RESPIRATORY SYNCTIAL VIRUS NEGATIVE (NEGATIVE); SARS-CoV-2 Xpert Express NEGATIVE (NEGATIVE)
[2023-09-07 17:31] LABS: Appearance Turbid (Clear); Bacteria Moderate /HPF (None Seen); Bilirubin Small (Negative); Blood Large (Negative); Epithelial Cells Rare /HPF (None Seen); Glucose, Urine Negative (Negative); Hyaline Casts None Seen /LPF (0-2); Ketones Trace (Negative); Leukocyte Esterase Moderate (Negative); Nitrite Negative (Negative); Ph 5.5 (4.6-8.0); Protein,Urine Dip 300 (Negative); RBC 51-100 /HPF (0-5); WBC 51-100 /HPF (0-5)
[2023-09-07] MEDS ORDERED: TORAdol 30 mg Injection ONE (17:31)
[2023-09-07] MEDS ORDERED: Lasix 40 MG/4 ML ONE (17:31)
[2023-09-07 17:32] LABS: ADD URINE CULTURE? ORDERED SEPARATELY (NO)
[2023-09-07] MEDS: TORAdol 30 mg Injection IV ONE (17:34)
[2023-09-07] MEDS: Lasix 40 MG/4 ML IV ONE (17:34)
[2023-09-07] MEDS ORDERED: TYLENOL 325 MG PO PRN ×2 (18:13→18:51)
[2023-09-07] MEDS ORDERED: IMODIUM 2 MG PO PRN (18:51)
[2023-09-07] MEDS ORDERED: NON-FORMULARY ITEM (Albuterol Sulfate/Budesonide [Airsupra 90-80 Mcg Inhaler] 10.7 GM Hfa. IH PRN (18:51)
--- NOTE | 2023-09-07 19:20 | PCM.HP ---
History of Present Illness - Chief Complaint Chief Complaint: CHF EXACERBATION, FEVER, CONFUSION, UTI, HYPOKALEMIA, HYPOM AGNESEMIA Date: 09/07/23 History of Present Illness: is a 78 year old male resident of [facility] presents to ed by paramedics secondary to confusion. The patient was recently hospitalized here with bilateral pneumonia. The patient was last at his mental baseline last night, but was difficult to awake this morning. The patient has a history of copd oxygen dependent 2 liters nc, dementia, hyperlipidemia, hypothyroid, hypertension, dm and depression. In the ED, the patient was noted to have evidence of CHF exacerbation and a UTI (Ventura was changed and the urine sample reflected urine collected from the new bag). At the time of my evaluation, he is oriented to name and year. He reports dyspnea but denies chest pain or abdominal pain. - Review of Systems Constitutional: No Symptoms Eyes: No Symptoms Ears, Nose, & Throat: No Symptoms Respiratory: Short Of Breath Cardiac: No Symptoms Abdominal/Gastrointestinal: No Symptoms Genitourinary Symptoms: No Symptoms Musculoskeletal: No Symptoms Skin: No Symptoms Neurological: No Symptoms Psychological: No Symptoms Endocrine: No Symptoms Hematologic/Lymphatic: No Symptoms Immunological/Allergic: No Symptoms All Other Systems: Reviewed and Negative Medications & Allergies Home Medications: Home Medication List Amlodipine Besylate [Norvasc] 10 mg PO DAILY 08/20/19 [History Confirmed 09/07/23] Metformin HCl 850 mg [Glucophage 850 MG] 850 mg PO BID 02/27/20 [History Confirmed 09/07/23] Potassium Chloride 40 meq PO DAILY 30 Days #30 tablet 05/24/23 [Rx Confirmed 09/07/23] Tamsulosin HCl 0.4 mg [Flomax 0.4 MG] 0.4 mg PO DAILY cap 05/24/23 [Rx Confirmed 09/07/23] Fluticasone/Salmeterol 230/21* [Advair Hfa 230/21 Mcg MDI] 1 puff IH BID 06/20/23 [History Confirmed 09/07/23] Furosemide 40 mg [Lasix 40 MG] 40 mg PO DAILY 06/20/23 [History Confirmed 09/07/23] Levothyroxine Sodium 100 Mcg [Synthroid 100 Mcg] 200 mcg PO DAILY 06/20/23 [History Confirmed 09/07/23] Sennosides 17.2 mg PO DAILY 06/20/23 [History Confirmed 09/07/23] Ferrous Sulfate 325 mg [Feosol 325 mg] 325 mg PO DAILY 30 Days #30 tablet 06/26/23 [Rx Confirmed 09/07/23] Acetaminophen 650 mg PO Q4HPRN PRN 09/07/23 [History Confirmed 09/07/23] Albuterol Sulfate/Budesonide [Airsupra 90-80 Mcg Inhaler] 2 puff IH Q4HPRN PRN 09/07/23 [History Confirmed 09/07/23] Chlorthalidone 25 mg PO DAILY 09/07/23 [History Confirmed 09/07/23] Glucagon 1 mg [GlucaGen 1 MG] 1 mg SQ UD 09/07/23 [History Confirmed 09/07/23] Loperamide HCl [Imodium A-D] 2 mg PO Q4H PRN PRN 09/07/23 [History Confirmed 09/07/23] Melatonin 10 mg PO QHS 09/07/23 [History Confirmed 09/07/23] Sertraline HCl 50 mg [Zoloft 50 mg Tablet] 50 mg PO DAILY 09/07/23 [History Confirmed 09/07/23] Allergies/Adverse Reactions: Allergies Allergy/AdvReac Type Severity Reaction Status Date / Time codeine Allergy Mild Headache Verified 09/07/23 15:03 morphine Allergy Mild Verified 09/07/23 15:03 - Past Medical History Past Medical History: Yes Neurological History: Dementia ENT History: No Pertinent History Cardiac History: High Cholesterol, Hypertension Respiratory History: COPD Endocrine Medical History: Hypothyroidism, Thyroid Cancer Musculoskelatal History: No Pertinent History GI Medical History: No Pertinent History History: Other Pyscho-Social History: Depression Male Reproductive Disorders: No Pertinent History Comment: 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 , PT UNSURE OF CURRENTS MEDICAL HX, PULLED FROM PAST ADMISSION - Past Surgical History Past Surgical History: Yes Neuro Surgical History: No Pertinent History Cardiac History: No Pertinent History Respiratory Surgery: No Pertinent History GI Surgical History: No Pertinent History Genitourinary Surgical Hx: No Pertinent History Musculskeletal Surgical Hx: Orthopedic Surgery Male Surgical History: No Pertinent History Other Surgical History: thyroid cancer- thyroidectomy. PULLED FROM PAST ADMISSION HISTORY. PT POOR HISTORIAN Significant Family History: no pertinent family hx - Social History Smoking Status: Former smoker Exposure to second hand smoke: No Alcohol: None Drug Use: none - Social Determinants of Health Will the patient participate in the screening: Unable to obtain - Physical Exam Vital Signs: Vital Signs - 24 hr Temp Pulse Resp BP BP Pulse Ox 09/07/23 18:33 100.4 F 108 H 17 93/57 94 L 09/07/23 18:02 123/60 09/07/23 17:31 90/54 09/07/23 17:01 127/63 96 09/07/23 16:31 109/69 95 09/07/23 16:01 117/53 09/07/23 15:31 126/59 09/07/23 15:24 93 L 09/07/23 15:09 97/67 92 L 09/07/23 14:31 100.8 F 93 H 20 104/52 94 L General Appearance: no apparent distress, alert Neurologic Exam: alert, cooperative, budget clerk II-XII nml as tested, normal mood/affect, nml cerebellar function, disoriented (oriented to name and year, but answers questions appropriately. Has baseline dementia) Eye Exam: PERRL/EOMI, eyes nml inspection Ears, Nose, Throat Exam: normal ENT inspection Neck Exam: normal inspection, non-tender, supple, full range of motion Respiratory Exam: normal breath sounds, lungs clear Cardiovascular Exam: regular rate/rhythm, normal heart sounds Gastrointestinal/Abdomen Exam: soft, normal bowel sounds Back Exam: normal range of motion Extremity Exam: normal inspection, normal range of motion Skin Exam: normal color Results - Labs Lab/Micro Results: Lab Results-Last 24 Hours 09/07/23 09/07/23 09/07/23 Range/Units 15:12 15:24 15:36 WBC (4.23-9.07) x10^3/uL RBC (4.63-6.08) x10^6/uL Hgb (13.7-17.5) g/dL Hct (40.1-51.0) % MCV (79.0-92.2) fL MCH (25.7-32.2) pg MCHC (32.3-36.5) g/dL RDW (11.6-14.4) % Plt Count (163-337) x10^3/uL MPV (9.4-12.4) fL Gran % (34.0-67.9) % Immature Gran % (Auto) (0.001-0.429) % Nucleat RBC Rel Count (0.00-0.2) % Eos # (Auto) (0.04-0.54) x10^3/uL Immature Gran # (Auto) (0.001-0.031) x10^3u/L Absolute Lymphs (auto) (1.32-3.57) x10^3/uL Absolute Monos (auto) (0.30-0.82) x10^3/uL Absolute Nucleated RBC (0.00-0.012) x10^3u/L Lymphocytes % (21.8-53.1) % Monocytes % (5.3-12.2) % Eosinophils % (0.8-7.0) % Basophils % (0.2-1.2) % Absolute Granulocytes (1.78-5.38) x10^3/uL Basophils # (0.01-0.08) x10^3/uL PT (9.4-12.5) SECONDS INR (0.8-3.0) pO2/FiO2 Ratio % VBG pH (7.32-7.42) VBG pCO2 at Pat Temp (42-55) mm/Hg VBG pO2 at Pat Temp (25-40) mm/Hg VBG HCO3 (22-28) meq/L VBG O2 Sat (Jacob) (95-100) VBG Base Excess (-2.0-2.0) VBG Hemoglobin VBG Carboxyhemoglobin (0.0-6.9) % T HGB POC Potassium (3.5-5.1) Sodium (135-145) mmol/L Potassium (3.5-5.1) mmol/L Chloride (98-107) mmol/L Carbon Dioxide (22-30) mmol/L Anion Gap (5-15) MEQ/L BUN (9-20) mg/dL Creatinine (0.66-1.25) mg/dL Estimated GFR ML/MIN Glucose (74-106) mg/dL Lactic Acid 2.0 (0.4-2.0) Calcium (8.4-10.2) mg/dL Magnesium (1.6-2.3) mg/dL Total Bilirubin (0.2-1.3) mg/dL AST (17-59) U/L ALT (0-50) U/L Alkaline Phosphatase (38-126) U/L Ammonia (9-30) umol/L NT-Pro-B Natriuret Pep 5320 (<300) pg/mL Serum Total Protein (6.3-8.2) g/dL Albumin (3.5-5.0) g/dL Urine Color Dark Yellow (Yellow) Urine Appearance Turbid A (Clear) Urine pH 5.5 (4.6-8.0) Ur Specific [place] 1.020 (1.005-1.030) Urine Protein 300 A (Negative) Urine Glucose (UA) Negative (Negative) mg/dL Urine Ketones Trace A (Negative) Urine Blood Large A (Negative) Urine Nitrite Negative (Negative) Urine Bilirubin Small A (Negative) Urine Urobilinogen 1.0 A (0.2) mg/dL Ur Leukocyte Esterase Moderate A (Negative) U Hyaline Cast (Auto) None Seen (0-2) /LPF Urine Microscopic RBC 51-100 A (0-5) /HPF Urine Microscopic WBC 51-100 A (0-5) /HPF Ur Epithelial Cells Rare (None Seen) /HPF Urine Bacteria Moderate A (None Seen) /HPF Granular Casts 3-5 A (None Seen) /LPF Urine Culture Reflexed ORDERED SEPARATELY (NO) Monoscreen (NEGATIVE) Influenza Type A Ag (NEGATIVE) Influenza Type B Ag (NEGATIVE) RSV (PCR) (NEGATIVE) SARS-CoV-2 (PCR) (NEGATIVE) Group A Strep Antibody (NEGATIVE) 09/07/23 09/07/23 09/07/23 Range/Units 15:45 15:49 15:49 WBC 15.6 H (4.23-9.07) x10^3/uL RBC 3.76 L (4.63-6.08) x10^6/uL Hgb 9.8 L (13.7-17.5) g/dL Hct 31.3 L (40.1-51.0) % MCV 83.2 (79.0-92.2) fL MCH 26.1 (25.7-32.2) pg MCHC 31.3 L (32.3-36.5) g/dL RDW 14.7 H (11.6-14.4) % Plt Count 171 (163-337) x10^3/uL MPV 9.4 (9.4-12.4) fL Gran % 95.1 H (34.0-67.9) % Immature Gran % (Auto) 0.5 H (0.001-0.429) % Nucleat RBC Rel Count 0.0 (0.00-0.2) % Eos # (Auto) 0 L (0.04-0.54) x10^3/uL Immature Gran # (Auto) 0.08 H (0.001-0.031) x10^3u/L Absolute Lymphs (auto) 0.19 L (1.32-3.57) x10^3/uL Absolute Monos (auto) 0.48 (0.30-0.82) x10^3/uL Absolute Nucleated RBC 0.00 (0.00-0.012) x10^3u/L Lymphocytes % 1.2 L (21.8-53.1) % Monocytes % 3.1 L (5.3-12.2) % Eosinophils % 0.0 L (0.8-7.0) % Basophils % 0.1 L (0.2-1.2) % Absolute Granulocytes 14.80 H (1.78-5.38) x10^3/uL Basophils # 0.02 (0.01-0.08) x10^3/uL PT (9.4-12.5) SECONDS INR (0.8-3.0) pO2/FiO2 Ratio 28.0 % VBG pH 7.49 H (7.32-7.42) VBG pCO2 at Pat Temp 49 (42-55) mm/Hg VBG pO2 at Pat Temp 29 (25-40) mm/Hg VBG HCO3 37.3 H* (22-28) meq/L VBG O2 Sat (Jacob) 51.9 L (95-100) VBG Base Excess 12.4 H (-2.0-2.0) VBG Hemoglobin 10.3 VBG Carboxyhemoglobin 3.5 (0.0-6.9) % T HGB POC Potassium 2.6 L* (3.5-5.1) Sodium 135 (135-145) mmol/L Potassium 2.5 L* (3.5-5.1) mmol/L Chloride 92 L (98-107) mmol/L Carbon Dioxide 37 H (22-30) mmol/L Anion Gap 9.2 (5-15) MEQ/L BUN 28 H (9-20) mg/dL Creatinine 1.50 H (0.66-1.25) mg/dL Estimated GFR 47.7 ML/MIN Glucose 158 H (74-106) mg/dL Lactic Acid (0.4-2.0) Calcium 7.7 L (8.4-10.2) mg/dL Magnesium 1.3 L (1.6-2.3) mg/dL Total Bilirubin 0.90 (0.2-1.3) mg/dL AST 23 (17-59) U/L ALT 18 (0-50) U/L Alkaline Phosphatase 61 (38-126) U/L Ammonia (9-30) umol/L NT-Pro-B Natriuret Pep (<300) pg/mL Serum Total Protein 6.2 L (6.3-8.2) g/dL Albumin 3.5 (3.5-5.0) g/dL Urine Color (Yellow) Urine Appearance (Clear) Urine pH (4.6-8.0) Ur Specific [place] (1.005-1.030) Urine Protein (Negative) Urine Glucose (UA) (Negative) mg/dL Urine Ketones (Negative) Urine Blood (Negative) Urine Nitrite (Negative) Urine Bilirubin (Negative) Urine Urobilinogen (0.2) mg/dL Ur Leukocyte Esterase (Negative) U Hyaline Cast (Auto) (0-2) /LPF Urine Microscopic RBC (0-5) /HPF Urine Microscopic WBC (0-5) /HPF Ur Epithelial Cells (None Seen) /HPF Urine Bacteria (None Seen) /HPF Granular Casts (None Seen) /LPF Urine Culture Reflexed (NO) Monoscreen (NEGATIVE) Influenza Type A Ag (NEGATIVE) Influenza Type B Ag (NEGATIVE) RSV (PCR) (NEGATIVE) SARS-CoV-2 (PCR) (NEGATIVE) Group A Strep Antibody (NEGATIVE) 09/07/23 09/07/23 09/07/23 Range/Units 15:49 15:49 15:49 WBC (4.23-9.07) x10^3/uL RBC (4.63-6.08) x10^6/uL Hgb (13.7-17.5) g/dL Hct (40.1-51.0) % MCV (79.0-92.2) fL MCH (25.7-32.2) pg MCHC (32.3-36.5) g/dL RDW (11.6-14.4) % Plt Count (163-337) x10^3/uL MPV (9.4-12.4) fL Gran % (34.0-67.9) % Immature Gran % (Auto) (0.001-0.429) % Nucleat RBC Rel Count (0.00-0.2) % Eos # (Auto) (0.04-0.54) x10^3/uL Immature Gran # (Auto) (0.001-0.031) x10^3u/L Absolute Lymphs (auto) (1.32-3.57) x10^3/uL Absolute Monos (auto) (0.30-0.82) x10^3/uL Absolute Nucleated RBC (0.00-0.012) x10^3u/L Lymphocytes % (21.8-53.1) % Monocytes % (5.3-12.2) % Eosinophils % (0.8-7.0) % Basophils % (0.2-1.2) % Absolute Granulocytes (1.78-5.38) x10^3/uL Basophils # (0.01-0.08) x10^3/uL PT 11.4 (9.4-12.5) SECONDS INR 1.05 (0.8-3.0) pO2/FiO2 Ratio % VBG pH (7.32-7.42) VBG pCO2 at Pat Temp (42-55) mm/Hg VBG pO2 at Pat Temp (25-40) mm/Hg VBG HCO3 (22-28) meq/L VBG O2 Sat (Jacob) (95-100) VBG Base Excess (-2.0-2.0) VBG Hemoglobin VBG Carboxyhemoglobin (0.0-6.9) % T HGB POC Potassium (3.5-5.1) Sodium (135-145) mmol/L Potassium (3.5-5.1) mmol/L Chloride (98-107) mmol/L Carbon Dioxide (22-30) mmol/L Anion Gap (5-15) MEQ/L BUN (9-20) mg/dL Creatinine (0.66-1.25) mg/dL Estimated GFR ML/MIN Glucose (74-106) mg/dL Lactic Acid (0.4-2.0) Calcium (8.4-10.2) mg/dL Magnesium (1.6-2.3) mg/dL Total Bilirubin (0.2-1.3) mg/dL AST (17-59) U/L ALT (0-50) U/L Alkaline Phosphatase (38-126) U/L Ammonia < 9 L (9-30) umol/L NT-Pro-B Natriuret Pep (<300) pg/mL Serum Total Protein (6.3-8.2) g/dL Albumin (3.5-5.0) g/dL Urine Color (Yellow) Urine Appearance (Clear) Urine pH (4.6-8.0) Ur Specific [place] (1.005-1.030) Urine Protein (Negative) Urine Glucose (UA) (Negative) mg/dL Urine Ketones (Negative) Urine Blood (Negative) Urine Nitrite (Negative) Urine Bilirubin (Negative) Urine Urobilinogen (0.2) mg/dL Ur Leukocyte Esterase (Negative) U Hyaline Cast (Auto) (0-2) /LPF Urine Microscopic RBC (0-5) /HPF Urine Microscopic WBC (0-5) /HPF Ur Epithelial Cells (None Seen) /HPF Urine Bacteria (None Seen) /HPF Granular Casts (None Seen) /LPF Urine Culture Reflexed (NO) Monoscreen NEGATIVE (NEGATIVE) Influenza Type A Ag (NEGATIVE) Influenza Type B Ag (NEGATIVE) RSV (PCR) (NEGATIVE) SARS-CoV-2 (PCR) (NEGATIVE) Group A Strep Antibody (NEGATIVE) 09/07/23 09/07/23 Range/Units 15:50 15:50 WBC (4.23-9.07) x10^3/uL RBC (4.63-6.08) x10^6/uL Hgb (13.7-17.5) g/dL Hct (40.1-51.0) % MCV (79.0-92.2) fL MCH (25.7-32.2) pg MCHC (32.3-36.5) g/dL RDW (11.6-14.4) % Plt Count (163-337) x10^3/uL MPV (9.4-12.4) fL Gran % (34.0-67.9) % Immature Gran % (Auto) (0.001-0.429) % Nucleat RBC Rel Count (0.00-0.2) % Eos # (Auto) (0.04-0.54) x10^3/uL Immature Gran # (Auto) (0.001-0.031) x10^3u/L Absolute Lymphs (auto) (1.32-3.57) x10^3/uL Absolute Monos (auto) (0.30-0.82) x10^3/uL Absolute Nucleated RBC (0.00-0.012) x10^3u/L Lymphocytes % (21.8-53.1) % Monocytes % (5.3-12.2) % Eosinophils % (0.8-7.0) % Basophils % (0.2-1.2) % Absolute Granulocytes (1.78-5.38) x10^3/uL Basophils # (0.01-0.08) x10^3/uL PT (9.4-12.5) SECONDS INR (0.8-3.0) pO2/FiO2 Ratio % VBG pH (7.32-7.42) VBG pCO2 at Pat Temp (42-55) mm/Hg VBG pO2 at Pat Temp (25-40) mm/Hg VBG HCO3 (22-28) meq/L VBG O2 Sat (Jacob) (95-100) VBG Base Excess (-2.0-2.0) VBG Hemoglobin VBG Carboxyhemoglobin (0.0-6.9) % T HGB POC Potassium (3.5-5.1) Sodium (135-145) mmol/L Potassium (3.5-5.1) mmol/L Chloride (98-107) mmol/L Carbon Dioxide (22-30) mmol/L Anion Gap (5-15) MEQ/L BUN (9-20) mg/dL Creatinine (0.66-1.25) mg/dL Estimated GFR ML/MIN Glucose (74-106) mg/dL Lactic Acid (0.4-2.0) Calcium (8.4-10.2) mg/dL Magnesium (1.6-2.3) mg/dL Total Bilirubin (0.2-1.3) mg/dL AST (17-59) U/L ALT (0-50) U/L Alkaline Phosphatase (38-126) U/L Ammonia (9-30) umol/L NT-Pro-B Natriuret Pep (<300) pg/mL Serum Total Protein (6.3-8.2) g/dL Albumin (3.5-5.0) g/dL Urine Color (Yellow) Urine Appearance (Clear) Urine pH (4.6-8.0) Ur Specific [place] (1.005-1.030) Urine Protein (Negative) Urine Glucose (UA) (Negative) mg/dL Urine Ketones (Negative) Urine Blood (Negative) Urine Nitrite (Negative) Urine Bilirubin (Negative) Urine Urobilinogen (0.2) mg/dL Ur Leukocyte Esterase (Negative) U Hyaline Cast (Auto) (0-2) /LPF Urine Microscopic RBC (0-5) /HPF Urine Microscopic WBC (0-5) /HPF Ur Epithelial Cells (None Seen) /HPF Urine Bacteria (None Seen) /HPF Granular Casts (None Seen) /LPF Urine Culture Reflexed (NO) Monoscreen (NEGATIVE) Influenza Type A Ag NEGATIVE (NEGATIVE) Influenza Type B Ag NEGATIVE (NEGATIVE) RSV (PCR) NEGATIVE (NEGATIVE) SARS-CoV-2 (PCR) NEGATIVE (NEGATIVE) Group A Strep Antibody NOT DETECTED (NEGATIVE) - Radiology Impressions Radiology Exams & Impressions: Radiology Procedures Category Date Time Status CHEST 1 VIEW (PORTABLE) Stat Exams 09/07/23 15:13 Completed HEAD WITHOUT CONTRAST [CT] Stat Exams 09/07/23 14:58 Completed - Other Procedures and Tests Respiratory Therapy 09/07/23 18:13 Oxygen Nasal Cannula 2 lpm 09/07/23 18:51 RT Screen per Nursing Assess ONCE Assessment/Plan (1) UTI (urinary tract infection) Current Visit: Yes Status: Acute Assessment & Plan: CAUTI with chronic indwelling Ventura. IV antibiotics. Ventura changed. Follow cultures. Leukocytosis noted. Trend WBC. Code(s): N39.0 - URINARY TRACT INFECTION, SITE NOT SPECIFIED (2) Acute metabolic encephalopathy Current Visit: Yes Status: Acute Assessment & Plan: Likely due to UTI. Mental status improving. Code(s): G93.41 - METABOLIC ENCEPHALOPATHY (3) Acute exacerbation of CHF (congestive heart failure) Current Visit: Yes Status: Acute Assessment & Plan: IV Lasix. Monitor volume status. Recheck BNP in AM. Code(s): I50.9 - HEART FAILURE, UNSPECIFIED (4) Type 2 diabetes mellitus Current Visit: No Status: Chronic Qualifiers: Diabetes mellitus nursing home insulin use: without nursing home use Diabetes mellitus complication status: with circulatory complication Assessment & Plan: Continue metformin. Follow sugars on ISS. Telemedicine Encounter - Telemedicine Encounter Telemedicine Encounter: "The entirety of this encounter was performed via Telemedicine" This visit was performed using real-time audio and video connection between my location and thepatients locationwith the assistance of a surrogateat the patients location. Written or verbal consent was obtained from the patient/guardian to perform this visit using[facility] technology. Any patient questions regarding the telemedicine interaction were answered.
[2023-09-07] MEDS: FLUTICASONE IH SCH (19:28)
[2023-09-07] MEDS: SALMETEROL IH SCH (19:28)
[2023-09-07] MEDS: ROCEPHIN 1 GM / 100 ML NaCl 1 GM/100 ML IVPB IV ONE (19:28)
[2023-09-07] MEDS: W ADAP IH SCH (19:28)
[2023-09-07] MEDS ORDERED: DUONEB 0.5-3 MG/3 ml Neb IH PRN (19:29)
[2023-09-07] MEDS: VENTOLIN COMMON CANISTER IH PRN (19:33)
[2023-09-07] MEDS: Lasix 40 MG/4 ML IV SCH (20:03)
[2023-09-07] MEDS: MELATONIN PO SCH (23:11)
[2023-09-08] MEDS: Glucophage 850 MG PO SCH ×2 (03:59→08:08)
[2023-09-08] MEDS: NON-FORMULARY ITEM (Melatonin [Melatonin] 10 MG Tablet) PO SCH (03:59)
[2023-09-08 06:06] LABS: Absolute Neutrophil Ct (ANC) 6.38 x10^3/uL (1.78-5.38); BASOPHIL % 0.3 % (0.2-1.2); Basophil (Absolute #) 0.02 x10^3/uL (0.01-0.08); Eosinophil % 0.3 % (0.8-7.0); Eosinophil (Absolute #) 0.02 x10^3/uL (0.04-0.54); Hematocrit 29.4 % (40.1-51.0); Hemoglobin 9.5 g/dL (13.7-17.5); IMMATURE GRAN # 0.05 x10^3u/L (0.001-0.031); IMMATURE GRAN % 0.7 % (0.001-0.429); Lymphocyte (Absolute #) 0.37 x10^3/uL (1.32-3.57); Mean Cell Volume 82.6 fL (79.0-92.2); Mean Corpuscular Hemoglobin 26.7 pg (25.7-32.2); Mean Corpuscular Hgb Concent. 32.3 g/dL (32.3-36.5); Mean Platelet Volume 10.2 fL (9.4-12.4); Monocytes % 6.8 % (5.3-12.2); NUCLEATED RBC # 0.02 x10^3u/L (0.00-0.012); NUCLEATED RBC % 0.3 % (0.00-0.2); Neutrophil % 86.9 % (34.0-67.9); Platelet Count 140 x10^3/uL (163-337); Red Blood Count 3.56 x10^6/uL (4.63-6.08); White Blood Count 7.3 x10^3/uL (4.23-9.07)
[2023-09-08 06:38] LABS: ALBUMIN 2.8 g/dL (3.5-5.0); ANION GAP 10.4 MEQ/L (5-15); BILIRUBIN,TOTAL 0.4 mg/dL (0.2-1.3); Calcium 7.2 mg/dL (8.4-10.2); Creatinine 1 1.43 mg/dL (0.66-1.25); EST GLOMERULAR FILTRATION RATE 50.5 ML/MIN; MAGNESIUM 1.6 mg/dL (1.6-2.3); Total Protein 5.1 g/dL (6.3-8.2)
[2023-09-08 06:50] LABS: Potassium 2.5 mmol/L (3.5-5.1)
[2023-09-08] MEDS: Advair Hfa 230/21 Mcg COMMON CANISTER IH SCH (08:08)
[2023-09-08] MEDS: Klor Con PO SCH ×2 (08:21→18:42)
[2023-09-08] MEDS: MAGNESIUM SULF 2 G/50 ML BAG 2 GM/50 ML PIGGYBACK IV ONE (08:30)
[2023-09-08] MEDS ORDERED: MEDICATION INTERVENTION MC SCH (08:30)
[2023-09-08 08:42] LABS: Slide Review 1 YES
[2023-09-08] MEDS: POTASSIUM CHLORIDE 20 mEq IN WATER 100ML 100 ML IV SCH ×2 (09:46→18:43)
[2023-09-08] MEDS: FEOSOL 325 MG PO SCH (09:48)
[2023-09-08] MEDS: SENOKOT 8.6 MG PO SCH (09:48)
[2023-09-08] MEDS: Flomax 0.4 MG PO SCH (09:48)
[2023-09-08] MEDS: Acidophilus TABLET PO SCH (09:48)
[2023-09-08] MEDS: SYNTHROID 100 MCG PO SCH (09:49)
[2023-09-08] MEDS: ZOLOFT 50 MG TABLET PO SCH (09:49)
[2023-09-08] MEDS: NORVASC 5 MG PO SCH (09:49)
[2023-09-08] MEDS: Lasix 40 MG/4 ML IV SCH (09:52)
[2023-09-08] MEDS ORDERED: NON-FORMULARY ITEM (Amlodipine Besylate [Norvasc] 10 MG Tablet) PO SCH (10:00)
[2023-09-08] MEDS: ENOXAPARIN SODIUM SQ SCH (10:00)
[2023-09-08] MEDS ORDERED: CHLORTHALIDONE PO SCH (10:00)
[2023-09-08] MEDS ORDERED: ENOXAPARIN SODIUM SQ SCH (10:00)
[2023-09-08] MEDS: Sodium Chloride 0.9% 1000 ML 1,000 ML IV SCH (12:04)
[2023-09-08 12:24] LABS: ALBUMIN 3.2 g/dL (3.5-5.0); ANION GAP 12.3 MEQ/L (5-15); BILIRUBIN,TOTAL 0.5 mg/dL (0.2-1.3); Calcium 7.3 mg/dL (8.4-10.2); Creatinine 1 1.51 mg/dL (0.66-1.25); EST GLOMERULAR FILTRATION RATE 47.3 ML/MIN; Total Protein 5.8 g/dL (6.3-8.2)
[2023-09-08 12:27] LABS: Potassium 2.5 mmol/L (3.5-5.1)
--- NOTE | 2023-09-08 13:56 | PCM.NOTE ---
Date and Time: 09/08/23 1349 Subjective Assessment: 09/08/23 is a 78 year old male resident of [facility] PMHX of Dementia, hyperlipidemia, HTN, COPD, hypothyroidism, Thyroid Ca, Depression, 1 kidney and chronic obesity. He presented to ER by paramedics secondary to confusion on 09/07/23. The patient was recently hospitalized here with bilateral pneumonia. The patient was last at his mental baseline 09/05, but was difficult to awake on 09/06. In the ED, the patient was noted to have evidence of CHF exacerbation and a UTI ([place] was changed and the urine sample reflected urine collected from the new bag). IV antibiotics started and continued IP. Lasix continued. K+ and Mg+ low and replaced. Will continue to trend. He is alert and oriented today, at his baseline. He denies any concerns other than discomfort where IV is placed. He denies CP, SOB, abd. pain, N/V/D. UC pending. - Review of Systems Constitutional: Weakness, No Fever, No Chills Eyes: No Symptoms Ears, Nose, & Throat: No Symptoms Respiratory: No Cough, No Short Of Breath Cardiac: No Chest Pain, No Edema, No Syncope Abdominal/Gastrointestinal: No Abdominal Pain, No Nausea, No Vomiting, No Diarrhea Genitourinary Symptoms: No Dysuria Musculoskeletal: No Back Pain, No Neck Pain Skin: Dryness, No Rash Neurological: No Dizziness, No Focal Weakness, No Sensory Changes Psychological: No Symptoms Endocrine: No Symptoms Hematologic/Lymphatic: No Symptoms Immunological/Allergic: No Symptoms Objective Exam General Appearance: no apparent distress, alert, obese Neurologic Exam: alert, oriented x 3, cooperative, normal mood/affect, nml cerebellar function, sensation nml, No motor deficits Skin Exam: normal color, warm, dry Eye Exam: PERRL, EOMI, eyes nml inspection Ears, Nose, Throat Exam: normal ENT inspection, pharynx normal, moist mucous membranes Neck Exam: normal inspection, non-tender, supple, full range of motion Respiratory Exam: normal breath sounds, lungs clear, No respiratory distress Cardiovascular Exam: regular rate/rhythm, normal heart sounds Gastrointestinal/Abdomen Exam: soft, No tenderness, No mass Extremity Exam: normal inspection, normal range of motion Back Exam: normal inspection, normal range of motion, No CVA tenderness, No vertebral tenderness Male Genitalia Exam: deferred Rectal Exam: deferred Objective Data Vital Signs: Vital Signs - 24 hr Temp Pulse Resp BP BP Pulse Ox 09/08/23 11:46 97.0 F 79 24 98/52 96 09/08/23 08:09 88 16 96 09/08/23 08:00 97.2 F 82 21 105/53 94 L 09/08/23 04:00 98.9 F 67 18 102/45 96 09/07/23 23:47 98.9 F 94 H 19 102/57 95 09/07/23 19:46 93 H 16 94 L 09/07/23 19:43 94 L 09/07/23 18:57 94 L 09/07/23 18:33 100.4 F 108 H 17 93/57 94 L 09/07/23 18:02 123/60 09/07/23 17:31 90/54 09/07/23 17:01 127/63 96 09/07/23 16:31 109/69 95 09/07/23 16:01 117/53 09/07/23 15:31 126/59 09/07/23 15:24 93 L 09/07/23 15:09 97/67 92 L 09/07/23 14:31 100.8 F 93 H 20 104/52 94 L Pain Assessment - Last Documented Pain Intensity 0 Intake and Output: Intake & Output 09/06/23 09/07/23 09/08/23 09/09/23 11:59 11:59 11:59 11:59 Intake Total 1626 380 Output Total 875 Balance 751 380 Weight 98.4 kg Lab Results: Lab Results-Last 24 Hours 09/07/23 09/07/23 09/07/23 Range/Units 15:12 15:24 15:36 WBC (4.23-9.07) x10^3/uL RBC (4.63-6.08) x10^6/uL Hgb (13.7-17.5) g/dL Hct (40.1-51.0) % MCV (79.0-92.2) fL MCH (25.7-32.2) pg MCHC (32.3-36.5) g/dL RDW (11.6-14.4) % Plt Count (163-337) x10^3/uL MPV (9.4-12.4) fL Gran % (34.0-67.9) % Immature Gran % (Auto) (0.001-0.429) % Nucleat RBC Rel Count (0.00-0.2) % Eos # (Auto) (0.04-0.54) x10^3/uL Immature Gran # (Auto) (0.001-0.031) x10^3u/L Absolute Lymphs (auto) (1.32-3.57) x10^3/uL Absolute Monos (auto) (0.30-0.82) x10^3/uL Absolute Nucleated RBC (0.00-0.012) x10^3u/L Lymphocytes % (21.8-53.1) % Monocytes % (5.3-12.2) % Eosinophils % (0.8-7.0) % Basophils % (0.2-1.2) % Absolute Granulocytes (1.78-5.38) x10^3/uL Basophils # (0.01-0.08) x10^3/uL PT (9.4-12.5) SECONDS INR (0.8-3.0) pO2/FiO2 Ratio % VBG pH (7.32-7.42) VBG pCO2 at Pat Temp (42-55) mm/Hg VBG pO2 at Pat Temp (25-40) mm/Hg VBG HCO3 (22-28) meq/L VBG O2 Sat (Jacob) (95-100) VBG Base Excess (-2.0-2.0) VBG Hemoglobin VBG Carboxyhemoglobin (0.0-6.9) % T HGB POC Potassium (3.5-5.1) Sodium (135-145) mmol/L Potassium (3.5-5.1) mmol/L Chloride (98-107) mmol/L Carbon Dioxide (22-30) mmol/L Anion Gap (5-15) MEQ/L BUN (9-20) mg/dL Creatinine (0.66-1.25) mg/dL Estimated GFR ML/MIN Glucose (74-106) mg/dL POC Glucometer (74 to 106) mg/dL Lactic Acid 2.0 (0.4-2.0) Calcium (8.4-10.2) mg/dL Magnesium (1.6-2.3) mg/dL Total Bilirubin (0.2-1.3) mg/dL AST (17-59) U/L ALT (0-50) U/L Alkaline Phosphatase (38-126) U/L Ammonia (9-30) umol/L NT-Pro-B Natriuret Pep 5320 (<300) pg/mL Serum Total Protein (6.3-8.2) g/dL Albumin (3.5-5.0) g/dL Urine Color Dark Yellow (Yellow) Urine Appearance Turbid A (Clear) Urine pH 5.5 (4.6-8.0) Ur Specific [place] 1.020 (1.005-1.030) Urine Protein 300 A (Negative) Urine Glucose (UA) Negative (Negative) mg/dL Urine Ketones Trace A (Negative) Urine Blood Large A (Negative) Urine Nitrite Negative (Negative) Urine Bilirubin Small A (Negative) Urine Urobilinogen 1.0 A (0.2) mg/dL Ur Leukocyte Esterase Moderate A (Negative) U Hyaline Cast (Auto) None Seen (0-2) /LPF Urine Microscopic RBC 51-100 A (0-5) /HPF Urine Microscopic WBC 51-100 A (0-5) /HPF Ur Epithelial Cells Rare (None Seen) /HPF Urine Bacteria Moderate A (None Seen) /HPF Granular Casts 3-5 A (None Seen) /LPF Urine Culture Reflexed ORDERED SEPARATELY (NO) Monoscreen (NEGATIVE) Influenza Type A Ag (NEGATIVE) Influenza Type B Ag (NEGATIVE) RSV (PCR) (NEGATIVE) SARS-CoV-2 (PCR) (NEGATIVE) Group A Strep Antibody (NEGATIVE) Slides for Path Review 09/07/23 09/07/23 09/07/23 Range/Units 15:45 15:49 15:49 WBC 15.6 H (4.23-9.07) x10^3/uL RBC 3.76 L (4.63-6.08) x10^6/uL Hgb 9.8 L (13.7-17.5) g/dL Hct 31.3 L (40.1-51.0) % MCV 83.2 (79.0-92.2) fL MCH 26.1 (25.7-32.2) pg MCHC 31.3 L (32.3-36.5) g/dL RDW 14.7 H (11.6-14.4) % Plt Count 171 (163-337) x10^3/uL MPV 9.4 (9.4-12.4) fL Gran % 95.1 H (34.0-67.9) % Immature Gran % (Auto) 0.5 H (0.001-0.429) % Nucleat RBC Rel Count 0.0 (0.00-0.2) % Eos # (Auto) 0 L (0.04-0.54) x10^3/uL Immature Gran # (Auto) 0.08 H (0.001-0.031) x10^3u/L Absolute Lymphs (auto) 0.19 L (1.32-3.57) x10^3/uL Absolute Monos (auto) 0.48 (0.30-0.82) x10^3/uL Absolute Nucleated RBC 0.00 (0.00-0.012) x10^3u/L Lymphocytes % 1.2 L (21.8-53.1) % Monocytes % 3.1 L (5.3-12.2) % Eosinophils % 0.0 L (0.8-7.0) % Basophils % 0.1 L (0.2-1.2) % Absolute Granulocytes 14.80 H (1.78-5.38) x10^3/uL Basophils # 0.02 (0.01-0.08) x10^3/uL PT (9.4-12.5) SECONDS INR (0.8-3.0) pO2/FiO2 Ratio 28.0 % VBG pH 7.49 H (7.32-7.42) VBG pCO2 at Pat Temp 49 (42-55) mm/Hg VBG pO2 at Pat Temp 29 (25-40) mm/Hg VBG HCO3 37.3 H* (22-28) meq/L VBG O2 Sat (Jacob) 51.9 L (95-100) VBG Base Excess 12.4 H (-2.0-2.0) VBG Hemoglobin 10.3 VBG Carboxyhemoglobin 3.5 (0.0-6.9) % T HGB POC Potassium 2.6 L* (3.5-5.1) Sodium 135 (135-145) mmol/L Potassium 2.5 L* (3.5-5.1) mmol/L Chloride 92 L (98-107) mmol/L Carbon Dioxide 37 H (22-30) mmol/L Anion Gap 9.2 (5-15) MEQ/L BUN 28 H (9-20) mg/dL Creatinine 1.50 H (0.66-1.25) mg/dL Estimated GFR 47.7 ML/MIN Glucose 158 H (74-106) mg/dL POC Glucometer (74 to 106) mg/dL Lactic Acid (0.4-2.0) Calcium 7.7 L (8.4-10.2) mg/dL Magnesium 1.3 L (1.6-2.3) mg/dL Total Bilirubin 0.90 (0.2-1.3) mg/dL AST 23 (17-59) U/L ALT 18 (0-50) U/L Alkaline Phosphatase 61 (38-126) U/L Ammonia (9-30) umol/L NT-Pro-B Natriuret Pep (<300) pg/mL Serum Total Protein 6.2 L (6.3-8.2) g/dL Albumin 3.5 (3.5-5.0) g/dL Urine Color (Yellow) Urine Appearance (Clear) Urine pH (4.6-8.0) Ur Specific [place] (1.005-1.030) Urine Protein (Negative) Urine Glucose (UA) (Negative) mg/dL Urine Ketones (Negative) Urine Blood (Negative) Urine Nitrite (Negative) Urine Bilirubin (Negative) Urine Urobilinogen (0.2) mg/dL Ur Leukocyte Esterase (Negative) U Hyaline Cast (Auto) (0-2) /LPF Urine Microscopic RBC (0-5) /HPF Urine Microscopic WBC (0-5) /HPF Ur Epithelial Cells (None Seen) /HPF Urine Bacteria (None Seen) /HPF Granular Casts (None Seen) /LPF Urine Culture Reflexed (NO) Monoscreen (NEGATIVE) Influenza Type A Ag (NEGATIVE) Influenza Type B Ag (NEGATIVE) RSV (PCR) (NEGATIVE) SARS-CoV-2 (PCR) (NEGATIVE) Group A Strep Antibody (NEGATIVE) Slides for Path Review 09/07/23 09/07/23 09/07/23 Range/Units 15:49 15:49 15:49 WBC (4.23-9.07) x10^3/uL RBC (4.63-6.08) x10^6/uL Hgb (13.7-17.5) g/dL Hct (40.1-51.0) % MCV (79.0-92.2) fL MCH (25.7-32.2) pg MCHC (32.3-36.5) g/dL RDW (11.6-14.4) % Plt Count (163-337) x10^3/uL MPV (9.4-12.4) fL Gran % (34.0-67.9) % Immature Gran % (Auto) (0.001-0.429) % Nucleat RBC Rel Count (0.00-0.2) % Eos # (Auto) (0.04-0.54) x10^3/uL Immature Gran # (Auto) (0.001-0.031) x10^3u/L Absolute Lymphs (auto) (1.32-3.57) x10^3/uL Absolute Monos (auto) (0.30-0.82) x10^3/uL Absolute Nucleated RBC (0.00-0.012) x10^3u/L Lymphocytes % (21.8-53.1) % Monocytes % (5.3-12.2) % Eosinophils % (0.8-7.0) % Basophils % (0.2-1.2) % Absolute Granulocytes (1.78-5.38) x10^3/uL Basophils # (0.01-0.08) x10^3/uL PT 11.4 (9.4-12.5) SECONDS INR 1.05 (0.8-3.0) pO2/FiO2 Ratio % VBG pH (7.32-7.42) VBG pCO2 at Pat Temp (42-55) mm/Hg VBG pO2 at Pat Temp (25-40) mm/Hg VBG HCO3 (22-28) meq/L VBG O2 Sat (Jacob) (95-100) VBG Base Excess (-2.0-2.0) VBG Hemoglobin VBG Carboxyhemoglobin (0.0-6.9) % T HGB POC Potassium (3.5-5.1) Sodium (135-145) mmol/L Potassium (3.5-5.1) mmol/L Chloride (98-107) mmol/L Carbon Dioxide (22-30) mmol/L Anion Gap (5-15) MEQ/L BUN (9-20) mg/dL Creatinine (0.66-1.25) mg/dL Estimated GFR ML/MIN Glucose (74-106) mg/dL POC Glucometer (74 to 106) mg/dL Lactic Acid (0.4-2.0) Calcium (8.4-10.2) mg/dL Magnesium (1.6-2.3) mg/dL Total Bilirubin (0.2-1.3) mg/dL AST (17-59) U/L ALT (0-50) U/L Alkaline Phosphatase (38-126) U/L Ammonia < 9 L (9-30) umol/L NT-Pro-B Natriuret Pep (<300) pg/mL Serum Total Protein (6.3-8.2) g/dL Albumin (3.5-5.0) g/dL Urine Color (Yellow) Urine Appearance (Clear) Urine pH (4.6-8.0) Ur Specific [place] (1.005-1.030) Urine Protein (Negative) Urine Glucose (UA) (Negative) mg/dL Urine Ketones (Negative) Urine Blood (Negative) Urine Nitrite (Negative) Urine Bilirubin (Negative) Urine Urobilinogen (0.2) mg/dL Ur Leukocyte Esterase (Negative) U Hyaline Cast (Auto) (0-2) /LPF Urine Microscopic RBC (0-5) /HPF Urine Microscopic WBC (0-5) /HPF Ur Epithelial Cells (None Seen) /HPF Urine Bacteria (None Seen) /HPF Granular Casts (None Seen) /LPF Urine Culture Reflexed (NO) Monoscreen NEGATIVE (NEGATIVE) Influenza Type A Ag (NEGATIVE) Influenza Type B Ag (NEGATIVE) RSV (PCR) (NEGATIVE) SARS-CoV-2 (PCR) (NEGATIVE) Group A Strep Antibody (NEGATIVE) Slides for Path Review 09/07/23 09/07/23 09/07/23 Range/Units 15:50 15:50 21:18 WBC (4.23-9.07) x10^3/uL RBC (4.63-6.08) x10^6/uL Hgb (13.7-17.5) g/dL Hct (40.1-51.0) % MCV (79.0-92.2) fL MCH (25.7-32.2) pg MCHC (32.3-36.5) g/dL RDW (11.6-14.4) % Plt Count (163-337) x10^3/uL MPV (9.4-12.4) fL Gran % (34.0-67.9) % Immature Gran % (Auto) (0.001-0.429) % Nucleat RBC Rel Count (0.00-0.2) % Eos # (Auto) (0.04-0.54) x10^3/uL Immature Gran # (Auto) (0.001-0.031) x10^3u/L Absolute Lymphs (auto) (1.32-3.57) x10^3/uL Absolute Monos (auto) (0.30-0.82) x10^3/uL Absolute Nucleated RBC (0.00-0.012) x10^3u/L Lymphocytes % (21.8-53.1) % Monocytes % (5.3-12.2) % Eosinophils % (0.8-7.0) % Basophils % (0.2-1.2) % Absolute Granulocytes (1.78-5.38) x10^3/uL Basophils # (0.01-0.08) x10^3/uL PT (9.4-12.5) SECONDS INR (0.8-3.0) pO2/FiO2 Ratio % VBG pH (7.32-7.42) VBG pCO2 at Pat Temp (42-55) mm/Hg VBG pO2 at Pat Temp (25-40) mm/Hg VBG HCO3 (22-28) meq/L VBG O2 Sat (Jacob) (95-100) VBG Base Excess (-2.0-2.0) VBG Hemoglobin VBG Carboxyhemoglobin (0.0-6.9) % T HGB POC Potassium (3.5-5.1) Sodium (135-145) mmol/L Potassium (3.5-5.1) mmol/L Chloride (98-107) mmol/L Carbon Dioxide (22-30) mmol/L Anion Gap (5-15) MEQ/L BUN (9-20) mg/dL Creatinine (0.66-1.25) mg/dL Estimated GFR ML/MIN Glucose (74-106) mg/dL POC Glucometer 169 H (74 to 106) mg/dL Lactic Acid (0.4-2.0) Calcium (8.4-10.2) mg/dL Magnesium (1.6-2.3) mg/dL Total Bilirubin (0.2-1.3) mg/dL AST (17-59) U/L ALT (0-50) U/L Alkaline Phosphatase (38-126) U/L Ammonia (9-30) umol/L NT-Pro-B Natriuret Pep (<300) pg/mL Serum Total Protein (6.3-8.2) g/dL Albumin (3.5-5.0) g/dL Urine Color (Yellow) Urine Appearance (Clear) Urine pH (4.6-8.0) Ur Specific [place] (1.005-1.030) Urine Protein (Negative) Urine Glucose (UA) (Negative) mg/dL Urine Ketones (Negative) Urine Blood (Negative) Urine Nitrite (Negative) Urine Bilirubin (Negative) Urine Urobilinogen (0.2) mg/dL Ur Leukocyte Esterase (Negative) U Hyaline Cast (Auto) (0-2) /LPF Urine Microscopic RBC (0-5) /HPF Urine Microscopic WBC (0-5) /HPF Ur Epithelial Cells (None Seen) /HPF Urine Bacteria (None Seen) /HPF Granular Casts (None Seen) /LPF Urine Culture Reflexed (NO) Monoscreen (NEGATIVE) Influenza Type A Ag NEGATIVE (NEGATIVE) Influenza Type B Ag NEGATIVE (NEGATIVE) RSV (PCR) NEGATIVE (NEGATIVE) SARS-CoV-2 (PCR) NEGATIVE (NEGATIVE) Group A Strep Antibody NOT DETECTED (NEGATIVE) Slides for Path Review 09/08/23 09/08/23 09/08/23 Range/Units 05:30 05:30 06:51 WBC 7.3 (4.23-9.07) x10^3/uL RBC 3.56 L (4.63-6.08) x10^6/uL Hgb 9.5 L (13.7-17.5) g/dL Hct 29.4 L (40.1-51.0) % MCV 82.6 (79.0-92.2) fL MCH 26.7 (25.7-32.2) pg MCHC 32.3 (32.3-36.5) g/dL RDW 15.0 H (11.6-14.4) % Plt Count 140 L (163-337) x10^3/uL MPV 10.2 (9.4-12.4) fL Gran % 86.9 H (34.0-67.9) % Immature Gran % (Auto) 0.7 H (0.001-0.429) % Nucleat RBC Rel Count 0.3 H (0.00-0.2) % Eos # (Auto) 0.02 L (0.04-0.54) x10^3/uL Immature Gran # (Auto) 0.05 H (0.001-0.031) x10^3u/L Absolute Lymphs (auto) 0.37 L (1.32-3.57) x10^3/uL Absolute Monos (auto) 0.50 (0.30-0.82) x10^3/uL Absolute Nucleated RBC 0.02 H (0.00-0.012) x10^3u/L Lymphocytes % 5.0 L (21.8-53.1) % Monocytes % 6.8 (5.3-12.2) % Eosinophils % 0.3 L (0.8-7.0) % Basophils % 0.3 (0.2-1.2) % Absolute Granulocytes 6.38 H (1.78-5.38) x10^3/uL Basophils # 0.02 (0.01-0.08) x10^3/uL PT (9.4-12.5) SECONDS INR (0.8-3.0) pO2/FiO2 Ratio % VBG pH (7.32-7.42) VBG pCO2 at Pat Temp (42-55) mm/Hg VBG pO2 at Pat Temp (25-40) mm/Hg VBG HCO3 (22-28) meq/L VBG O2 Sat (Jacob) (95-100) VBG Base Excess (-2.0-2.0) VBG Hemoglobin VBG Carboxyhemoglobin (0.0-6.9) % T HGB POC Potassium (3.5-5.1) Sodium 137 (135-145) mmol/L Potassium 2.5 L* (3.5-5.1) mmol/L Chloride 93 L (98-107) mmol/L Carbon Dioxide 36 H (22-30) mmol/L Anion Gap 10.4 (5-15) MEQ/L BUN 35 H (9-20) mg/dL Creatinine 1.43 H (0.66-1.25) mg/dL Estimated GFR 50.5 ML/MIN Glucose 152 H (74-106) mg/dL POC Glucometer (74 to 106) mg/dL Lactic Acid (0.4-2.0) Calcium 7.2 L (8.4-10.2) mg/dL Magnesium 1.6 1.5 L (1.6-2.3) mg/dL Total Bilirubin 0.40 (0.2-1.3) mg/dL AST 27 (17-59) U/L ALT 16 (0-50) U/L Alkaline Phosphatase 64 (38-126) U/L Ammonia (9-30) umol/L NT-Pro-B Natriuret Pep 5750 (<300) pg/mL Serum Total Protein 5.1 L (6.3-8.2) g/dL Albumin 2.8 L (3.5-5.0) g/dL Urine Color (Yellow) Urine Appearance (Clear) Urine pH (4.6-8.0) Ur Specific [place] (1.005-1.030) Urine Protein (Negative) Urine Glucose (UA) (Negative) mg/dL Urine Ketones (Negative) Urine Blood (Negative) Urine Nitrite (Negative) Urine Bilirubin (Negative) Urine Urobilinogen (0.2) mg/dL Ur Leukocyte Esterase (Negative) U Hyaline Cast (Auto) (0-2) /LPF Urine Microscopic RBC (0-5) /HPF Urine Microscopic WBC (0-5) /HPF Ur Epithelial Cells (None Seen) /HPF Urine Bacteria (None Seen) /HPF Granular Casts (None Seen) /LPF Urine Culture Reflexed (NO) Monoscreen (NEGATIVE) Influenza Type A Ag (NEGATIVE) Influenza Type B Ag (NEGATIVE) RSV (PCR) (NEGATIVE) SARS-CoV-2 (PCR) (NEGATIVE) Group A Strep Antibody (NEGATIVE) Slides for Path Review YES 07/20/24 07/20/24 07/20/24 Range/Units 07:08 11:17 12:05 WBC (4.23-9.07) x10^3/uL RBC (4.63-6.08) x10^6/uL Hgb (13.7-17.5) g/dL Hct (40.1-51.0) % MCV (79.0-92.2) fL MCH (25.7-32.2) pg MCHC (32.3-36.5) g/dL RDW (11.6-14.4) % Plt Count (163-337) x10^3/uL MPV (9.4-12.4) fL Gran % (34.0-67.9) % Immature Gran % (Auto) (0.001-0.429) % Nucleat RBC Rel Count (0.00-0.2) % Eos # (Auto) (0.04-0.54) x10^3/uL Immature Gran # (Auto) (0.001-0.031) x10^3u/L Absolute Lymphs (auto) (1.32-3.57) x10^3/uL Absolute Monos (auto) (0.30-0.82) x10^3/uL Absolute Nucleated RBC (0.00-0.012) x10^3u/L Lymphocytes % (21.8-53.1) % Monocytes % (5.3-12.2) % Eosinophils % (0.8-7.0) % Basophils % (0.2-1.2) % Absolute Granulocytes (1.78-5.38) x10^3/uL Basophils # (0.01-0.08) x10^3/uL PT (9.4-12.5) SECONDS INR (0.8-3.0) pO2/FiO2 Ratio % VBG pH (7.32-7.42) VBG pCO2 at Pat Temp (42-55) mm/Hg VBG pO2 at Pat Temp (25-40) mm/Hg VBG HCO3 (22-28) meq/L VBG O2 Sat (Jacob) (95-100) VBG Base Excess (-2.0-2.0) VBG Hemoglobin VBG Carboxyhemoglobin (0.0-6.9) % T HGB POC Potassium (3.5-5.1) Sodium 139 (135-145) mmol/L Potassium 2.5 L* (3.5-5.1) mmol/L Chloride 94 L (98-107) mmol/L Carbon Dioxide 35 H (22-30) mmol/L Anion Gap 12.3 (5-15) MEQ/L BUN 37 H (9-20) mg/dL Creatinine 1.51 H (0.66-1.25) mg/dL Estimated GFR 47.3 ML/MIN Glucose 201 H (74-106) mg/dL POC Glucometer 131 H 196 H (74 to 106) mg/dL Lactic Acid (0.4-2.0) Calcium 7.3 L (8.4-10.2) mg/dL Magnesium (1.6-2.3) mg/dL Total Bilirubin 0.50 (0.2-1.3) mg/dL AST 33 (17-59) U/L ALT 26 (0-50) U/L Alkaline Phosphatase 71 (38-126) U/L Ammonia (9-30) umol/L NT-Pro-B Natriuret Pep (<300) pg/mL Serum Total Protein 5.8 L (6.3-8.2) g/dL Albumin 3.2 L (3.5-5.0) g/dL Urine Color (Yellow) Urine Appearance (Clear) Urine pH (4.6-8.0) Ur Specific [place] (1.005-1.030) Urine Protein (Negative) Urine Glucose (UA) (Negative) mg/dL Urine Ketones (Negative) Urine Blood (Negative) Urine Nitrite (Negative) Urine Bilirubin (Negative) Urine Urobilinogen (0.2) mg/dL Ur Leukocyte Esterase (Negative) U Hyaline Cast (Auto) (0-2) /LPF Urine Microscopic RBC (0-5) /HPF Urine Microscopic WBC (0-5) /HPF Ur Epithelial Cells (None Seen) /HPF Urine Bacteria (None Seen) /HPF Granular Casts (None Seen) /LPF Urine Culture Reflexed (NO) Monoscreen (NEGATIVE) Influenza Type A Ag (NEGATIVE) Influenza Type B Ag (NEGATIVE) RSV (PCR) (NEGATIVE) SARS-CoV-2 (PCR) (NEGATIVE) Group A Strep Antibody (NEGATIVE) Slides for Path Review Radiology Exams: Radiology Procedures Category Date Time Status CHEST 1 VIEW (PORTABLE) Stat Exams 09/07/23 15:13 Completed HEAD WITHOUT CONTRAST [CT] Stat Exams 09/07/23 14:58 Completed Multi-Disciplinary Progress Notes: Multi-Disciplinary Progress Notes 09/08/23 10:57 Physical Therapy Note by Tay(L#[id number])Cande CHART SCREEN COMPLETE. PT. HAS BEEN ABLE TO TRANSFER [place]/ [place] [facility] [place].M. POTASSIUM LEVELS LOW FOR P.T. INTERVENTION TODAY. 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 Initialized on 09/08/23 10:57 - END OF NOTE Assessment/Plan (1) Complicated UTI (urinary tract infection) Current Visit: Yes Status: Acute Assessment & Plan: - UA pending - [place] replaced - Ceftriaxone IV - gram negative- sensitivity pending - NS @ 50 ml/hr Code(s): N39.0 - URINARY TRACT INFECTION, SITE NOT SPECIFIED (2) Acute kidney failure Current Visit: Yes Status: Acute Assessment & Plan: - Creat 1.43- baseline 1.04- normal - Monitor - 2:2 UTI (3) CHF exacerbation Current Visit: Yes Status: Acute Assessment & Plan: - IV Lasix. - Monitor volume status. - BNP 5750 Code(s): I50.9 - HEART FAILURE, UNSPECIFIED (4) Confusion Current Visit: Yes Status: Acute Assessment & Plan: - 2:2 UTI - resolved - at baseline Code(s): R41.0 - DISORIENTATION, UNSPECIFIED (5) Hypokalemia Current Visit: Yes Status: Acute Assessment & Plan: - K+ 2.5 replaced- trend - Tele Code(s): E87.6 - HYPOKALEMIA (6) Hypomagnesemia Current Visit: Yes Status: Acute Assessment & Plan: - Mg+ 1.5- replaced- trend - tele Code(s): E83.42 - HYPOMAGNESEMIA (7) Hypertension Current Visit: No Status: Chronic Assessment & Plan: - Controlled - Continue home meds Code(s): I10 - ESSENTIAL (PRIMARY) HYPERTENSION (8) Obesity (BMI 30-39.9) Current Visit: No Status: Chronic Assessment & Plan: - BMI 31.9 - advised ADA diet and exercise control Code(s): E66.9 - OBESITY, UNSPECIFIED (9) Type 2 diabetes mellitus Current Visit: No Status: Chronic Qualifiers: 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
[2023-09-08] MEDS: HUMULIN R SQ PRN (16:45)
[2023-09-08] MEDS: Zofran 4 MG/2 ML VIAL IV PRN (20:32)
[2023-09-08] MEDS: ROCEPHIN 1 GM / 100 ML NaCl 1 GM/100 ML IVPB IV SCH (22:51)
[2023-09-09 00:45] LABS: MAGNESIUM 1.5 mg/dL (1.6-2.3); Potassium 3.1 mmol/L (3.5-5.1)
[2023-09-09 06:10] LABS: Hematocrit 29.5 % (40.1-51.0); Mean Cell Volume 84.3 fL (79.0-92.2); Mean Corpuscular Hemoglobin 25.7 pg (25.7-32.2); Mean Corpuscular Hgb Concent. 30.5 g/dL (32.3-36.5); Mean Platelet Volume 10.2 fL (9.4-12.4); Platelet Count 146 x10^3/uL (163-337); Red Cell Distribution Width 14.8 % (11.6-14.4)
[2023-09-09 06:27] LABS: ALBUMIN 3.2 g/dL (3.5-5.0); ANION GAP 9.3 MEQ/L (5-15); BILIRUBIN,TOTAL 0.4 mg/dL (0.2-1.3); Calcium 7.5 mg/dL (8.4-10.2); Creatinine 1 1.26 mg/dL (0.66-1.25); EST GLOMERULAR FILTRATION RATE 58.7 ML/MIN; Total Protein 5.8 g/dL (6.3-8.2)
[2023-09-09] MEDS: K-LYTE PO SCH (08:51)
[2023-09-09] MEDS: MAGNESIUM SULF 2 G/50 ML BAG 2 GM/50 ML PIGGYBACK IV ONE (08:53)
[2023-09-09] MEDS: Klor Con PO SCH (08:56)
[2023-09-09] MEDS ORDERED: NON-FORMULARY ITEM (Potassium Chloride [Potassium Chloride] 20 MEQ Tab.Er.Prt) PO SCH (10:00)
[2023-09-09 11:54] VITALS: BP 111/55; PULSE 84; RESP 16; TEMP 97.8; O2SAT 95
[2023-09-09 12:24] LABS: MAGNESIUM 1.9 mg/dL (1.6-2.3); Potassium 3.7 mmol/L (3.5-5.1)
--- NOTE | 2023-09-09 12:42 | PCM.DS ---
Discharge Summary Date of Admission: 09/07/23 18:11 Date of Discharge: 09/09/23 Admitting Physician: LOUIE ARREAGA MD Consults: Consults on Case 09/07/23 18:57 Nutritional Consult ROUTINE Primary Care Provider: ENVIVE Allergies Allergies codeine Allergy (Mild, Verified 09/07/23 15:03) Headache morphine Allergy (Mild, Verified 09/07/23 15:03) Hospital Summary - Hospital Course Hospital Course: 09/08/23 is a 78 year old male resident of [facility] PMHX of Dementia, hyperlipidemia, HTN, COPD, hypothyroidism, Thyroid Ca, Depression, 1 kidney and chronic obesity. He presented to ER by paramedics secondary to confusion on 09/07/23. The patient was recently hospitalized here with bilateral pneumonia. The patient was last at his mental baseline 09/05, but was difficult to awake on 09/06. In the ED, the patient was noted to have evidence of CHF exacerbation and a UTI (Ventura was changed and the urine sample reflected urine collected from the new bag). IV antibiotics started and continued IP. Lasix continued. K+ and Mg+ low and replaced. Will continue to trend. He is alert and oriented today, at his baseline. He denies any concerns other than discomfort where IV is placed. He denies CP, SOB, abd. pain, N/V/D. UC pending. 09/09/23 Pt is sitting up in the chair. He is feeling better today and Labs Corrected. Will continue K+ replacement Op. Will also continue antibiotics for complicated UTI. UC shows Klebsiella Pneumoniae. He denies CP, SOB, abd. pain, N/V/D. - Vitals & Intake/Output Vital Signs: Vital Signs Temperature 97.8 F 09/09/23 11:53 Pulse Rate 84 09/09/23 11:53 Respiratory Rate 16 09/09/23 11:53 Blood Pressure 111/55 09/09/23 11:53 O2 Sat by Pulse Oximetry 95 09/09/23 11:53 Intake & Output: Intake & Output 09/07/23 09/08/23 09/09/23 09/10/23 11:59 11:59 11:59 11:59 Intake Total 1626 3678 Output Total 254 4195 Balance 751 -517 Weight 98.4 kg - Lab Result Diagrams: 09/09/23 05:39 09/09/23 12:09 Lab Results-Last 24 Hrs: Lab Results-Last 24 Hours 09/08/23 09/08/23 09/08/23 Range/Units 16:10 18:04 20:49 WBC (4.23-9.07) x10^3/uL RBC (4.63-6.08) x10^6/uL Hgb (13.7-17.5) g/dL Hct (40.1-51.0) % MCV (79.0-92.2) fL MCH (25.7-32.2) pg MCHC (32.3-36.5) g/dL RDW (11.6-14.4) % Plt Count (163-337) x10^3/uL MPV (9.4-12.4) fL Sodium (135-145) mmol/L Potassium 2.7 L* (3.5-5.1) mmol/L Chloride (98-107) mmol/L Carbon Dioxide (22-30) mmol/L Anion Gap (5-15) MEQ/L BUN (9-20) mg/dL Creatinine (0.66-1.25) mg/dL Estimated GFR ML/MIN Glucose (74-106) mg/dL POC Glucometer 178 H 139 H (74 to 106) mg/dL Calcium (8.4-10.2) mg/dL Magnesium (1.6-2.3) mg/dL Total Bilirubin (0.2-1.3) mg/dL AST (17-59) U/L ALT (0-50) U/L Alkaline Phosphatase (38-126) U/L Serum Total Protein (6.3-8.2) g/dL Albumin (3.5-5.0) g/dL 09/09/23 09/09/23 09/09/23 Range/Units 00:31 05:39 05:39 WBC 5.0 (4.23-9.07) x10^3/uL RBC 3.50 L (4.63-6.08) x10^6/uL Hgb 9.0 L (13.7-17.5) g/dL Hct 29.5 L (40.1-51.0) % MCV 84.3 (79.0-92.2) fL MCH 25.7 (25.7-32.2) pg MCHC 30.5 L (32.3-36.5) g/dL RDW 14.8 H (11.6-14.4) % Plt Count 146 L (163-337) x10^3/uL MPV 10.2 (9.4-12.4) fL Sodium (135-145) mmol/L Potassium 3.1 L (3.5-5.1) mmol/L Chloride (98-107) mmol/L Carbon Dioxide (22-30) mmol/L Anion Gap (5-15) MEQ/L BUN (9-20) mg/dL Creatinine (0.66-1.25) mg/dL Estimated GFR ML/MIN Glucose (74-106) mg/dL POC Glucometer (74 to 106) mg/dL Calcium (8.4-10.2) mg/dL Magnesium 1.5 L 1.5 L (1.6-2.3) mg/dL Total Bilirubin (0.2-1.3) mg/dL AST (17-59) U/L ALT (0-50) U/L Alkaline Phosphatase (38-126) U/L Serum Total Protein (6.3-8.2) g/dL Albumin (3.5-5.0) g/dL 09/09/23 09/09/23 09/09/23 Range/Units 05:39 07:14 11:12 WBC (4.23-9.07) x10^3/uL RBC (4.63-6.08) x10^6/uL Hgb (13.7-17.5) g/dL Hct (40.1-51.0) % MCV (79.0-92.2) fL MCH (25.7-32.2) pg MCHC (32.3-36.5) g/dL RDW (11.6-14.4) % Plt Count (163-337) x10^3/uL MPV (9.4-12.4) fL Sodium 138 (135-145) mmol/L Potassium 3.0 L* (3.5-5.1) mmol/L Chloride 96 L (98-107) mmol/L Carbon Dioxide 36 H (22-30) mmol/L Anion Gap 9.3 (5-15) MEQ/L BUN 36 H (9-20) mg/dL Creatinine 1.26 H (0.66-1.25) mg/dL Estimated GFR 58.7 ML/MIN Glucose 137 H (74-106) mg/dL POC Glucometer 145 H 195 H (74 to 106) mg/dL Calcium 7.5 L (8.4-10.2) mg/dL Magnesium (1.6-2.3) mg/dL Total Bilirubin 0.40 (0.2-1.3) mg/dL AST 39 (17-59) U/L ALT 25 (0-50) U/L Alkaline Phosphatase 89 (38-126) U/L Serum Total Protein 5.8 L (6.3-8.2) g/dL Albumin 3.2 L (3.5-5.0) g/dL / Range/Units 12:09 WBC (4.23-9.07) x10^3/uL RBC (4.63-6.08) x10^6/uL Hgb (13.7-17.5) g/dL Hct (40.1-51.0) % MCV (79.0-92.2) fL MCH (25.7-32.2) pg MCHC (32.3-36.5) g/dL RDW (11.6-14.4) % Plt Count (163-337) x10^3/uL MPV (9.4-12.4) fL Sodium (135-145) mmol/L Potassium 3.7 D (3.5-5.1) mmol/L Chloride (98-107) mmol/L Carbon Dioxide (22-30) mmol/L Anion Gap (5-15) MEQ/L BUN (9-20) mg/dL Creatinine (0.66-1.25) mg/dL Estimated GFR ML/MIN Glucose (74-106) mg/dL POC Glucometer (74 to 106) mg/dL Calcium (8.4-10.2) mg/dL Magnesium 1.9 (1.6-2.3) mg/dL Total Bilirubin (0.2-1.3) mg/dL AST (17-59) U/L ALT (0-50) U/L Alkaline Phosphatase (38-126) U/L Serum Total Protein (6.3-8.2) g/dL Albumin (3.5-5.0) g/dL Micro Results-Entire Visit: Microbiology 09/07/23 15:24 Urine Culture - Final Catherized Klebsiella Pneumoniae 09/07/23 15:36 Blood Culture - Preliminary Blood 09/07/23 15:49 Blood Culture - Preliminary Blood Accuchecks Date 09/09/23 Date 09/09/23 Date 09/08/23 Date 09/08/23 Time 11:52 Time 07:24 Time 21:00 Time 16:32 - Radiology Exams Ordered Rad Exams-Entire Visit: Radiology Procedures Category Date Time Status CHEST 1 VIEW (PORTABLE) Stat Exams 09/07/23 15:13 Completed HEAD WITHOUT CONTRAST [CT] Stat Exams 09/07/23 14:58 Completed - Procedures and Test Procedures and Tests throughout Hospitalization: Therapy Orders & Screens 09/07/23 18:13 Oxygen Nasal Cannula 2 lpm Comment: 09/07/23 18:51 RT Screen per Nursing Assess ONCE Comment: Protocol Order Physician Instructions: Greater than 3 points order RT Admission Screen Reason For Exam: Triggered on Admission Diagnosis: CHF EXACERBATION, FEVER, CONFUSION, UTI, HYPOKALEMIA, HYPOMAGNESEMIA Diagnosis: CHF EXACERBATION, FEVER, CONFUSION, UTI, HYPOKALEMIA, HYPOMAGNESEMIA Pneumonia: No Home O2: Yes Asthma: No CHF: Yes Home CPAP/BIPAP: No Home Nebs/MDI: Yes Total Points: 13 ST Screen per Nursing Assess ONCE Comment: Protocol Order Physician Instructions: Greater than [address] Admission Screening Reason For Exam: Triggered on Admission Diagnosis: CHF EXACERBATION, FEVER, CONFUSION, UTI, HYPOKALEMIA, HYPOMAGNESEMIA CVA/Dyshpagia/Aphasia: No Cognitive Deficits: No Dehydration/Nutrition Deficit: No Reflux: No Oral-Motor Difficulties: No Pneumonia: No Halfway Resident: Yes Total Points: 5 09/07/23 18:54 PT Eval & Treat (MD Order) ONCE Reason for Eval:: ASSESS AMBULATORY OXYGEN REQUIREMENT, AND MOBILITY/T RANSFERS Diagnosis: CHF EXACERBATION, FEVER, CONFUSION, UTI, HYPOKALEMIA, HYPOMAGNESEMIA OT Eval and Treat (MD Order) ONCE Comment: Physician Instructions: Reason For Exam: Diagnosis: CHF EXACERBATION, FEVER, CONFUSION, UTI, HYPOKALEMIA, HYPOMAGNESEMIA 09/07/23 19:34 Respiratory MDI BID Comment: Diagnosis: CHF EXACERBATION, FEVER, CONFUSION, UTI, HYPOKALEMIA, HYPOMAGNESEMIA 09/07/23 19:45 Respiratory Therapy Assessment DAILY Comment: Diagnosis: CHF EXACERBATION, FEVER, CONFUSION, UTI, HYPOKALEMIA, HYPOMAGNESEMIA Discharge Exam General Appearance: no apparent distress, alert, obese Neurologic Exam: alert, oriented x 3, cooperative, normal mood/affect, nml cerebellar function, sensation nml, motor weakness, No motor deficits Eye Exam: PERRL, EOMI, eyes nml inspection Ears, Nose, Throat Exam: normal ENT inspection, pharynx normal, moist mucous membranes Neck Exam: normal inspection, non-tender, supple, full range of motion Respiratory Exam: normal breath sounds, lungs clear, No respiratory distress Cardiovascular Exam: regular rate/rhythm, normal heart sounds Gastrointestinal/Abdomen Exam: soft, No tenderness, No mass Male Genitalia Exam: deferred Rectal Exam: deferred Back Exam: normal inspection, normal range of motion, No CVA tenderness, No vertebral tenderness Extremity Exam: normal inspection, normal range of motion Skin Exam: normal color, warm, dry Final Diagnosis/Problem List - Final Discharge Diagnosis/Problem (1) Complicated UTI (urinary tract infection) Current Visit: Yes Status: Acute Code(s): N39.0 - URINARY TRACT INFECTION, SITE NOT SPECIFIED (2) Acute kidney failure Current Visit: Yes Status: Acute (3) CHF exacerbation Current Visit: Yes Status: Acute Code(s): I50.9 - HEART FAILURE, UNSPECIFIED (4) Confusion Current Visit: Yes Status: Acute Code(s): R41.0 - DISORIENTATION, UNSPECIFIED (5) Hypokalemia Current Visit: Yes Status: Acute Code(s): E87.6 - HYPOKALEMIA (6) Hypomagnesemia Current Visit: Yes Status: Acute Code(s): E83.42 - HYPOMAGNESEMIA (7) Hypertension Current Visit: No Status: Chronic Code(s): I10 - ESSENTIAL (PRIMARY) HYPERTENSION (8) Obesity (BMI 30-39.9) Current Visit: No Status: Chronic Code(s): E66.9 - OBESITY, UNSPECIFIED (9) Type 2 diabetes mellitus Current Visit: No Status: Chronic (10) Depression Current Visit: Yes Status: Chronic Code(s): F32.A - DEPRESSION, UNSPECIFIED (11) BPH (benign prostatic hyperplasia) Current Visit: Yes Status: Chronic Assessment & Plan: (1) Complicated UTI (urinary tract infection) Current Visit: Yes Status: Acute Assessment & Plan: - UA pending - Ventura replaced - Ceftriaxone IV - gram negative- sensitivity pending - NS @ 50 ml/hr 09/08 - UC + for Klebsiella Pneumoniae - merrem IV started - since K+ and Mg+ corrected can d/c with PO levaquin Code(s): N39.0 - URINARY TRACT INFECTION, SITE NOT SPECIFIED (2) Acute kidney failure Current Visit: Yes Status: Acute Assessment & Plan: - Creat 1.43- baseline 1.04- normal - Monitor - 2:2 UTI 09/08 - Creat 1.26- improved- f/u with nephro Op (3) CHF exacerbation Current Visit: Yes Status: Acute Assessment & Plan: - IV Lasix. - Monitor volume status. - BNP 5750 Code(s): I50.9 - HEART FAILURE, UNSPECIFIED (4) Confusion Current Visit: Yes Status: Acute Assessment & Plan: - 2:2 UTI - resolved - at baseline Code(s): R41.0 - DISORIENTATION, UNSPECIFIED (5) Hypokalemia Current Visit: Yes Status: Acute Assessment & Plan: - K+ 2.5 replaced- trend - Tele 09/08 - Corrected - resolved Code(s): E87.6 - HYPOKALEMIA (6) Hypomagnesemia Current Visit: Yes Status: Acute Assessment & Plan: - Mg+ 1.5- replaced- trend - tele 09/08 - corrected- resolved Code(s): E83.42 - HYPOMAGNESEMIA (7) Hypertension Current Visit: No Status: Chronic Assessment & Plan: - Controlled - Continue home meds Code(s): I10 - ESSENTIAL (PRIMARY) HYPERTENSION (8) Obesity (BMI 30-39.9) Current Visit: No Status: Chronic Assessment & Plan: - BMI 31.9 - advised ADA diet and exercise control Code(s): E66.9 - OBESITY, UNSPECIFIED (9) Type 2 diabetes mellitus Current Visit: No Status: Chronic Qualifiers: Diabetes mellitus long-term insulin use: without terminal superintendent use Diabetes mellitus complication status: with circulatory complication Assessment & Plan: - oral controlled - continue metformin - A1C 08/14/23 5.89 (10) Depression Current Visit: Yes Status: Chronic Assessment & Plan: - Continue Sertraline Code(s): F32.A - DEPRESSION, UNSPECIFIED (11) BPH (benign prostatic hyperplasia) Current Visit: Yes Status: Chronic Assessment & Plan: - Continue Flomax Code(s): N40.0 - BENIGN PROSTATIC HYPERPLASIA WITHOUT LOWER URINRY TRACT SYMP - Discharge Discharge Date: 09/09/23 (Envive) Disposition: XFER OTHER Condition: Good Prescriptions: Continue Amlodipine Besylate [Norvasc] 10 mg PO DAILY Metformin HCl 850 mg [Glucophage 850 MG] 850 mg PO BID Tamsulosin HCl 0.4 mg [Flomax 0.4 MG] 0.4 mg PO DAILY cap Potassium Chloride 40 meq PO DAILY 30 Days #30 tablet Sennosides 17.2 mg PO DAILY Levothyroxine Sodium 100 Mcg [Synthroid 100 Mcg] 200 mcg PO DAILY Furosemide 40 mg [Lasix 40 MG] 40 mg PO DAILY Fluticasone/Salmeterol 230/21* [Advair Hfa 230/21 Mcg MDI] 1 puff IH BID Ferrous Sulfate 325 mg [Feosol 325 mg] 325 mg PO DAILY 30 Days #30 tablet Loperamide HCl [Imodium A-D] 2 mg PO Q4H PRN PRN PRN Reason: Diarrhea Glucagon 1 mg [GlucaGen 1 MG] 1 mg SQ UD Chlorthalidone 25 mg PO DAILY Albuterol Sulfate/Budesonide [Airsupra 90-80 Mcg Inhaler] 2 puff IH Q4HPRN PRN PRN Reason: Shortness Of Breath Acetaminophen 650 mg PO Q4HPRN PRN PRN Reason: Pain Melatonin 10 mg PO QHS Sertraline HCl 50 mg [Zoloft 50 mg Tablet] 50 mg PO DAILY Follow up with: ARACELI CHARLES [Primary Care Provider] -
[2023-09-09] MEDS: Merrem 1 GM in Sodium Chloride 100ML MINI-BAG PLUS 100 ML IV SCH (13:19)
== END 2023-09-09 13:45 ==
LOC: ED 14:29 → MED SURG 18:11
PROVIDERS: ADMIT Internal Medicine; ATTEND Internal Medicine
DX: N39.0 Urinary tract infection, site not specified (principal); N17.9 Acute kidney failure, unspecified; I11.0 Hypertensive heart disease with heart failure; I50.9 Heart failure, unspecified; R41.0 Disorientation, unspecified; E87.6 Hypokalemia; E83.42 Hypomagnesemia; E66.9 Obesity, unspecified; E11.9 Type 2 diabetes mellitus without complications; F32.A Depression, unspecified; N40.0 Benign prostatic hyperplasia without lower urinary tract symptoms; R50.9 Fever, unspecified; J44.9 Chronic obstructive pulmonary disease, unspecified; E78.5 Hyperlipidemia, unspecified; E03.9 Hypothyroidism, unspecified; Z79.899 Other long term (current) drug therapy; Z99.81 Dependence on supplemental oxygen; Z85.850 Personal history of malignant neoplasm of thyroid
CPT/HCPCS: 0241U; 36000; 36415; 51702; 70450; 71045; 80053; 81001; 82140; 82805; 82947; 83605; 83735; 83880; 84132; 85025; 85027; 85610; 86308; 87040; 87077; 87086; 87186; 87651; 93005; 93041; 94640; 94760; 94762; 96374; 96375; 99285; 93268; J0696; J1650; J1815; J1885; J1940; J2405; J3475; J3480; Q3014; A9270-GY; G0378

== ENCOUNTER 2023-11-30 04:57 | Inpatient (IN) | payer MEDICARE, OTHER ==
[2023-11-30 05:45] LABS: Absolute Neutrophil Ct (ANC) 5.21 x10^3/uL (1.78-5.38); BASOPHIL % 0.3 % (0.2-1.2); Basophil (Absolute #) 0.02 x10^3/uL (0.01-0.08); Eosinophil % 4.6 % (0.8-7.0); Eosinophil (Absolute #) 0.34 x10^3/uL (0.04-0.54); Hematocrit 31.2 % (40.1-51.0); Hemoglobin 10.1 g/dL (13.7-17.5); IMMATURE GRAN # 0.06 x10^3u/L (0.001-0.031); IMMATURE GRAN % 0.8 % (0.001-0.429); Lymphocyte (Absolute #) 1.42 x10^3/uL (1.32-3.57); Lymphocytes % 19.1 % (21.8-53.1); Mean Cell Volume 80.6 fL (79.0-92.2); Mean Corpuscular Hemoglobin 26.1 pg (25.7-32.2); Mean Corpuscular Hgb Concent. 32.4 g/dL (32.3-36.5); Mean Platelet Volume 8.8 fL (9.4-12.4); Monocytes % 5.4 % (5.3-12.2); Neutrophil % 69.8 % (34.0-67.9); Platelet Count 208 x10^3/uL (163-337); Red Blood Count 3.87 x10^6/uL (4.63-6.08); Red Cell Distribution Width 14.7 % (11.6-14.4); White Blood Count 7.5 x10^3/uL (4.23-9.07)
[2023-11-30 05:58] LABS: ALBUMIN 3.5 g/dL (3.5-5.0); ANION GAP 11.3 MEQ/L (5-15); BILIRUBIN,TOTAL 0.4 mg/dL (0.2-1.3); Calcium 8.7 mg/dL (8.4-10.2); Creatinine 1 0.89 mg/dL (0.66-1.25); EST GLOMERULAR FILTRATION RATE 88.3 ML/MIN; Total Protein 6.2 g/dL (6.3-8.2)
[2023-11-30 06:08] LABS: Potassium 2.6 mmol/L (3.5-5.1)
[2023-11-30 06:21] LABS: INFLUENZA A NEGATIVE (NEGATIVE); INFLUENZA B NEGATIVE (NEGATIVE); RESPIRATORY SYNCTIAL VIRUS NEGATIVE (NEGATIVE); SARS-CoV-2 Xpert Express NEGATIVE (NEGATIVE)
[2023-11-30 06:23] LABS: TROPONIN 0.013 ng/mL (0.000-0.033)
--- NOTE | 2023-11-30 06:39 | ERPHSYRPT ---
- History of Present Illness Source: patient Exam Limitations: no limitations Patient Subjective Stated Complaint: "I feel short of breath and weak all over. I just don't feel good. I've been like this the past few days". Triage Nursing Assessment: Pt presents to ER by EMS from [facility]. Pt has generalized weakness and fatigue. Complains of shortness of breath for the past couple of days and low grade fever. Wears home O2 2L via [place], O2 sats are WNL upon triage. Respirations are slightly labored. Denies cough. Denies pain. Pt skin is flushed and warm to touch. Hx Tetanus, Diphtheria Vaccination/Date Given: No (UNSURE) Hx Influenza Vaccination/Date Given: No (UNSURE) Hx Pneumococcal Vaccination/Date Given: No (UNSURE) Immunizations Up to Date: No (UNSURE) <MELISSA LI - Last Filed: 11/30/23 07:11> <EULOGIO LAUREN - Last Filed: 11/30/23 10:22> - History of Present Illness Time Seen by Provider: 11/30/23 06:23 Physician History: 78-year-old male resident of [facility] with multiple medical problems including dementia hypertension hyperlipidemia, congestive heart failure, hypothyroidism, diabetes mellitus, COPD with chronic respiratory failure on 2 L oxygen is brought in the ER with increasing shortness of breath despite being on oxygen with saturation dropping to 82%. Patient reports minimal nonproductive cough with increasing difficulty breathing. Denies any chest pain but tightness. No fever or chills reported reports feeling weak fatigued tired and lack of energy to do his routine activities. Not a good historian and history is limited. (MELISSA LI) Allergies/Adverse Reactions: codeine Allergy (Mild, Verified 09/07/23 15:03) Headache morphine Allergy (Mild, Verified 09/07/23 15:03) Home Medications: Amlodipine Besylate [Norvasc] 10 mg PO DAILY 08/20/19 [History] Metformin HCl 850 mg [Glucophage 850 MG] 850 mg PO BID 02/27/20 [History] Furosemide 40 mg [Lasix 40 MG] 40 mg PO DAILY 06/20/23 [History] Levothyroxine Sodium 100 Mcg [Synthroid 100 Mcg] 200 mcg PO DAILY 06/20/23 [History] Sennosides 17.2 mg PO DAILY 06/20/23 [History] Albuterol Sulfate/Budesonide [Airsupra 90-80 Mcg Inhaler] 2 puff IH Q4HPRN PRN 09/07/23 [History] Chlorthalidone 25 mg PO DAILY 09/07/23 [History] Glucagon 1 mg [GlucaGen 1 MG] 1 mg SQ UD 09/07/23 [History] Melatonin 10 mg PO QHS 09/07/23 [History] Sertraline HCl 50 mg [Zoloft 50 mg Tablet] 100 mg PO DAILY 09/07/23 [History] Carbamide Peroxide [Ear Drops] 5 drops OT BID 11/30/23 [History] Dextran 70/Hypromellose [Artificial Tears] 1 drop OP Q4H PRN PRN 11/30/23 [History] Meclizine HCl 25 mg [Antivert 25 mg] 25 mg PO DAILY 11/30/23 [History] Phenyleph/Pramoxin/Glycr/W.pet [Preparation H Cream] 1 applic TOP Q6H PRN PRN 11/30/23 [History] Travel Risk - International Travel Have you traveled outside of the country in past 3 weeks: No - Emerging Infectious Disease Are you exhibiting symptoms associated with any current EIDs: Yes Symptoms: Fever, Shortness of Breath <MELISSA LI - Last Filed: 11/30/23 07:11> - Review of Systems Constitutional: Fatigue, Weakness Eyes: No Symptoms Ears, Nose, & Throat: No Symptoms Respiratory: Cough, Dyspnea, Dyspnea on Exertion (SAUCEDA) Cardiac: Edema Abdominal/Gastrointestinal: No Symptoms Musculoskeletal: Arthralgias Skin: No Symptoms Neurological: No Symptoms Hematologic/Lymphatic: No Symptoms <MELISSA LI - Last Filed: 11/30/23 07:11> - Past Medical History Pertinent Past Medical History: Yes Neurological History: Dementia ENT History: No Pertinent History Cardiac History: Congestive Heart Failure, High Cholesterol, Hypertension Respiratory History: COPD Endocrine Medical History: Diabetes Type II, Hypothyroidism, Thyroid Cancer Musculoskeletal History: No Pertinent History GI Medical History: No Pertinent History History: Other Psycho-Social History: Anxiety, Depression Male Reproductive Disorders: No Pertinent History Other Medical History: 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 , PT UNSURE OF CURRENTS MEDICAL HX, PULLED FROM PAST ADMISSION - Past Surgical History Past Surgical History: Yes Neuro Surgical History: No Pertinent History Cardiac: No Pertinent History Respiratory: No Pertinent History Gastrointestinal: No Pertinent History Genitourinary: No Pertinent History Musculoskeletal: Orthopedic Surgery Male Surgical History: No Pertinent History Other Surgical History: thyroid cancer- thyroidectomy. PULLED FROM PAST ADMISSION HISTORY. PT POOR HISTORIAN Significant Family History: no pertinent family hx - Social History Smoking Status: Former smoker Exposure to second hand smoke: No Drug Use: none Patient Lives Alone: No () - Social Determinants of Health Will the patient participate in the screening: Yes Do you worry about a steady place to live?: No Do you have any problems with any of the following?: No known problems In the past 12 months,have you had to go without utilities?: No Transportation Issues: No Has anyone in your support network made you feel unsafe?: No Have you or anyone in your house had to go without enough: No <MELISSA LI - Last Filed: 11/30/23 07:11> - Physical Exam General Appearance: no apparent distress, alert Eye Exam: PERRL/EOMI Ears, Nose, Throat Exam: TMs normal, moist mucous membranes Neck Exam: normal inspection, full range of motion Respiratory Exam: diminished breath sounds, rhonchi, wheezing Cardiovascular Exam: regular rate/rhythm, normal heart sounds Gastrointestinal/Abdomen Exam: soft, normal bowel sounds Back Exam: normal inspection Extremity Exam: normal inspection Neurologic Exam: alert, oriented x 3, cooperative, cover seamer II-XII nml as tested Skin Exam: normal color SpO2 Interpretation: O2 applied SpO2: 92 O2 Delivery: Nasal Cannula <MELISSA LI - Last Filed: 11/30/23 07:11> - Nursing Vital Signs Nursing Vital Signs: Initial Vital Signs Pulse Rate 76 11/30/23 05:01 Respiratory Rate 13 11/30/23 05:01 Blood Pressure 139/53 11/30/23 05:01 O2 Sat by Pulse Oximetry 94 L 11/30/23 05:01 Pain Scale Pain Intensity 3 - Course EKG Interpreted by Me: RATE (80), Sinus Rhythm, NORMAL AXIS, prolonged QT interval, Other (Incomplete right bundle branch block, PACs) <MELISSA LI - Last Filed: 11/30/23 07:11> Ordered Tests: Active Orders 24 hr Category Date Time Status Crown Perforator Operator STAT Care 11/30/23 05:22 Active Catheter-Fillmore [place] STAT Care 11/30/23 05:20 Active EKG-ER Only STAT Care 11/30/23 05:20 Active IV Insertion STAT Care 11/30/23 05:20 Active Oxygen-ED Only Nasal Cannula 2 lpm Care 11/30/23 05:20 Active Pulse Oximetry (ED) STAT Care 11/30/23 05:20 Active Telemetry q4h Care 11/30/23 06:34 Active CHEST 1 VIEW (PORTABLE) Stat Exams 11/30/23 05:34 Completed BLOOD CULTURE Stat Lab 11/30/23 06:49 Received CBC W DIFF Stat Lab 11/30/23 05:43 Completed CMP Stat Lab 11/30/23 05:43 Completed MAG [MAGNESIUM] Stat Lab 11/30/23 07:10 Completed NT PRO BNPII Stat Lab 11/30/23 05:43 Completed TROPONIN Q4H Lab 11/30/23 05:43 Completed TROPONIN Q4H Lab 11/30/23 09:11 Completed TROPONIN Q4H Lab 11/30/23 13:30 Ordered UA W/RFX UR CULTURE Stat Lab 11/30/23 08:43 Completed Respiratory Therapy Assessment DAILY RT 11/30/23 06:52 Active Medication Summary Generic Name Dose Route Start Last Admin Trade Name Freq PRN Reason Stop Dose Admin Potassium Chloride 20 meq in 100 mls @ 50 mls/hr 11/30/23 06:45 11/30/23 07:33 Potassium Chloride 20 Meq In Water 100ml IV 11/30/23 10:44 50 mls/hr Q2H CLARE Administration Sodium Chloride 1,000 mls @ 100 mls/hr 11/30/23 07:45 11/30/23 07:40 Sodium Chloride 0.9% 1000 Ml IV 12/30/23 07:44 100 mls/hr .Q10H CLARE Administration Discontinued Medications Generic Name Dose Route Start Last Admin Trade Name Freq PRN Reason Stop Dose Admin Albuterol/Ipratropium 3 ml 11/30/23 06:40 11/30/23 06:48 Ipratropium/Albuterol Sulfate 3 Ml Ampul.Neb IH 11/30/23 06:41 3 ml STAT ONE Administration Albuterol/Ipratropium Confirm 11/30/23 06:46 Ipratropium/Albuterol Sulfate 3 Ml Ampul.Neb Administered 11/30/23 06:47 Dose 3 ml IH .STK-MED ONE Ceftriaxone Sodium 2 gm in 100 mls @ 200 mls/hr 11/30/23 06:33 11/30/23 07:33 Rocephin 2 Gm/100 Ml Nacl IV 11/30/23 07:02 200 ml/hr STAT ONE 200 mls/hr Administration Azithromycin 500 mg in 250 mls @ 250 mls/hr 11/30/23 06:33 Zithromax 500 Mg/ 250 Ml Nacl Premix IV 11/30/23 07:32 STAT STA Ceftriaxone Sodium Confirm 11/30/23 07:28 Rocephin 2 Gm/100 Ml Nacl Administered 11/30/23 07:29 Dose 2 gm in 100 mls @ ud IV .STK-MED ONE Sodium Chloride Confirm 11/30/23 07:37 Sodium Chloride 0.9% 1000 Ml Administered 11/30/23 07:38 Dose 1,000 mls @ ud .ROUTE .STK-MED ONE Lidocaine HCl 20 ml 11/30/23 08:17 11/30/23 08:19 Lidocaine Hcl Viscous 1 Ml MM 11/30/23 08:18 20 ml PRN ONE Administration Lidocaine HCl Confirm 11/30/23 08:18 Lidocaine Hcl 20 Mg/Ml Jelly Uro-Jet Administered 11/30/23 08:19 Dose 200 mg .ROUTE .STK-MED ONE Potassium Chloride 40 meq 11/30/23 06:34 11/30/23 07:32 Potassium Chloride Tab 10 Meq Tab PO 11/30/23 06:35 40 meq STAT ONE Administration Potassium Chloride Confirm 11/30/23 07:28 Potassium Chloride Tab 10 Meq Tab Administered 11/30/23 07:29 Dose 40 meq .ROUTE .STK-MED ONE Lab/Rad Data: Laboratory Result Diagrams 11/30/23 05:43 11/30/23 05:43 Laboratory Results 11/30/23 11/30/23 11/30/23 Range/Units 09:11 08:43 07:10 WBC (4.23-9.07) x10^3/uL RBC (4.63-6.08) x10^6/uL Hgb (13.7-17.5) g/dL Hct (40.1-51.0) % MCV (79.0-92.2) fL MCH (25.7-32.2) pg MCHC (32.3-36.5) g/dL RDW (11.6-14.4) % Plt Count (163-337) x10^3/uL MPV (9.4-12.4) fL Gran % (34.0-67.9) % Immature Gran % (Auto) (0.001-0.429) % Nucleat RBC Rel Count (0.00-0.2) % Eos # (Auto) (0.04-0.54) x10^3/uL Immature Gran # (Auto) (0.001-0.031) x10^3u/L Absolute Lymphs (auto) (1.32-3.57) x10^3/uL Absolute Monos (auto) (0.30-0.82) x10^3/uL Absolute Nucleated RBC (0.00-0.012) x10^3u/L Lymphocytes % (21.8-53.1) % Monocytes % (5.3-12.2) % Eosinophils % (0.8-7.0) % Basophils % (0.2-1.2) % Absolute Granulocytes (1.78-5.38) x10^3/uL Basophils # (0.01-0.08) x10^3/uL Sodium (135-145) mmol/L Potassium (3.5-5.1) mmol/L Chloride (98-107) mmol/L Carbon Dioxide (22-30) mmol/L Anion Gap (5-15) MEQ/L BUN (9-20) mg/dL Creatinine (0.66-1.25) mg/dL Estimated GFR ML/MIN Glucose (74-106) mg/dL Calcium (8.4-10.2) mg/dL Magnesium 1.7 (1.6-2.3) mg/dL Total Bilirubin (0.2-1.3) mg/dL AST (17-59) U/L ALT (0-50) U/L Alkaline Phosphatase (38-126) U/L Troponin I 0.013 (0.000-0.033) ng/mL NT-Pro-B Natriuret Pep (<300) pg/mL Serum Total Protein (6.3-8.2) g/dL Albumin (3.5-5.0) g/dL Urine Color Yellow (Yellow) Urine Appearance Clear (Clear) Urine pH 7.5 (4.6-8.0) Ur Specific [place] 1.015 (1.005-1.030) Urine Protein Negative (Negative) Urine Glucose (UA) Negative (Negative) mg/dL Urine Ketones Negative (Negative) Urine Blood Moderate A (Negative) Urine Nitrite Negative (Negative) Urine Bilirubin Negative (Negative) Urine Urobilinogen 0.2 (0.2) mg/dL Ur Leukocyte Esterase Small A (Negative) U Hyaline Cast (Auto) NONE SEEN (0-2) /LPF Urine Microscopic RBC 21-50 A (0-5) /HPF Urine Microscopic WBC 21-50 A (0-5) /HPF Ur Epithelial Cells None Seen (None Seen) /HPF Urine Bacteria None Seen (None Seen) /HPF Urine Culture Reflexed ORDERED SEPARATELY (NO) Influenza Type A Ag (NEGATIVE) Influenza Type B Ag (NEGATIVE) RSV (PCR) (NEGATIVE) SARS-CoV-2 (PCR) (NEGATIVE) 11/30/23 11/30/23 11/30/23 Range/Units 05:43 05:43 05:43 WBC (4.23-9.07) x10^3/uL RBC (4.63-6.08) x10^6/uL Hgb (13.7-17.5) g/dL Hct (40.1-51.0) % MCV (79.0-92.2) fL MCH (25.7-32.2) pg MCHC (32.3-36.5) g/dL RDW (11.6-14.4) % Plt Count (163-337) x10^3/uL MPV (9.4-12.4) fL Gran % (34.0-67.9) % Immature Gran % (Auto) (0.001-0.429) % Nucleat RBC Rel Count (0.00-0.2) % Eos # (Auto) (0.04-0.54) x10^3/uL Immature Gran # (Auto) (0.001-0.031) x10^3u/L Absolute Lymphs (auto) (1.32-3.57) x10^3/uL Absolute Monos (auto) (0.30-0.82) x10^3/uL Absolute Nucleated RBC (0.00-0.012) x10^3u/L Lymphocytes % (21.8-53.1) % Monocytes % (5.3-12.2) % Eosinophils % (0.8-7.0) % Basophils % (0.2-1.2) % Absolute Granulocytes (1.78-5.38) x10^3/uL Basophils # (0.01-0.08) x10^3/uL Sodium 141 (135-145) mmol/L Potassium 2.6 L* (3.5-5.1) mmol/L Chloride 98 (98-107) mmol/L Carbon Dioxide 35 H (22-30) mmol/L Anion Gap 11.3 (5-15) MEQ/L BUN 22 H (9-20) mg/dL Creatinine 0.89 (0.66-1.25) mg/dL Estimated GFR 88.3 ML/MIN Glucose 118 H (74-106) mg/dL Calcium 8.7 (8.4-10.2) mg/dL Magnesium (1.6-2.3) mg/dL Total Bilirubin 0.40 (0.2-1.3) mg/dL AST 19 (17-59) U/L ALT 22 (0-50) U/L Alkaline Phosphatase 76 (38-126) U/L Troponin I 0.013 (0.000-0.033) ng/mL NT-Pro-B Natriuret Pep 452 (<300) pg/mL Serum Total Protein 6.2 L (6.3-8.2) g/dL Albumin 3.5 (3.5-5.0) g/dL Urine Color (Yellow) Urine Appearance (Clear) Urine pH (4.6-8.0) Ur Specific [place] (1.005-1.030) Urine Protein (Negative) Urine Glucose (UA) (Negative) mg/dL Urine Ketones (Negative) Urine Blood (Negative) Urine Nitrite (Negative) Urine Bilirubin (Negative) Urine Urobilinogen (0.2) mg/dL Ur Leukocyte Esterase (Negative) U Hyaline Cast (Auto) (0-2) /LPF Urine Microscopic RBC (0-5) /HPF Urine Microscopic WBC (0-5) /HPF Ur Epithelial Cells (None Seen) /HPF Urine Bacteria (None Seen) /HPF Urine Culture Reflexed (NO) Influenza Type A Ag NEGATIVE (NEGATIVE) Influenza Type B Ag NEGATIVE (NEGATIVE) RSV (PCR) NEGATIVE (NEGATIVE) SARS-CoV-2 (PCR) NEGATIVE (NEGATIVE) 11/30/23 Range/Units 05:43 WBC 7.5 (4.23-9.07) x10^3/uL RBC 3.87 L (4.63-6.08) x10^6/uL Hgb 10.1 L (13.7-17.5) g/dL Hct 31.2 L (40.1-51.0) % MCV 80.6 (79.0-92.2) fL MCH 26.1 (25.7-32.2) pg MCHC 32.4 (32.3-36.5) g/dL RDW 14.7 H (11.6-14.4) % Plt Count 208 (163-337) x10^3/uL MPV 8.8 L (9.4-12.4) fL Gran % 69.8 H (34.0-67.9) % Immature Gran % (Auto) 0.8 H (0.001-0.429) % Nucleat RBC Rel Count 0.0 (0.00-0.2) % Eos # (Auto) 0.34 (0.04-0.54) x10^3/uL Immature Gran # (Auto) 0.06 H (0.001-0.031) x10^3u/L Absolute Lymphs (auto) 1.42 (1.32-3.57) x10^3/uL Absolute Monos (auto) 0.40 (0.30-0.82) x10^3/uL Absolute Nucleated RBC 0.00 (0.00-0.012) x10^3u/L Lymphocytes % 19.1 L (21.8-53.1) % Monocytes % 5.4 (5.3-12.2) % Eosinophils % 4.6 (0.8-7.0) % Basophils % 0.3 (0.2-1.2) % Absolute Granulocytes 5.21 (1.78-5.38) x10^3/uL Basophils # 0.02 (0.01-0.08) x10^3/uL Sodium (135-145) mmol/L Potassium (3.5-5.1) mmol/L Chloride (98-107) mmol/L Carbon Dioxide (22-30) mmol/L Anion Gap (5-15) MEQ/L BUN (9-20) mg/dL Creatinine (0.66-1.25) mg/dL Estimated GFR ML/MIN Glucose (74-106) mg/dL Calcium (8.4-10.2) mg/dL Magnesium (1.6-2.3) mg/dL Total Bilirubin (0.2-1.3) mg/dL AST (17-59) U/L ALT (0-50) U/L Alkaline Phosphatase (38-126) U/L Troponin I (0.000-0.033) ng/mL NT-Pro-B Natriuret Pep (<300) pg/mL Serum Total Protein (6.3-8.2) g/dL Albumin (3.5-5.0) g/dL Urine Color (Yellow) Urine Appearance (Clear) Urine pH (4.6-8.0) Ur Specific [place] (1.005-1.030) Urine Protein (Negative) Urine Glucose (UA) (Negative) mg/dL Urine Ketones (Negative) Urine Blood (Negative) Urine Nitrite (Negative) Urine Bilirubin (Negative) Urine Urobilinogen (0.2) mg/dL Ur Leukocyte Esterase (Negative) U Hyaline Cast (Auto) (0-2) /LPF Urine Microscopic RBC (0-5) /HPF Urine Microscopic WBC (0-5) /HPF Ur Epithelial Cells (None Seen) /HPF Urine Bacteria (None Seen) /HPF Urine Culture Reflexed (NO) Influenza Type A Ag (NEGATIVE) Influenza Type B Ag (NEGATIVE) RSV (PCR) (NEGATIVE) SARS-CoV-2 (PCR) (NEGATIVE) - Progress Progress: improved, re-examined Discussed with : Lexie Counseled pt/family regarding: lab results, diagnosis, rad results <EULOGIO LAUREN - Last Filed: 11/30/23 10:22> - Progress Progress Note: 11/30/23 09:22 The chest x-ray was interpreted by the radiologist and I reviewed the impression. The impression states nonacute chest with chronic bony findings 11/30/23 10:16 I spoke with our telehospitalist, Dr. Coffey. I reviewed the patient history, presenting complaint, physical findings on examination, laboratory results with him. We will admit this patient into the hospital. 11/30/23 10:17 (EULOGIO LAUREN) Medical Desision Making - Discussion of managment Reviewed:: Test results, Need for additional workup Agreed on:: Treatment plan, decision to admit Will see patient: in hospital - Diagnostic Testing Diagnostic test were ordered, analyzed, and reviewed by me: Yes Radiological Interpretation: Reviewed by me, Teleradiologist Report - Risk of complications The pt has a high risk of morbidity or mortality based on: Decision regarding hospitilization or escalation of hosp level of care <EULOGIO LAUREN - Last Filed: 11/30/23 10:22> <MELISSA LI - Last Filed: 11/30/23 07:11> - Departure Departure Disposition: In-patient Admission Critical Care Time: Yes Critical Care Time(excluding separately billable procedures): Critical 30-74 mins (40 minutes) <EULOGIO LAUREN - Last Filed: 11/30/23 10:22> - Departure Clinical Impression: Hypokalemia, Weakness Condition: Fair Referrals: ENVIVE,ENVIVE [Primary Care Provider] - Follow up/PCP as directed
[2023-11-30] MEDS ORDERED: DUONEB 0.5-3 MG/3 ml Neb IH ONE (06:46)
[2023-11-30] MEDS: DUONEB 0.5-3 MG/3 ml Neb IH ONE (06:48)
[2023-11-30] MEDS ORDERED: Klor Con ONE (07:28)
[2023-11-30] MEDS ORDERED: POTASSIUM CHLORIDE 20 mEq IN WATER 100ML 100 ML IV ONE ×2 (07:28→11:30)
[2023-11-30] MEDS ORDERED: ROCEPHIN 2 GM/100 ML NACL 2 GM/100 ML IVPB IV ONE (07:28)
[2023-11-30] MEDS: Klor Con PO ONE (07:32)
[2023-11-30] MEDS: POTASSIUM CHLORIDE 20 mEq IN WATER 100ML 20 MEQ/100 ML BAG IV SCH (07:33)
[2023-11-30] MEDS: ROCEPHIN 2 GM/100 ML NACL 2 GM/100 ML IVPB IV ONE (07:33)
[2023-11-30] MEDS ORDERED: Sodium Chloride 0.9% 1000 ML 1,000 ML ONE (07:37)
[2023-11-30] MEDS: Sodium Chloride 0.9% 1000 ML 1,000 ML IV SCH ×2 (07:40→21:46)
[2023-11-30] MEDS ORDERED: XYLOCAINE 2% Uro-Jet ONE (08:18)
[2023-11-30] MEDS: XYLOCAINE HCl Viscous MM ONE (08:19)
--- NOTE | 2023-11-30 09:18 | XRAY ---
Indication: Short of breath. Comparison: August 06, 2023 Portable chest inflated and clear. Heart is not enlarged. Bony thorax intact again with osteopenia, mild degenerative changes, and left humeral head orthopedic screws. Impression: Nonacute chest with chronic bony findings.
[2023-11-30 09:37] LABS: Bacteria None Seen /HPF (None Seen); Epithelial Cells None Seen /HPF (None Seen); Hyaline Casts NONE SEEN /LPF (0-2); RBC 21-50 /HPF (0-5); WBC 21-50 /HPF (0-5)
[2023-11-30 09:40] LABS: Appearance Clear (Clear); Bilirubin Negative (Negative); Blood Moderate (Negative); Glucose, Urine Negative (Negative); Ketones Negative (Negative); Leukocyte Esterase Small (Negative); Nitrite Negative (Negative); Ph 7.5 (4.6-8.0); Protein,Urine Dip Negative (Negative); Specific Gravity 1.015 (1.005-1.030); Urobilinogen 0.2 mg/dL (0.2)
[2023-11-30] MEDS ORDERED: Zithromax 500 MG/ 250 ML NaCl Premix 500 MG/250 ML IVPB IV ONE (13:21)
[2023-11-30] MEDS: Zithromax 500 MG/ 250 ML NaCl Premix 500 MG/250 ML IVPB IV STA (13:22)
[2023-11-30] MEDS ORDERED: Zofran 4 MG/2 ML VIAL IV PRN (13:36)
--- NOTE | 2023-11-30 13:58 | PCM.HP ---
History of Present Illness - Chief Complaint Chief Complaint: Hypokalemia, UTI Date: 11/30/23 History of Present Illness: 11/30/23 78-year-old male resident from retirement presents with increased SOB for a few days and low-grade fever x 2days. He has a history of multiple medical problems including dementia hypertension hyperlipidemia, congestive heart failure, hypothyroidism, diabetes mellitus, COPD with chronic respiratory failure on 2 L oxygen is brought in the ER with increasing shortness of breath on oxygen with saturation dropping to 82%. Oxygenation improved on 2L to 97%. Patients report minimal nonproductive cough with increasing difficulty breat ash. Denies any chest pain but has tightness. Patient reports feeling weak fatigued tired and lack of energy to do his routine activities. He is not a good historian and history is limited. In ER potassium was replaced and antibiotics started for COPD exacerbation and UTI. Will continue to monitor potassium level and continue antibiotics. Denies CP, SOB, abd. pain, N/V/D. - Review of Systems Constitutional: Weakness, No Fever, No Chills Eyes: No Symptoms Ears, Nose, & Throat: No Symptoms Respiratory: Short Of Breath, No Cough Cardiac: No Chest Pain, No Edema, No Syncope Abdominal/Gastrointestinal: No Abdominal Pain, No Nausea, No Vomiting, No Diarrhea Genitourinary Symptoms: Hesitancy, No Dysuria Musculoskeletal: No Back Pain, No Neck Pain Skin: No Rash Neurological: No Dizziness, No Focal Weakness, No Sensory Changes Psychological: No Symptoms Endocrine: No Symptoms Hematologic/Lymphatic: No Symptoms Immunological/Allergic: No Symptoms Medications & Allergies Home Medications: Home Medication List Amlodipine Besylate [Norvasc] 10 mg PO DAILY 08/20/19 [History Confirmed 11/30/23] Metformin HCl 850 mg [Glucophage 850 MG] 850 mg PO BID 02/27/20 [History Confirmed 11/30/23] Potassium Chloride 40 meq PO DAILY 30 Days #30 tablet 05/24/23 [Rx Confirmed 11/30/23] Tamsulosin HCl 0.4 mg [Flomax 0.4 MG] 0.4 mg PO DAILY cap 05/24/23 [Rx Confirmed 11/30/23] Furosemide 40 mg [Lasix 40 MG] 40 mg PO DAILY 06/20/23 [History Confirmed 11/30/23] Levothyroxine Sodium 100 Mcg [Synthroid 100 Mcg] 200 mcg PO DAILY 06/20/23 [History Confirmed 11/30/23] Sennosides 17.2 mg PO DAILY 06/20/23 [History Confirmed 11/30/23] Ferrous Sulfate 325 mg [Feosol 325 mg] 325 mg PO DAILY 30 Days #30 tablet 06/26/23 [Rx Confirmed 11/30/23] Albuterol Sulfate/Budesonide [Airsupra 90-80 Mcg Inhaler] 2 puff IH Q4HPRN PRN 09/07/23 [History Confirmed 11/30/23] Chlorthalidone 25 mg PO DAILY 09/07/23 [History Confirmed 11/30/23] Glucagon 1 mg [GlucaGen 1 MG] 1 mg SQ UD 09/07/23 [History Confirmed 11/30/23] Melatonin 10 mg PO QHS 09/07/23 [History Confirmed 11/30/23] Sertraline HCl 50 mg [Zoloft 50 mg Tablet] 100 mg PO DAILY 09/07/23 [History Confirmed 11/30/23] Carbamide Peroxide [Ear Drops] 5 drops OT BID 11/30/23 [History Confirmed 11/30/23] Dextran 70/Hypromellose [Artificial Tears] 1 drop OP Q4H PRN PRN 11/30/23 [History Confirmed 11/30/23] Meclizine HCl 25 mg [Antivert 25 mg] 25 mg PO DAILY 11/30/23 [History Confirmed 11/30/23] Phenyleph/Pramoxin/Glycr/W.pet [Preparation H Cream] 1 applic TOP Q6H PRN PRN 11/30/23 [History Confirmed 11/30/23] Allergies/Adverse Reactions: Allergies Allergy/AdvReac Type Severity Reaction Status Date / Time codeine Allergy Mild Headache Verified 09/07/23 15:03 morphine Allergy Mild Verified 09/07/23 15:03 - Past Medical History Past Medical History: Yes Neurological History: Dementia ENT History: No Pertinent History Cardiac History: Congestive Heart Failure, High Cholesterol, Hypertension Respiratory History: COPD Endocrine Medical History: Diabetes Type II, Hypothyroidism, Thyroid Cancer Musculoskelatal History: No Pertinent History GI Medical History: No Pertinent History History: Other Pyscho-Social History: Anxiety, Depression Male Reproductive Disorders: No Pertinent History Comment: 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 , PT UNSURE OF CURRENTS MEDICAL HX, PULLED FROM PAST ADMISSION - Past Surgical History Past Surgical History: Yes Neuro Surgical History: No Pertinent History Cardiac History: No Pertinent History Respiratory Surgery: No Pertinent History GI Surgical History: No Pertinent History Genitourinary Surgical Hx: No Pertinent History Musculskeletal Surgical Hx: Orthopedic Surgery Male Surgical History: No Pertinent History Other Surgical History: thyroid cancer- thyroidectomy. PULLED FROM PAST ADMISSION HISTORY. PT POOR HISTORIAN Significant Family History: no pertinent family hx - Social History Smoking Status: Former smoker Exposure to second hand smoke: No Alcohol: None Drug Use: none - Social Determinants of Health Will the patient participate in the screening: Yes Do you worry about a steady place to live?: No Do you have any problems with any of the following?: No known problems In the past 12 months,have you had to go without utilities?: No Have you or anyone in your house had to go without enough: No Transportation Issues: No Has anyone in your support network made you feel unsafe?: No - Physical Exam Vital Signs: Vital Signs - 24 hr Temp Pulse Resp BP BP Pulse Ox 11/30/23 13:01 77 16 138/82 96 11/30/23 12:30 89 23 157/105 97 11/30/23 12:00 83 19 138/83 94 L 11/30/23 11:31 81 25 H 153/73 95 11/30/23 11:00 84 18 149/80 97 11/30/23 10:30 89 26 H 124/81 11/30/23 10:00 76 21 144/93 94 L 11/30/23 09:30 80 16 129/98 96 11/30/23 09:00 81 20 142/76 95 11/30/23 08:30 85 24 147/87 93 L 11/30/23 08:00 74 18 138/95 94 L 11/30/23 07:51 86 22 130/93 93 L 11/30/23 07:13 92 L 11/30/23 07:00 80 14 95 11/30/23 06:53 96 H 20 95 11/30/23 06:03 90 20 95 11/30/23 05:30 75 14 118/67 92 L 11/30/23 05:27 93 L 11/30/23 05:10 99.3 F 83 24 139/53 94 L 11/30/23 05:01 76 13 139/53 94 L General Appearance: no apparent distress, alert, obese Neurologic Exam: alert, oriented x 3, cooperative, normal mood/affect, nml cerebellar function, nml station & gait, sensation nml, confusion (could be at baseline, he lives in a retirement), motor weakness, No motor deficits Eye Exam: PERRL/EOMI, eyes nml inspection Ears, Nose, Throat Exam: normal ENT inspection, TMs normal, pharynx normal, moist mucous membranes Neck Exam: normal inspection, non-tender, supple, full range of motion Respiratory Exam: normal breath sounds, lungs clear, No respiratory distress Cardiovascular Exam: regular rate/rhythm, normal heart sounds, normal peripheral pulses Gastrointestinal/Abdomen Exam: soft, normal bowel sounds, No tenderness, No mass Back Exam: normal inspection, normal range of motion, No CVA tenderness, No vertebral tenderness Extremity Exam: normal inspection, normal range of motion, pelvis stable, tenderness (right wrist wrapped from recent fall per patient) Skin Exam: normal color, warm, dry, No rash Lymphatic Exam: No adenopathy Results - Labs Lab/Micro Results: Lab Results-Last 24 Hours 11/30/23 11/30/23 11/30/23 Range/Units 05:43 05:43 05:43 WBC 7.5 (4.23-9.07) x10^3/uL RBC 3.87 L (4.63-6.08) x10^6/uL Hgb 10.1 L (13.7-17.5) g/dL Hct 31.2 L (40.1-51.0) % MCV 80.6 (79.0-92.2) fL MCH 26.1 (25.7-32.2) pg MCHC 32.4 (32.3-36.5) g/dL RDW 14.7 H (11.6-14.4) % Plt Count 208 (163-337) x10^3/uL MPV 8.8 L (9.4-12.4) fL Gran % 69.8 H (34.0-67.9) % Immature Gran % (Auto) 0.8 H (0.001-0.429) % Nucleat RBC Rel Count 0.0 (0.00-0.2) % Eos # (Auto) 0.34 (0.04-0.54) x10^3/uL Immature Gran # (Auto) 0.06 H (0.001-0.031) x10^3u/L Absolute Lymphs (auto) 1.42 (1.32-3.57) x10^3/uL Absolute Monos (auto) 0.40 (0.30-0.82) x10^3/uL Absolute Nucleated RBC 0.00 (0.00-0.012) x10^3u/L Lymphocytes % 19.1 L (21.8-53.1) % Monocytes % 5.4 (5.3-12.2) % Eosinophils % 4.6 (0.8-7.0) % Basophils % 0.3 (0.2-1.2) % Absolute Granulocytes 5.21 (1.78-5.38) x10^3/uL Basophils # 0.02 (0.01-0.08) x10^3/uL Sodium 141 (135-145) mmol/L Potassium 2.6 L* (3.5-5.1) mmol/L Chloride 98 (98-107) mmol/L Carbon Dioxide 35 H (22-30) mmol/L Anion Gap 11.3 (5-15) MEQ/L BUN 22 H (9-20) mg/dL Creatinine 0.89 (0.66-1.25) mg/dL Estimated GFR 88.3 ML/MIN Glucose 118 H (74-106) mg/dL Calcium 8.7 (8.4-10.2) mg/dL Magnesium (1.6-2.3) mg/dL Total Bilirubin 0.40 (0.2-1.3) mg/dL AST 19 (17-59) U/L ALT 22 (0-50) U/L Alkaline Phosphatase 76 (38-126) U/L Troponin I 0.013 (0.000-0.033) ng/mL NT-Pro-B Natriuret Pep 452 (<300) pg/mL Serum Total Protein 6.2 L (6.3-8.2) g/dL Albumin 3.5 (3.5-5.0) g/dL Urine Color (Yellow) Urine Appearance (Clear) Urine pH (4.6-8.0) Ur Specific [place] (1.005-1.030) Urine Protein (Negative) Urine Glucose (UA) (Negative) mg/dL Urine Ketones (Negative) Urine Blood (Negative) Urine Nitrite (Negative) Urine Bilirubin (Negative) Urine Urobilinogen (0.2) mg/dL Ur Leukocyte Esterase (Negative) U Hyaline Cast (Auto) (0-2) /LPF Urine Microscopic RBC (0-5) /HPF Urine Microscopic WBC (0-5) /HPF Ur Epithelial Cells (None Seen) /HPF Urine Bacteria (None Seen) /HPF Urine Culture Reflexed (NO) Influenza Type A Ag (NEGATIVE) Influenza Type B Ag (NEGATIVE) RSV (PCR) (NEGATIVE) SARS-CoV-2 (PCR) (NEGATIVE) 11/30/23 11/30/23 11/30/23 Range/Units 05:43 07:10 08:43 WBC (4.23-9.07) x10^3/uL RBC (4.63-6.08) x10^6/uL Hgb (13.7-17.5) g/dL Hct (40.1-51.0) % MCV (79.0-92.2) fL MCH (25.7-32.2) pg MCHC (32.3-36.5) g/dL RDW (11.6-14.4) % Plt Count (163-337) x10^3/uL MPV (9.4-12.4) fL Gran % (34.0-67.9) % Immature Gran % (Auto) (0.001-0.429) % Nucleat RBC Rel Count (0.00-0.2) % Eos # (Auto) (0.04-0.54) x10^3/uL Immature Gran # (Auto) (0.001-0.031) x10^3u/L Absolute Lymphs (auto) (1.32-3.57) x10^3/uL Absolute Monos (auto) (0.30-0.82) x10^3/uL Absolute Nucleated RBC (0.00-0.012) x10^3u/L Lymphocytes % (21.8-53.1) % Monocytes % (5.3-12.2) % Eosinophils % (0.8-7.0) % Basophils % (0.2-1.2) % Absolute Granulocytes (1.78-5.38) x10^3/uL Basophils # (0.01-0.08) x10^3/uL Sodium (135-145) mmol/L Potassium (3.5-5.1) mmol/L Chloride (98-107) mmol/L Carbon Dioxide (22-30) mmol/L Anion Gap (5-15) MEQ/L BUN (9-20) mg/dL Creatinine (0.66-1.25) mg/dL Estimated GFR ML/MIN Glucose (74-106) mg/dL Calcium (8.4-10.2) mg/dL Magnesium 1.7 (1.6-2.3) mg/dL Total Bilirubin (0.2-1.3) mg/dL AST (17-59) U/L ALT (0-50) U/L Alkaline Phosphatase (38-126) U/L Troponin I (0.000-0.033) ng/mL NT-Pro-B Natriuret Pep (<300) pg/mL Serum Total Protein (6.3-8.2) g/dL Albumin (3.5-5.0) g/dL Urine Color Yellow (Yellow) Urine Appearance Clear (Clear) Urine pH 7.5 (4.6-8.0) Ur Specific [place] 1.015 (1.005-1.030) Urine Protein Negative (Negative) Urine Glucose (UA) Negative (Negative) mg/dL Urine Ketones Negative (Negative) Urine Blood Moderate A (Negative) Urine Nitrite Negative (Negative) Urine Bilirubin Negative (Negative) Urine Urobilinogen 0.2 (0.2) mg/dL Ur Leukocyte Esterase Small A (Negative) U Hyaline Cast (Auto) NONE SEEN (0-2) /LPF Urine Microscopic RBC 21-50 A (0-5) /HPF Urine Microscopic WBC 21-50 A (0-5) /HPF Ur Epithelial Cells None Seen (None Seen) /HPF Urine Bacteria None Seen (None Seen) /HPF Urine Culture Reflexed ORDERED SEPARATELY (NO) Influenza Type A Ag NEGATIVE (NEGATIVE) Influenza Type B Ag NEGATIVE (NEGATIVE) RSV (PCR) NEGATIVE (NEGATIVE) SARS-CoV-2 (PCR) NEGATIVE (NEGATIVE) 11/30/23 Range/Units 09:11 WBC (4.23-9.07) x10^3/uL RBC (4.63-6.08) x10^6/uL Hgb (13.7-17.5) g/dL Hct (40.1-51.0) % MCV (79.0-92.2) fL MCH (25.7-32.2) pg MCHC (32.3-36.5) g/dL RDW (11.6-14.4) % Plt Count (163-337) x10^3/uL MPV (9.4-12.4) fL Gran % (34.0-67.9) % Immature Gran % (Auto) (0.001-0.429) % Nucleat RBC Rel Count (0.00-0.2) % Eos # (Auto) (0.04-0.54) x10^3/uL Immature Gran # (Auto) (0.001-0.031) x10^3u/L Absolute Lymphs (auto) (1.32-3.57) x10^3/uL Absolute Monos (auto) (0.30-0.82) x10^3/uL Absolute Nucleated RBC (0.00-0.012) x10^3u/L Lymphocytes % (21.8-53.1) % Monocytes % (5.3-12.2) % Eosinophils % (0.8-7.0) % Basophils % (0.2-1.2) % Absolute Granulocytes (1.78-5.38) x10^3/uL Basophils # (0.01-0.08) x10^3/uL Sodium (135-145) mmol/L Potassium (3.5-5.1) mmol/L Chloride (98-107) mmol/L Carbon Dioxide (22-30) mmol/L Anion Gap (5-15) MEQ/L BUN (9-20) mg/dL Creatinine (0.66-1.25) mg/dL Estimated GFR ML/MIN Glucose (74-106) mg/dL Calcium (8.4-10.2) mg/dL Magnesium (1.6-2.3) mg/dL Total Bilirubin (0.2-1.3) mg/dL AST (17-59) U/L ALT (0-50) U/L Alkaline Phosphatase (38-126) U/L Troponin I 0.013 (0.000-0.033) ng/mL NT-Pro-B Natriuret Pep (<300) pg/mL Serum Total Protein (6.3-8.2) g/dL Albumin (3.5-5.0) g/dL Urine Color (Yellow) Urine Appearance (Clear) Urine pH (4.6-8.0) Ur Specific [place] (1.005-1.030) Urine Protein (Negative) Urine Glucose (UA) (Negative) mg/dL Urine Ketones (Negative) Urine Blood (Negative) Urine Nitrite (Negative) Urine Bilirubin (Negative) Urine Urobilinogen (0.2) mg/dL Ur Leukocyte Esterase (Negative) U Hyaline Cast (Auto) (0-2) /LPF Urine Microscopic RBC (0-5) /HPF Urine Microscopic WBC (0-5) /HPF Ur Epithelial Cells (None Seen) /HPF Urine Bacteria (None Seen) /HPF Urine Culture Reflexed (NO) Influenza Type A Ag (NEGATIVE) Influenza Type B Ag (NEGATIVE) RSV (PCR) (NEGATIVE) SARS-CoV-2 (PCR) (NEGATIVE) - Radiology Impressions Radiology Exams & Impressions: Radiology Procedures Category Date Time Status CHEST 1 VIEW (PORTABLE) Stat Exams 11/30/23 05:34 Completed - Other Procedures and Tests Respiratory Therapy 11/30/23 06:52 Respiratory Therapy Assessment DAILY 11/30/23 13:36 EKG REPEAT IN AM Respiratory Therapy Consult ONCE Assessment/Plan (1) Complicated UTI (urinary tract infection) Current Visit: No Status: Acute Code(s): N39.0 - URINARY TRACT INFECTION, SITE NOT SPECIFIED (2) COPD (chronic obstructive pulmonary disease) Current Visit: No Status: Chronic (3) Weakness Current Visit: Yes Status: Acute Code(s): R53.1 - WEAKNESS (4) Hypokalemia Current Visit: Yes Status: Acute Code(s): E87.6 - HYPOKALEMIA (5) Hypertension Current Visit: No Status: Chronic Code(s): I10 - ESSENTIAL (PRIMARY) HYPERTENSION (6) Iron deficiency anemia Current Visit: Yes Status: Chronic Code(s): D50.9 - IRON DEFICIENCY ANEMIA, UNSPECIFIED (7) BPH (benign prostatic hyperplasia) Current Visit: No Status: Chronic Code(s): N40.0 - BENIGN PROSTATIC HYPERPLASIA WITHOUT LOWER URINRY TRACT SYMP (8) CHF (congestive heart failure) Current Visit: No Status: Chronic Code(s): I50.9 - HEART FAILURE, UNSPECIFIED (9) Depression with anxiety Current Visit: Yes Status: Chronic Code(s): F41.8 - OTHER SPECIFIED ANXIETY DISORDERS (10) Hypothyroidism Current Visit: Yes Status: Chronic Code(s): E03.9 - HYPOTHYROIDISM, UNSPECIFIED (11) Type 2 diabetes mellitus Current Visit: No Status: Chronic Qualifiers: Diabetes mellitus 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 insulin use: without alf use Diabetes mellitus complication status: with circulatory complication Assessment & Plan: Complicated UTI -[place] changed in ER -Positive UA -Urine culture pending -Antibiotics started Rocephin 1gm and Azithromycin 500mg IV -Fever 99.3 COPD Exacerbation -CXR negative -DuoNeb treatments given in ED -On 2L baseline oxygen, O2 97% -Azithromycin and Rocephin started in the ED Weakness -PT eval and treat Hypokalemia -K 2.6 -In ER gave PO and IV potassium replacement -We will recheck 2 hours after IV replacement -Tele monitor Hypertension -continue home medications Iron Deficiency Anemia -Resume home meds -Hbg 10.1, Trend BPH -Continue Flomax Congestive Heart Failure -Continue home meds -BNP 452 not in current exacerbation -Low sodium diet started Anxiety/ Depression -Continue sertraline Hypothyroidism -Continue Synthroid -TSH in the AM DMII -Continue Metformin -11/21/23- HbgA1c 5.64 (Controlled) -2200 Carb diet started Obesity -BMI 33.8kg -Advised ADA diet and exercise (12) Obesity (BMI 30.0-34.9) Current Visit: Yes Status: Acute Assessment & Plan: -VTE: Lovonex started -Code Status: SCO/ DNR -Next of Kin: Marlin Vasquez Daughter [phone] -D/C Plan: 3-4 days Code(s): E66.811 - OBESITY, CLASS 1
[2023-11-30] MEDS ORDERED: NON-FORMULARY ITEM (Albuterol Sulfate/Budesonide [Airsupra 90-80 Mcg Inhaler] 10.7 GM Hfa. IH PRN (14:13)
[2023-11-30] MEDS ORDERED: TYLENOL 325 MG PO PRN (14:13)
[2023-11-30] MEDS ORDERED: IMODIUM 2 MG PO PRN (14:20)
[2023-11-30] MEDS ORDERED: VENTOLIN COMMON CANISTER IH PRN (14:25)
[2023-11-30] MEDS ORDERED: Artificial Tears 15 ML OP PRN (14:34)
[2023-11-30] MEDS ORDERED: PREPARATION H Ointment TOP PRN (14:35)
[2023-11-30 14:46] LABS: MAGNESIUM 1.8 mg/dL (1.6-2.3)
[2023-11-30 14:48] LABS: Potassium 3.4 mmol/L (3.5-5.1)
[2023-11-30] MEDS: ZOLOFT 50 MG TABLET PO SCH (16:39)
[2023-11-30] MEDS: FEOSOL 325 MG PO SCH (16:39)
[2023-11-30] MEDS: Flomax 0.4 MG PO SCH (16:39)
[2023-11-30] MEDS: NORVASC 5 MG PO SCH (16:39)
[2023-11-30] MEDS: Lasix 40 MG PO SCH (16:40)
[2023-11-30] MEDS: SENOKOT 8.6 MG PO SCH (16:40)
[2023-11-30] MEDS: CHLORTHALIDONE PO SCH (16:40)
[2023-11-30] MEDS: SYNTHROID 100 MCG PO SCH (16:40)
[2023-11-30] MEDS: Klor Con PO SCH (16:40)
[2023-11-30] MEDS: ENOXAPARIN SODIUM SQ SCH (16:47)
[2023-11-30] MEDS: Glucophage 850 MG PO SCH (18:17)
[2023-11-30] MEDS: ROCEPHIN 1 GM / 100 ML NaCl 1 GM/100 ML IVPB IV SCH (18:21)
[2023-11-30] MEDS ORDERED: Advair Hfa 230/21 Mcg COMMON CANISTER IH SCH (19:00)
[2023-11-30] MEDS: Advair Hfa 230/21 Mcg COMMON CANISTER IH SCH (19:06)
[2023-11-30] MEDS: MELATONIN PO SCH (21:10)
[2023-11-30] MEDS: TYLENOL 325 MG PO PRN (21:10)
[2023-11-30] MEDS: Ear Wax Drops OT SCH (21:11)
[2023-12-01] MEDS: Klor Con PO ONE ×2 (01:06→16:27)
[2023-12-01 05:39] LABS: Hematocrit 30.7 % (40.1-51.0); Hemoglobin 9.9 g/dL (13.7-17.5); Mean Cell Volume 80.4 fL (79.0-92.2); Mean Corpuscular Hemoglobin 25.9 pg (25.7-32.2); Mean Corpuscular Hgb Concent. 32.2 g/dL (32.3-36.5); Mean Platelet Volume 8.9 fL (9.4-12.4); Platelet Count 208 x10^3/uL (163-337); Red Blood Count 3.82 x10^6/uL (4.63-6.08); Red Cell Distribution Width 15.1 % (11.6-14.4); White Blood Count 7.5 x10^3/uL (4.23-9.07)
[2023-12-01 06:02] LABS: ALBUMIN 3.5 g/dL (3.5-5.0); ANION GAP 9.9 MEQ/L (5-15); BILIRUBIN,TOTAL 0.4 mg/dL (0.2-1.3); Calcium 8.5 mg/dL (8.4-10.2); Creatinine 1 0.95 mg/dL (0.66-1.25); EST GLOMERULAR FILTRATION RATE 82.4 ML/MIN; MAGNESIUM 1.7 mg/dL (1.6-2.3); Potassium 3.3 mmol/L (3.5-5.1); Total Protein 6.2 g/dL (6.3-8.2)
[2023-12-01] MEDS: Klor Con PO SCH (08:05)
[2023-12-01] MEDS: ANTIVERT 25 MG PO SCH (09:20)
--- NOTE | 2023-12-01 09:41 | PCM.DS ---
Discharge Summary Date of Admission: 11/30/23 13:28 Date of Discharge: 12/01/23 Admitting Physician: LOUIE ARREAGA MD Primary Care Provider: ENVIVE Allergies Allergies codeine Allergy (Mild, Verified 09/07/23 15:03) Headache morphine Allergy (Mild, Verified 09/07/23 15:03) Hospital Summary - Hospital Course Hospital Course: 11/30/23 78-year-old male resident from alf presents with increased SOB for a few days and low-grade fever x 2days. He has a history of multiple medical problems including dementia, hypertension, hyperlipidemia, congestive heart failure, hypothyroidism, diabetes mellitus, COPD with chronic respiratory failure on 2 L oxygen. He was brought in the ER with increasing shortness of breath on oxygen with saturation dropping to 82%. Oxygenation improved on 2L to 97%. Patients report minimal nonproductive cough with increasing difficulty breathing. Denies any chest pain but has tightness. Patient reports feeling weak fatigued tired and lack of energy to do his routine activities. He is not a good historian and history is limited. In ER potassium was replaced and antibiotics started for COPD exacerbation and UTI. Will continue to monitor potassium level and continue antibiotics. Denies CP, SOB, abd. pain, N/V/D. 11/30 Pt sitting up n bed. He is no longer feeling SOB today. He is on his baseline O2 of 2lNC. K+ 3.3 and replaced this morning. urine culture negative and IV antibiotics stopped. If potassium improves after replacement he can d/c back to [facility] today. He denies any further concerns at this time. - Vitals & Intake/Output Vital Signs: Vital Signs Temperature 97.7 F 12/01/23 07:12 Pulse Rate 79 12/01/23 08:29 Respiratory Rate 18 12/01/23 08:29 Blood Pressure 134/77 12/01/23 07:12 O2 Sat by Pulse Oximetry 96 12/01/23 08:29 Intake & Output: Intake & Output 11/28/23 11/29/23 11/30/23 12/01/23 11:59 11:59 11:59 11:59 Intake Total 1568 Output Total 200 2350 Balance -200 -782 Weight 107 kg 96.4 kg - Lab Result Diagrams: 12/01/23 05:27 12/01/23 05:27 Lab Results-Last 24 Hrs: Lab Results-Last 24 Hours 11/30/23 11/30/23 11/30/23 Range/Units 08:43 09:11 14:00 WBC (4.23-9.07) x10^3/uL RBC (4.63-6.08) x10^6/uL Hgb (13.7-17.5) g/dL Hct (40.1-51.0) % MCV (79.0-92.2) fL MCH (25.7-32.2) pg MCHC (32.3-36.5) g/dL RDW (11.6-14.4) % Plt Count (163-337) x10^3/uL MPV (9.4-12.4) fL Sodium (135-145) mmol/L Potassium (3.5-5.1) mmol/L Chloride (98-107) mmol/L Carbon Dioxide (22-30) mmol/L Anion Gap (5-15) MEQ/L BUN (9-20) mg/dL Creatinine (0.66-1.25) mg/dL Estimated GFR ML/MIN Glucose (74-106) mg/dL POC Glucometer (74 to 106) mg/dL Calcium (8.4-10.2) mg/dL Magnesium (1.6-2.3) mg/dL Total Bilirubin (0.2-1.3) mg/dL AST (17-59) U/L ALT (0-50) U/L Alkaline Phosphatase (38-126) U/L Troponin I 0.013 0.014 (0.000-0.033) ng/mL NT-Pro-B Natriuret Pep (<300) pg/mL Serum Total Protein (6.3-8.2) g/dL Albumin (3.5-5.0) g/dL Prealbumin (17.6-36.0) mg/dL TSH 3rd Generation (0.470-4.680) mIU/L Urine Color Yellow (Yellow) Urine Appearance Clear (Clear) Urine pH 7.5 (4.6-8.0) Ur Specific Bantam 1.015 (1.005-1.030) Urine Protein Negative (Negative) Urine Glucose (UA) Negative (Negative) mg/dL Urine Ketones Negative (Negative) Urine Blood Moderate A (Negative) Urine Nitrite Negative (Negative) Urine Bilirubin Negative (Negative) Urine Urobilinogen 0.2 (0.2) mg/dL Ur Leukocyte Esterase Small A (Negative) U Hyaline Cast (Auto) NONE SEEN (0-2) /LPF Urine Microscopic RBC 21-50 A (0-5) /HPF Urine Microscopic WBC 21-50 A (0-5) /HPF Ur Epithelial Cells None Seen (None Seen) /HPF Urine Bacteria None Seen (None Seen) /HPF Urine Culture Reflexed ORDERED SEPARATELY (NO) 11/30/23 11/30/23 11/30/23 Range/Units 14:00 14:00 16:14 WBC (4.23-9.07) x10^3/uL RBC (4.63-6.08) x10^6/uL Hgb (13.7-17.5) g/dL Hct (40.1-51.0) % MCV (79.0-92.2) fL MCH (25.7-32.2) pg MCHC (32.3-36.5) g/dL RDW (11.6-14.4) % Plt Count (163-337) x10^3/uL MPV (9.4-12.4) fL Sodium (135-145) mmol/L Potassium 3.4 L D (3.5-5.1) mmol/L Chloride (98-107) mmol/L Carbon Dioxide (22-30) mmol/L Anion Gap (5-15) MEQ/L BUN (9-20) mg/dL Creatinine (0.66-1.25) mg/dL Estimated GFR ML/MIN Glucose (74-106) mg/dL POC Glucometer 167 H (74 to 106) mg/dL Calcium (8.4-10.2) mg/dL Magnesium 1.8 (1.6-2.3) mg/dL Total Bilirubin (0.2-1.3) mg/dL AST (17-59) U/L ALT (0-50) U/L Alkaline Phosphatase (38-126) U/L Troponin I (0.000-0.033) ng/mL NT-Pro-B Natriuret Pep (<300) pg/mL Serum Total Protein (6.3-8.2) g/dL Albumin (3.5-5.0) g/dL Prealbumin 24.71 (17.6-36.0) mg/dL TSH 3rd Generation (0.470-4.680) mIU/L Urine Color (Yellow) Urine Appearance (Clear) Urine pH (4.6-8.0) Ur Specific Bantam (1.005-1.030) Urine Protein (Negative) Urine Glucose (UA) (Negative) mg/dL Urine Ketones (Negative) Urine Blood (Negative) Urine Nitrite (Negative) Urine Bilirubin (Negative) Urine Urobilinogen (0.2) mg/dL Ur Leukocyte Esterase (Negative) U Hyaline Cast (Auto) (0-2) /LPF Urine Microscopic RBC (0-5) /HPF Urine Microscopic WBC (0-5) /HPF Ur Epithelial Cells (None Seen) /HPF Urine Bacteria (None Seen) /HPF Urine Culture Reflexed (NO) 12/01/23 12/01/23 12/01/23 Range/Units 00:20 05:27 05:27 WBC (4.23-9.07) x10^3/uL RBC (4.63-6.08) x10^6/uL Hgb (13.7-17.5) g/dL Hct (40.1-51.0) % MCV (79.0-92.2) fL MCH (25.7-32.2) pg MCHC (32.3-36.5) g/dL RDW (11.6-14.4) % Plt Count (163-337) x10^3/uL MPV (9.4-12.4) fL Sodium 140 (135-145) mmol/L Potassium 3.4 L 3.3 L (3.5-5.1) mmol/L Chloride 100 (98-107) mmol/L Carbon Dioxide 33 H (22-30) mmol/L Anion Gap 9.9 (5-15) MEQ/L BUN 24 H (9-20) mg/dL Creatinine 0.95 (0.66-1.25) mg/dL Estimated GFR 82.4 ML/MIN Glucose 121 H (74-106) mg/dL POC Glucometer (74 to 106) mg/dL Calcium 8.5 (8.4-10.2) mg/dL Magnesium 1.7 (1.6-2.3) mg/dL Total Bilirubin 0.40 (0.2-1.3) mg/dL AST 17 (17-59) U/L ALT 13 (0-50) U/L Alkaline Phosphatase 72 (38-126) U/L Troponin I (0.000-0.033) ng/mL NT-Pro-B Natriuret Pep 669 (<300) pg/mL Serum Total Protein 6.2 L (6.3-8.2) g/dL Albumin 3.5 (3.5-5.0) g/dL Prealbumin (17.6-36.0) mg/dL TSH 3rd Generation 0.952 (0.470-4.680) mIU/L Urine Color (Yellow) Urine Appearance (Clear) Urine pH (4.6-8.0) Ur Specific Bantam (1.005-1.030) Urine Protein (Negative) Urine Glucose (UA) (Negative) mg/dL Urine Ketones (Negative) Urine Blood (Negative) Urine Nitrite (Negative) Urine Bilirubin (Negative) Urine Urobilinogen (0.2) mg/dL Ur Leukocyte Esterase (Negative) U Hyaline Cast (Auto) (0-2) /LPF Urine Microscopic RBC (0-5) /HPF Urine Microscopic WBC (0-5) /HPF Ur Epithelial Cells (None Seen) /HPF Urine Bacteria (None Seen) /HPF Urine Culture Reflexed (NO) 12/01/23 Range/Units 05:27 WBC 7.5 (4.23-9.07) x10^3/uL RBC 3.82 L (4.63-6.08) x10^6/uL Hgb 9.9 L (13.7-17.5) g/dL Hct 30.7 L (40.1-51.0) % MCV 80.4 (79.0-92.2) fL MCH 25.9 (25.7-32.2) pg MCHC 32.2 L (32.3-36.5) g/dL RDW 15.1 H (11.6-14.4) % Plt Count 208 (163-337) x10^3/uL MPV 8.9 L (9.4-12.4) fL Sodium (135-145) mmol/L Potassium (3.5-5.1) mmol/L Chloride (98-107) mmol/L Carbon Dioxide (22-30) mmol/L Anion Gap (5-15) MEQ/L BUN (9-20) mg/dL Creatinine (0.66-1.25) mg/dL Estimated GFR ML/MIN Glucose (74-106) mg/dL POC Glucometer (74 to 106) mg/dL Calcium (8.4-10.2) mg/dL Magnesium (1.6-2.3) mg/dL Total Bilirubin (0.2-1.3) mg/dL AST (17-59) U/L ALT (0-50) U/L Alkaline Phosphatase (38-126) U/L Troponin I (0.000-0.033) ng/mL NT-Pro-B Natriuret Pep (<300) pg/mL Serum Total Protein (6.3-8.2) g/dL Albumin (3.5-5.0) g/dL Prealbumin (17.6-36.0) mg/dL TSH 3rd Generation (0.470-4.680) mIU/L Urine Color (Yellow) Urine Appearance (Clear) Urine pH (4.6-8.0) Ur Specific Bantam (1.005-1.030) Urine Protein (Negative) Urine Glucose (UA) (Negative) mg/dL Urine Ketones (Negative) Urine Blood (Negative) Urine Nitrite (Negative) Urine Bilirubin (Negative) Urine Urobilinogen (0.2) mg/dL Ur Leukocyte Esterase (Negative) U Hyaline Cast (Auto) (0-2) /LPF Urine Microscopic RBC (0-5) /HPF Urine Microscopic WBC (0-5) /HPF Ur Epithelial Cells (None Seen) /HPF Urine Bacteria (None Seen) /HPF Urine Culture Reflexed (NO) Micro Results-Entire Visit: Microbiology 11/30/23 14:43 Urine Culture - Preliminary Catherized NO GROWTH TO DATE 11/30/23 06:49 Blood Culture - Preliminary Blood NO GROWTH TO DATE Accuchecks Date 11/30/23 - Radiology Exams Ordered Rad Exams-Entire Visit: Radiology Procedures Category Date Time Status CHEST 1 VIEW (PORTABLE) Stat Exams 11/30/23 05:34 Completed - Procedures and Test Procedures and Tests throughout Hospitalization: Therapy Orders & Screens 11/30/23 06:52 Respiratory Therapy Assessment DAILY Comment: 11/30/23 13:36 EKG REPEAT IN AM Comment: Respiratory Therapy Consult ONCE Comment: Reason For Exam: 11/30/23 15:07 Oxygen NASAL CANNULA 2 lpm Comment: Diagnosis: Hypokalemia, UTI 11/30/23 17:25 OT Screen per Nursing Assess ONCE Comment: Protocol Order Physician Instructions: Greater than 3 points order OT Admission Screening Reason For Exam: Triggered on Admission Diagnosis: Hypokalemia, UTI Open Wound/Cellutlitis/Pressure Ulcers: No Acute Fx/ORIF/Change in wt bearing status: No Severe MUSCULOSKELETAL pain: No ADL Dysfunction: Yes Acute CVA w/Hemiparesis/Hemiplegia: No Decreased Functional Mobility/Strength: Yes Sprain/Strain: No Acute Post-op Mobility Dysfunction: No Total Points: 4 PT Screen per Nursing Assess ONCE Comment: Protocol Order Physician Instructions: Greater than 3 points order PT Admission Screenin Reason For Exam: Triggered on Admission Diagnosis: Hypokalemia, UTI Open Wound/Cellutlitis/Pressure Ulcers: No Acute Fx/ORIF/Change in wt bearing status: No Severe MUSCULOSKELETAL pain: No ADL Dysfunction: Yes Acute CVA w/Hemiparesis/Hemiplegia: No Decreased Functional Mobility/Strength: Yes Sprain/Strain: No Acute Post-op Mobility Dysfunction: No Total Points: 4 RT Screen per Nursing Assess ONCE Comment: Protocol Order Physician Instructions: Greater than 3 points order RT Admission Screen Reason For Exam: Triggered on Admission Diagnosis: Hypokalemia, UTI Diagnosis: Hypokalemia, UTI Pneumonia: No Home O2: Yes Asthma: No CHF: Yes Home CPAP/BIPAP: Yes Home Nebs/MDI: Yes Total Points: 18 ST Screen per Nursing Assess ONCE Comment: Protocol Order Physician Instructions: Greater than [address] Admission Screening Reason For Exam: Triggered on Admission Diagnosis: Hypokalemia, UTI CVA/Dyshpagia/Aphasia: Yes: [facility] SOFT DIET Cognitive Deficits: Yes: DEMENTIA Dehydration/Nutrition Deficit: No Reflux: No Oral-Motor Difficulties: No Pneumonia: No Residential Resident: Yes Total Points: 13 11/30/23 21:00 BiPap/CPAP ROUTINE Comment: PER HOME USE/SETTINGS Diagnosis: Hypokalemia, UTI Discharge Exam General Appearance: no apparent distress, alert, obese Neurologic Exam: alert, oriented x 3, cooperative, normal mood/affect, nml cerebellar function, sensation nml, No motor deficits Eye Exam: PERRL, EOMI, eyes nml inspection Ears, Nose, Throat Exam: normal ENT inspection, pharynx normal, moist mucous membranes Neck Exam: normal inspection, non-tender, supple, full range of motion Respiratory Exam: normal breath sounds, lungs clear, No respiratory distress Cardiovascular Exam: regular rate/rhythm, normal heart sounds Gastrointestinal/Abdomen Exam: soft, No tenderness, No mass Male Genitalia Exam: deferred Rectal Exam: deferred Back Exam: normal inspection, normal range of motion, No CVA tenderness, No vertebral tenderness Extremity Exam: normal inspection, normal range of motion Skin Exam: normal color, warm, dry Final Diagnosis/Problem List - Final Discharge Diagnosis/Problem (1) Complicated UTI (urinary tract infection) Current Visit: No Status: Acute Assessment & Plan: -Norton changed in ER- has chronic norton -Positive UA -Urine culture pending -Antibiotics started Rocephin 1gm IV -Fever 99.3 11/30 - UC negative - IV antibiotic stopped - No fever since admission Code(s): N39.0 - URINARY TRACT INFECTION, SITE NOT SPECIFIED (2) COPD (chronic obstructive pulmonary disease) Current Visit: No Status: Chronic Assessment & Plan: -CXR negative -DuoNeb treatments given in ED -On 2L baseline oxygen, O2 97% -Azithromycin and Rocephin started in the ED 11/30 - On Baseline O2 of 2lNC - Antibiotics stopped- lungs clear, denies SOB - WBC, eosinophils -WNL (3) Weakness Current Visit: Yes Status: Chronic Assessment & Plan: -PT eval and treat - at baseline Code(s): R53.1 - WEAKNESS (4) Hypokalemia Current Visit: Yes Status: Acute Assessment & Plan: -K 2.6 -In ER gave PO and IV potassium replacement -We will recheck 2 hours after IV replacement - repeat 3.4 -Tele monitor 11/30 - K+ 3.3- replaced- trend - Will continue daily K replacement at d/c Code(s): E87.6 - HYPOKALEMIA (5) Hypertension Current Visit: No Status: Chronic Assessment & Plan: - Controlled- monitor - Continue home medications Code(s): I10 - ESSENTIAL (PRIMARY) HYPERTENSION (6) Iron deficiency anemia Current Visit: Yes Status: Chronic Assessment & Plan: - Resume ferrous sulfate - Hbg 10.1, Trend 11/30 - Hgb 9.9- stable Code(s): D50.9 - IRON DEFICIENCY ANEMIA, UNSPECIFIED (7) BPH (benign prostatic hyperplasia) Current Visit: No Status: Chronic Assessment & Plan: -Continue Flomax Code(s): N40.0 - BENIGN PROSTATIC HYPERPLASIA WITHOUT LOWER URINRY TRACT SYMP (8) CHF (congestive heart failure) Current Visit: No Status: Chronic Assessment & Plan: -Continue home meds -BNP 452 not in current exacerbation -Low sodium diet Code(s): I50.9 - HEART FAILURE, UNSPECIFIED (9) Depression with anxiety Current Visit: Yes Status: Chronic Assessment & Plan: -Continue sertraline Code(s): F41.8 - OTHER SPECIFIED ANXIETY DISORDERS (10) Hypothyroidism Current Visit: Yes Status: Chronic Assessment & Plan: -Continue Synthroid - TSH - 0.952- controlled Code(s): E03.9 - HYPOTHYROIDISM, UNSPECIFIED (11) Type 2 diabetes mellitus Current Visit: No Status: Chronic Assessment & Plan: -Continue Metformin -11/21/23- HbgA1c 5.64 (Controlled) -2200 Carb diet (12) Obesity (BMI 30.0-34.9) Current Visit: Yes Status: Chronic Assessment & Plan: -BMI 33.8kg -Advised ADA diet and exercise Code(s): E66.811 - OBESITY, CLASS 1 - Discharge Discharge Date: 12/01/23 ([facility]) Disposition: XFER OTHER Condition: Stable Prescriptions: Continue Amlodipine Besylate [Norvasc] 10 mg PO DAILY Metformin HCl 850 mg [Glucophage 850 MG] 850 mg PO BID Tamsulosin HCl 0.4 mg [Flomax 0.4 MG] 0.4 mg PO DAILY cap Potassium Chloride 40 meq PO DAILY 30 Days #30 tablet Sennosides 17.2 mg PO DAILY Levothyroxine Sodium 100 Mcg [Synthroid 100 Mcg] 200 mcg PO DAILY Furosemide 40 mg [Lasix 40 MG] 40 mg PO DAILY Ferrous Sulfate 325 mg [Feosol 325 mg] 325 mg PO DAILY 30 Days #30 tablet Glucagon 1 mg [GlucaGen 1 MG] 1 mg SQ UD Chlorthalidone 25 mg PO DAILY Albuterol Sulfate/Budesonide [Airsupra 90-80 Mcg Inhaler] 2 puff IH Q4HPRN PRN PRN Reason: Shortness Of Breath Melatonin 10 mg PO QHS Sertraline HCl 50 mg [Zoloft 50 mg Tablet] 100 mg PO DAILY Phenyleph/Pramoxin/Glycr/W.pet [Preparation H Cream] 1 applic TOP Q6H PRN PRN PRN Reason: Pain Meclizine HCl 25 mg [Antivert 25 mg] 25 mg PO DAILY Carbamide Peroxide [Ear Drops] 5 drops OT BID Dextran 70/Hypromellose [Artificial Tears] 1 drop OP Q4H PRN PRN PRN Reason: Redness/Irritation Acetaminophen 325 mg [Tylenol 325 mg] 650 mg PO Q4HPRN PRN PRN Reason: Pain And/Or Fever Fluticasone/Salmeterol 230/21 [Advair Hfa 230/21 Mcg COMMON CANISTER*] 1 puff IH BIDRT Loperamide HCl 2 mg [Imodium 2 mg] 2 mg PO Q4HPRN PRN PRN Reason: Diarrhea Additional Instructions: Resume previous [facility] Orders Additional [facility] Orders - Follow up with: ENVIVE,ENVIVE [Primary Care Provider] -
[2023-12-01] MEDS ORDERED: ROCEPHIN 1 GM / 100 ML NaCl 1 GM/100 ML IVPB IV SCH (10:00)
[2023-12-01] MEDS ORDERED: Klor Con PO SCH (10:00)
[2023-12-01 12:22] LABS: MAGNESIUM 1.6 mg/dL (1.6-2.3); Potassium 3.4 mmol/L (3.5-5.1)
--- NOTE | 2023-12-01 17:57 | PCM.NOTE ---
Date and Time: 12/01/231755 Subjective Assessment: 11/30/23 78-year-old [facility] resident from [facility] presents with increased SOB for a few days and low-grade fever x 2days. He has a history of multiple medical problems including dementia, hypertension, hyperlipidemia, congestive heart failure, hypothyroidism, diabetes mellitus, COPD with chronic respiratory failure on 2 L oxygen. He was brought in the ER with increasing shortness of breath on oxygen with saturation dropping to 82%. Oxygenation improved on 2L to 97%. Patients report minimal nonproductive cough with increasing difficulty breathing. Denies any chest pain but has tightness. Patient reports feeling weak fatigued tired and lack of energy to do his routine activities. He is not a good historian and history is limited. In ER potassium was replaced and antibiotics started for COPD exacerbation and UTI. Will continue to monitor potassium level and continue antibiotics. Denies CP, SOB, abd. pain, N/V/D. 11/30 Pt sitting up n bed. He is no longer feeling SOB today. He is on his baseline O2 of 2lNC. K+ 3.3 and replaced this morning. Continue to replace this afternoon. Urine culture negative and IV antibiotics stopped. He denies any further concerns at this time. Will likely d/c tomorrow. - Review of Systems Constitutional: Weakness Eyes: No Symptoms Ears, Nose, & Throat: No Symptoms Respiratory: No Cough, No Short Of Breath Cardiac: No Chest Pain, No Edema, No Syncope Abdominal/Gastrointestinal: No Abdominal Pain, No Nausea, No Vomiting, No Diarrhea Genitourinary Symptoms: No Dysuria Musculoskeletal: No Back Pain, No Neck Pain Skin: No Rash Neurological: No Dizziness, No Focal Weakness, No Sensory Changes Psychological: No Symptoms Endocrine: No Symptoms Hematologic/Lymphatic: No Symptoms Immunological/Allergic: No Symptoms Objective Exam General Appearance: no apparent distress, alert, obese Neurologic Exam: alert, oriented x 3, cooperative, normal mood/affect, nml cerebellar function, sensation nml, No motor deficits Skin Exam: normal color, warm, dry Eye Exam: PERRL, EOMI, eyes nml inspection Ears, Nose, Throat Exam: normal ENT inspection, pharynx normal, moist mucous membranes Neck Exam: normal inspection, non-tender, supple, full range of motion Respiratory Exam: normal breath sounds, lungs clear, No respiratory distress Cardiovascular Exam: regular rate/rhythm, normal heart sounds Gastrointestinal/Abdomen Exam: soft, No tenderness, No mass Extremity Exam: normal inspection, normal range of motion Back Exam: normal inspection, normal range of motion, No CVA tenderness, No vertebral tenderness Male Genitalia Exam: deferred Rectal Exam: deferred Objective Data Vital Signs: Vital Signs - 24 hr Temp Pulse Resp BP Pulse Ox 12/01/23 16:00 97.5 F 80 22 137/78 97 12/01/23 15:30 16 12/01/23 12:00 97.5 F 75 17 119/56 96 12/01/23 11:38 18 12/01/23 08:29 79 18 96 12/01/23 07:42 18 12/01/23 07:12 97.7 F 87 16 134/77 94 L 12/01/23 04:00 97.8 F 83 17 121/59 95 12/01/23 03:53 16 12/01/23 00:00 97.1 F 77 16 113/57 94 L 11/30/23 20:06 63 18 93 L 11/30/23 20:00 18 11/30/23 19:44 97.2 F 76 18 114/58 98 Pain Assessment - Last Documented Pain Intensity 2 Pain Scale Used 0-10 Pain Scale Intake and Output: Intake & Output 11/29/23 11/30/23 12/01/23 12/02/23 11:59 11:59 11:59 11:59 Intake Total 1568 1170 Output Total 200 2400 1850 Balance -200 -832 -680 Weight 107 kg 96.4 kg Lab Results: Lab Results-Last 24 Hours 11/30/23 12/01/23 12/01/23 Range/Units 14:00 00:20 05:27 WBC (4.23-9.07) x10^3/uL RBC (4.63-6.08) x10^6/uL Hgb (13.7-17.5) g/dL Hct (40.1-51.0) % MCV (79.0-92.2) fL MCH (25.7-32.2) pg MCHC (32.3-36.5) g/dL RDW (11.6-14.4) % Plt Count (163-337) x10^3/uL MPV (9.4-12.4) fL Sodium 140 (135-145) mmol/L Potassium 3.4 L 3.3 L (3.5-5.1) mmol/L Chloride 100 (98-107) mmol/L Carbon Dioxide 33 H (22-30) mmol/L Anion Gap 9.9 (5-15) MEQ/L BUN 24 H (9-20) mg/dL Creatinine 0.95 (0.66-1.25) mg/dL Estimated GFR 82.4 ML/MIN Glucose 121 H (74-106) mg/dL Calcium 8.5 (8.4-10.2) mg/dL Magnesium 1.7 (1.6-2.3) mg/dL Total Bilirubin 0.40 (0.2-1.3) mg/dL AST 17 (17-59) U/L ALT 13 (0-50) U/L Alkaline Phosphatase 72 (38-126) U/L NT-Pro-B Natriuret Pep 669 (<300) pg/mL Serum Total Protein 6.2 L (6.3-8.2) g/dL Albumin 3.5 (3.5-5.0) g/dL Prealbumin 24.71 (17.6-36.0) mg/dL TSH 3rd Generation (0.470-4.680) mIU/L 12/01/23 12/01/23 12/01/23 Range/Units 05:27 05:27 12:00 WBC 7.5 (4.23-9.07) x10^3/uL RBC 3.82 L (4.63-6.08) x10^6/uL Hgb 9.9 L (13.7-17.5) g/dL Hct 30.7 L (40.1-51.0) % MCV 80.4 (79.0-92.2) fL MCH 25.9 (25.7-32.2) pg MCHC 32.2 L (32.3-36.5) g/dL RDW 15.1 H (11.6-14.4) % Plt Count 208 (163-337) x10^3/uL MPV 8.9 L (9.4-12.4) fL Sodium (135-145) mmol/L Potassium 3.4 L (3.5-5.1) mmol/L Chloride (98-107) mmol/L Carbon Dioxide (22-30) mmol/L Anion Gap (5-15) MEQ/L BUN (9-20) mg/dL Creatinine (0.66-1.25) mg/dL Estimated GFR ML/MIN Glucose (74-106) mg/dL Calcium (8.4-10.2) mg/dL Magnesium 1.6 (1.6-2.3) mg/dL Total Bilirubin (0.2-1.3) mg/dL AST (17-59) U/L ALT (0-50) U/L Alkaline Phosphatase (38-126) U/L NT-Pro-B Natriuret Pep (<300) pg/mL Serum Total Protein (6.3-8.2) g/dL Albumin (3.5-5.0) g/dL Prealbumin (17.6-36.0) mg/dL TSH 3rd Generation 0.952 (0.470-4.680) mIU/L 12/01/23 Range/Units 15:44 WBC (4.23-9.07) x10^3/uL RBC (4.63-6.08) x10^6/uL Hgb (13.7-17.5) g/dL Hct (40.1-51.0) % MCV (79.0-92.2) fL MCH (25.7-32.2) pg MCHC (32.3-36.5) g/dL RDW (11.6-14.4) % Plt Count (163-337) x10^3/uL MPV (9.4-12.4) fL Sodium (135-145) mmol/L Potassium 3.4 L (3.5-5.1) mmol/L Chloride (98-107) mmol/L Carbon Dioxide (22-30) mmol/L Anion Gap (5-15) MEQ/L BUN (9-20) mg/dL Creatinine (0.66-1.25) mg/dL Estimated GFR ML/MIN Glucose (74-106) mg/dL Calcium (8.4-10.2) mg/dL Magnesium (1.6-2.3) mg/dL Total Bilirubin (0.2-1.3) mg/dL AST (17-59) U/L ALT (0-50) U/L Alkaline Phosphatase (38-126) U/L NT-Pro-B Natriuret Pep (<300) pg/mL Serum Total Protein (6.3-8.2) g/dL Albumin (3.5-5.0) g/dL Prealbumin (17.6-36.0) mg/dL TSH 3rd Generation (0.470-4.680) mIU/L Radiology Exams: Radiology Procedures Category Date Time Status CHEST 1 VIEW (PORTABLE) Stat Exams 11/30/23 05:34 Completed Assessment/Plan (1) Complicated UTI (urinary tract infection) Current Visit: No Status: Acute Code(s): N39.0 - URINARY TRACT INFECTION, SITE NOT SPECIFIED (2) COPD (chronic obstructive pulmonary disease) Current Visit: No Status: Chronic (3) Weakness Current Visit: Yes Status: Chronic Code(s): R53.1 - WEAKNESS (4) Hypokalemia Current Visit: Yes Status: Acute Code(s): E87.6 - HYPOKALEMIA (5) Hypertension Current Visit: No Status: Chronic Code(s): I10 - ESSENTIAL (PRIMARY) HYPERTENSION (6) Iron deficiency anemia Current Visit: Yes Status: Chronic Code(s): D50.9 - IRON DEFICIENCY ANEMIA, UNSPECIFIED (7) BPH (benign prostatic hyperplasia) Current Visit: No Status: Chronic Code(s): N40.0 - BENIGN PROSTATIC HYPERPLASIA WITHOUT LOWER URINRY TRACT SYMP (8) CHF (congestive heart failure) Current Visit: No Status: Chronic Code(s): I50.9 - HEART FAILURE, UNSPECIFIED (9) Depression with anxiety Current Visit: Yes Status: Chronic Code(s): F41.8 - OTHER SPECIFIED ANXIETY DISORDERS (10) Hypothyroidism Current Visit: Yes Status: Chronic Code(s): E03.9 - HYPOTHYROIDISM, UNSPECIFIED (11) Type 2 diabetes mellitus Current Visit: No Status: Chronic Qualifiers: Diabetes mellitus oil heaterman insulin use: without oil heaterman use Diabetes mellitus complication status: with circulatory complication Assessment & Plan: (1) Complicated UTI (urinary tract infection) Current Visit: No Status: Acute Assessment & Plan: -Norton changed in ER- has chronic norton -Positive UA -Urine culture pending -Antibiotics started Rocephin 1gm IV -Fever 99.3 11/30 - UC negative - IV antibiotic stopped - No fever since admission Code(s): N39.0 - URINARY TRACT INFECTION, SITE NOT SPECIFIED (2) COPD (chronic obstructive pulmonary disease) Current Visit: No Status: Chronic Assessment & Plan: -CXR negative -DuoNeb treatments given in ED -On 2L baseline oxygen, O2 97% -Azithromycin and Rocephin started in the ED 11/30 - On Baseline O2 of 2lNC - Antibiotics stopped- lungs clear, denies SOB - WBC, eosinophils -WNL (3) Weakness Current Visit: Yes Status: Chronic Assessment & Plan: -PT eval and treat - at baseline Code(s): R53.1 - WEAKNESS (4) Hypokalemia Current Visit: Yes Status: Acute Assessment & Plan: -K 2.6 -In ER gave PO and IV potassium replacement -We will recheck 2 hours after IV replacement - repeat 3.4 -Tele monitor 11/30 - K+ 3.3- replaced- trend - Will continue daily K replacement at d/c Code(s): E87.6 - HYPOKALEMIA (5) Hypertension Current Visit: No Status: Chronic Assessment & Plan: - Controlled- monitor - Continue home medications Code(s): I10 - ESSENTIAL (PRIMARY) HYPERTENSION (6) Iron deficiency anemia Current Visit: Yes Status: Chronic Assessment & Plan: - Resume ferrous sulfate - Hbg 10.1, Trend 11/30 - Hgb 9.9- stable Code(s): D50.9 - IRON DEFICIENCY ANEMIA, UNSPECIFIED (7) BPH (benign prostatic hyperplasia) Current Visit: No Status: Chronic Assessment & Plan: -Continue Flomax Code(s): N40.0 - BENIGN PROSTATIC HYPERPLASIA WITHOUT LOWER URINRY TRACT SYMP (8) CHF (congestive heart failure) Current Visit: No Status: Chronic Assessment & Plan: -Continue home meds -BNP 452 not in current exacerbation -Low sodium diet Code(s): I50.9 - HEART FAILURE, UNSPECIFIED (9) Depression with anxiety Current Visit: Yes Status: Chronic Assessment & Plan: -Continue sertraline Code(s): F41.8 - OTHER SPECIFIED ANXIETY DISORDERS (10) Hypothyroidism Current Visit: Yes Status: Chronic Assessment & Plan: -Continue Synthroid - TSH - 0.952- controlled Code(s): E03.9 - HYPOTHYROIDISM, UNSPECIFIED (11) Type 2 diabetes mellitus Current Visit: No Status: Chronic Assessment & Plan: -Continue Metformin -11/21/23- HbgA1c 5.64 (Controlled) -2200 Carb diet (12) Obesity (BMI 30.0-34.9) Current Visit: Yes Status: Chronic Assessment & Plan: -BMI 33.8kg -Advised ADA diet and exercise Code(s): E66.811 - OBESITY, CLASS 1 (12) Obesity (BMI 30.0-34.9) Current Visit: Yes Status: Chronic Code(s): E66.811 - OBESITY, CLASS 1
[2023-12-01] MEDS: OCEAN Nasal Spray NS PRN (19:06)
[2023-12-02 05:44] LABS: Hematocrit 31.4 % (40.1-51.0); Hemoglobin 10.1 g/dL (13.7-17.5); Mean Cell Volume 81.1 fL (79.0-92.2); Mean Corpuscular Hemoglobin 26.1 pg (25.7-32.2); Mean Corpuscular Hgb Concent. 32.2 g/dL (32.3-36.5); Platelet Count 213 x10^3/uL (163-337); Red Blood Count 3.87 x10^6/uL (4.63-6.08); Red Cell Distribution Width 15.1 % (11.6-14.4); White Blood Count 7.4 x10^3/uL (4.23-9.07)
[2023-12-02 05:57] LABS: ALBUMIN 3.5 g/dL (3.5-5.0); BILIRUBIN,TOTAL 0.5 mg/dL (0.2-1.3); Calcium 8.7 mg/dL (8.4-10.2); Creatinine 1 0.89 mg/dL (0.66-1.25); EST GLOMERULAR FILTRATION RATE 88.3 ML/MIN; Potassium 3.1 mmol/L (3.5-5.1); Total Protein 6.3 g/dL (6.3-8.2)
[2023-12-02] MEDS: Klor Con PO ONE (06:46)
[2023-12-02] MEDS: Klor Con PO SCH (08:01)
[2023-12-02] MEDS: K-LYTE PO SCH (08:06)
--- NOTE | 2023-12-02 09:52 | PCM.NOTE ---
Date and Time: 12/02/23 0946 Subjective Assessment: 11/30/23 78[facility] with increased SOB for a few days and low-grade fever x 2days. He has a history of multiple medical problems including dementia, hypertension, hyperlipidemia, congestive heart failure, hypothyroidism, diabetes mellitus, COPD with chronic respiratory failure on 2 L oxygen. He was brought in the ER with increasing shortness of breath on oxygen with saturation dropping to 82%. Oxygenation improved on 2L to 97%. Patients report minimal nonproductive cough with increasing difficulty breathing. Denies any chest pain but has tightness. Patient reports feeling weak fatigued tired and lack of energy to do his routine activities. He is not a good historian and history is limited. In ER potassium was replaced and antibiotics started for COPD exacerbation and UTI. Will continue to monitor potassium level and continue antibiotics. Denies CP, SOB, abd. pain, N/V/D. 12/01/23 Pt sitting up n bed. He is no longer feeling SOB today. He is on his baseline O2 of 2lNC. K+ 3.3 and replaced this morning. Continue to replace this afternoon. Urine culture negative and IV antibiotics stopped. He denies any further concerns at this time. Will likely d/c tomorrow. 12/02/23 Pt sitting up in bed. He c/o SOB and nasal congestion. He is on baseline O2 of 2lNC - 92%. K+ 3.1 today and replaced. Lasix and chlorthaladone stopped. Will reduce amlodipine. Will monitor BP. Likely will need med changes prior to d/c. Will continue to monitor BP and K+ throughout the day. Will keep another night as meds will likely need changed to keep potassium up and will need to monitor BP. He denies CP, abd pain, N/V/D. - Review of Systems Constitutional: No Fever, No Chills Eyes: No Symptoms Ears, Nose, & Throat: No Symptoms, Nose Congestion Respiratory: Short Of Breath, No Cough Cardiac: No Chest Pain, No Edema, No Syncope Abdominal/Gastrointestinal: No Abdominal Pain, No Nausea, No Vomiting, No Diarrhea Genitourinary Symptoms: No Dysuria Musculoskeletal: No Back Pain, No Neck Pain Skin: No Rash Neurological: No Dizziness, No Focal Weakness, No Sensory Changes Psychological: No Symptoms Endocrine: No Symptoms Hematologic/Lymphatic: No Symptoms Immunological/Allergic: No Symptoms Objective Exam General Appearance: no apparent distress, alert, obese Neurologic Exam: alert, oriented x 3, cooperative, normal mood/affect, nml cerebellar function, sensation nml, No motor deficits Skin Exam: normal color, warm, dry Eye Exam: PERRL, EOMI, eyes nml inspection Ears, Nose, Throat Exam: normal ENT inspection, pharynx normal, moist mucous membranes Neck Exam: normal inspection, non-tender, supple, full range of motion Respiratory Exam: normal breath sounds, lungs clear, No respiratory distress Cardiovascular Exam: regular rate/rhythm, normal heart sounds Gastrointestinal/Abdomen Exam: soft, No tenderness, No mass Extremity Exam: normal inspection, normal range of motion Back Exam: normal inspection, normal range of motion, No CVA tenderness, No vertebral tenderness Male Genitalia Exam: deferred Rectal Exam: deferred Objective Data Vital Signs: Vital Signs - 24 hr Temp Pulse Resp BP Pulse Ox 12/02/23 08:00 18 12/02/23 07:55 91 H 18 94 L 12/02/23 07:40 97.8 F 92 H 16 129/58 94 L 12/02/23 04:00 97.2 F 91 H 18 114/56 92 L 12/02/23 00:00 97.9 F 85 18 115/68 95 12/01/23 20:00 96.6 F 69 18 120/80 96 12/01/23 19:45 85 20 94 L 12/01/23 19:09 16 12/01/23 16:00 97.5 F 80 22 137/78 97 12/01/23 15:30 16 12/01/23 12:00 97.5 F 75 17 119/56 96 12/01/23 11:38 18 Pain Assessment - Last Documented Pain Intensity 3 Pain Scale Used 0-10 Pain Scale Intake and Output: Intake & Output 11/29/23 11/30/23 12/01/23 12/02/23 11:59 11:59 11:59 11:59 Intake Total 1568 1550 Output Total 200 2400 2700 Balance -200 -832 -1150 Weight 107 kg 96.4 kg 96.4 kg Lab Results: Lab Results-Last 24 Hours 12/01/23 12/01/23 12/02/23 Range/Units 12:00 15:44 05:26 WBC 7.4 (4.23-9.07) x10^3/uL RBC 3.87 L (4.63-6.08) x10^6/uL Hgb 10.1 L (13.7-17.5) g/dL Hct 31.4 L (40.1-51.0) % MCV 81.1 (79.0-92.2) fL MCH 26.1 (25.7-32.2) pg MCHC 32.2 L (32.3-36.5) g/dL RDW 15.1 H (11.6-14.4) % Plt Count 213 (163-337) x10^3/uL MPV 9.0 L (9.4-12.4) fL Sodium (135-145) mmol/L Potassium 3.4 L 3.4 L (3.5-5.1) mmol/L Chloride (98-107) mmol/L Carbon Dioxide (22-30) mmol/L Anion Gap (5-15) MEQ/L BUN (9-20) mg/dL Creatinine (0.66-1.25) mg/dL Estimated GFR ML/MIN Glucose (74-106) mg/dL Calcium (8.4-10.2) mg/dL Magnesium 1.6 (1.6-2.3) mg/dL Total Bilirubin (0.2-1.3) mg/dL AST (17-59) U/L ALT (0-50) U/L Alkaline Phosphatase (38-126) U/L Serum Total Protein (6.3-8.2) g/dL Albumin (3.5-5.0) g/dL 12/02/23 12/02/23 Range/Units 05:26 05:30 WBC (4.23-9.07) x10^3/uL RBC (4.63-6.08) x10^6/uL Hgb (13.7-17.5) g/dL Hct (40.1-51.0) % MCV (79.0-92.2) fL MCH (25.7-32.2) pg MCHC (32.3-36.5) g/dL RDW (11.6-14.4) % Plt Count (163-337) x10^3/uL MPV (9.4-12.4) fL Sodium 140 (135-145) mmol/L Potassium 3.1 L (3.5-5.1) mmol/L Chloride 100 (98-107) mmol/L Carbon Dioxide 32 H (22-30) mmol/L Anion Gap 11.0 (5-15) MEQ/L BUN 24 H (9-20) mg/dL Creatinine 0.89 (0.66-1.25) mg/dL Estimated GFR 88.3 ML/MIN Glucose 125 H (74-106) mg/dL Calcium 8.7 (8.4-10.2) mg/dL Magnesium 1.7 (1.6-2.3) mg/dL Total Bilirubin 0.50 (0.2-1.3) mg/dL AST 18 (17-59) U/L ALT 14 (0-50) U/L Alkaline Phosphatase 72 (38-126) U/L Serum Total Protein 6.3 (6.3-8.2) g/dL Albumin 3.5 (3.5-5.0) g/dL Assessment/Plan (1) Complicated UTI (urinary tract infection) Current Visit: No Status: Acute Code(s): N39.0 - URINARY TRACT INFECTION, SITE NOT SPECIFIED (2) COPD (chronic obstructive pulmonary disease) Current Visit: No Status: Chronic (3) Weakness Current Visit: Yes Status: Chronic Code(s): R53.1 - WEAKNESS (4) Hypokalemia Current Visit: Yes Status: Acute Code(s): E87.6 - HYPOKALEMIA (5) Hypertension Current Visit: No Status: Chronic Code(s): I10 - ESSENTIAL (PRIMARY) HYPERTENSION (6) Iron deficiency anemia Current Visit: Yes Status: Chronic Code(s): D50.9 - IRON DEFICIENCY ANEMIA, UNSPECIFIED (7) BPH (benign prostatic hyperplasia) Current Visit: No Status: Chronic Code(s): N40.0 - BENIGN PROSTATIC HYPERPLASIA WITHOUT LOWER URINRY TRACT SYMP (8) CHF (congestive heart failure) Current Visit: No Status: Chronic Code(s): I50.9 - HEART FAILURE, UNSPECIFIED (9) Depression with anxiety Current Visit: Yes Status: Chronic Code(s): F41.8 - OTHER SPECIFIED ANXIETY DISORDERS (10) Hypothyroidism Current Visit: Yes Status: Chronic Code(s): E03.9 - HYPOTHYROIDISM, UNSPECIFIED (11) Type 2 diabetes mellitus Current Visit: No Status: Chronic Qualifiers: Diabetes mellitus long goods drier insulin use: without long goods drier use Diabetes mellitus complication status: with circulatory complication (12) Obesity (BMI 30.0-34.9) Current Visit: Yes Status: Chronic Assessment & Plan: (1) Complicated UTI (urinary tract infection) Current Visit: No Status: Acute Assessment & Plan: -Norton changed in ER- has chronic norton -Positive UA -Urine culture pending -Antibiotics started Rocephin 1gm IV -Fever 99.3 11/30 - UC negative - IV antibiotic stopped - No fever since admission Code(s): N39.0 - URINARY TRACT INFECTION, SITE NOT SPECIFIED (2) COPD (chronic obstructive pulmonary disease) Current Visit: No Status: Chronic Assessment & Plan: -CXR negative -DuoNeb treatments given in ED -On 2L baseline oxygen, O2 97% -Azithromycin and Rocephin started in the ED 11/30 - On Baseline O2 of 2lNC - Antibiotics stopped- lungs clear, denies SOB - WBC, eosinophils -WNL (3) Weakness Current Visit: Yes Status: Chronic Assessment & Plan: -PT eval and treat - at baseline per PT Code(s): R53.1 - WEAKNESS (4) Hypokalemia Current Visit: Yes Status: Acute Assessment & Plan: -K 2.6 -In ER gave PO and IV potassium replacement -We will recheck 2 hours after IV replacement - repeat 3.4 -Tele monitor 11/30 - K+ 3.3- replaced- trend - Will continue daily K replacement at d/c 12/01 - K+ 3.1- replaced -trend - Stopped lasix and chlorthalidone Code(s): E87.6 - HYPOKALEMIA (5) Hypertension Current Visit: No Status: Chronic Assessment & Plan: - Controlled- monitor - Continue home medications 12/01 - Monitor BP as amlodipine reduced, Chlorthalidone and lasix stopped today. - will need lasix restarted tomorrow - Consider changing BP meds that do not affect K+ Code(s): I10 - ESSENTIAL (PRIMARY) HYPERTENSION (6) Iron deficiency anemia Current Visit: Yes Status: Chronic Assessment & Plan: - Resume ferrous sulfate - Hbg 10.1, Trend 11/30 - Hgb 9.9- stable 12/01 - Hgb 10.1 Code(s): D50.9 - IRON DEFICIENCY ANEMIA, UNSPECIFIED (7) BPH (benign prostatic hyperplasia) Current Visit: No Status: Chronic Assessment & Plan: -Continue Flomax Code(s): N40.0 - BENIGN PROSTATIC HYPERPLASIA WITHOUT LOWER URINRY TRACT SYMP (8) CHF (congestive heart failure) Current Visit: No Status: Chronic Assessment & Plan: -Continue home meds -BNP 452 not in current exacerbation -Low sodium diet Code(s): I50.9 - HEART FAILURE, UNSPECIFIED (9) Depression with anxiety Current Visit: Yes Status: Chronic Assessment & Plan: -Continue sertraline Code(s): F41.8 - OTHER SPECIFIED ANXIETY DISORDERS (10) Hypothyroidism Current Visit: Yes Status: Chronic Assessment & Plan: -Continue Synthroid - TSH - 0.952- controlled Code(s): E03.9 - HYPOTHYROIDISM, UNSPECIFIED (11) Type 2 diabetes mellitus Current Visit: No Status: Chronic Assessment & Plan: -Continue Metformin -11/21/23- HbgA1c 5.64 (Controlled) -2200 Carb diet (12) Obesity (BMI 30.0-34.9) Current Visit: Yes Status: Chronic Assessment & Plan: -BMI 33.8kg -Advised ADA diet and exercise Code(s): E66.811 - OBESITY, CLASS 1 -VTE: Lovonex -Code Status: SCO/ DNR -Next of Kin: Marlin Vasquez Daughter [phone] -D/C Plan:1-2 days Code(s): E66.811 - OBESITY, CLASS 1
[2023-12-02] MEDS: NORVASC 5 MG PO SCH (09:54)
[2023-12-03 04:34] LABS: Hematocrit 32.9 % (40.1-51.0); Hemoglobin 10.4 g/dL (13.7-17.5); Mean Cell Volume 81.8 fL (79.0-92.2); Mean Corpuscular Hemoglobin 25.9 pg (25.7-32.2); Mean Corpuscular Hgb Concent. 31.6 g/dL (32.3-36.5); Mean Platelet Volume 9.1 fL (9.4-12.4); Platelet Count 228 x10^3/uL (163-337); Red Blood Count 4.02 x10^6/uL (4.63-6.08); Red Cell Distribution Width 15.1 % (11.6-14.4)
[2023-12-03 04:59] LABS: ALBUMIN 3.6 g/dL (3.5-5.0); ANION GAP 12.9 MEQ/L (5-15); BILIRUBIN,TOTAL 0.4 mg/dL (0.2-1.3); Calcium 8.8 mg/dL (8.4-10.2); Creatinine 1 0.99 mg/dL (0.66-1.25); EST GLOMERULAR FILTRATION RATE 78.5 ML/MIN; Potassium 3.3 mmol/L (3.5-5.1); Total Protein 6.4 g/dL (6.3-8.2)
[2023-12-03] MEDS: Klor Con PO ONE (05:16)
--- NOTE | 2023-12-03 05:45 | PCM.NOTE ---
Date and Time: 12/03/23 0539 Subjective Assessment: HPI: Mr. Partida is a 78 year old male poor historian with a pmhx of multiple medical problems including dementia, hypertension, hyperlipidemia, congestive heart failure, hypothyroidism, diabetes mellitus, and COPD with chronic respiratory failure on 2 L oxygen admitted 11/30/23 with UTI, COPD exacerbation, and hypokalemia. CXR with no acute findings. IP treatment initially with rocephin, azithromycin, and potassium replacement. Urine culture with no growth, CXR with no acute findings, patient dyspnea improved with clear lungs. Antibiotic discontinued 12/01/23. Due to persistant hypokalemia, lasix and chlorthalidone held on 12/02/23. Amlodipine decreased to 5mg due to edema history. Plan to resume lasix, resume daily dose of 40 meq of potassium. Objective Data Vital Signs: Vital Signs - 24 hr Temp Pulse Resp BP Pulse Ox 12/03/23 03:56 17 12/03/23 03:51 98.2 F 87 17 124/58 93 L 12/03/23 00:00 18 12/02/23 23:54 97.8 F 75 18 121/58 95 12/02/23 20:00 98.4 F 77 18 133/61 95 12/02/23 19:35 77 18 93 L 12/02/23 19:15 18 12/02/23 16:09 89 12/02/23 16:00 18 12/02/23 15:58 97.8 F 44 L 16 128/58 95 12/02/23 12:00 18 12/02/23 11:53 97.7 F 63 16 157/65 92 L 12/02/23 08:00 18 12/02/23 07:55 91 H 18 94 L 12/02/23 07:40 97.8 F 92 H 16 129/58 94 L Pain Assessment - Last Documented Pain Intensity 0 Pain Scale Used 0-10 Pain Scale Intake and Output: Intake & Output 11/30/23 12/01/23 12/02/23 12/03/23 11:59 11:59 11:59 11:59 Intake Total 1568 2510 1890 Output Total 200 2400 3650 1775 Balance -200 -572 1140 115 Weight 107 kg 96.4 kg 97.8 kg Lab Results: Lab Results-Last 24 Hours 12/02/23 12/02/23 12/02/23 Range/Units 05:26 05:26 05:30 WBC 7.4 (4.23-9.07) x10^3/uL RBC 3.87 L (4.63-6.08) x10^6/uL Hgb 10.1 L (13.7-17.5) g/dL Hct 31.4 L (40.1-51.0) % MCV 81.1 (79.0-92.2) fL MCH 26.1 (25.7-32.2) pg MCHC 32.2 L (32.3-36.5) g/dL RDW 15.1 H (11.6-14.4) % Plt Count 213 (163-337) x10^3/uL MPV 9.0 L (9.4-12.4) fL Sodium 140 (135-145) mmol/L Potassium 3.1 L (3.5-5.1) mmol/L Chloride 100 (98-107) mmol/L Carbon Dioxide 32 H (22-30) mmol/L Anion Gap 11.0 (5-15) MEQ/L BUN 24 H (9-20) mg/dL Creatinine 0.89 (0.66-1.25) mg/dL Estimated GFR 88.3 ML/MIN Glucose 125 H (74-106) mg/dL Calcium 8.7 (8.4-10.2) mg/dL Magnesium 1.7 (1.6-2.3) mg/dL Total Bilirubin 0.50 (0.2-1.3) mg/dL AST 18 (17-59) U/L ALT 14 (0-50) U/L Alkaline Phosphatase 72 (38-126) U/L Serum Total Protein 6.3 (6.3-8.2) g/dL Albumin 3.5 (3.5-5.0) g/dL 12/02/23 12/03/23 12/03/23 Range/Units 13:55 04:10 04:10 WBC 7.0 (4.23-9.07) x10^3/uL RBC 4.02 L (4.63-6.08) x10^6/uL Hgb 10.4 L (13.7-17.5) g/dL Hct 32.9 L (40.1-51.0) % MCV 81.8 (79.0-92.2) fL MCH 25.9 (25.7-32.2) pg MCHC 31.6 L (32.3-36.5) g/dL RDW 15.1 H (11.6-14.4) % Plt Count 228 (163-337) x10^3/uL MPV 9.1 L (9.4-12.4) fL Sodium 141 (135-145) mmol/L Potassium 4.1 D 3.3 L (3.5-5.1) mmol/L Chloride 100 (98-107) mmol/L Carbon Dioxide 31 H (22-30) mmol/L Anion Gap 12.9 (5-15) MEQ/L BUN 26 H (9-20) mg/dL Creatinine 0.99 (0.66-1.25) mg/dL Estimated GFR 78.5 ML/MIN Glucose 127 H (74-106) mg/dL Calcium 8.8 (8.4-10.2) mg/dL Magnesium (1.6-2.3) mg/dL Total Bilirubin 0.40 (0.2-1.3) mg/dL AST 19 (17-59) U/L ALT 18 (0-50) U/L Alkaline Phosphatase 75 (38-126) U/L Serum Total Protein 6.4 (6.3-8.2) g/dL Albumin 3.6 (3.5-5.0) g/dL Assessment/Plan (1) Hypokalemia Current Visit: Yes Status: Acute Assessment & Plan: -at 3.3 today - replenished with 40meq po x 1 - will recheck this morning -Tele monitor - Will continue daily K replacement of 40meq daily at d/c - Stopped lasix and chlorthalidone Code(s): E87.6 - HYPOKALEMIA (2) Complicated UTI (urinary tract infection) Current Visit: No Status: Acute Assessment & Plan: -Norton changed in ER- has chronic norton -Urine culture with no growth -Antimicrobial history - Rocephin 1gm- discontinued 11/30- Code(s): N39.0 - URINARY TRACT INFECTION, SITE NOT SPECIFIED (3) Depression with anxiety Current Visit: Yes Status: Chronic Assessment & Plan: -Continue sertraline Code(s): F41.8 - OTHER SPECIFIED ANXIETY DISORDERS (4) Hypothyroidism Current Visit: Yes Status: Chronic Assessment & Plan: -Continue Synthroid - TSH - 0.952- controlled Code(s): E03.9 - HYPOTHYROIDISM, UNSPECIFIED (5) Iron deficiency anemia Current Visit: Yes Status: Chronic Assessment & Plan: -continue ferrous sulfate -hgb stable at 10.4 Code(s): D50.9 - IRON DEFICIENCY ANEMIA, UNSPECIFIED (6) Obesity (BMI 30.0-34.9) Current Visit: Yes Status: Chronic Assessment & Plan: -BMI 33.8kg -Advised ADA diet and exercise Code(s): E66.811 - OBESITY, CLASS 1 (7) Weakness Current Visit: Yes Status: Chronic Assessment & Plan: -PT eval and treat - at baseline per PT Code(s): R53.1 - WEAKNESS (8) BPH (benign prostatic hyperplasia) Current Visit: No Status: Chronic Assessment & Plan: -Continue Flomax Code(s): N40.0 - BENIGN PROSTATIC HYPERPLASIA WITHOUT LOWER URINRY TRACT SYMP (9) CHF (congestive heart failure) Current Visit: No Status: Chronic Assessment & Plan: -Continue home meds -not in current exacerbation -Low sodium diet Code(s): I50.9 - HEART FAILURE, UNSPECIFIED (10) Hypertension Current Visit: No Status: Chronic Assessment & Plan: - Monitor BP as amlodipine reduced, Chlorthalidone and lasix stopped - lasix restarted Code(s): I10 - ESSENTIAL (PRIMARY) HYPERTENSION (11) Type 2 diabetes mellitus Current Visit: No Status: Chronic Qualifiers: Diabetes mellitus long term care pharmacist insulin use: without senior care use Diabetes mellitus complication status: with circulatory complication Assessment & Plan: -Continue Metformin -11/21/23- HbgA1c 5.64 (Controlled) -2200 Carb diet -VTE: Lovonex -Code Status: SCO/ DNR -Next of Kin: Marlin Vasquez Daughter [phone] -D/C Plan:1-2 days
--- NOTE | 2023-12-03 09:10 | PCM.DS ---
Discharge Summary Date of Admission: 11/30/23 13:28 Date of Discharge: 12/03/23 Admitting Physician: LOUIE ARREAGA MD Primary Care Provider: [facility] Allergies Allergies codeine Allergy (Mild, Verified 09/07/23 15:03) Headache morphine Allergy (Mild, Verified 09/07/23 15:03) Hospital Summary - Hospital Course Hospital Course: HPI: Mr. Partida is a 78 year old male poor historian with a pmhx of multiple medical problems including dementia, hypertension, hyperlipidemia, congestive heart failure, hypothyroidism, diabetes mellitus, and COPD with chronic respiratory failure on 2 L oxygen admitted 11/30/23 with UTI, COPD exacerbation, and hypokalemia. CXR with no acute findings. IP treatment initially with rocephin, azithromycin, and potassium replacement. Urine culture with no growth, CXR with no acute findings, patient dyspnea improved with clear lungs. Antibiotic discontinued 12/01/23. Due to persistant hypokalemia, lasix and chlorthalidone held on 12/02/23. Amlodipine decreased to 5mg due to edema history. Hypokalemia resolved. Plan to resume lasix, resume daily dose of 40 meq of potassium. Can discharge to [place]. Will need CMP tomorrow for recheck of potassium. Discharge Note New Diagnosis: Hypokalemia/weakness/UTI/COPD exacerbation New Medications: Hold chlorthalidone/amlodipine decreased to 5mg. Follow Up: PCP Latest Assessment & Plan (1) Hypokalemia Current Visit: Yes Status: Acute Assessment & Plan: -at 3.3 today - replenished with 40meq po x 1 - recheck with potassium at 3.7 - Will continue daily K replacement of 40meq daily at d/c - Stopped lasix and chlorthalidone -resume lasix Code(s): E87.6 - HYPOKALEMIA (2) Complicated UTI (urinary tract infection) Current Visit: No Status: Acute Assessment & Plan: -Norton changed in ER- has chronic norton -Urine culture with no growth -Antimicrobial history - Rocephin 1gm- discontinued 11/30- Code(s): N39.0 - URINARY TRACT INFECTION, SITE NOT SPECIFIED (3) Depression with anxiety Current Visit: Yes Status: Chronic Assessment & Plan: -Continue sertraline Code(s): F41.8 - OTHER SPECIFIED ANXIETY DISORDERS (4) Hypothyroidism Current Visit: Yes Status: Chronic Assessment & Plan: -Continue Synthroid - TSH - 0.952- controlled Code(s): E03.9 - HYPOTHYROIDISM, UNSPECIFIED (5) Iron deficiency anemia Current Visit: Yes Status: Chronic Assessment & Plan: -continue ferrous sulfate -hgb stable at 10.4 Code(s): D50.9 - IRON DEFICIENCY ANEMIA, UNSPECIFIED (6) Obesity (BMI 30.0-34.9) Current Visit: Yes Status: Chronic Assessment & Plan: -BMI 33.8kg -Advised ADA diet and exercise Code(s): E66.811 - OBESITY, CLASS 1 (7) Weakness Current Visit: Yes Status: Chronic Assessment & Plan: -PT eval and treat - at baseline per PT Code(s): R53.1 - WEAKNESS (8) BPH (benign prostatic hyperplasia) Current Visit: No Status: Chronic Assessment & Plan: -Continue Flomax Code(s): N40.0 - BENIGN PROSTATIC HYPERPLASIA WITHOUT LOWER URINRY TRACT SYMP (9) CHF (congestive heart failure) Current Visit: No Status: Chronic Assessment & Plan: -Continue home meds -not in current exacerbation -Low sodium diet Code(s): I50.9 - HEART FAILURE, UNSPECIFIED (10) Hypertension Current Visit: No Status: Chronic Assessment & Plan: - Monitor BP as amlodipine reduced, Chlorthalidone and lasix stopped - lasix restarted Code(s): I10 - ESSENTIAL (PRIMARY) HYPERTENSION (11) Type 2 diabetes mellitus Current Visit: No Status: Chronic Qualifiers: Diabetes mellitus senior care insulin use: without senior care use Diabetes mellitus complication status: with circulatory complication Assessment & Plan: -Continue Metformin -11/21/23- HbgA1c 5.64 (Controlled) -2200 Carb diet I spent 35 minutes [id number] with the patient on the day of discharge performing discharge exam, discussing hospital stay and discharge instructions with patient and caregivers, preparation of discharge records, prescriptions & referral forms and addressing any questions/concerns the patient had as documented above. - Vitals & Intake/Output Vital Signs: Vital Signs Temperature 97.8 F 12/03/23 07:42 Pulse Rate 86 12/03/23 07:55 Respiratory Rate 16 12/03/23 08:00 Blood Pressure 139/77 12/03/23 07:42 O2 Sat by Pulse Oximetry 93 L 12/03/23 07:55 Intake & Output: Intake & Output 11/30/23 12/01/23 12/02/23 12/03/23 11:59 11:59 11:59 11:59 Intake Total 1568 2510 1890 Output Total 200 2400 3650 1775 Balance -200 -832 -1140 115 Weight 107 kg 96.4 kg 97.8 kg 96 kg - Lab Result Diagrams: 12/03/23 04:10 12/03/23 07:50 Lab Results-Last 24 Hrs: Lab Results-Last 24 Hours 12/02/23 12/03/23 12/03/23 Range/Units 13:55 04:10 04:10 WBC 7.0 (4.23-9.07) x10^3/uL RBC 4.02 L (4.63-6.08) x10^6/uL Hgb 10.4 L (13.7-17.5) g/dL Hct 32.9 L (40.1-51.0) % MCV 81.8 (79.0-92.2) fL MCH 25.9 (25.7-32.2) pg MCHC 31.6 L (32.3-36.5) g/dL RDW 15.1 H (11.6-14.4) % Plt Count 228 (163-337) x10^3/uL MPV 9.1 L (9.4-12.4) fL Sodium 141 (135-145) mmol/L Potassium 4.1 D 3.3 L (3.5-5.1) mmol/L Chloride 100 (98-107) mmol/L Carbon Dioxide 31 H (22-30) mmol/L Anion Gap 12.9 (5-15) MEQ/L BUN 26 H (9-20) mg/dL Creatinine 0.99 (0.66-1.25) mg/dL Estimated GFR 78.5 ML/MIN Glucose 127 H (74-106) mg/dL Calcium 8.8 (8.4-10.2) mg/dL Magnesium (1.6-2.3) mg/dL Total Bilirubin 0.40 (0.2-1.3) mg/dL AST 19 (17-59) U/L ALT 18 (0-50) U/L Alkaline Phosphatase 75 (38-126) U/L Serum Total Protein 6.4 (6.3-8.2) g/dL Albumin 3.6 (3.5-5.0) g/dL 12/03/23 12/03/23 Range/Units 05:15 07:50 WBC (4.23-9.07) x10^3/uL RBC (4.63-6.08) x10^6/uL Hgb (13.7-17.5) g/dL Hct (40.1-51.0) % MCV (79.0-92.2) fL MCH (25.7-32.2) pg MCHC (32.3-36.5) g/dL RDW (11.6-14.4) % Plt Count (163-337) x10^3/uL MPV (9.4-12.4) fL Sodium (135-145) mmol/L Potassium 3.7 (3.5-5.1) mmol/L Chloride (98-107) mmol/L Carbon Dioxide (22-30) mmol/L Anion Gap (5-15) MEQ/L BUN (9-20) mg/dL Creatinine (0.66-1.25) mg/dL Estimated GFR ML/MIN Glucose (74-106) mg/dL Calcium (8.4-10.2) mg/dL Magnesium 1.8 (1.6-2.3) mg/dL Total Bilirubin (0.2-1.3) mg/dL AST (17-59) U/L ALT (0-50) U/L Alkaline Phosphatase (38-126) U/L Serum Total Protein (6.3-8.2) g/dL Albumin (3.5-5.0) g/dL Micro Results-Entire Visit: Microbiology 11/30/23 14:43 Urine Culture - Final Catherized NO GROWTH 11/30/23 06:59 Blood Culture - Preliminary Blood 11/30/23 06:49 Blood Culture - Preliminary Blood - Procedures and Test Procedures and Tests throughout Hospitalization: Therapy Orders & Screens 11/30/23 06:52 Respiratory Therapy Assessment DAILY Comment: 11/30/23 13:36 EKG REPEAT IN AM Comment: Respiratory Therapy Consult ONCE Comment: Reason For Exam: 11/30/23 15:07 Oxygen NASAL CANNULA 2 lpm Comment: Diagnosis: Hypokalemia, UTI 11/30/23 17:25 OT Screen per Nursing Assess ONCE Comment: Protocol Order Physician Instructions: Greater than 3 points order OT Admission Screening Reason For Exam: Triggered on Admission Diagnosis: Hypokalemia, UTI Open Wound/Cellutlitis/Pressure Ulcers: No Acute Fx/ORIF/Change in wt bearing status: No Severe MUSCULOSKELETAL pain: No ADL Dysfunction: Yes Acute CVA w/Hemiparesis/Hemiplegia: No Decreased Functional Mobility/Strength: Yes Sprain/Strain: No Acute Post-op Mobility Dysfunction: No Total Points: 4 PT Screen per Nursing Assess ONCE Comment: Protocol Order Physician Instructions: Greater than 3 points order PT Admission Screenin Reason For Exam: Triggered on Admission Diagnosis: Hypokalemia, UTI Open Wound/Cellutlitis/Pressure Ulcers: No Acute Fx/ORIF/Change in wt bearing status: No Severe MUSCULOSKELETAL pain: No ADL Dysfunction: Yes Acute CVA w/Hemiparesis/Hemiplegia: No Decreased Functional Mobility/Strength: Yes Sprain/Strain: No Acute Post-op Mobility Dysfunction: No Total Points: 4 RT Screen per Nursing Assess ONCE Comment: Protocol Order Physician Instructions: Greater than 3 points order RT Admission Screen Reason For Exam: Triggered on Admission Diagnosis: Hypokalemia, UTI Diagnosis: Hypokalemia, UTI Pneumonia: No Home O2: Yes Asthma: No CHF: Yes Home CPAP/BIPAP: Yes Home Nebs/MDI: Yes Total Points: 18 ST Screen per Nursing Assess ONCE Comment: Protocol Order Physician Instructions: Greater than [address] Admission Screening Reason For Exam: Triggered on Admission Diagnosis: Hypokalemia, UTI CVA/Dyshpagia/Aphasia: Yes: [facility] SOFT DIET Cognitive Deficits: Yes: DEMENTIA Dehydration/Nutrition Deficit: No Reflux: No Oral-Motor Difficulties: No Pneumonia: No Custodial Resident: Yes Total Points: 13 11/30/23 21:00 BiPap/CPAP ROUTINE Comment: PER HOME USE/SETTINGS Diagnosis: Hypokalemia, UTI Discharge Exam General Appearance: no apparent distress Neurologic Exam: alert, oriented x 3, cooperative Eye Exam: PERRL Ears, Nose, Throat Exam: normal ENT inspection Neck Exam: normal inspection Respiratory Exam: normal breath sounds, lungs clear Cardiovascular Exam: regular rate/rhythm, normal heart sounds Gastrointestinal/Abdomen Exam: soft, normal bowel sounds Male Genitalia Exam: deferred Rectal Exam: deferred Back Exam: normal inspection Extremity Exam: normal inspection Skin Exam: normal color Final Diagnosis/Problem List - Final Discharge Diagnosis/Problem (1) Hypokalemia Current Visit: Yes Status: Resolved Code(s): E87.6 - HYPOKALEMIA (2) Complicated UTI (urinary tract infection) Current Visit: No Status: Ruled-out Code(s): N39.0 - URINARY TRACT INFECTION, SITE NOT SPECIFIED (3) Depression with anxiety Current Visit: Yes Status: Chronic Code(s): F41.8 - OTHER SPECIFIED ANXIETY DISORDERS (4) Hypothyroidism Current Visit: Yes Status: Chronic Code(s): E03.9 - HYPOTHYROIDISM, UNS PECIFIED (5) Iron deficiency anemia Current Visit: Yes Status: Chronic Code(s): D50.9 - IRON DEFICIENCY ANEMIA, UNSPECIFIED (6) Obesity (BMI 30.0-34.9) Current Visit: Yes Status: Chronic Code(s): E66.811 - OBESITY, CLASS 1 (7) Weakness Current Visit: Yes Status: Chronic Code(s): R53.1 - WEAKNESS (8) BPH (benign prostatic hyperplasia) Current Visit: No Status: Chronic Code(s): N40.0 - BENIGN PROSTATIC HYPERPLASIA WITHOUT LOWER URINRY TRACT SYMP (9) CHF (congestive heart failure) Current Visit: No Status: Chronic Code(s): I50.9 - HEART FAILURE, UNSPECIFIED (10) Hypertension Current Visit: No Status: Chronic Code(s): I10 - ESSENTIAL (PRIMARY) HYPERTENSION (11) Type 2 diabetes mellitus Current Visit: No Status: Chronic - Discharge Disposition: DC TO ANY "OTHER" JAIL Condition: Stable Prescriptions: New Amlodipine Besylate 5 mg [Norvasc 5 mg] 5 mg PO DAILY tablet Continue Metformin HCl 850 mg [Glucophage 850 MG] 850 mg PO BID Tamsulosin HCl 0.4 mg [Flomax 0.4 MG] 0.4 mg PO DAILY cap Potassium Chloride 40 meq PO DAILY 30 Days #30 tablet Sennosides 17.2 mg PO DAILY Levothyroxine Sodium 100 Mcg [Synthroid 100 Mcg] 200 mcg PO DAILY Furosemide 40 mg [Lasix 40 MG] 40 mg PO DAILY Ferrous Sulfate 325 mg [Feosol 325 mg] 325 mg PO DAILY 30 Days #30 tablet Glucagon 1 mg [GlucaGen 1 MG] 1 mg SQ UD Albuterol Sulfate/Budesonide [Airsupra 90-80 Mcg Inhaler] 2 puff IH Q4HPRN PRN PRN Reason: Shortness Of Breath Melatonin 10 mg PO QHS Sertraline HCl 50 mg [Zoloft 50 mg Tablet] 100 mg PO DAILY Phenyleph/Pramoxin/Glycr/W.pet [Preparation H Cream] 1 applic TOP Q6H PRN PRN PRN Reason: Pain Meclizine HCl 25 mg [Antivert 25 mg] 25 mg PO DAILY Carbamide Peroxide [Ear Drops] 5 drops OT BID Dextran 70/Hypromellose [Artificial Tears] 1 drop OP Q4H PRN PRN PRN Reason: Redness/Irritation Acetaminophen 325 mg [Tylenol 325 mg] 650 mg PO Q4HPRN PRN PRN Reason: Pain And/Or Fever Fluticasone/Salmeterol 230/21 [Advair Hfa 230/21 Mcg COMMON CANISTER*] 1 puff IH BIDRT Loperamide HCl 2 mg [Imodium 2 mg] 2 mg PO Q4HPRN PRN PRN Reason: Diarrhea Discontinued Amlodipine Besylate [Norvasc] 10 mg PO DAILY Chlorthalidone 25 mg PO DAILY Additional Instructions: Resume previous [facility] Orders See attached Medication List Additional [facility] Orders -CMP lab draw 12/04/23 Follow up with: ARACELI,ENVIVE [Primary Care Provider] -
[2023-12-03 12:21] VITALS: BP 135/62; PULSE 73; RESP 20; TEMP 97.3; O2SAT 94
== END 2023-12-03 14:43 | DRG 641 ==
LOC: ED 04:57 → MED SURG 13:28
PROVIDERS: ADMIT Internal Medicine; ATTEND Internal Medicine
DX: E87.6 Hypokalemia (principal); N39.0 Urinary tract infection, site not specified; F41.8 Other specified anxiety disorders; F41.9 Anxiety disorder, unspecified; E03.9 Hypothyroidism, unspecified; D50.9 Iron deficiency anemia, unspecified; E66.811 Obesity, class 1; R53.1 Weakness; N40.0 Benign prostatic hyperplasia without lower urinary tract symptoms; I11.0 Hypertensive heart disease with heart failure; I50.9 Heart failure, unspecified; E11.9 Type 2 diabetes mellitus without complications; R50.9 Fever, unspecified; F03.90 Unspecified dementia, unspecified severity, without behavioral disturbance, psychotic disturbance, mood disturbance, and anxiety; E78.5 Hyperlipidemia, unspecified; Z99.81 Dependence on supplemental oxygen; Z79.899 Other long term (current) drug therapy; Z85.850 Personal history of malignant neoplasm of thyroid
CPT/HCPCS: 0241U; 36000; 36415; 51702; 71045; 80053; 81001; 82947; 83735; 83880; 84132; 84134; 84443; 84484; 85025; 85027; 87040; 87086; 93005; 93041; 94002; 94640; 94660; 94760; 96365; 96366; 96368; 99291; Q3014; 99285; J0456; J0696; J1650; J3480; A9270-GY

== ENCOUNTER 2024-12-06 22:19 | Emergency (ER) | payer MEDICARE, OTHER ==
--- NOTE | 2024-12-06 22:41 | ERPHSYRPT ---
- History of Present Illness Time Seen by Provider: 12/06/24 22:34 Source: patient, EMS Exam Limitations: no limitations Physician History: Pt had onset of his recurring catheter concern where he develops abd pain in bladder area and changing his catheter relieves this presumably from ctheter blockage adn urinary bladder distension. However when they went to change it at the senior care they could get it back in so EMS brought him here to ER. This was replaced by RN in ER here and pt symptoms are now resolving as usual. Discussed with pt and caregivers the risks and benefits of cath replacement /Tx including UA and they wish to proceed so these are ordered. Results discussed with pt and available family Abd soft nontender without peritoneal signs or masses. Pt and family were advised of the limitations of the testing and Tx performed today in this setting and that we have not yet determined a precise cause for their symptoms and there still could be additional pathology of a serious nature evolving undetected. They voice their understanding and wish to choose outpatient f/u and return to [facility], rather than further testing in ER or admission to hospital or transfer at this time and they have the capacity to make this choice. Timing/Duration: today Activites at Onset: none Quality: sharpness Onset Location: suprapubic Pain Radiation: none Severity of Pain-Max: moderate Severity of Pain-Current: none Modifying Factors: Improves With: nothing Associated Symptoms: denies symptoms Prior abdominal problems: similar symptoms Sexual intercourse history: non-contributory Allergies/Adverse Reactions: codeine Allergy (Mild, Verified 12/06/24 22:42) Headache morphine Allergy (Mild, Verified 12/06/24 22:42) Home Medications: Acetaminophen [Acetaminophen ER] 650 mg PO BIDPRN PRN 12/06/24 [History] Albuterol Sulfate/Budesonide [Airsupra 90-80 Mcg Inhaler] 2 puff IH Q4HPRN PRN 12/06/24 [History] Amlodipine Besylate 5 mg [Norvasc 5 mg] 5 mg PO DAILY 12/06/24 [History] Bisacodyl 10 mg [Dulcolax 10 MG SUPP] 1 each AR DAILY PRN PRN 12/06/24 [History] Dextran 70/Hypromellose [Artificial Tears] 1 drop OP Q4HPRN PRN 12/06/24 [History] Ferrous Sulfate 325 mg [Feosol 325 mg] 325 mg PO DAILY 12/06/24 [History] Fluticasone/Salmeterol 230/21* [Advair Hfa 230/21 Mcg MDI] 1 puff IH BID 12/06/24 [History] Furosemide 40 mg [Lasix 40 MG] 40 mg PO BID 12/06/24 [History] Guaifenesin 100 mg/5 ml [Robitussin 100 MG/5 ML] 10 ml PO Q4HPRN PRN 12/06/24 [History] Hydrocodone/Acetaminophen [Hydrocodone-Acetamin 5-325 mg] 1 each PO Q12H 12/06/24 [History] Hydrocortisone [Preparation H] 1 each TOP Q6HPRN PRN 12/06/24 [History] Insulin Glargine,Hum.rec.anlog [Lantus] 15 units SQ HS 12/06/24 [History] Levothyroxine Sodium 100 Mcg [Synthroid 100 Mcg] 200 mcg PO DAILY 12/06/24 [History] Loperamide HCl [Imodium A-D] 2 mg PO Q4HPRN PRN 12/06/24 [History] Magnesium Hydroxide 30 ml [Milk of Magnesia 30 ml] 30 ml PO UD 12/06/24 [History] Meclizine HCl 25 mg [Antivert 25 mg] 25 mg PO DAILY 12/06/24 [History] Melatonin 10 mg PO HS 12/06/24 [History] Multivitamin 1 each PO DAILY 12/06/24 [History] Ondansetron ODT 4 MG [Zofran Odt 4 mg] 4 mg PO Q6HPRN PRN 12/06/24 [History] Pantoprazole 20 mg [Protonix 20MG Tablet] 20 mg PO DAILY 12/06/24 [History] Pen Needle, Diabetic [Novofine Plus] 1 each SQ HS 12/06/24 [History] Potassium Chloride Tab* [Klor Con] 40 meq PO DAILY 12/06/24 [History] Pyrithione Zinc [Dandruff Shampoo] 1 each TOP UD 12/06/24 [History] Sennosides [Senna] 8.6 mg PO DAILY 12/06/24 [History] Sertraline HCl 50 mg [Zoloft 50 mg Tablet] 125 mg PO HS 12/06/24 [History] Tamsulosin HCl 0.4 mg PO DAILY 12/06/24 [History] glucagon HCL [Glucagon Emergency Kit] 1 mg SQ UD 12/06/24 [History] Hx Tetanus, Diphtheria Vaccination/Date Given: No (UNSURE) Hx Influenza Vaccination/Date Given: No (UNSURE) Hx Pneumococcal Vaccination/Date Given: No (UNSURE) Travel Risk - Emerging Infectious Disease Are you exhibiting symptoms associated with any current EIDs: Yes Symptoms: Fever, Shortness of Breath - Past Medical History Pertinent Past Medical History: Yes Neurological History: Dementia ENT History: No Pertinent History Cardiac History: Congestive Heart Failure, High Cholesterol, Hypertension Respiratory History: CHF, COPD Endocrine Medical History: Diabetes Type II, Hypothyroidism, Thyroid Cancer Musculoskeletal History: No Pertinent History GI Medical History: No Pertinent History History: Other Psycho-Social History: Anxiety, Depression Male Reproductive Disorders: No Pertinent History Other Medical History: 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 , PT UNSURE OF CURRENTS MEDICAL HX, PULLED FROM PAST ADMISSION - Past Surgical History Past Surgical History: Yes Neuro Surgical History: No Pertinent History Cardiac: No Pertinent History Respiratory: No Pertinent History Gastrointestinal: No Pertinent History Genitourinary: No Pertinent History Musculoskeletal: Orthopedic Surgery Male Surgical History: No Pertinent History Other Surgical History: thyroid cancer- thyroidectomy. PULLED FROM PAST ADMISSION HISTORY. 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 spurr removal. left knee Significant Family History: no pertinent family hx - Social History Smoking Status: Former smoker - Social Determinants of Health Will the patient participate in the screening: Yes Do you worry about a steady place to live?: No In the past 12 months,have you had to go without utilities?: No Transportation Issues: No Has anyone in your support network made you feel unsafe?: No Have you or anyone in your house had to go w/o enough food: No - Review of Systems Constitutional: No Fever, No Chills Eyes: No Symptoms Ears, Nose, & Throat: No Symptoms Respiratory: No Cough, No Dyspnea Cardiac: No Chest Pain, No Edema, No Syncope Abdominal/Gastrointestinal: No Abdominal Pain, No Nausea, No Vomiting, No Diarrhea Genitourinary Symptoms: Urinary Retention, No Dysuria Musculoskeletal: No Back Pain, No Neck Pain Skin: No Rash Neurological: No Dizziness, No Focal Weakness, No Sensory Changes Psychological: No Symptoms Endocrine: No Symptoms Hematologic/Lymphatic: No Symptoms Immunological/Allergic: No Symptoms All Other Systems: Reviewed and Negative - Nursing Vital Signs Nursing Vital Signs: Initial Vital Signs Pulse Rate 71 12/06/24 22:21 Respiratory Rate 20 12/06/24 22:21 Blood Pressure 133/75 12/06/24 22:21 O2 Sat by Pulse Oximetry 96 12/06/24 22:21 Pain Scale Pain Intensity 0 - Physical Exam General Appearance: no apparent distress, alert Eye Exam: PERRL/EOMI Ears, Nose, Throat Exam: pharynx normal, moist mucous membranes Neck Exam: normal inspection, supple Respiratory Exam: normal breath sounds, lungs clear Cardiovascular Exam: regular rate/rhythm, No edema Gastrointestinal/Abdomen Exam: soft, No tenderness Rectal Exam: deferred Back Exam: normal inspection, No CVA tenderness Extremity Exam: normal inspection, normal range of motion, No pedal edema Neurologic Exam: alert, oriented x 3, cooperative, sensation nml, No motor deficits Skin Exam: normal color, warm, dry, No rash SpO2 Interpretation: normal SpO2: 96 O2 Delivery: Room Air - Course Nursing assessment & vital signs reviewed: Yes Ordered Tests: Active Orders 24 hr Category Date Time Status CULTURE,URINE Stat Lab 12/06/24 22:46 Received UA W/RFX UR CULTURE Stat Lab 12/06/24 22:46 Completed Medication Summary Discontinued Medications Generic Name Dose Route Start Last Admin Trade Name Robbin PRN Reason Stop Dose Admin Levofloxacin 500 mg 12/06/24 23:49 Levofloxacin 500 Mg Tablet PO 12/06/24 23:50 STAT ONE Lab/Rad Data: Laboratory Results 12/06/24 Range/Units 22:46 Urine Color Yellow (Yellow) Urine Appearance Cloudy A (Clear) Urine pH 6.5 (4.6-8.0) Ur Specific [place] 1.015 (1.005-1.030) Urine Protein 100 A (Negative) Urine Glucose (UA) Negative (Negative) mg/dL Urine Ketones Negative (Negative) Urine Blood Large A (Negative) Urine Nitrite Positive A (Negative) Urine Bilirubin Negative (Negative) Urine Urobilinogen 1.0 A (0.2) mg/dL Ur Leukocyte Esterase Large A (Negative) U Hyaline Cast (Auto) 11-20 (0-2) /LPF Urine Microscopic RBC >100 A (0-5) /HPF Urine Microscopic WBC >100 A (0-5) /HPF Ur Epithelial Cells None Seen (None Seen) /HPF Urine Bacteria Rare A (None Seen) /HPF Urine Culture Reflexed ORDERED SEPARATELY (NO) - Progress Progress: improved, re-examined Progress Note: 12/06/24 23:04 Pt now has complete relief of symptoms and pending his UA to confirm no infection, he is ready to return to his nursing facility. No other reported symptoms and all else is reported as baseline. Counseled pt/family regarding: lab results, diagnosis, need for follow-up Medical Desision Making - Independent Historian Additional History obtained from: EMS - Discussion of managment Reviewed:: Test results, Need for additional workup Agreed on:: Treatment plan, need for follow-up - Diagnostic Testing Diagnostic test were ordered, analyzed, and reviewed by me: Yes - Risk of complications Low Risk: low risk f - Departure Departure Disposition: Extended Care Facility Clinical Impression: Encounter for replacement of urinary catheter, UTI (urinary tract infection) Condition: Good Critical Care Time: No Referrals: SUSANA LOVETT MD [Primary Care Provider, [facility]] - Follow up/PCP as directed Instructions: Urinary Retention (DC), Urinary catheter placement, Urinary tract infection in adults - ED discharge instructions Additional Instructions: We have found a urinary infection and cultures are pending , but we are starting antibiotics meantime although this may need to be changed when those results are available. Return meantime if any further concerns., vomiting, fever, abdominal pain or other. Prescriptions: Levofloxacin [Levofloxacin 500 MG Tablet] 500 mg PO QAM #10 tablet
[2024-12-06 22:59] LABS: Glucose, Urine Negative (Negative); Protein,Urine Dip 100 (Negative); RBC >100 /HPF (0-5); WBC >100 /HPF (0-5)
[2024-12-06] MEDS ORDERED: Levofloxacin 500 MG Tablet ONE (23:56)
[2024-12-06] MEDS: Levofloxacin 500 MG Tablet PO ONE (23:56)
[2024-12-07 00:08] VITALS: RESP 19
[2024-12-07 03:24] VITALS: BP 125/74; PULSE 79; O2SAT 98
== END 2024-12-07 03:32 | disposition home or self-care (01) ==
LOC: ED 22:19
DX: Z46.82 Encounter for fitting and adjustment of non-vascular catheter (principal); N39.0 Urinary tract infection, site not specified; R10.9 Unspecified abdominal pain; Z79.899 Other long term (current) drug therapy